=== PATIENT | male | born 1960 | race Caucasian/White ===

== ENCOUNTER 2024-04-15 09:31 | Inpatient (IN) | payer OTHER, SELFPAY ==
[2024-04-15] VITALS (18 sets, daily range): BP systolic 113–153; BP diastolic 64–90; PULSE 60–89; RESP 16–18; TEMP 36.3–37.1; O2SAT 95–99; BMI 22.6; BMI 21.0
--- NOTE | 2024-04-15 09:34 | RAD_ITS ---
STUDY: X-RAY - LEFT HAND REASON FOR EXAM: Male, 64 years old. Work injury. TECHNIQUE: 4 view(s) of the hand. COMPARISON: None. FINDINGS: There is joint space narrowing of the radiocarpal articulation consistent with degenerative arthrosis. Normal distal radioulnar joint. 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 Normal carpal articulations Normal carpometacarpal articulation of the thumb. Normal second through fifth carpometacarpal joints. Transverse fracture through the distal portion of the second metacarpal. Normal metacarpophalangeal joint of the thumb. Normal interphalangeal joint of the thumb. Comminuted displaced fracture through the midportion of the proximal phalanx of the thumb. Normal metacarpophalangeal joints of the second through fifth fingers. Normal proximal and distal interphalangeal joints of the second through fifth fingers. Comminuted displaced fracture of the distal aspect of the proximal phalanx of the index finger. Diffuse soft tissue swelling and laceration. RAD/Hand Min 3 Views IMPRESSION: Fracture through the distal portion of the second metacarpal as well as the proximal phalanx of the thumb and the distal aspect of the proximal phalanx of the index finger as described. Soft tissue swelling and laceration. Degenerative changes at the radiocarpal joint as well as deformity of the carpal navicular bone. Electronically Signed: Neto Quevedo MD at 10:22 [facility] ,
[2024-04-15] MEDS: Diphth,Pertuss(Acell),Tet Vac 0.5 ML Vial IM (09:42)
[2024-04-15] MEDS: Cefazolin 1 GM/50 ML BAG IV ×2 (09:50→19:34)
--- NOTE | 2024-04-15 09:56 | EX.ED.UPPERE ---
HPI History of Present Illness Chief Complaint: Upper Extremity Injury Detail of Chief Complaint: Question injury left hand Informant: patient Occured/Mechanism Mechanism/Context: Yes injury and Yes blunt trauma Comment: On toe motor. Hand slipped and was crushed. Onset/Context/Timing Onset: Today (Approximately 8:30 AM) Context: Sudden Onset Timing: Continuous Quality of Pain: Dull and Aching Location: Fingers and hand, left Current Severity: Mild Maximum Severity: Moderate Worsened by: Touch or movement Relieved by: Nothing Associated Symptoms Associated Symptoms: Positive for Loss of Funtion Narrative Narrative: Patient is a 64-year-old [id number] male. He has no significant past medical history. He has no allergies. He is on no antithrombotic or anticoagulant. He presents with crush injury. Patient's hand was dressed by paramedics. Pictures were taken prior to drug seeing application. These remained in place. Pictures were sent to Dr. Reno Dela Cruz. He was informed that patient was made NPO. He has not had anything to eat since last evening. He had a couple coffee at 0500 and a sip of water at 0530. Patient denies any other symptoms. Tetanus is unknown. Tetanus Immunization: Unknown Prior similar symptoms: No Recent Illness/Hospitalization: No PFSH PFSH Medical History no medical history no medical history Home Medications ?Medication ?Instructions ?Recorded ?Last Taken ?Type NK 04/15/24 Unknown History Allergy/AdvReac Type Severity Reaction Status Date / Time No Known Allergies Allergy Verified 04/15/24 09:32 Social History Smoking Status: Current every day smoker tobacco type: cigarettes ROS ROS ED Constitutional Constitutional ED: Denies chills, fever(s), subjective or sweats Cardiovascular Cardiovascular: Denies chest pain or palpitations Respiratory/Chest Respiratory/Chest: Denies cough, dyspnea or dyspnea on exertion Gastrointestinal Gastrointestinal: Denies nausea or vomiting Integumentary Reports other Details: Per HPI narrative/physical exam ; Denies rash Neurologic Neurologic: Reports paresthesias Hematologic/Lymphatic Hematologic/Lymphatic: Denies easy bleeding or easy bruising EXAM Physical Exam Const Vital Signs: 04/15/24 09:32 Temperature 98.6 F Temperature Source Oral Pulse Rate 82 Respiratory Rate 16 Blood Pressure 140/84 H Blood Pressure Mean 102 Pulse Ox 95 Oxygen Delivery Method Room Air Positive well nourished and well developed General Appearance ED: well developed and NAD HEENT normocephalic and atraumatic Eyes PERRL and EOMs intact bilaterally Eyes Narrative: Sclera is anicteric. Conjunctive is pink. Resp normal respiratory effort and clear to auscultation bilaterally Cardio regular rate, regular rhythm, S1 normal heart sound, S2 normal heart sound and no murmurs Extremity Negative for normal to inspection Extremity Narrative: Patient has significant soft tissue injury to the dorsum of the left hand, there is loss of tissue dorsal surface of left index finger. The extensor indices tendon is visible as well as muscle. There appears to be no abnormality of the thumb or long finger. Patient has a palpable radial pulse. Neuro oriented x3 and CN's II-XII intact bilaterally Sensorium / Orientation: alert Psych mental status grossly normal Skin Skin Narrative: Described under the extremity portion of the EMR Lesions: no lesions Rashes: no rashes MDM MDM MDM Narrative Medical decision making narrative: Patient was made NPO. IV was established. He received a gram of Ancef. Images were ordered. Baseline blood work since patient will need to go to the OR. Contacted hand surgeon and pictures sent. Plan is OR 11:30 AM to 12 noon. Lab Data Attestation: I reviewed the patient's lab results. (Patient has mild anemia with normal indices.) Lab results narrative: Patient's electrolyte panel is marked for calcium of 7.2. Will add an albumin, magnesium and ionized calcium. Ionized calcium was normal. Magnesium is high at 2.7. Albumin is normal. Radiography Chest X-Ray - ED: Read by ED Physician (Three-view x-ray of the hand reveals a comminuted open fracture of the proximal phalanx left index finger, open displaced fracture of the proximal phalanx left thumb and a nondisplaced fracture shaft second metacarpal. This independently reviewed interpreted by me at 1014.) Management Discussion w/another healthcare provider: Talent Acquisition Program Manager (Documented MDM/plan portion of the EMR) Treatment and Re-Evaluation Narrative: Dr. Reno Dela Cruz did see patient in the ER. Plan is OR. Discharge Plan Dx/Rx/DC Orders Clinical Impression: Open fracture of phalanx of left index finger, Open fracture of second metacarpal bone of left hand, Open fracture of proximal phalanx of left thumb, Hypocalcemia Disposition Disposition: Acute Care Hospital [facility] Discharge Date/Time: 04/15/24 11:54
[2024-04-15 09:58] LABS: Absolute Lymphocyte Count 1.45 X10^3/uL (0.83-4.51); Absolute Neutrophil Count 6.4 X10^3/uL (2.0-7.7); Basophil# 0.05 X10^3/uL; Basophil% 0.6 % (0-1); Eosinophil# 0.03 X10^3/uL; Eosinophils% 0.4 % (0-5); Hemoglobin 12.5 g/dL (13.0-16.5); Lymphocyte # 1.45 X10^3/ul (0.83-4.51); Mean Corp Hgb Conc 33.8 g/dL (32-36); Mean Corpuscular Hgb 31.1 pg (27.0-32.0); Mean Platelet Vol. 8.5 fl (6.2-12.0); Monocyte# 0.52 X10^3/uL; Monocyte% 6.1 % (0-10); NRBC Flagged by Analyzer 0 % (0-5); Neutrophil # 6.43 X10^3/uL (2.7-7.7); Neutrophil % 75.4 % (47-70); Platelet Count 262 K/mm3 (150-450); RBC Distribution Width CV 13.5 % (11.6-14.6); RBC Distribution Width SD 45.9 fl (35.1-43.9); Red Blood Count 4.02 M/mm3 (4.6-6.2); White Blood Count 8.5 K/mm3 (4.4-11.0)
[2024-04-15 10:13] LABS: Anion Gap 5 (5-15); BUN 12 mg/dL (7-18); BUN/Creat Ratio 19.5 RATIO (10-20); Calcium,Total 7.2 mg/dL (8.5-10.1); Chloride 115 mmol/L (98-107); Creatinine, Serum 0.62 mg/dL (0.70-1.30); EST Glomerular Filtration Rate 140 mL/min (>60); Est Glom Filt Rate - Afr Amer 170 mL/min (>60); Estimated Creatinine Clearance 112.98 ml/min; Glucose 106 mg/dL (74-106); Potassium 3.5 mmol/L (3.5-5.1); Sodium Level 143 mmol/L (136-145)
[2024-04-15 11:40] LABS: Albumin, Serum 4.1 g/dL (3.2-5.0); Magnesium 2.7 mg/dL (1.6-2.6)
--- NOTE | 2024-04-15 11:56 | CON.PCM.SX_ITS ---
Assessment & Plan Assessment/Plan (1) Open fracture of proximal phalanx of left thumb: (2) Open fracture of second metacarpal bone of left hand: (3) Open fracture of phalanx of left index finger: PLAN: Plan I talked the patient extensively about his condition. We talked about how the index finger is no longer perfused distal to the zone of injury and there is so severe degloving injury and crush component. Given that there are injuries to the neurovascular bundles, the bone, and most of the tendon, I am recommending revision amputation at the level of the MCP joint to the index finger. The patient understands this and is in agreement. I talked to him about options for microvascular reconstruction/salvage, and he was offered emergent transfer to a tertiary care center, which he declined. I further talked to him about bony reconstruction for the metacarpal and thumb fractures, and he understands the risk of hardware failure, nonunion, malunion, infection, failure to obtain the desired result, stiffness, pain, and poor hand function. The other risks of surgery, including bleeding, soft tissue loss and need for revision surgeries and soft tissue reconstruction, damage to surrounding structures, surgical site dehiscence and wound formation, need for wound care, need for repeat operations, failure to obtain the desired result, DVT/PE, and the risks of anesthesia including were also discussed. In general the benefits and alternatives of this surgery were discussed. All of their questions were answered, and they agreed to proceed with surgery. Emergent open fracture washout, debridement and reconstruction/exploration with index finger revision amputation. 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 He reports sharp severe pain in the right upper extremity worsened by movements and improved with rest and elevation. He has never hurt this hand before. He smokes 1 pack of cigarettes per day. Today in the emergency department his tetanus was updated and he was given a gram of Ancef. He does not have any history of problems with anesthesia or any personal or family history of bleeding or clotting problems. Patient does not take any medications on a regular basis. Patient is not complaining of any other injuries, and there is no sign of any other traumatic location. [facility] Medical History no medical history Home Medications ?Medication ?Instructions ?Recorded ?Last Taken ?Type NK 04/15/24 Unknown History Allergy/AdvReac Type Severity Reaction Status Date / Time No Known Allergies Allergy Verified 04/15/24 09:32 Social History Smoking Status: Current every day smoker tobacco type: cigarettes Physical Exam Narrative LEFT UPPER EXTREMITY Inspection: Left upper extremity with degloving injury of the volar and dorsal index finger and the dorsal left hand, as well as degloving/crush injury/laceration to left thumb dorsal surface. Small slip of extensor mechanism still intact on the index finger, but otherwise severe crush avulsion injury to the extensor mechanism and the volar flexor tendons. Motor: Unable to bend or extend his index finger. to bend and extend all other MP, PIP, and DIP joints. He is able to bend and extend the thumb MCP and IP joints. Sensory: Intact pinprick sensation on the radial and ulnar borders of the thumb distal to the zone of injury, however absent pinprick sensation on the radial and ulnar borders of the index finger distal to the zone of injury. Vascular: The index finger is just vascularized distal to the zone of injury (no Doppler signal, no capillary refill). The other finger tips are warm and well perfused with <2 second capillary refill, and the thumb is perfused with examination using the Doppler distal to the zone of injury with triphasic signal. Const alert and oriented x3 Lab / Micro Data 04/15/24 09:46 04/15/24 09:46 Labs: Laboratory Results - last 24 hr 04/15/24 09:46: WBC 8.5, RBC 4.02 L, Hgb 12.5 L, Hct 37.0 L, MCV 92.0, MCH 31.1, MCHC 33.8, RDW Std Deviation 45.9 H, RDW Coeff of Juaquin 13.5, Plt Count 262, MPV 8.5, Immature Gran % (Auto) 0.500, Neut % (Auto) 75.4 H, Lymph % (Auto) 17.0 L, Warrick % (Auto) 6.1, Eos % (Auto) 0.4, Baso % (Auto) 0.6, Absolute Neuts (auto) 6.4, Absolute Lymphs (auto) 1.45, Nucleated RBC % 0, Sodium 143, Potassium 3.5, Chloride 115 H, Carbon Dioxide 23.0, Anion Gap 5, BUN 12, Creatinine 0.62 L, Estim Creat Clear Calc 112.98, Est GFR (MDRD) Af Amer 170, Est GFR (MDRD) Non-Af 140, BUN/Creatinine Ratio 19.5, Glucose 106, Calcium 7.2 L 04/15/24 11:16: Magnesium 2.7 H, Albumin 4.1 04/15/24 11:44: Ionized Calcium 1.20 Imaging Radiology Impression Hand X-Ray 04/15/24 09:34 IMPRESSION: Fracture through the distal portion of the second metacarpal as well as the proximal phalanx of the thumb and the distal aspect of the proximal phalanx of the index finger as described. Soft tissue swelling and laceration. Degenerative changes at the radiocarpal joint as well as deformity of the carpal navicular bone. Electronically Signed: Neto Quevedo MD at 10:22 EST , Charges/Coding Multi Select Codes Visit Charges Office Visit/Consults: 63366 OV L5 New 60min (With 57 modifier (decision to take emergently to surgery) )
--- NOTE | 2024-04-15 12:36 | PRE.ANES_ITS ---
ASA Classification* ASA Classification ASA Classification: 2 and E Assessment & Plan Anesthesia* Anesthesia Assessment Anesthesia Assessment: Discussed sedation and/or anesthesia options, risks, benefits, and alternatives with patient/parents/legal guardian/POA. Questions invited. The patient/parents/legal guardian/POA seems to understand and agrees to proceed with anesthesia plan. Reviewed the physical assessment, medical history, allergy history and patient home medications list prior to surgery/procedure/anesthetic and documented any changes. Performed airway and anesthesia risk assessments. Anesthesia Type Anesthesia Type: General Anesthesia Focused Assessment* Temperature: 97.5 F Pulse Rate: 89 Blood Pressure: 153/90 Respiratory Rate: 16 Pulse Ox: 98 Airway Assessment Mouth opens: >3 cm Mallampati Score: II Focused Labs Anesthesia Preop lab: CBC WBC 8.5 K/mm3 (4.4-11.0) 04/15/24 09:46 RBC 4.02 M/mm3 (4.6-6.2) L 04/15/24 09:46 Hgb 12.5 g/dL (13.0-16.5) L 04/15/24 09:46 Hct 37.0 % (40-54) L 04/15/24 09:46 Plt Count 262 K/mm3 (150-450) 04/15/24 09:46 CHEMISTRY Potassium 3.5 mmol/L (3.5-5.1) 04/15/24 09:46 Sodium 143 mmol/L (136-145) 04/15/24 09:46 Magnesium 2.7 mg/dL (1.6-2.6) H 04/15/24 11:16 BUN 12 mg/dL (7-18) 04/15/24 09:46 Creatinine 0.62 mg/dL (0.70-1.30) L 04/15/24 09:46 Glucose 106 mg/dL (74-106) 04/15/24 09:46 COAG Pre-Assessment Diagnosis/Proposed Procedure Planned Operative Procedure(s): L hand Fracture I&D index revission amputation Anesthesia History Anesthesia History - medical records clerk: Anesthesia History - medical records clerk Hx Hospitalization Any Problems With Anesthesia Cholinesterase deficiency You/Your Family Experience fever (hyperthermia) with Relationship Recent Exposure to Contagious Disease Does patient have nerve stimulator Patient instructed to have device shut off --Does patient have Pacemaker or ICD? When Was Last Pacemaker Check QUESTION #4 FULL TEXT: You/Your Family Experience fever (hyperthermia) with Anesthesia Last Oral Intake Last Oral intake: Last Oral Intake NPO since Meds taken in AM with sips of water? Meds patient instructed to take am of surgery PONV PONV - medical records clerk: PONV - medical records clerk Female HX of Motion Sickness HX of N/V After Surgery Non-Smoker Duration of Surgery greater than 60 minutes Number of Risk Factors PONV Score Height & Weight Height & Weight: Anesthesia: Height & Weight Height 5 ft 7 in 04/15/24 09:32 Weight: 65.5 kg 04/15/24 09:32 Body Mass Index (BMI) 22.6 04/15/24 09:32 Respiratory Assessment Respiratory Assessment - medical records clerk: Respiratory Tract Infection Hx - medical records clerk Hx Respiratory Tract Infection STOP Sleep Apnea STOP Sleep Apnea - medical records clerk: STOP Sleep Apnea - medical records clerk Hx Hypertension Hx Sleep Apnea CPAP BIPAP Do you snore loudly (louder than talking or can be heard Do you often feel tired/ fatigued/ sleepy during daytime? Has anyone observed you stop breathing during sleep? STOP Results QUESTION #5 FULL TEXT : Do you snore loudly (louder than talking or can be heard through closed doors)? Tobacco Use History Tobacco Use History - medical records clerk: Tobacco Use History - medical records clerk Tobacco Use Smoking Status Current every day smoker 04/15/24 09:36 Hx Tobacco Use Years Smoking Packs Smoked per Day Smoking Cessation Date was within the last 15 years Hx Smoking Cessation Date Hx Smoking Cessation No 04/15/24 09:36 Counseling Hematologic Medial History Hematologic Hx - medical records clerk: Hematologic Medical Hx - tray filler Hx of Blood Transfusion Hx of Transfusion in last 3 Months Date of Last Transfusion (if within last 3 months) Ever experience any problems with transfusion(s)? Specify any problems Hx of Preganancy in last 3 Months Nurse Filling Out Transfusion & Questions: Date: Time: Patient unable to answer at this time (ie. confused, unrespo /Reproduction History /Reproductive History - medical records clerk: /Reproductive Hx- medical records clerk Hx Now Gestational Age (in weeks): EDC: Hx Hx Para Hx Section SAB PFSH Medical History no medical history Home Medications ?Medication ?Instructions ?Recorded ?Last Taken ?Type NK 04/15/24 Unknown History Allergy/AdvReac Type Severity Reaction Status Date / Time No Known Allergies Allergy Verified 04/15/24 09:32 Social History Smoking Status: Current every day smoker tobacco type: cigarettes Review of Systems (Anesthesia) ROS Narrative System reviewed and no additional complaints, except as documented.
--- NOTE | 2024-04-15 13:40 | AMP_PTH ---
PATIENT: CRYSTAL TUCKER LOC: MS3 U#:[id number] AGE/SX: 64/M ROOM: [facility] [place] RE04/15/[address]: Dr. Reno Dela Cruz MD : 1960 BED: 1 DIS: 04/17/2024 SPEC #: [id number] RECD: 04/15/24 18:11 STATUS: JL COBURN #: [id number] LARA: 04/15/24 13:[address]: Reno Dela Cruz DEPT: SURGICAL PATHOLOGY RECD BY: Dave Zurita ENTERED: 04/16/24 07:09 SP TYPE: Amputation OTHR DR: Dr. Brody Saleh MD Tissues: Finger, NOS Procedures: Decalcification bone/plaque Surgery Specimen Level V HEADER OPERATION: Left hand open fracture washout, repair bone, tendon, nerves PRE-OP DIAGNOSIS: Open fracture of proximal phalanx of left thumb, open fracture of second metacarpal bone of left hand, open fracture of phalanx of left index finger TISSUE SUBMITTED: Left index finger bone and tissue MICROSCOPIC DIAGNOSIS Left index finger bone and tissue: Focal acute and chronic inflammation and granulation tissue reaction. Detached pieces of bone with hemorrhage, clinically fracture of proximal phalanx. 04/21/2024 COMMENT Case has been reviewed in consultation with Dr. Atkins who concurs with the above diagnosis. IDC:AM MICROSCOPIC DESCRIPTION Slides are reviewed. GROSS DESCRIPTION Received in fixative is one container labeled with the patient's name and designated Left index finger bone and tissue. The specimen consists of a portion of a digit/finger measuring 8.0 x 2.5 x 2.0cm. The section margin is irregular. Nail is also present and appears unremarkable. Also present in the container are multiple detached pieces of soft tissue measuring in aggregate 4.0 x 3.5 x 1.0cm. Also present in the container is a piece of bone measuring 2.0 x 1.5 x 1.5cm. Two smaller fragments of bone are also noted measuring in aggregate 2.0 x 1.0 x 0.5cm. Photo Print Specialist sections are submitted in five cassettes as follows: 1- skin and underlying tissue from finger/digit, 2- detached pieces of soft tissue, 3- detached pieces of bone after decalcification, 4- a detached piece of bone after decalcification, 5- detached bone from finger after decalcification. SJ.mr 04/16/2024 TC:5 CPT:75856,75345
--- NOTE | 2024-04-15 13:50 | RAD_ITS ---
PROCEDURE: Intraoperative imaging for reduction of the thumb and index fingers. DATE OF EXAMINATION: April 15, 2024. INDICATION: Male, 64 years old. Amputation. FLUOROSCOPY TIME (if supplied): (4 minutes) minutes/seconds. 1.23 mGy RAD/Finger(s) Min 2 Views IMPRESSION: Intraoperative imaging provided for open reduction and internal fixation of the fracture of the proximal phalanx of the thumb as well as the middle phalanx of the index finger. Electronically Signed: Neto Quevedo MD at 15:55 EST ,
--- NOTE | 2024-04-15 13:54 | OP.PCM_ITS ---
Operative Report (Standard) Operative Information Date of Procedure: 04/15/24 Pre-Operative Diagnosis: Crush and degloving injury to left hand with open fractures of the left dorsal hand, thumb, and index finger Post-Operative Diagnosis: Same Surgery/Procedure Performed: 1) Revision amputation of the left index finger at the MCP joint (CPT 74220) 2) Open fracture wash out with open reduction percutaneous pinning left thumb proximal phalanx fracture (CPT 73775) 3) Simple closure of left dorsal hand wound/thumb wound 13 cm (CPT 46354) 4) Closed management of left index finger metacarpal head fracture (splinting/immobilization) (CPT 42398) puttying and calking supervisor: No Type of Anesthesia: General/Supplemental (10 cc of 0.25% Marcaine for local block ) RN Documented Start/Stop Times: Operation Date: 04/15/24 13:40 Case Time Into Pre-Op 04/15/24 12:04 Out of Pre-Op 04/15/24 14:17 Anesthesia Start 04/15/24 14:22 Into Room 04/15/24 14:22 Procedure Start 04/15/24 14:54 Procedure End 04/15/24 16:55 Anesthesia End 04/15/24 17:02 Out of Room 04/15/24 17:02 Into Recovery 04/15/24 17:05 Procedure Start Time: 14:22 Procedure Stop Time: 16:51 Select all DRAINS/GRAFTS/IMPLANTS that apply: Drains (Whitney drain dorsally beneath the avulsed skin ) Drain details: Clemencia drain dorsally beneath the avulsed skin sutured in with silk Estimated Blood Loss: 20 cc Specimen collected: Yes Description of specimen(s) removed: Amputated index finger Description of surgery: Indications: Reggie Suresh is a 64-year-old male with no significant past medical history who 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 The severe crush/avulsion injury to the left hand is an indication for emergent operative treatment of the injury. He presents today for washout of open fractures and revision amputation of the index finger as it is not perfused distally to the zone of injury. I talked the patient about revision amputation at the base of P1 or at the MCP joint and he was in agreement. Plan for operative fixation of the thumb fracture. Procedure details: Patient was taken back to the operating room emergently and administered general anesthesia and prepped and draped in sterile fashion. A timeout was performed. The wounds were irrigated with 3 L of normal saline. An Esmarch was used carefully (prevent further injury to avulsed tissues) and tourniquet insufflated to 250 mmHg on the left arm. Complete crush/transection of the index finger neurovascular bundles was confirmed. The flexor and limited extensor tendons were amputated with a 15 blade, and the digital nerves were treated with traction neurectomies. The base of the proximal phalanx was examined and had severe soft tissue damage/stripping from the sides of the bone. The muscle/tendons were torn off of the insertions. Decision was made to amputation the index at the level of the MCP joint, which also enabled rotation and advancement of the volar skin flap dorsally enough to cover the metacarpal head and close the the remaining viable soft tissue. The volar soft tissue was then advanced over the metacarpal head (metacarpal head joint cartilage was rongeured to prevent fluid accumulation) and closed with 3-0 Chromic Gut suture. Attention was then turned to the thumb. The flexor and extensor tendons were visualized and were intact. The fracture was further washed out with copious amounts normal saline and 450 cc of Irrisept. The fracture was then reduced with the mini C arm through the use of the open lacerations. Percutaneous pins were then drilled through the fracture sites (1 transverse distally to prevent comminution, and two diagonally from the condylar recess to the proximal joint). Once acceptable reduction was obtained, the pins were cut at the skin level and buried. Dermabond applied over the pin sites. The lacerations were then closed with 3-0 Chromic Gut suture interrupted sutures for a total 13 cm simple repair. A Clemencia was placed dorsally underneath the avulsed dorsal soft tissue to prevent fluid collections. 10 cc of Bupivucaine was placed for a local block. XF and a radial gutter/thumb spica plaster splint. The patient tolerated the procedure well and was awaken and taken to the PACU instable condition. Post-operative plan: Admit for pain control. Change splint tomorrow to check on viability of avulsed soft tissue that was tacked back into place. Surgical Findings: OPERATIVE FINDINGS * Damage to neurovascular bundles of the left index finger (no distal perfusion) * Severe avulsion soft tissue around P1 of the index (no apparent insertion of the dorsal/volar interossei on radial side and collateral ligament injury) and limited soft tissue for coverage of the stump 2/2 avulsion (need for volar skin advancement dorsally), both of which (especially the former) influenced decision for amputation at the level of the MCP joint of the index finger. Complications Complications: No Admit VTE Documentation VTE Mechan Device Prophylaxis: SCD's
--- NOTE | 2024-04-15 17:06 | PCM.POST.ANE ---
Anesthesia: Postop Eval I Current Vital Signs Temperature: 98.2 F Pulse Rate: 82 Blood Pressure: 120/78 Respiratory Rate: 18 Pulse Ox: 97 Assessment Airway patent: Yes Spontaneous unlabored respirations: Yes nausea: No Vomiting: No Anesthesia Complication: No Fluid Hydration Crystalloid volume administer (ml): 1,500 Total IV fluid infused: 1,500 Progress Note Anesthesia document: Postop Eval 1 completed: Yes
--- NOTE | 2024-04-15 17:23 | POSTOPAN2_ITS ---
Anesthesia Postop Eval I Sum Postop Eval Completion status Anesthesia document: Postop Eval 1 completed: Yes Anesthesia Postop Eval I Summary Anesthesia Postop Eval I Summary: Anesthesia Postop Eval I: Assessment Summary Airway patent Yes 04/15/24 17:06 SPEECH COMMUNICATION INSTRUCTOR.CSIR Spontaneous unlabored Yes 04/15/24 17:06 SPEECH COMMUNICATION INSTRUCTOR.CSIR respirations Mental status nausea No 04/15/24 17:06 SPEECH COMMUNICATION INSTRUCTOR.CSIR Vomiting No 04/15/24 17:06 SPEECH COMMUNICATION INSTRUCTOR.CSIR Anesthesia Postop Eval I: Fluid Summary Crystalloid volume administer 1,500 04/15/24 17:06 SPEECH COMMUNICATION INSTRUCTOR.CSIR (ml) Colloids volume administered ( ml) Blood Product volume administered (ml) Total IV fluid infused 1,500 04/15/24 17:06 SPEECH COMMUNICATION INSTRUCTOR.CSIR Anesthesia Postop Eval I: Summary Notes Anesthesia Complication No 04/15/24 17:06 SPEECH COMMUNICATION INSTRUCTOR.CSIR Anesthesia Complication Comment: Post-operative progress note Anesthesia: Postop Eval II Evaluation Mental status: Awake Pain Level: 3 nausea: No Vomiting: No
--- NOTE | 2024-04-15 17:23 | PCM.POSTANE2 ---
Anesthesia Postop Eval I Sum Postop Eval Completion status Anesthesia document: Postop Eval 1 completed: Yes Anesthesia Postop Eval I Summary Anesthesia Postop Eval I Summary: Anesthesia Postop Eval I: Assessment Summary Airway patent Yes 04/15/24 17:06 PARK MANAGER.[email or web address] Spontaneous unlabored Yes 04/15/24 17:06 PARK MANAGER.CSIR respirations Mental status nausea No 04/15/24 17:06 PARK MANAGER.CSIR Vomiting No 04/15/24 17:06 PARK MANAGER.CSIR Anesthesia Postop Eval I: Fluid Summary Crystalloid volume administer 1,500 04/15/24 17:06 PARK MANAGER.CSIR (ml) Colloids volume administered ( ml) Blood Product volume administered (ml) Total IV fluid infused 1,500 04/15/24 17:06 PARK MANAGER.CSIR Anesthesia Postop Eval I: Summary Notes Anesthesia Complication No 04/15/24 17:06 PARK MANAGER.CSIR Anesthesia Complication Comment: Post-operative progress note Anesthesia: Postop Eval II Evaluation Mental status: Awake Pain Level: 3 nausea: No Vomiting: No
[2024-04-15] MEDS: oxyCODONE 5 MG Tablet PO (21:25)
[2024-04-15] MEDS: Acetaminophen 325 MG Tablet 650 MG PO (21:25)
[2024-04-16] MEDS: Acetaminophen 325 MG Tablet 650 MG PO ×3 (03:44→19:28)
[2024-04-16] MEDS: oxyCODONE 5 MG Tablet PO ×3 (03:44→19:28)
[2024-04-16] MEDS: Cefazolin 1 GM/50 ML BAG IV ×3 (03:45→19:24)
[2024-04-16 03:49] VITALS: BP 108/70; PULSE 68; RESP 16; TEMP 36.6; O2SAT 98
[2024-04-16 07:44] VITALS: BP 122/70; PULSE 62; RESP 18; TEMP 36.9; O2SAT 99
[2024-04-16] MEDS: Lidocaine 1% (20 ml mdv) 20 ML Vial (08:50)
[2024-04-16] MEDS: Lidocaine 1% /Epi 1:100 (20ml) 20 ML Vial (08:51)
[2024-04-16] MEDS: Bupivacaine 0.25% 30 ML Vial (08:51)
[2024-04-16 13:56] VITALS: BP 118/101; PULSE 71; RESP 18; TEMP 37.1; O2SAT 96
[2024-04-16] MEDS: Enoxaparin 40 MG/0.4 ML Syringe SC (14:04)
--- NOTE | 2024-04-16 15:50 | CASEMGMT ---
PAYTON CONCEPCION into pt room, pt nurse in room to medicate pt as wound nurse and is coming up to change dressing. Pt states he has to use the restroom. PAYTON CONCEPCION to complete assessment at a later time.
[2024-04-16] MEDS: 0.9% Saline Lock 10 ML Syringe IV ×2 (15:55→19:24)
[2024-04-16] MEDS: HYDROmorphone 0.5 MG/0.5 ML SYRINGE IV (15:55)
--- NOTE | 2024-04-16 16:49 | PN_ITS ---
Progress Note Doing well overall post opday 1 . Pain controlled. Physical Exam Narrative LUE: Splint removed on rounds today. Soft tissue healthy and viable at sites of degloving. Splint reapplied. Const alert and oriented x3 Eyes EOMs intact bilaterally Neck full ROM Resp normal respiratory effort Cardio Rate: regular rate Extremity Extremity Narrative: SCDs on and activated, no swelling. Assessment & Plan Assessment/Plan (1) Open fracture of proximal phalanx of left thumb: (2) Open fracture of second metacarpal bone of left hand: (3) Open fracture of phalanx of left index finger: PLAN: Plan Drain removed. No signs of tissue loss or fluid collections. Splint reapplied. Continue inpatient for pain control. Likely DC tomorrow morning with f/u in 1 week at [facility]. Continue Ancef for pxx Lovenox and SCDs for DVT pxx. IS Procedures Integumentary [id number]: [id number] Global Visit
[2024-04-16 20:08] VITALS: BP 131/73; PULSE 69; RESP 18; TEMP 37.1; O2SAT 97
[2024-04-17] MEDS: Cefazolin 1 GM/50 ML BAG IV (03:41)
[2024-04-17 03:45] VITALS: BP 136/76; PULSE 63; RESP 18; TEMP 36.7; O2SAT 98
[2024-04-17] MEDS: Acetaminophen 325 MG Tablet 650 MG PO (03:46)
[2024-04-17] MEDS: oxyCODONE 5 MG Tablet PO ×2 (03:46→09:59)
[2024-04-17] MEDS: Enoxaparin 40 MG/0.4 ML Syringe SC (08:38)
[2024-04-17 09:22] VITALS: BP 120/65; PULSE 63; RESP 18; TEMP 37; O2SAT 98
--- NOTE | 2024-04-17 10:01 | DS.PCM_ITS ---
Providers Date of Admission: 04/15/24 Primary Care Physician: Dr. Brody Saleh MD Reason For Visit: FINGER AMPUTATION Diagnosis Discharge Diagnosis (1) Open fracture of proximal phalanx of left thumb: Status: Acute Code(s): S62.512B - Displaced fracture of proximal phalanx of left thumb, initial encounter for open fracture (2) Open fracture of second metacarpal bone of left hand: Status: Acute Code(s): S62.301B - Unspecified fracture of second metacarpal bone, left hand, initial encounter for open fracture (3) Open fracture of phalanx of left index finger: Status: Acute Code(s): S62.601B - Fracture of unspecified phalanx of left index finger, initial encounter for open fracture Plan Drain removed. No signs of tissue loss or fluid collections. Splint reapplied. Continue inpatient for pain control. Likely DC tomorrow morning with f/u in 1 week at [facility]. Continue Ancef for pxx Lovenox and SCDs for DVT pxx. IS Medications at Discharge Home Medications NK 04/15/24 cephalexin 500 mg capsule 500 mg PO Q8H 7 days #21 caps 04/17/24 oxycodone 5 mg tablet 5 mg PO Q8H PRN pain 5 days #14 tabs 04/17/24 Hospital Course Operations - (Amputation index finger and thumb fracture operative fixation ) Summary of Care Provided Hospital Course: Pre-Operative Diagnosis: Crush and degloving injury to left hand with open fractures of the left dorsal hand, thumb, and index finger Post-Operative Diagnosis: Same Surgery/Procedure Performed: 1) Revision amputation of the left index finger at the MCP joint (CPT 15471) 2) Open fracture wash out with open reduction percutaneous pinning left thumb proximal phalanx fracture (CPT 35052) 3) Simple closure of left dorsal hand wound/thumb wound 13 cm (CPT 44480) 4) Closed management of left index finger metacarpal head fracture (splinting/immobilization) (CPT 69644) Indications: Reggie Suresh is a 64-year-old male with no significant past medical history who 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 The severe crush/avulsion injury to the left hand is an indication for emergent operative treatment of the injury. He presents today for washout of open fractures and revision amputation of the index finger as it is not perfused distally to the zone of injury. I talked the patient about revision amputation at the base of P1 or at the MCP joint and he was in agreement. Plan for operative fixation of the thumb fracture. HOSPITAL COURSE Reggie Suresh was admitted on 15 Apr 2024 after above noted procedure. He was admitted for pain control. His dressing/splint was changed 24 hours post-op to assess the soft tissues. They were viable. The thumb spica/radial gutter splint was replaced and he was discharged home with 1 week f/u. Patient happy with the plan. Physical Exam Narrative Soft tissue warm and viable. No fluid collections. Thumb in good position/normal cascade Splint replaced Const alert and oriented x3 Weight / BMI Weight Weight: 134 lb 4.8 oz Body Mass Index (BMI) 21.0 ABG / Lab / Microbiology Data 04/15/24 09:46 04/15/24 09:46 Radiography Diagnostic Testing: Radiology Impression Finger X-Ray 04/15/24 13:50 IMPRESSION: Intraoperative imaging provided for open reduction and internal fixation of the fracture of the proximal phalanx of the thumb as well as the middle phalanx of the index finger. Electronically Signed: Neto Quevedo MD at 15:55 EST , D/C Instructions DC O2, CPAP, BIPAP Needs Additional Home O2 Discharge instructions: No DC home with Oxygen: No Meaningful Use Info Meaningful Use Meaningful Use Diagnoses (Choose all that apply): None applicable Ischemic Stroke Statin Dosing Therapy Reference: STATIN DOSE THERAPY REFERENCE: * Patients > 75 years receive moderate or high dose statin therapy. * Patients 75 years or YOUNGER should receive HIGH intensity statin dose unless contraindicated. You will be required to document reason for non-treatment if statin daily dose does not meet guidelines. HIGH DOSE STATIN THERAPY DAILY Atorvastatin > than or = to 40 mg Rosuvastatin > than or = to 20 mg Amlodipine + Atorvastatin > than or = to 2.5/40 mg Ezetimibe + Simvastatin 10/80 mg Simvastatin 80mg Discharge Plan Admission Admit Date/Time: 04/15/24 17:06 Attending Provider: Reno Dela Cruz Primary Care Provider: Brody Saleh Chi Instructions Additional Instructions / Restrictions: Operations Performed: Hnad surgery Instructions for My Care at Home or Healthcare Facility The following instructions will help you know what to expect in the days following surgery. These are general instructions. Your surgeon and therapist may give you special instructions, which vary to some degree based on your specific procedure -- follow those as directed. Do not, however, hesitate to call if you have any questions or concerns. Splint Care/Dressing Care/Wound Care * Dressings - You may have a dressing over the operative site. * If the dressing feels too tight after you get home, it is ok to gently pull on the dressing to stretch it out/loosen it. * Avoid smoking or other tobacco products. Smoking tobacco impairs wound healing and increases the risks of post-operative complications. * Keep the dressing in place and dry (the splint) until your follow up ? Activities * For the first 4 weeks after surgery, try to balance your activity, allowing time for rest. * Avoid lifting, pushing, or pulling anything over 5 pounds. * Do not drive or operate heavy machinery within 24 hrs of surgery or while taking narcotic pain medication.? Pain Control/Medications * If you received an anesthetic block, your hand or arm may be numb for several hours. You will be discharged to home with medications, including an oral pain medication (analgesic). Rest and elevation are still one of the most important factors for pain control. Take your pain medication as needed, but do not wait for the pain to become out of control. * For severe pain, you may take prescription pain medication as directed, but please note that this may also contain Tylenol (e.g. Percocet). Do not take more than 4000mg of Tylenol (acetaminophen) from all sources daily.? * Pain medication may cause some lethargy, nausea, and or constipation. You should not drive/operate dangerous machinery while taking these medications. If these or other symptoms become significantly problematic, please your surgeon's office. * If prescribed oral antibiotics (Keflex, Clindamycin, or others), please take prescription for full duration as instructed. You should not have any pills remaining once completed (refills are written for your convenience should the course need to be extended, but generally they are not required). Diet (what I can eat): Resume normal diet Follow up * You will be seen (most likely) 1 to 2 weeks after surgery depending on the procedure. Follow-up appointment reminders:? (A list of any scheduled appointments is at the end of this document)? At your earliest convenience, please call [phone] to confirm/schedule a follow-up appointment with Dr Dela Cruz in clinic on 22 Apr 2024 at [facility] When to call your surgeon: * If any signs of surgical site infection develop: redness, pus, pain, increased swelling or foul odor at the incision site, fever, cold and clammy skin, or confusion. * Consistent temperature above 101?F (38.3?C). * The affected area gets swollen or much more painful. * You have excessive bleeding from surgical site (soaking through). If you experience difficulty breathing and/or shortness of breath, seek immediate medical attention. If experiencing any of the above complications or if you have any questions, call [phone] Discharge Orders/Prescriptions Prescriptions: New oxycodone 5 mg tablet 5 mg PO Q8H PRN (Reason: pain) 5 Days Qty: 14 0RF cephalexin 500 mg capsule 500 mg PO Q8H 7 Days Qty: 21 0RF No Action NK Referrals / Follow Up: Brody Saleh Chi, MD [Primary Care Provider] - Disposition Disposition (needs filled in before D/C Order can be placed): Home, Self Care
--- NOTE | 2024-04-17 11:10 | CASEMGMT ---
PAYTON CONCEPCION Assessment: Face to Face with pt for initial transition planning/care coordination assessment. PAYTON CONCEPCION introduced self and role at [facility], pt voices understanding and consents to assessment. Pt is A&O x4 and answers all questions appropriately at this time. Pt angry and ready to dc. Pt mother present in room. Pt agreeable to assessment with mother present. Care providers, pharmacy, and demographics verified/updated. Admitting Dx: finger amputation Strata Score: 1 PCP:Delfino Specialists:Denies Preferred Pharmacy:[facility] Insurance: Workers Comp Prescription Benefit: yes LNOK: Eileen Suresh, mother Living Arrangements: Pt lives alone in a single story apt with steps to enter. Pt is I in ADL/IADLs and denies concerns at home. Transportation: Pt drives self and denies concerns with transportation. DME:Denies HHC/SNF: Denies Pt states no concerns with going home at time of dc. Pt will be staying with his mother for a couple of days. Pt denies any homegoing needs. He states he completed the FROI in the ER. Pt is aware the dressing to his finger is to stay intact until follow up with . Pt states no further concerns/needs. CM to follow. Advised pt to ask CM if any further question/concerns/needs arise, voices understanding. Pt Goal: Home Plan: Home Toni CAIN CM
--- NOTE | 2024-04-21 08:30 | HP.PCM.SX_ITS ---
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 He reports sharp severe pain in the right upper extremity worsened by movements and improved with rest and elevation. He has never hurt this hand before. He smokes 1 pack of cigarettes per day. Today in the emergency department his tetanus was updated and he was given a gram of Ancef. He does not have any history of problems with anesthesia or any personal or family history of bleeding or clotting problems. Patient does not take any medications on a regular basis. Patient is not complaining of any other injuries, and there is no sign of any other traumatic location. [facility] Medical History no medical history Home Medications ?Medication ?Instructions ?Recorded ?Last Taken ?Type NK 04/15/24 Unknown History cephalexin 500 mg capsule 500 mg PO Q8H 7 days #21 caps 04/17/24 Unknown Rx oxycodone 5 mg tablet 5 mg PO Q8H PRN pain 5 days #14 04/17/24 Unknown Rx tabs Allergy/AdvReac Type Severity Reaction Status Date / Time No Known Allergies Allergy Verified 04/15/24 09:32 Social History Smoking Status: Current every day smoker tobacco type: cigarettes Vital Signs Vital Signs Vital Signs: Weight Weight: 134 lb 4.8 oz Body Mass Index (BMI) 21.0 Physical Exam Narrative LEFT UPPER EXTREMITY Inspection: Left upper extremity with degloving injury of the volar and dorsal index finger and the dorsal left hand, as well as degloving/crush injury/laceration to left thumb dorsal surface. Small slip of extensor mechanism still intact on the index finger, but otherwise severe crush avulsion injury to the extensor mechanism and the volar flexor tendons. Motor: Unable to bend or extend his index finger. to bend and extend all other MP, PIP, and DIP joints. He is able to bend and extend the thumb MCP and IP joints. Sensory: Intact pinprick sensation on the radial and ulnar borders of the thumb distal to the zone of injury, however absent pinprick sensation on the radial and ulnar borders of the index finger distal to the zone of injury. Vascular: The index finger is just vascularized distal to the zone of injury (no Doppler signal, no capillary refill). The other finger tips are warm and well perfused with <2 second capillary refill, and the thumb is perfused with examination using the Doppler distal to the zone of injury with triphasic signal. Results Lab / Micro Data 04/15/24 09:46 04/15/24 09:46 Assessment & Plan Assessment/Plan (1) Open fracture of proximal phalanx of left thumb: (2) Open fracture of second metacarpal bone of left hand: (3) Open fracture of phalanx of left index finger: PLAN: Plan I talked the patient extensively about his condition. We talked about how the index finger is no longer perfused distal to the zone of injury and there is so severe degloving injury and crush component. Given that there are injuries to the neurovascular bundles, the bone, and most of the tendon, I am recommending revision amputation at the level of the MCP joint to the index finger. The patient understands this and is in agreement. I talked to him about options for microvascular reconstruction/salvage, and he was offered emergent transfer to a tertiary care center, which he declined. I further talked to him about bony reconstruction for the metacarpal and thumb fractures, and he understands the risk of hardware failure, nonunion, malunion, infection, failure to obtain the desired result, stiffness, pain, and poor hand function. The other risks of surgery, including bleeding, soft tissue loss and need for revision surgeries and soft tissue reconstruction, damage to surrounding structures, surgical site dehiscence and wound formation, need for wound care, need for repeat operations, failure to obtain the desired result, DVT/PE, and the risks of anesthesia including were also discussed. In general the benefits and alternatives of this surgery were discussed. All of their questions were answered, and they agreed to proceed with surgery. Emergent open fracture washout, debridement and reconstruction/exploration with index finger revision amputation.
== END 2024-04-17 11:30 | disposition home or self-care (01) | DRG 513 ==
LOC: ED 11:40 → SDC 12:00 → ACINP 12:01 → SDC 04-16 08:34 → MS3 04-16 08:34
PROVIDERS: Admitting Provider Surgery Plastic and Reconstructive Surgery; Emergency Provider Emergency Medicine; PCP Family Medicine Geriatric Medicine; Visit Provider Surgery Plastic and Reconstructive Surgery
PROC: 0X6P0Z0 Detachment at Left Index Finger, Complete, Open Approach (ICD-10-PCS; principal; 2024-04-15 13:25)
DX: S62.611B Displaced fracture of proximal phalanx of left index finger, initial encounter for open fracture (principal); S62.321B Displaced fracture of shaft of second metacarpal bone, left hand, initial encounter for open fracture; E83.51 Hypocalcemia; F17.210 Nicotine dependence, cigarettes, uncomplicated; S67.22XA Crushing injury of left hand, initial encounter; S62.512B Displaced fracture of proximal phalanx of left thumb, initial encounter for open fracture; W23.2XXA Caught, crushed, jammed or pinched between a moving and stationary object, initial encounter; Y99.0 Civilian activity done for income or pay; Z23 Encounter for immunization
CPT/HCPCS: 73130; 73140; 76000; 80048; 82040; 82330; 83735; 85025; 88307; 88311; 90471; 90715; 99285; J7030; J7040; A4216; J2405

== ENCOUNTER 2024-05-28 08:23 | Day surgery (SDC) | payer OTHER, SELFPAY ==
[2024-05-28] VITALS (7 sets, daily range): BP systolic 105–126; BP diastolic 62–75; PULSE 60–71; RESP 16–20; TEMP 36.1–36.9; O2SAT 97–100; BMI 20.7
--- NOTE | 2024-05-28 08:59 | RAD_ITS ---
STUDY: X-RAY - LEFT HAND, ATTENTION THUMB REASON FOR EXAM: Male, 64 years old. HARDWARE REMOVAL AND DEBRIDEMENT, 0.4903MGY, 14 seconds, 8 spot images. TECHNIQUE: 8 intraoperative fluoroscopic spot films of the left thumb. COMPARISON: Left thumb radiographs dated 05/27/2024. FINDINGS: Sequential intraoperative spot films of the left thumb demonstrate removal of 3 wires/pins from the proximal phalanx of the thumb. Normal first metacarpal and distal phalanx of the thumb. RAD/Hand 2 Views IMPRESSION: Successful removal of 3 wires/pins from the proximal phalanx of the thumb. Electronically Signed: Veto Cunningham MD at 8:26 EST ,
--- NOTE | 2024-05-28 08:59 | PCM.HP.STD ---
HPI - General HPI Narrative CRYSTAL TUCKER, is a 64 M who presents for debridement and hardware removal (pins from thumb). Current Encounter (DATE OF SURGERY H&P UPDATE): I saw and examined the patient this morning in pre-operative holding. We discussed risks and benefits of today's surgery and they would like to proceed. NO CHANGE in health history since last seen and evaluated. Ready to proceed with surgery. PFSH Medical History Wears glasses Alcohol use Hx of testicular cancer Smoker Home Medications ?Medication ?Instructions ?Recorded ?Last Taken ?Type NK 05/20/24 Unknown History Allergy/AdvReac Type Severity Reaction Status Date / Time No Known Allergies Allergy Verified 05/28/24 08:45 Surgical History (Updated 05/27/24 @ 08:31 by Taniya Roth) Hx of eye surgery History of dental surgery Hx of tonsillectomy History of hand surgery Social History Smoking Status: Current every day smoker tobacco type: cigarettes Vital Signs Vital Signs Vital Signs: 05/28/24 08:45 05/28/24 08:45 Temperature 97 F L Temperature Source Temporal Pulse Rate 71 Respiratory Rate 16 Respiratory Pattern Normal Blood Pressure 126/75 H Blood Pressure Mean 92 Blood Pressure Source Monitor Blood Pressure Position Sitting Blood Pressure Location Right Arm Pulse Ox 98 Oxygen Delivery Method Room Air Weight Weight: 134 lb 7.712 oz Body Mass Index (BMI) 20.7 Physical Exam Narrative LEFT UPPER EXTREMITY Splint removed Soft tissue warm and viable, minimal flap necrosis over index finger metacarpal. Less dorsal hand reactive erythema in the area of the degloving injury, and there are NO fluid collections. Thumb in good position/normal cascade. There is no tenderness over the thumb or index metacarpal fractures on my exam today. Less scab/nonviable tissue today. No infection. Xeroform applied. Sensation: Intact to light touch on the radial and ulnar borders of the thumb. Vascular: Thumb warm and well perfused. Assessment & Plan Assessment/Plan (1) Open fracture of proximal phalanx of left thumb: (2) Open fracture of phalanx of left index finger: PLAN: Plan Doing well with dressing changes and splinting (24 hours but removable only for wound care). Continue XF twice daily Plan for pin removal in the OR tomorrow (>6 weeks s/p placement) with debridement/cleaning of hand/eschar for better wound care/dressing changes. Then OT for ROM and evaluation and treat. I talked him about the risks of removal of the pins and how he may collapse out of reduction. The x-rays are encouraging as the thumb fractures have not moved, and his physical exam is even more encouraging as he is nontender over the fracture site, however he understands the risks and possibility of need for repeat procedures including open reduction internal fixation. INTERVAL H&P PLAN, DATE OF SURGERY: We will proceed with surgery today.
--- NOTE | 2024-05-28 09:02 | PRE.ANES_ITS ---
ASA Classification* ASA Classification ASA Classification: 2 Assessment & Plan Anesthesia* Anesthesia Assessment Anesthesia Assessment: Discussed sedation and/or anesthesia options, risks, benefits, and alternatives with patient/parents/legal guardian/POA. Questions invited. The patient/parents/legal guardian/POA seems to understand and agrees to proceed with anesthesia plan. Reviewed the physical assessment, medical history, allergy history and patient home medications list prior to surgery/procedure/anesthetic and documented any changes. Performed airway and anesthesia risk assessments. Anesthesia Type Anesthesia Type: General History Source History Obtained from:: Patient and Chart Anesthesia Focused Assessment* Temperature: 97 F Pulse Rate: 71 Blood Pressure: 126/75 Respiratory Rate: 16 Pulse Ox: 98 Oxygen Delivery Method: Room Air Airway Assessment Mouth opens: >3 cm Mallampati Score: II Teeth Condition: Chipped/Broken Neck Range of motion (ROM): Full ROM Focused Labs Anesthesia Preop lab: CBC WBC 8.5 K/mm3 (4.4-11.0) 04/15/24 09:46 RBC 4.02 M/mm3 (4.6-6.2) L 04/15/24 09:46 Hgb 12.5 g/dL (13.0-16.5) L 04/15/24 09:46 Hct 37.0 % (40-54) L 04/15/24 09:46 Plt Count 262 K/mm3 (150-450) 04/15/24 09:46 CHEMISTRY Potassium 3.5 mmol/L (3.5-5.1) 04/15/24 09:46 Sodium 143 mmol/L (136-145) 04/15/24 09:46 Magnesium 2.7 mg/dL (1.6-2.6) H 04/15/24 11:16 BUN 12 mg/dL (7-18) 04/15/24 09:46 Creatinine 0.62 mg/dL (0.70-1.30) L 04/15/24 09:46 Glucose 106 mg/dL (74-106) 04/15/24 09:46 COAG Pre-Assessment Diagnosis/Proposed Procedure Planned Operative Procedure(s): HARDWARE REMOVAL AND DEBRIDEMENT LEFT HAND Anesthesia History Anesthesia History - staff climate scientist: Anesthesia History - staff climate scientist Hx Hospitalization No 05/27/24 08:25 Any Problems With Anesthesia No 05/27/24 08:25 Cholinesterase deficiency No 05/27/24 08:25 You/Your Family Experience No 05/27/24 08:25 fever (hyperthermia) with Relationship Recent Exposure to Contagious No 05/28/24 08:45 Disease Does patient have nerve No 05/27/24 08:25 stimulator Patient instructed to have device shut off --Does patient have Pacemaker No 05/28/24 08:45 or ICD? When Was Last Pacemaker Check QUESTION #4 FULL TEXT: You/Your Family Experience fever (hyperthermia) with Anesthesia Last Oral Intake Last Oral intake: Last Oral Intake NPO since 21:00 05/28/24 08:45 Meds taken in AM with sips of No 05/28/24 08:45 water? Meds patient instructed to take am of surgery PONV PONV - staff climate scientist: PONV - staff climate scientist Female No 05/27/24 08:25 HX of Motion Sickness No 05/27/24 08:25 HX of N/V After Surgery No 05/27/24 08:25 Non-Smoker No 05/27/24 08:25 Duration of Surgery greater Yes 05/27/24 08:25 than 60 minutes Number of Risk Factors 1 05/27/24 08:25 PONV Score Low Risk 05/27/24 08:25 Height & Weight Height & Weight: Anesthesia: Height & Weight Height 5 ft 7.5 in 05/28/24 08:45 Weight: 61 kg 05/28/24 08:45 Body Mass Index (BMI) 20.7 05/28/24 08:45 Respiratory Assessment Respiratory Assessment - staff climate scientist: Respiratory Tract Infection Hx - staff climate scientist Hx Respiratory Tract Infection No 05/27/24 08:25 STOP Sleep Apnea STOP Sleep Apnea - staff climate scientist: STOP Sleep Apnea - staff climate scientist Hx Hypertension No 05/27/24 08:25 Hx Sleep Apnea No 05/27/24 08:25 CPAP BIPAP Do you snore loudly (louder No 05/27/24 08:25 than talking or can be heard Do you often feel tired/ No 05/27/24 08:25 fatigued/ sleepy during daytime? Has anyone observed you stop No 05/27/24 08:25 breathing during sleep? STOP Results Negative 05/27/24 08:25 QUESTION #5 FULL TEXT : Do you snore loudly (louder than talking or can be heard through closed doors)? 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 Specify any problems Hx of Preganancy in last 3 N/A 05/27/24 08:25 Months Nurse Filling Out Transfusion DSCHRIBER 05/27/24 08:25 & Questions: Date: 05/27/24 05/27/24 08:25 Time: 08:26 05/27/24 08:25 Patient unable to answer at this time (ie. confused, unrespo /Reproduction History /Reproductive History - staff climate scientist: /Reproductive Hx- staff climate scientist Hx Now No 05/27/24 08:25 Gestational Age (in weeks): EDC: Hx Hx Para Hx Section SAB No 05/27/24 08:25 Active Medications Active Medications: Current Medications Generic Name Dose Route Start Last Admin Trade Name Freq PRN Reason Stop Dose Admin Cefazolin Sodium 2 gm/ N/A 20 mls @ 400 mls/hr 05/28/24 10:00 IV 05/28/24 10:02 PREOP ONE PFSH Medical History Wears glasses Alcohol use Hx of testicular cancer Smoker Home Medications ?Medication ?Instructions ?Recorded ?Last Taken ?Type NK 05/20/24 Unknown History Allergy/AdvReac Type Severity Reaction Status Date / Time No Known Allergies Allergy Verified 05/28/24 08:45 Surgical History Hx of eye surgery History of dental surgery Hx of tonsillectomy History of hand surgery Social History Smoking Status: Current every day smoker tobacco type: cigarettes Review of Systems (Anesthesia) ROS Narrative System reviewed and no additional complaints, except as documented.
[2024-05-28] MEDS: Cefazolin 2 GM in Syringe IV (09:34)
[2024-05-28] MEDS: Lidocaine 1% (20 ml mdv) 20 ML Vial ×2 (09:50→10:10)
[2024-05-28] MEDS: Bupivacaine 0.25% 30 ML Vial (09:50)
--- NOTE | 2024-05-28 10:10 | PCM.POST.ANE ---
Anesthesia: Postop Eval I Current Vital Signs Temperature: 97.4 F Pulse Rate: 67 Blood Pressure: 111/68 Respiratory Rate: 20 Pulse Ox: 97 Assessment Airway patent: Yes Spontaneous unlabored respirations: Yes nausea: No Vomiting: No Anesthesia Complication: No Fluid Hydration Crystalloid volume administer (ml): 300 Total IV fluid infused: 300 Progress Note Anesthesia document: Postop Eval 1 completed: Yes
--- NOTE | 2024-05-28 10:32 | PCM.OPRPT ---
Operative Report (Standard) Operative Information Date of Procedure: 05/28/24 Pre-Operative Diagnosis: 1) Left thumb K wires s/p CRPP 2) Persistent dorsal hand and thumb wounds Post-Operative Diagnosis: Same Surgery/Procedure Performed: 1) Removal of buried K wires from left thumb (CPT: 49537) 2) Excision of left hand wounds, 2 x 0.5 cm and 1 x 1 cm, (CPT 92862) heating and blending supervisor: No Type of Anesthesia: MAC/Supplemental (5 cc of a 50/50 mixture of 0.25% Marcaine and 1% lidocaine ) RN Documented Start/Stop Times: Operation Date: 05/28/24 10:00 Case Time Into Pre-Op 05/28/24 08:34 Out of Pre-Op 05/28/24 09:28 Anesthesia Start 05/28/24 09:34 Into Room 05/28/24 09:34 Procedure Start 05/28/24 09:46 Procedure End 05/28/24 10:00 Anesthesia End 05/28/24 10:06 Out of Room 05/28/24 10:06 Into Recovery 05/28/24 10:07 Into Phase II Recovery 05/28/24 10:21 Out of Recovery 05/28/24 10:21 Procedure Start Time: 09:46 Procedure Stop Time: 10:00 Select all DRAINS/GRAFTS/IMPLANTS that apply: None Estimated Blood Loss: minimal Specimen collected: No Description of surgery: Patient was correctly identified in preoperative holding and taken back to the operating room where he was administered some sedation and a local block as noted above. The mini C arm was brought into the room and the patient was prepped and draped in sterile fashion. A timeout was performed. Using the C arm I was able to examine the fracture under fluoroscopy and it appeared stable. I therefore remove the buried wires with small stab incisions and a needle shuttle bus driver. The fracture was stable after removal of the wires as evidenced by C arm imaging. I then turned my attention to debridement of a left thumb radial sided wound and a dorsal left hand wound, which measures one by one and 2 x 0.5 cm respectively. This was done with a 15 blade scalpel down to subcutaneous tissue. The wounds were irrigated with copious amounts normal saline and Irrisept. Hemostasis was obtained with Bovie electrocautery and Xeroform, Bharath, and loose Coban were applied, followed by the patient's custom splint. Postoperative plan: Continue splinting at all times and no use of the thumb. Will reassess x-ray on Sunday, 03 June 2024, and see if appropriate for hand therapy. Follow-up on Sunday, 30 May 2024, in my office for wound check. Surgical Findings: Stable fracture after the thumb pins were removed. Complications Complications: No Admit VTE Documentation VTE Mechan Device Prophylaxis: SCD's
--- NOTE | 2024-05-28 11:58 | POSTOPAN2_ITS ---
Anesthesia Postop Eval I Sum Postop Eval Completion status Anesthesia document: Postop Eval 1 completed: Yes Anesthesia Postop Eval I Summary Anesthesia Postop Eval I Summary: Anesthesia Postop Eval I: Assessment Summary Airway patent Yes 05/28/24 10:10 [email or web address] [email or web address] Spontaneous unlabored Yes 05/28/24 10:10 STONE [email or web address] respirations Mental status nausea No 05/28/24 10:10 [email or web address] [email or web address] Vomiting No 05/28/24 10:10 [email or web address] [email or web address] Anesthesia Postop Eval I: Fluid Summary Crystalloid volume administer 300 05/28/24 10:10 [email or web address] [email or web address] (ml) Colloids volume administered ( ml) Blood Product volume administered (ml) Total IV fluid infused 300 05/28/24 10:10 [email or web address] [email or web address] Anesthesia Postop Eval I: Summary Notes Anesthesia Complication No 05/28/24 10:10 [email or web address] Anesthesia Complication Comment: Post-operative progress note Anesthesia: Postop Eval II Evaluation Mental status: Awake Pain Level: 0 nausea: No Vomiting: No Complications Anesthesia Complication: No
--- NOTE | 2024-05-28 11:58 | PCM.POSTANE2 ---
Anesthesia Postop Eval I Sum Postop Eval Completion status Anesthesia document: Postop Eval 1 completed: Yes Anesthesia Postop Eval I Summary Anesthesia Postop Eval I Summary: Anesthesia Postop Eval I: Assessment Summary Airway patent Yes 05/28/24 10:10 [email or web address] Spontaneous unlabored Yes 05/28/24 10:10 [email or web address] respirations Mental status nausea No 05/28/24 10:10 [email or web address] Vomiting No 05/28/24 10:10 [email or web address] Anesthesia Postop Eval I: Fluid Summary Crystalloid volume administer 300 05/28/24 10:10 [email or web address] (ml) Colloids volume administered ( ml) Blood Product volume administered (ml) Total IV fluid infused 300 05/28/24 10:10 [email or web address] Anesthesia Postop Eval I: Summary Notes Anesthesia Complication No 05/28/24 10:10 [email or web address] Anesthesia Complication Comment: Post-operative progress note Anesthesia: Postop Eval II Evaluation Mental status: Awake Pain Level: 0 nausea: No Vomiting: No Complications Anesthesia Complication: No
== END 2024-05-28 11:07 | disposition home or self-care (01) ==
LOC: SDC 08:32 → AC 08:33
PROVIDERS: PCP Family Medicine Geriatric Medicine; Referring Provider Surgery Plastic and Reconstructive Surgery; Visit Provider Surgery Plastic and Reconstructive Surgery
PROC: (CPT 20670; principal; 2024-05-28 09:45)
DX: S62.512B Displaced fracture of proximal phalanx of left thumb, initial encounter for open fracture (principal); I96 Gangrene, not elsewhere classified; S62.601B Fracture of unspecified phalanx of left index finger, initial encounter for open fracture; X58.XXXA Exposure to other specified factors, initial encounter; Y99.0 Civilian activity done for income or pay; F17.210 Nicotine dependence, cigarettes, uncomplicated
CPT/HCPCS: 20670; 11042; 00400; 73120; 76000; A4216

== ENCOUNTER 2024-06-05 09:28 | Day surgery (SDC) | payer OTHER, SELFPAY ==
[2024-06-05] VITALS (7 sets, daily range): BP systolic 100–122; BP diastolic 60–70; PULSE 54–78; RESP 16; TEMP 2.2–36.8; O2SAT 98–100; BMI 20.7
--- NOTE | 2024-06-05 11:19 | PRE.ANES_ITS ---
ASA Classification* ASA Classification ASA Classification: 2 Assessment & Plan Anesthesia* Anesthesia Assessment Anesthesia Assessment: Discussed sedation and/or anesthesia options, risks, benefits, and alternatives with patient/parents/legal guardian/POA. Questions invited. The patient/parents/legal guardian/POA seems to understand and agrees to proceed with anesthesia plan. Reviewed the physical assessment, medical history, allergy history and patient home medications list prior to surgery/procedure/anesthetic and documented any changes. Performed airway and anesthesia risk assessments. Anesthesia Type Anesthesia Type: MAC History Source History Obtained from:: Patient and Chart Anesthesia Focused Assessment* Temperature: 98.1 F Pulse Rate: 65 Blood Pressure: 122/65 Respiratory Rate: 16 Pulse Ox: 98 Oxygen Delivery Method: Room Air Airway Assessment Mouth opens: >3 cm Mallampati Score: IV Teeth Condition: Intact Neck Range of motion (ROM): Full ROM Focused Labs Anesthesia Preop lab: CBC WBC 8.5 K/mm3 (4.4-11.0) 04/15/24 09:46 04/15/24 RBC 4.02 M/mm3 (4.6-6.2) L 04/15/24 09:46 04/15/24 Hgb 12.5 g/dL (13.0-16.5) L 04/15/24 09:46 4 Hct 37.0 % (40-54) L 04/15/24 09:46 04/15/24 Plt Count 262 K/mm3 (150-450) 04/15/24 09:46 04/15/24 CHEMISTRY Potassium 3.5 mmol/L (3.5-5.1) 04/15/24 09:46 04/15/24 Sodium 143 mmol/L (136-145) 04/15/24 09:46 04/15/24 Magnesium 2.7 mg/dL (1.6-2.6) H 04/15/24 11:16 04/15/24 BUN 12 mg/dL (7-18) 04/15/24 09:46 04/15/24 Creatinine 0.62 mg/dL (0.70-1.30) L 04/15/24 09:46 Glucose 106 mg/dL (74-106) 04/15/24 09:46 04/15/24 COAG Pre-Assessment Diagnosis/Proposed Procedure Planned Operative Procedure(s): DEBRIDEMENT LEFT THUMB WITH INTEGRA PLACEMENT Anesthesia History Anesthesia History - tool maker apprentice: Anesthesia History - tool maker apprentice Hx Hospitalization No 06/04/24 13:44 Any Problems With Anesthesia No 06/04/24 13:44 Cholinesterase deficiency No 06/04/24 13:44 You/Your Family Experience No 06/04/24 13:44 fever (hyperthermia) with Relationship Recent Exposure to Contagious No 06/05/24 10:01 Disease Does patient have nerve No 06/04/24 13:44 stimulator Patient instructed to have device shut off --Does patient have Pacemaker No 06/05/24 10:01 or ICD? When Was Last Pacemaker Check QUESTION #4 FULL TEXT: You/Your Family Experience fever (hyperthermia) with Anesthesia Last Oral Intake Last Oral intake: Last Oral Intake NPO since 21:00 06/05/24 10:01 Meds taken in AM with sips of No 06/05/24 10:01 water? Meds patient instructed to take am of surgery PONV PONV - tool maker apprentice: PONV - tool maker apprentice Female No 06/04/24 13:44 HX of Motion Sickness No 06/04/24 13:44 HX of N/V After Surgery No 06/04/24 13:44 Non-Smoker No 06/04/24 13:44 Duration of Surgery greater Yes 06/04/24 13:44 than 60 minutes Number of Risk Factors 1 06/04/24 13:44 PONV Score Low Risk 06/04/24 13:44 Height & Weight Height & Weight: Anesthesia: Height & Weight Height 5 ft 8 in 06/05/24 10:01 Weight: 61.9 kg 06/05/24 10:01 Body Mass Index (BMI) 20.7 06/05/24 10:01 Respiratory Assessment Respiratory Assessment - tool maker apprentice: Respiratory Tract Infection Hx - tool maker apprentice Hx Respiratory Tract Infection No 06/04/24 13:44 STOP Sleep Apnea STOP Sleep Apnea - tool maker apprentice: STOP Sleep Apnea - tool maker apprentice Hx Hypertension No 06/04/24 13:44 Hx Sleep Apnea No 06/04/24 13:44 CPAP BIPAP Do you snore loudly (louder No 06/04/24 13:44 than talking or can be heard Do you often feel tired/ No 06/04/24 13:44 fatigued/ sleepy during daytime? Has anyone observed you stop No 06/04/24 13:44 breathing during sleep? STOP Results Negative 06/04/24 13:44 QUESTION #5 FULL TEXT : Do you snore loudly (louder than talking or can be heard through closed doors)? Tobacco Use History Tobacco Use History - tool maker apprentice: Tobacco Use History - tool maker apprentice Tobacco Use Smoking Status Current every day smoker 06/04/24 13:44 Hx Tobacco Use Yes 06/04/24 13:44 Years Smoking Packs Smoked per Day Smoking Cessation Date was within the last 15 years Hx Smoking Cessation Date Hx Smoking Cessation No 06/04/24 13:44 Counseling Any additional information?: Yes Smoking Status: Current every day smoker (Patient smoked today.) Hematologic Medial History Hematologic Hx - tool maker apprentice: Hematologic Medical Hx - outreach counselor Hx of Blood Transfusion No 06/04/24 13:44 Hx of Transfusion in last 3 No 06/04/24 13:44 Months Date of Last Transfusion (if within last 3 months) Ever experience any problems No 06/04/24 13:44 with transfusion(s)? Specify any problems Hx of Preganancy in last 3 N/A 06/04/24 13:44 Months Nurse Filling Out Transfusion DSCHRIBER 06/04/24 13:44 & Questions: Date: 06/04/24 06/04/24 13:44 Time: 13:46 06/04/24 13:44 Patient unable to answer at this time (ie. confused, unrespo /Reproduction History /Reproductive History - tool maker apprentice: /Reproductive Hx- tool maker apprentice Hx Now Gestational Age (in weeks): EDC: Hx Hx Para Hx Section SAB No 06/04/24 13:44 PFSH Medical History Wears glasses Alcohol use Hx of testicular cancer Smoker Home Medications ?Medication ?Instructions ?Recorded ?Last Taken ?Type NK 05/20/24 Unknown History Allergy/AdvReac Type Severity Reaction Status Date / Time No Known Allergies Allergy Verified 06/05/24 10:00 Surgical History Hx of hand surgery Hx of eye surgery History of dental surgery Hx of tonsillectomy History of hand surgery Social History Smoking Status: Current every day smoker tobacco type: cigarettes Review of Systems (Anesthesia) ROS Narrative System reviewed and no additional complaints, except as documented.
--- NOTE | 2024-06-05 12:52 | PCM.HP.STD ---
HPI - General HPI Narrative CRYSTAL TUCKER, is a 64 M who presents with a left thumb wound. Presents today for excision and Integra placement. Current Encounter (DATE OF SURGERY H&P UPDATE): I saw and examined the patient this morning in pre-operative holding. We discussed risks and benefits of today's surgery and they would like to proceed. NO CHANGE in health history since last seen and evaluated. Ready to proceed with surgery. PFSH Medical History Wears glasses Alcohol use Hx of testicular cancer Smoker Home Medications ?Medication ?Instructions ?Recorded ?Last Taken ?Type NK 05/20/24 Unknown History Allergy/AdvReac Type Severity Reaction Status Date / Time No Known Allergies Allergy Verified 06/05/24 10:00 Surgical History Hx of hand surgery Hx of eye surgery History of dental surgery Hx of tonsillectomy History of hand surgery Social History Smoking Status: Current every day smoker (Patient smoked today.) tobacco type: cigarettes Vital Signs Vital Signs Vital Signs: 06/05/24 10:01 06/05/24 10:01 06/05/24 11:25 Temperature 98.1 F 98.1 F Temperature Source Temporal Pulse Rate 65 65 Respiratory Rate 16 16 Respiratory Pattern Normal Blood Pressure 122/65 H 122/65 H Blood Pressure Mean 84 Blood Pressure Source Monitor Blood Pressure Position Sitting Blood Pressure Location Right Arm Pulse Ox 98 98 Oxygen Delivery Method Room Air Room Air Weight Weight: 136 lb 7.458 oz Body Mass Index (BMI) 20.7 Physical Exam Narrative Left upper extremity: Thumb examined and there is a persistent radial-sided wound, no exposed bone, but the wound is deep. Granulation tissue and fibrinous exudate at the base, but no purulence. No pain with palpation of the thumb proximal phalanx Dorsum of the hand with a small wound well at the incision line of the volar flap after the index finger amputation. Healing well no signs of infection. Assessment & Plan Assessment/Plan (1) Open fracture of proximal phalanx of left thumb: PLAN: Plan I talked the patient extensively about the risks of surgery, including bleeding, infection, damage to surrounding structures, surgical site dehiscence and wound formation, need for wound care, need for repeat operations, failure to obtain the desired result, DVT/PE (albeit under MAC and local), and the risks of anesthesia including . The benefits and alternatives of this surgery were also discussed. All of their questions were answered, and they agreed to proceed with surgery. INTERVAL H&P PLAN, DATE OF SURGERY: We will proceed with surgery today.
[2024-06-05] MEDS: Cefazolin 2 GM in Syringe IV (13:12)
[2024-06-05] MEDS: Lidocaine 1%/Epi 1:100 (30ml) 30 ML VIAL INFILT (13:24)
--- NOTE | 2024-06-05 13:56 | PCM.POST.ANE ---
Anesthesia: Postop Eval I Current Vital Signs Temperature: 36 F Pulse Rate: 78 Blood Pressure: 108/70 Respiratory Rate: 16 Pulse Ox: 98 Oxygen Delivery Method: Room Air Assessment Airway patent: Yes Spontaneous unlabored respirations: Yes Mental status: Awake and Calm nausea: No Vomiting: No Anesthesia Complication: No Fluid Hydration Crystalloid volume administer (ml): 50 Total IV fluid infused: 50 Progress Note Anesthesia document: Postop Eval 1 completed: Yes
--- NOTE | 2024-06-05 14:15 | PCM.OPRPT ---
Operative Report (Standard) Operative Information Date of Procedure: 06/05/24 Pre-Operative Diagnosis: Left thumb wound Post-Operative Diagnosis: Same Surgery/Procedure Performed: 1) Surgical preparation of left thumb wound, 1 x 2 cm, with sharp excision of necrotic tissue (CPT 93210) 2) Integra placement (dermal substitute), 1 x 2 cm, left thumb (CPT 55945) launch check out: Yes News Gathering Technician: Jayde Diaz Tasks completed by mate first: Retracting Type of Anesthesia: MAC/Supplemental (5 cc of 1% lidocaine with 1:200,000 epinephrine ) RN Documented Start/Stop Times: Operation Date: 06/05/24 11:00 Case Time Into Pre-Op 06/05/24 09:40 Out of Pre-Op 06/05/24 13:04 Anesthesia Start 06/05/24 13:07 Into Room 06/05/24 13:07 Procedure Start 06/05/24 13:25 Procedure End 06/05/24 13:46 Anesthesia End 06/05/24 13:53 Out of Room 06/05/24 13:53 Into Recovery 06/05/24 13:55 Into Phase II Recovery 06/05/24 14:08 Out of Recovery 06/05/24 14:08 Out of Phase II 06/05/24 14:56 Procedure Start Time: 13:25 Procedure Stop Time: 13:46 Select all DRAINS/GRAFTS/IMPLANTS that apply: Tissue (Integra) Tissue details: Integra [employer] neodermis Estimated Blood Loss: Minimal Specimen collected: Yes Description of specimen(s) removed: Deep soft tissue culture from the base of the wound following excision washout and irrigation Description of surgery: Indications: Patient is a 64-year-old male who sustained a crush injury to his left hand requiring amputation of the index finger and closed reduction percutaneous pinning of the left thumb. He has since had the wires removed and has had a persistent wound on the radial side of his thumb. Presents today for wound excision with placement of Integra as the wound is quite deep and not healing despite wound care regimen (albeit patient still smoking). I discussed with him risks, benefits, and alternatives, and he agrees to proceed. Procedure details: Patient was critically identified in preoperative holding and taken back to the operating room where he was administered sedation and infiltrated with local as noted above. A timeout was performed and he was prepped and draped in sterile fashion. The radial sided thumb wound was excised with a 15 blade scalpel and a curette down to healthy bleeding tissue and washed out with copious amounts of normal saline and Irrisept. The total excision was 1 x 2 cm (surgical preparation via excising necrotic subcutaneous tissue). A deep soft tissue culture was then taken. Attention was then turned to placing a dermal substitute (Integra) for a total dermal substitute placement of 1 x 2 cm to the wound. It was trimmed to fit and sutured into place with a 3-0 Vicryl for a bolster dressing using Xeroform on top (tying it on with the Vicryl's). Patient tolerated the procedure well. A Band-Aid was applied over the Xeroform bolster and the removable splint was reapplied. Postoperative plan: Discontinue the soaks. Keep a Band-Aid over this bolster and keep the bolster dry. Follow-up on Sunday, 10 June 2024, at [facility] for wound check. Surgical Findings: Healthy wound bed after excision, no exposed bone at the base of the wound. Complications Complications: No Admit VTE Documentation VTE Mechan Device Prophylaxis: SCD's
--- NOTE | 2024-06-05 23:31 | PCM.POSTANE2 ---
Anesthesia Postop Eval I Sum Postop Eval Completion status Anesthesia document: Postop Eval 1 completed: Yes Anesthesia Postop Eval I Summary Anesthesia Postop Eval I Summary: Anesthesia Postop Eval I: Assessment Summary Airway patent Yes 06/05/24 13:56 [email or web address] Spontaneous unlabored Yes 06/05/24 13:56 [email or web address] respirations Mental status Awake,Calm 06/05/24 13:56 [email or web address] nausea No 06/05/24 13:56 [email or web address] Vomiting No 06/05/24 13:56 [email or web address] Anesthesia Postop Eval I: Fluid Summary Crystalloid volume administer 50 06/05/24 13:56 [email or web address] (ml) Colloids volume administered ( ml) Blood Product volume administered (ml) Total IV fluid infused 50 06/05/24 13:56 [email or web address] Anesthesia Postop Eval I: Summary Notes Anesthesia Complication No 06/05/24 13:56 [email or web address] Anesthesia Complication Comment: Post-operative progress note Anesthesia: Postop Eval II Evaluation Mental status: Awake and Calm Pain Level: 1 nausea: No Vomiting: No Complications Anesthesia Complication: No
== END 2024-06-05 14:56 | disposition home or self-care (01) ==
LOC: SDC 09:33 → AC 09:34
PROVIDERS: PCP Family Medicine Geriatric Medicine; Referring Provider Surgery Plastic and Reconstructive Surgery; Visit Provider Surgery Plastic and Reconstructive Surgery
PROC: (CPT 15004; principal; 2024-06-05 10:45)
DX: S62.512B Displaced fracture of proximal phalanx of left thumb, initial encounter for open fracture (principal); X58.XXXA Exposure to other specified factors, initial encounter; Y99.0 Civilian activity done for income or pay; F17.210 Nicotine dependence, cigarettes, uncomplicated
CPT/HCPCS: 15004; 15275; 00400; 87015; 87070; 87075; 87102; 87116; 87205; 87206; A4216

== ENCOUNTER 2024-06-30 15:45 | Outpatient (RCR) | payer OTHER, SELFPAY ==
[2024-06-23 15:37] VITALS: BP 126/72; PULSE 73; RESP 18; TEMP 36; BMI 20.8
--- NOTE | 2024-06-23 16:16 | NURSING ---
PHOTO 06/23/24 right Index Post-Op
--- NOTE | 2024-06-23 16:17 | NURSING ---
PHOTO 06/23/24 Right Thumb
--- NOTE | 2024-06-24 07:46 | PCM.PN.SRG ---
Subjective Subjective Patient doing well overall. No fevers or chills. Working with hand therapy. Feels like thumb is stable and has no pain. No fevers/chills or drainage. Endorses good wound care. Objective Data Objective Data Vital Signs: Vital Signs Temp Pulse Resp BP O2 Del Method 96.8 F L 73 18 126/72 H Room Air 06/23/24 15:37 06/23/24 15:37 06/23/24 15:37 06/23/24 15:37 06/23/24 15:37 Oxygen Delivery Method Room Air Weight: 137 lb Body Mass Index (BMI) 20.8 Physical Exam Narrative Left upper extremity: Thumb examined and there is a persistent radial-sided wound, granulation tissue at the base. No pain with palpation of the thumb proximal phalanx. Thumb feels stable. Assessment & Plan Assessment/Plan (1) Open wound of thumb: PLAN: I reiterated the dangers of smoking with a wound over the thumb where there was a previous open fracture, including osteomyelitis and thumb destruction. He is continuing to try to quit. Offered modalities for cessation. Plan for hydrogel twice daily to the wound bed. Continue ROM with hand therapist. F/u in 1 week with me in clinic. Charges/Coding Procedures Integumentary 111xxx-113xx: [id number] Global Visit
[2024-06-30 15:41] VITALS: BP 116/72; PULSE 76; RESP 16; TEMP 36.6; BMI 20.8
--- NOTE | 2024-07-01 05:46 | PCM.PN.SRG ---
Subjective Subjective Doing well overall with wound care (Hydrogel). No fevers or chills. No pain in the thumb. Has been going to therapy and making progress. Objective Data Objective Data Vital Signs: Vital Signs Temp Pulse Resp BP O2 Del Method 97.8 F 76 16 116/72 Room Air 06/30/24 15:41 06/30/24 15:41 06/30/24 15:41 06/30/24 15:41 06/30/24 15:41 Oxygen Delivery Method Room Air Weight: 137 lb Body Mass Index (BMI) 20.8 Physical Exam Narrative Left upper extremity: Thumb examined and there is a persistent radial-sided wound, granulation tissue at the base. No pain with palpation of the thumb proximal phalanx. Thumb feels stable. No TTP over the index metacarpal. Skin has healed in this location as well. Motor: Able to oppose thumb to long, ring, and small fingers. Good thumb ROM except for IP joint (no flexion at this time). Sensation: Intact to light touch on radial and ulnar borders of all fingers. Assessment & Plan Assessment/Plan (1) Open wound of thumb: PLAN: Again today we reiterated the dangers of smoking with a wound over the thumb where there was a previous open fracture, including osteomyelitis and thumb destruction. He is continues to cut down on the cigarette intake. Plan for continued hydrogel twice daily to the wound bed. Continue ROM with hand therapist. F/u in 1 week with me in clinic with an xray (ordered). Charges/Coding Procedures Integumentary 111xxx-113xx: [id number] Global Visit
--- NOTE | 2024-07-01 10:37 | WC ---
PHOTO 06/30/24 LEFT THUMB
== END 2024-07-04 23:59 | disposition home or self-care (01) ==
LOC: WC 15:45
PROVIDERS: PCP Family Medicine Geriatric Medicine; Referring Provider Surgery Plastic and Reconstructive Surgery; Visit Provider Surgery Plastic and Reconstructive Surgery
DX: S61.009A Unspecified open wound of unspecified thumb without damage to nail, initial encounter (principal); X58.XXXA Exposure to other specified factors, initial encounter; F17.200 Nicotine dependence, unspecified, uncomplicated
CPT/HCPCS: 11042; 99214; G0463

== ENCOUNTER → 2024-07-07 | Outpatient (CLI) | payer OTHER, SELFPAY ==
--- NOTE | 2024-07-07 13:03 | RAD_ITS ---
PROCEDURE: HAND MIN 3 VIEWS REASON FOR EXAM: Follow-up trauma TECHNIQUE: 3 views of the left hand COMPARISON: Radiograph of the left hand dated 06/10/2024 FINDINGS: Redemonstration of a comminuted fracture involving the 1st proximal phalanx, no significant callus formation is demonstrated. 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 Normal alignment. Soft tissues are unremarkable. RAD/Hand Min 3 Views IMPRESSION: Stable appearing comminuted fracture of the 1st proximal phalanx. Reading Location: [facility]
== END | disposition home or self-care (01) ==
PROVIDERS: PCP Family Medicine Geriatric Medicine; Referring Provider Nurse Practitioner Family; Visit Provider Nurse Practitioner Family
DX: S68.111A Complete traumatic metacarpophalangeal amputation of left index finger, initial encounter (principal); X58.XXXA Exposure to other specified factors, initial encounter
CPT/HCPCS: 73130

== ENCOUNTER 2024-08-04 13:00 | Outpatient (RCR) | payer OTHER, SELFPAY ==
[2024-07-05 01:33] VITALS: BP 116/72; PULSE 76; RESP 16; TEMP 36.6; BMI 20.8
[2024-07-07 14:14] VITALS: BP 123/71; PULSE 72; RESP 18; TEMP 36; BMI 20.8
--- NOTE | 2024-07-07 18:11 | PCM.WC.PN ---
History of Present Illness Date of Service: 07/07/24 Subjective Subjective Doing well overall with wound care (Hydrogel). No fevers or chills. No pain in the thumb. Has been going to therapy. Feels like wound is smaller. No pain in the thumb. He is still smoking ~5 cigarettes per day. Discussed cessation (discussed Chantyx, declined at this time). Objective Data Objective Data Vital Signs: Vital Signs Temp Pulse Resp BP 96.8 F L 72 18 123/71 H 07/07/24 14:14 07/07/24 14:14 07/07/24 14:14 07/07/24 14:14 Weight: 137 lb Body Mass Index (BMI) 20.8 Charges/Coding Procedures Integumentary 111xxx-113xx: [id number] Global Visit Physical Exam Narrative Left upper extremity: Thumb examined and there is a persistent radial-sided wound, granulation tissue at the base. No pain with palpation of the thumb proximal phalanx. Thumb feels stable. No TTP over the index metacarpal. Skin has healed in this location as well. Motor: Able to oppose thumb to long, ring, and small fingers. Good thumb ROM except for IP joint (no flexion at this time). Sensation: Intact to light touch on radial and ulnar borders of all fingers. Debridement Note Debridement Note Wound debrided: Left thumb wound Laterality: Left Wound Grade/Stage: 3 Type of Debridement: Excisional debridement Anesthesia Used: 4% Lidocaine Solution Depth: in the subcutaneous layer Percentage of wound debrided: 100 Instrument Used: 3mm curette Severity: Fat Layer Exposed Amount of bleeding with debridement: Moderate Bleeding Controlled with: Compression and gauze Patient tolerated procedure: Patient tolerated procedure well Post-Debridement Measurements and Additional Note: Post-Debridement Measurements/Treatment - Nurse 1 - General Ulcer Assessment Start: 07/07/24 14:11 Freq: Status: Active Protocol: [email or web address] Activity Type Activity Date Activity User E-sign Co-sign Detail Recorded Client Recorded Date Recorded By Document 07/07/24 14:14 GREGG [id number] 07/07/24 14:20 DL 07/07/24 14:14 - Today's Visit Information Type of service Follow-up Visit (Physician/AIR CONDITIONING MECHANIC ) Arrival Mode Ambulatory Transfer Assistance None Patient Identification Verified (Name & Yes ) Patient Requires Transmission-Based No Precautions Height and Weight Body Mass Index (BMI) 20.8 BMI Classification Normal Vital Signs Temperature (97.8 F-99.1 F) 96.8 F L Temperature Source Temporal Pulse Rate (60-100) 72 Pulse Location Monitor Respiratory Rate (12-18) 18 Respiratory rate source Observation Blood Pressure (90/60-120/80) 123/71 H Blood Pressure Mean (mm Hg) 88 Source Monitor History Since Last Visit- (Skip if this is Patient's initial visit) Have you changed medications since your No last visit? Any new allergies or adverse reactions No Had a fall/change in ADL's that may No increase risk of falls Signs or symptoms of abuse and/or No neglect since last visit Have you been in the hospital since your No last visit? Has dressing in place as prescribed Yes Has compression in place as prescribed N/A Has offloadiing in place as prescribed Yes Experienced any changes in pain level or No management Pain Scale: 0-10 Numeric Is Patient Pain Free? Yes ORLIN - Nurse 1 - General Ulcer Measurement Start: 07/07/24 14:11 Freq: Status: Active Protocol: Activity Type Activity Date Activity User E-sign Co-sign Detail Recorded Client Recorded Date Recorded By Document 07/07/24 14:14 DL [id number] 07/07/24 14:20 DL 07/07/24 14:14 Wound Center Nurse 1 #1 left thumb -Current Size (cm) - Length 0.3 -Current Size (cm) - Width 0.2 -Current Size (cm) - Depth 0.2 -Total Square Cm 0.06 -Photo Taken Yes -Exudate Amt None Present -Wound Margin Distinct, Outline Attached -Granulation Amt Small (1-33%) -Granulation Quality Pale -Necrosis Amt None Present (0 %) -Structure Exposed N/A -Texture (Leatha-wound Skin Appearance) Scarring -Moisture (Leatha-wound Skin Appearance) No Abnormality -Color (Leatha-wound Skin Appearance) No Abnormality -Temperature (Leatha-wound Skin No Abnormality Appearance) (Pt Warm) -Tenderness on Palpation (Leatha-wound No Skin Appearance) -Ulcer Cleansing Rinsed/ Irrigated with Saline -Foul Odor after Cleansing No -Anesthetic Used 5% Lidocaine Gel ORLIN - Nurse 2 - General Ulcer CM Notes Start: 07/07/24 14:11 Freq: Status: Active Protocol: Activity Type Activity Date Activity User E-sign Co-sign Detail Recorded Client Recorded Date Recorded By Document 07/07/24 15:04 WEI [id number] 07/07/24 15:04 JF Edit Result 07/07/24 15:04 JF (1) [id number] 07/07/24 15:13 WEI (1) #1 left thumb - Post Debridement (cm) - Length => 0.4 - Post Debridement (cm) - Width => 0.4 - Post Debridement (cm) - Depth => 0.1 - Total Square (Post) (cm) => 0.16 - Area of Debridement (cm) - Length => 0.4 - Area of Debridement (cm) - Width => 0.4 - Total Square (Area) (cm) => 0.16 07/07/24 15:04 Wound Center Nurse 2 -Time 15:04 -Correct Patient Yes -Correct Side, Site, Position Yes -Correct Procedure Yes -Procedure Performed Yes -Type of Procedure Debridement -Clinical Debridement Subcutaneous -Tissue Removed Subcutaneous -Post Debridement (cm) - Length 0.4 -Post Debridement (cm) - Width 0.4 -Post Debridement (cm) - Depth 0.1 -Total Square (Post) (cm) 0.16 -Area of Debridement (cm) - Length 0.4 -Area of Debridement (cm) - Width 0.4 -Total Square (Area) (cm) 0.16 -Tunneling No -Undermining/Tunneling No -Circular Undermining No -Wound/Ulcer Outcome Not Healed -Ulcer Cleansing Rinsed/ Irrigated with Saline -Foul Odor after Cleansing No -Bioengineered Tissue No -Bleeding Controlled with Pressure -Treatment Response Procedure Tolerated Well -Offloading No -Debridement - Subq, 1st 20sq cm Yes Pain Scale: 0-10 Numeric Is Patient Pain Free? Yes WC - Nurse 3 - General Ulcer D/C NN Start: 07/07/24 14:11 Freq: Status: Active Protocol: Activity Type Activity Date Activity User E-sign Co-sign Detail Recorded Client Recorded Date Recorded By Document 07/07/24 15:22 DL [id number] 07/07/24 15:22 DL 07/07/24 15:22 Wound Care Center Nurse 3 #1 left thumb -Ulcer Cleansing Rinsed/ Irrigated with Saline -Foul Odor after Cleansing No -Other Dressing hydrogel/ bandaid Treatment Response Procedure Tolerated Well Pain Scale: 0-10 Numeric Is Patient Pain Free? Yes WC - Visit Discharge Discharge Condition Stable Ambulatory Status Ambulatory Transportation Private Auto Facility Type Home Health Orders Sent Yes Assessment/Plan Assessment/Plan (1) Open wound of thumb: CODE(S): S61.009A - Unspecified open wound of unspecified thumb without damage to nail, initial encounter PLAN: Continue Hydrogel twice daily F/u in 2 weeks for wound check (2) Open fracture of proximal phalanx of left thumb: CODE(S): S62.512B - Displaced fracture of proximal phalanx of left thumb, initial encounter for open fracture PLAN: Reviewed Xray Acceptable alignment on xray. He is not tender to palpation and thumb feels stable. I believe some callus is forming, but radiographic evidence lagging. We will repeat Xray of the left thumb in 2 weeks. Continue ROM therapy with hand therapist, but still no lifting (discussed). (3) Open fracture of second metacarpal bone of left hand: CODE(S): S62.301B - Unspecified fracture of second metacarpal bone, left hand, initial encounter for open fracture PLAN: Healed metacarpal fracture. Wound/degloving injury over the metacarpal has healed.
[2024-07-21 13:22] VITALS: BP 140/75; PULSE 72; RESP 16; TEMP 36.8; BMI 20.8
--- NOTE | 2024-07-21 13:24 | PCM.WC.PN ---
History of Present Illness Date of Service: 07/21/24 Subjective Subjective Doing well overall with wound care (Hydrogel). No fevers or chills. No pain in the thumb. Has been going to therapy. Feels like wound is smaller. No pain in the thumb. He is still smoking ~5 cigarettes per day. Discussed cessation (discussed Chantyx, declined at this time). Objective Data Objective Data Vital Signs: Vital Signs Temp Pulse Resp BP 96.8 F L 72 18 123/71 H 07/07/24 14:14 07/07/24 14:14 07/07/24 14:14 07/07/24 14:14 Weight: 137 lb Body Mass Index (BMI) 20.8 Charges/Coding Procedures Integumentary [id number]: [id number] Global Visit Physical Exam Narrative Left upper extremity: Thumb examined and there is a persistent radial-sided wound that is nearly healed (mostly just a callus at this time, with small area of central granulation tissue). No pain with palpation of the thumb proximal phalanx. Thumb feels stable. No TTP over the index metacarpal. Skin has healed in this location as well. Motor: Able to oppose thumb to long, ring, and small fingers. Good thumb ROM except for IP joint (~15 degrees IP flexion at this time). Sensation: Intact to light touch on radial and ulnar borders of all fingers. Debridement Note Debridement Note No debridement was completed: No debridement was completed today Post-Debridement Measurements and Additional Note: Post-Debridement Measurements/Treatment - Nurse 1 - General Ulcer Assessment Start: 07/07/24 14:11 Freq: Status: Active Protocol: BHARAT Activity Type Activity Date Activity User E-sign Co-sign Detail Recorded Client Recorded Date Recorded By Document 07/07/24 14:14 DL [id number] 07/07/24 14:20 DL 07/07/24 14:14 - Today's Visit Information Type of service Follow-up Visit (Physician/HIDES AND SKINS COLORER ) Arrival Mode Ambulatory Transfer Assistance None Patient Identification Verified (Name & Yes ) Patient Requires Transmission-Based No Precautions Height and Weight Body Mass Index (BMI) 20.8 BMI Classification Normal Vital Signs Temperature (97.8 F-99.1 F) 96.8 F L Temperature Source Temporal Pulse Rate (60-100) 72 Pulse Location Monitor Respiratory Rate (12-18) 18 Respiratory rate source Observation Blood Pressure (90/60-120/80) 123/71 H Blood Pressure Mean (mm Hg) 88 Source Monitor History Since Last Visit- (Skip if this is Patient's initial visit) Have you changed medications since your No last visit? Any new allergies or adverse reactions No Had a fall/change in ADL's that may No increase risk of falls Signs or symptoms of abuse and/or No neglect since last visit Have you been in the hospital since your No last visit? Has dressing in place as prescribed Yes Has compression in place as prescribed N/A Has offloadiing in place as prescribed Yes Experienced any changes in pain level or No management Pain Scale: 0-10 Numeric Is Patient Pain Free? Yes WC - Nurse 1 - General Ulcer Measurement Start: 07/07/24 14:11 Freq: Status: Active Protocol: Activity Type Activity Date Activity User E-sign Co-sign Detail Recorded Client Recorded Date Recorded By Document 07/07/24 14:14 DL [id number] 07/07/24 14:20 DL 07/07/24 14:14 Wound Center Nurse 1 #1 left thumb -Current Size (cm) - Length 0.3 -Current Size (cm) - Width 0.2 -Current Size (cm) - Depth 0.2 -Total Square Cm 0.06 -Photo Taken Yes -Exudate Amt None Present -Wound Margin Distinct, Outline Attached -Granulation Amt Small (1-33%) -Granulation Quality Pale -Necrosis Amt None Present (0 %) -Structure Exposed N/A -Texture (Leatha-wound Skin Appearance) Scarring -Moisture (Leatha-wound Skin Appearance) No Abnormality -Color (Leatha-wound Skin Appearance) No Abnormality -Temperature (Leatha-wound Skin No Abnormality Appearance) (Pt Warm) -Tenderness on Palpation (Leatha-wound No Skin Appearance) -Ulcer Cleansing Rinsed/ Irrigated with Saline -Foul Odor after Cleansing No -Anesthetic Used 5% Lidocaine Gel WC - Nurse 2 - General Ulcer CM Notes Start: 07/07/24 14:11 Freq: Status: Active Protocol: Activity Type Activity Date Activity User E-sign Co-sign Detail Recorded Client Recorded Date Recorded By Document 07/07/24 15:04 WEI [id number] 07/07/24 15:04 JF Edit Result 07/07/24 15:04 JF (1) [id number] 07/07/24 15:13 JF (1) #1 left thumb - Post Debridement (cm) - Length => 0.4 - Post Debridement (cm) - Width => 0.4 - Post Debridement (cm) - Depth => 0.1 - Total Square (Post) (cm) => 0.16 - Area of Debridement (cm) - Length => 0.4 - Area of Debridement (cm) - Width => 0.4 - Total Square (Area) (cm) => 0.16 07/07/24 15:04 Wound Center Nurse 2 -Time 15:04 -Correct Patient Yes -Correct Side, Site, Position Yes -Correct Procedure Yes -Procedure Performed Yes -Type of Procedure Debridement -Clinical Debridement Subcutaneous -Tissue Removed Subcutaneous -Post Debridement (cm) - Length 0.4 -Post Debridement (cm) - Width 0.4 -Post Debridement (cm) - Depth 0.1 -Total Square (Post) (cm) 0.16 -Area of Debridement (cm) - Length 0.4 -Area of Debridement (cm) - Width 0.4 -Total Square (Area) (cm) 0.16 -Tunneling No -Undermining/Tunneling No -Circular Undermining No -Wound/Ulcer Outcome Not Healed -Ulcer Cleansing Rinsed/ Irrigated with Saline -Foul Odor after Cleansing No -Bioengineered Tissue No -Bleeding Controlled with Pressure -Treatment Response Procedure Tolerated Well -Offloading No -Debridement - Subq, 1st 20sq cm Yes Pain Scale: 0-10 Numeric Is Patient Pain Free? Yes - Nurse 3 - General Ulcer D/C NN Start: 07/07/24 14:11 Freq: Status: Active Protocol: Activity Type Activity Date Activity User E-sign Co-sign Detail Recorded Client Recorded Date Recorded By Document 07/07/24 15:22 DL [id number] 07/07/24 15:22 DL 07/07/24 15:22 Wound Care Center Nurse 3 #1 left thumb -Ulcer Cleansing Rinsed/ Irrigated with Saline -Foul Odor after Cleansing No -Other Dressing hydrogel/ bandaid Treatment Response Procedure Tolerated Well Pain Scale: 0-10 Numeric Is Patient Pain Free? Yes WC - Visit Discharge Discharge Condition Stable Ambulatory Status Ambulatory Transportation Private Auto Facility Type Home Health Orders Sent Yes Assessment/Plan Assessment/Plan (1) Open wound of thumb: CODE(S): S61.009A - Unspecified open wound of unspecified thumb without damage to nail, initial encounter PLAN: Continue Hydrogel twice daily F/u in 2 weeks for progress check (2) Open fracture of proximal phalanx of left thumb: CODE(S): S62.512B - Displaced fracture of proximal phalanx of left thumb, initial encounter for open fracture PLAN: Reviewed Xray Same alignment on xray again today. He is not tender to palpation and thumb feels stable. I believe some callus is forming, but radiographic evidence lagging. We will repeat Xray of the left thumb in 4 weeks. Continue ROM therapy with hand therapist, but still no heavy lifting (discussed). (3) Open fracture of second metacarpal bone of left hand: CODE(S): S62.301B - Unspecified fracture of second metacarpal bone, left hand, initial encounter for open fracture PLAN: Healed metacarpal fracture. Wound/degloving injury over the metacarpal has healed.
--- NOTE | 2024-07-21 14:20 | RAD_ITS ---
PROCEDURE: Left thumb radiographs, three views 07/21/2024 REASON FOR EXAM: THUMB ULCER TECHNIQUE: Three views of the left thumb were obtained. COMPARISON: None FINDINGS: Three views of the left thumb were obtained. Bones are osteopenic. Moderate degenerative change of the radiocarpal and 1st carpal/metacarpal joints. 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 There is relatively unchanged comminuted mildly displaced fracture deformity involving the mid to distal aspect of the proximal phalanx left thumb. Moderate degenerative changes of the interphalangeal joint. RAD/Finger(s) Min 2 Views IMPRESSION: Osteopenia. Similar mildly displaced comminuted fracture deformity of the prox imal phalanx of the left thumb. Reading Location: [facility]
[2024-08-04 13:05] VITALS: BP 127/72; PULSE 72; RESP 16; TEMP 36.3; BMI 20.8
--- NOTE | 2024-08-04 15:19 | PCM.WC.PN ---
History of Present Illness Date of Service: 08/04/24 Subjective Subjective Doing well overall with wound care (Hydrogel). No fevers or chills. No pain in the thumb except that he has some pain over the index finger metacarpal scar as well as pain at the thumb base and the MCP joint following hand therapy. He has been going to hand therapy twice per week. He is still smoking ~5 cigarettes per day. Discussed cessation, and patient said while it is better than 20, to which we agreed. Still would like him to quit. Objective Data Objective Data Vital Signs: Vital Signs Temp Pulse Resp BP O2 Del Method 97.4 F L 72 16 127/72 H Room Air 08/04/24 13:05 08/04/24 13:05 08/04/24 13:05 08/04/24 13:05 07/21/24 13:22 Oxygen Delivery Method Room Air Weight: 137 lb Body Mass Index (BMI) 20.8 Charges/Coding Visit Charges Office Visits / Consults: 83101 OV L3 Est 20min Physical Exam Narrative Left upper extremity: Thumb examined and the radial-sided wound has healed (reepithelialized). No pain with palpation of the thumb proximal phalanx. Thumb feels stable with palpation of the thumb with radial and ulnar stresses. No TTP over the index metacarpal. Skin has healed in this location as well. Motor: Able to oppose thumb to long, ring, and small fingers. Good thumb ROM except for IP joint (~15 degrees IP flexion at this time). Sensation: Intact to light touch on radial and ulnar borders of all fingers. Debridement Note Debridement Note No debridement was completed: No debridement was completed today Post-Debridement Measurements and Additional Note: Post-Debridement Measurements/Treatment - Nurse 1 - General Ulcer Assessment Start: 07/07/24 14:11 Freq: Status: Active Protocol: [email or web address] Activity Type Activity Date Activity User E-sign Co-sign Detail Recorded Client Recorded Date Recorded By Document 07/07/24 14:14 DL [id number] 07/07/24 14:20 DL Document 07/21/24 13:22 BMF [id number] 07/21/24 13:26 BMF Document 08/04/24 13:05 DL [id number] 08/04/24 13:09 DL 07/07/24 07/21/24 08/04/24 14:14 13:22 13:05 - Today's Visit Information Type of service Follow-up Visit Follow-up Visit Follow-up Visit (Physician/FRONT OFFICE SPECIALIST (Physician/FRONT OFFICE SPECIALIST (Physician/FRONT OFFICE SPECIALIST ) ) ) Arrival Mode Ambulatory Ambulatory Ambulatory Transfer Assistance None None None Accompanied by mom Patient Identification Verified (Name & Yes Yes Yes ) Patient Requires Transmission-Based No No No Precautions Height and Weight Body Mass Index (BMI) 20.8 20.8 20.8 BMI Classification Normal Normal Normal Vital Signs Temperature (97.8 F-99.1 F) 96.8 F L 98.2 F 97.4 F L Temperature Source Temporal Temporal Temporal Pulse Rate (60-100) 72 72 72 Pulse Location Monitor Monitor Monitor Respiratory Rate (12-18) 18 16 16 Respiratory rate source Observation Observation Observation Oxygen Delivery Method Room Air Blood Pressure (90/60-120/80) 123/71 H 140/75 H 127/72 H Blood Pressure Mean (mm Hg) 88 96 90 Source Monitor Monitor Monitor Position Sitting Blood Pressure Location Right Arm History Since Last Visit- (Skip if this is Patient's initial visit) Have you changed medications since your No No No last visit? Any new allergies or adverse reactions No No No Had a fall/change in ADL's that may No No No increase risk of falls Signs or symptoms of abuse and/or No No No neglect since last visit Have you been in the hospital since your No No No last visit? Has dressing in place as prescribed Yes Yes Yes Has compression in place as prescribed N/A N/A N/A Has offloadiing in place as prescribed Yes N/A N/A Experienced any changes in pain level or No No No management Left Footwear Regular Shoe Right Footwear Regular Shoe Pain Scale: 0-10 Numeric Is Patient Pain Free? Yes Yes Yes - Nurse 1 - General Ulcer Measurement Start: 07/07/24 14:11 Freq: Status: Active Protocol: Activity Type Activity Date Activity User E-sign Co-sign Detail Recorded Client Recorded Date Recorded By Document 07/07/24 14:14 DL [id number] 07/07/24 14:20 DL Document 07/21/24 13:22 BMF [id number] 07/21/24 13:26 BMF Document 08/04/24 13:05 DL [id number] 08/04/24 13:09 DL 07/07/24 07/21/2425 14:14 13:22 13:05 Wound Center Nurse 1 #1 left thumb -Combined with other wound No -Current Size (cm) - Length 0.3 0.2 0.2 -Current Size (cm) - Width 0.2 0.2 0.1 -Current Size (cm) - Depth 0.2 0.1 0.1 -Total Square Cm 0.06 0.04 0.02 -Date of Last Picture (Recall this 07/21/24 field) -Photo Taken Yes Yes Yes -Tunneling No -Undermining/Tunneling No -Circular Undermining No -Exudate Amt None Present Small None Present -Exudate Type Serous -Wound Margin Distinct, Flat & Intact Flat & Intact Outline Attached -Granulation Amt Small (1-33%) None Present (0 Small (1-33%) %) -Granulation Quality Pale Pale -Slough/Fibrin Yes -Necrosis Amt None Present (0 Large (67-100%) None Present (0 %) %) -Necrotic Tissue Type Adherent Slough -Structure Exposed N/A N/A -Texture (Leatha-wound Skin Appearance) Scarring Assessed Scarring -Moisture (Leatha-wound Skin Appearance) No Abnormality Assessed, No Abnormality Maceration -Color (Leatha-wound Skin Appearance) No Abnormality Assessed No Abnormality -Temperature (Leatha-wound Skin No Abnormality No Abnormality No Abnormality Appearance) (Pt Warm) (Pt Warm) (Pt Warm) -Tenderness on Palpation (Leatha-wound No No No Skin Appearance) -Ulcer Cleansing Rinsed/ Rinsed/ Soap and Water Irrigated with Irrigated with Saline Saline -Foul Odor after Cleansing No No No -Anesthetic Used 5% Lidocaine 5% Lidocaine 5% Lidocaine Gel Gel Gel WC - Nurse 2 - General Ulcer CM Notes Start: 07/07/24 14:11 Freq: Status: Active Protocol: Activity Type Activity Date Activity User E-sign Co-sign Detail Recorded Client Recorded Date Recorded By Document 07/07/24 15:04 WEI [id number] 07/07/24 15:04 JF Edit Result 07/07/24 15:04 JF (1) [id number] 07/07/24 15:13 JF Document 07/21/24 13:38 JF [id number] 07/21/24 13:45 JF Document 08/04/24 13:27 JF [id number] 08/04/24 13:28 JF (1) #1 left thumb - Post Debridement (cm) - Length => 0.4 - Post Debridement (cm) - Width => 0.4 - Post Debridement (cm) - Depth => 0.1 - Total Square (Post) (cm) => 0.16 - Area of Debridement (cm) - Length => 0.4 - Area of Debridement (cm) - Width => 0.4 - Total Square (Area) (cm) => 0.16 07/07/24 07/21/24 08/04/24 15:04 13:38 13:27 Wound Center Nurse 2 #1 left thumb -Time 15:04 -Correct Patient Yes No No -Correct Side, Site, Position Yes No No -Correct Procedure Yes No No -Procedure Performed Yes No No -Type of Procedure Debridement -Clinical Debridement Subcutaneous -Tissue Removed Subcutaneous -Post Debridement (cm) - Length 0.4 0.1 0 -Post Debridement (cm) - Width 0.4 0.1 0 -Post Debridement (cm) - Depth 0.1 0.1 0 -Total Square (Post) (cm) 0.16 0.01 0 -Area of Debridement (cm) - Length 0.4 0.1 0 -Area of Debridement (cm) - Width 0.4 0.1 0 -Total Square (Area) (cm) 0.16 0.01 0 -Tunneling No -Undermining/Tunneling No -Circular Undermining No -Wound/Ulcer Outcome Not Healed Not Healed Healed- Epithelialized -Ulcer Cleansing Rinsed/ Irrigated with Saline -Foul Odor after Cleansing No -Bioengineered Tissue No -Bleeding Controlled with Pressure -Treatment Response Procedure Tolerated Well -Offloading No -Debridement - Subq, 1st 20sq cm Yes Pain Scale: 0-10 Numeric Is Patient Pain Free? Yes Yes Yes WC - Nurse 3 - General Ulcer D/C NN Start: 07/07/24 14:11 Freq: Status: Active Protocol: Activity Type Activity Date Activity User E-sign Co-sign Detail Recorded Client Recorded Date Recorded By Document 07/07/24 15:22 DL [id number] 07/07/24 15:22 DL Document 07/21/24 13:58 BM [id number] 07/21/24 14:00 BM Document 08/04/24 13:28 [id number] 08/04/24 13:30 JF 07/07/24 07/21/24 08/04/24 15:22 13:58 13:28 Wound Care Center Nurse 3 #1 left thumb -Ulcer Cleansing Rinsed/ Rinsed/ Irrigated with Irrigated with Saline Saline -Foul Odor after Cleansing No No -Other Dressing hydrogel/ hydrogel, bandaid bandaid Treatment Response Procedure Tolerated Well Pain Scale: 0-10 Numeric Is Patient Pain Free? Yes Yes Yes WC - Visit Discharge Discharge Condition Stable Stable Stable Ambulatory Status Ambulatory Ambulatory Ambulatory Transportation Private Auto Private Auto Private Auto Accompanied by mom Medication Reconcilliation completed & Yes provided to patient/care provider Clinical Summary of Care Provided Yes Notes: Patient's ulcer is healed. Patient is to continue with OT and [facility]. Facility Type Home Health Orders Sent Yes Assessment/Plan Assessment/Plan (1) Open wound of thumb: CODE(S): S61.009A - Unspecified open wound of unspecified thumb without damage to nail, initial encounter PLAN: Healed Aquaphor for dry skin Now that the wound has healed, we discussed concerning signs and symptoms of osteomyelitis such as increased pain/fevers or any development of any draining sinuses or pinholes. (2) Open fracture of proximal phalanx of left thumb: CODE(S): S62.512B - Displaced fracture of proximal phalanx of left thumb, initial encounter for open fracture PLAN: Continue occupational therapy. Now that the wound is gone he should be able to advance with occupational therapy and work harder to improve MCP joint and IP joint range of motion. I discussed with him placing hold exercises today using the contralateral hand. Patient in agreement and will continue to work on this. (3) Open fracture of second metacarpal bone of left hand: CODE(S): S62.301B - Unspecified fracture of second metacarpal bone, left hand, initial encounter for open fracture PLAN: Healed metacarpal fracture. There is some heavy hypertrophic scar forming over this area causing him tenderness to palpation with range of motion. I will consider a steroid injection at the next appointment in 2-1/2-week.
== END 2024-08-04 16:17 | disposition home or self-care (01) ==
LOC: WC 13:00
PROVIDERS: PCP Family Medicine Geriatric Medicine; Referring Provider Surgery Plastic and Reconstructive Surgery; Visit Provider Surgery Plastic and Reconstructive Surgery
DX: S62.512B Displaced fracture of proximal phalanx of left thumb, initial encounter for open fracture (principal); F17.210 Nicotine dependence, cigarettes, uncomplicated; X58.XXXA Exposure to other specified factors, initial encounter; S62.301B Unspecified fracture of second metacarpal bone, left hand, initial encounter for open fracture
CPT/HCPCS: 11042; 73140; 97802; 99213; G0463

== ENCOUNTER → 2024-08-11 | Outpatient (CLI) | payer BC, SELFPAY ==
[2024-08-11 16:27] LABS: Absolute Lymphocyte Count 1.88 X10^3/uL (0.83-4.51); Absolute Neutrophil Count 6.5 X10^3/uL (2.0-7.7); Basophil# 0.07 X10^3/uL; Basophil% 0.7 % (0-1); Eosinophils% 1.1 % (0-5); Hematocrit 38.5 % (40-54); Hemoglobin 13.2 g/dL (13.0-16.5); Lymphocyte # 1.88 X10^3/ul (0.83-4.51); Mean Corp Hgb Conc 34.3 g/dL (32-36); Mean Corpuscular Hgb 30.7 pg (27.0-32.0); Mean Corpuscular Volume 89.5 fL (80-94); Mean Platelet Vol. 8.9 fl (6.2-12.0); Monocyte# 0.81 X10^3/uL; Monocyte% 8.6 % (0-10); NRBC Flagged by Analyzer 0 % (0-5); Neutrophil # 6.49 X10^3/uL (2.7-7.7); Neutrophil % 69.2 % (47-70); Platelet Count 253 K/mm3 (150-450); RBC Distribution Width SD 42.9 fl (35.1-43.9); White Blood Count 9.4 K/mm3 (4.4-11.0)
[2024-08-11 18:56] LABS: AST(SGOT) 19 U/L (<=37); Alanine Aminotransfer ALT/SGPT 22 U/L (<=46); Albumin, Serum 4.5 g/dL (3.4-4.8); Alkaline Phosphatase 106 U/L (40-129); Anion Gap 13 (5-15); BUN 28 mg/dL (4-19); BUN/Creat Ratio 33.4 RATIO (10-20); Calcium,Total 9.3 mg/dL (7.6-11.0); Carbon Dioxide 21.7 mmol/L (21.0-32.0); Chloride 105 mmol/L (98-108); Creatinine, Serum 0.82 mg/dL (0.70-1.20); EST Glomerular Filtration Rate 99 (>60); Globulin 2.2 g/dL (2.2-4.2); Glucose 98 mg/dL (70-99); PSA,Total - Annual Screen 0.82 ng/mL (0.02-4.00); Potassium 4.1 mmol/L (3.3-5.1); Protein, Total 6.8 g/dL (5.9-8.4); Sodium Level 139 mmol/L (133-145); Total Bilirubin 0.22 mg/dL (0.00-1.30)
== END | disposition home or self-care (01) ==
LOC: LAB 15:22
PROVIDERS: PCP Family Medicine Geriatric Medicine; Referring Provider Family Medicine Geriatric Medicine; Visit Provider Family Medicine Geriatric Medicine
DX: R53.83 Other fatigue (principal); Z12.5 Encounter for screening for malignant neoplasm of prostate
CPT/HCPCS: 36415; 80053; 84153; 84443; 85025; G0103

== ENCOUNTER → 2024-08-21 | Outpatient (CLI) | payer OTHER, SELFPAY ==
--- NOTE | 2024-08-21 14:19 | RAD_ITS ---
PROCEDURE: Left hand radiographs, three views 08/21/2024 REASON FOR EXAM: Thumb fracture TECHNIQUE: Three views of the left hand were obtained. COMPARISON: 07/21/2024 FINDINGS: Three views of the left hand were obtained. The bones are osteopenic. There is severe radiocarpal joint narrowing. 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 [id number] degenerative changes of the interphalangeal and MCP joints. Relatively unchanged minimally nondisplaced serpiginous fracture involving the midportion proximal phalanx of the left thumb. RAD/Hand Min 3 Views IMPRESSION: Osteopenia. Relatively unchanged nondisplaced serpiginous fracture involving t he mid portion proximal phalanx of the left thumb. Reading Location: [facility]
--- NOTE | 2024-08-21 14:19 | RAD_ITS ---
PROCEDURE: FINGER(S) MIN 2 VIEWS 08/21/2024 REASON FOR EXAM: THUMB FX TECHNIQUE: 3 view(s) of the left thumb COMPARISON: Radiographs on 07/21/2024. FINDINGS: Unchanged alignment at the level of the mildly displaced fracture at the junction of the proximal and mid thirds of the thumb. Unchanged osteopenia. Unchanged degenerative joint disease. RAD/Finger(s) Min 2 Views IMPRESSION: 1. Unchanged alignment at the level of the mildly displaced fracture at the anton ction of the proximal and mid thirds of the thumb. 2. No significant healing is identified in the interim. Reading Location: [facility]
== END | disposition home or self-care (01) ==
PROVIDERS: PCP Family Medicine Geriatric Medicine; Referring Provider Surgery Plastic and Reconstructive Surgery; Visit Provider Surgery Plastic and Reconstructive Surgery
DX: S62.502A Fracture of unspecified phalanx of left thumb, initial encounter for closed fracture (principal)
CPT/HCPCS: 73130; 73140

== ENCOUNTER 2024-09-15 12:00 | Outpatient (RCR) | payer OTHER, SELFPAY ==
--- NOTE | 2024-06-04 09:48 | HP.OTEVAL_ITS ---
Patient's Visit Information Visit Information Visit Information: CRYSTAL TUCKER is a 64 year old M, referred to Occupational Therapy by Dr. Reno Dela Cruz MD, with a diagnosis of left IF crush injury. Date of Evaluation: 06/03/24 Occupational Therapist: Monalisa Shukla, ADELINE/Lyla, CHT Subjective Subjective: This 64 year old male was seen for OT eval with dx of crush and degloving injury to left hand with open fx of left dorsal hand/thumb, and IF. 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 pt underwent sx same day for revision amputation of left IF at the MCP joint level, open fx with percutaneous pinning left thumb at proximal phalanx fx. On 05/28/24 pt had pins removed out of left thumb proximal phalanx - this fx was identified as stable following removal of pins. pt arrives with orthosis on- to protect thumb- Therapist ed. pt to decrease orthosis and allow for wrist motion- Therapist did rec. just thumb splint but pt did not want this- allowed therapist to allow wrist to be free- pt states he has concerns with the wound and how it is healing- pt states he is boiling water at home and then soaking hand in dial soap 2x a day- changing dressing- pt arrives today from office with new dressing change. pt states he is right handed pt state he is currently living with his mom as she is unable to use, he left hand for any daily tasks. ADLs Comments: pt currently having assistance for daily tasks- meals- driving due to inability to use his left hand at this time. Pain left hand: Current Pain Intensity: 3 Pain Intensity Range: 3 ROM Wrist: right /left WFL CMC: right 15* left 5* MP: right 50* left 20* IP: right 35* left 5* Palmar Abduction: right 45 left 45 ROM Comments: pt demo the ability to form light fist with MF-RF-LF Strength Strength Comments: will test later date Sensation Sensation Comments: denes Quick DASH-Disab of Arm,Shoulder& Hand Quick DASH Score: 70.0000 Goals Goal:Daily scar massage when approriate: Yes Goal:ROM equal to unaffected hand: Yes Comment: left thumb IP /MP Goal:Upper Doubler/Pinch strength at least 75% of unaffected hand: Yes Comment: 50% of unaffected hand Goal:Full use of affected hand in daily activities including work: Yes Goal:Decrease scar hypersensitivity: Yes Other Goal: orthosis use- pt will demo understanding of orthosis use by end of 2nd session. Rehabilitation General Assessment: pt arrives 7 weeks s/p from left IF amputation and pinning of left thumb proximal phalanx. pt arrives 6 days from pin removal from left thumb. pt demo limited ROM of digits and thumb- newly healing wound sites limiting pts functional use of left hand with daily or work tasks. pt demo need for skilled OT services 2-3x weeks for 8 weeks to improve pts ROM, wound care and functional use of left digits. Today therapist cut down orthosis to allow for wrist motion- (will terry. smaller thumb splint next visit) - therapist ed. pt on ROM for thumb and digits- pt verbalized his routine with his warm water soaks and antibacterial soap. pt verbalizes reluctance to use hand due to wounds- therapist advised ROM every 1-2 waking yours to increase circulation, improve soft tissue structres and gain ROM. pt demo understanding and agree to POC. Rehabilitation Potential: Good Anticipated Interventions Anticipated Interventions: A/AAROM/PROM, Strengthening, Scar Care, Triggerpoint Release, Desensitization, Sensory Retraining, Modalities, Orthoses, Joint Protection/Energy Conservation, Ergonomic Education, Fine Motor Coord/Dre, Sensory Stimulation, Education re assistive Equipment, Education re Diagnosis and Home Program Visit Plan Frequency: 1-2x /Week Duration: 2 Months General Plan: cut orthosis down to allow for wrist motion- provide new smaller orthosis next visit- improve pts thumb and digit ROM light customer solutions teammate activity with digits. TEXT: Thank you for the opportunity to evaluate your patient. For Medicare and Medicare HMO plans, please review the plan of care and approve it. It will need to be FAXED BACK to us at [phone] for Medicare purposes. Please let me know if there are questions or concerns regarding this plan of care. Physician Signature: Date:
[2024-06-26 17:56] LABS: Hematocrit 39.3 % (40-54); Mean Corp Hgb Conc 33.1 g/dL (32-36); Mean Corpuscular Hgb 30.2 pg (27.0-32.0); Mean Corpuscular Volume 91.2 fL (80-94); Mean Platelet Vol. 8.9 fl (6.2-12.0); Platelet Count 272 K/mm3 (150-450); RBC Distribution Width CV 13.1 % (11.6-14.6); RBC Distribution Width SD 44.4 fl (35.1-43.9); Red Blood Count 4.31 M/mm3 (4.6-6.2); White Blood Count 9.1 K/mm3 (4.4-11.0)
[2024-06-26 18:09] LABS: Hemoglobin A1c 5.8 % (3.8-5.6)
[2024-06-26 18:21] LABS: ALB/GLOB Ratio 1.5 RATIO (0.9-2.4); AST(SGOT) 19 U/L (15-37); Alanine Aminotransfer ALT/SGPT 31 U/L (16-61); Albumin, Serum 4.2 g/dL (3.2-5.0); Alkaline Phosphatase 109 U/L (45-117); Anion Gap 7 (5-15); BUN 23 mg/dL (7-18); BUN/Creat Ratio 28.9 RATIO (10-20); Calcium,Total 9.1 mg/dL (8.5-10.1); Chloride 105 mmol/L (98-107); EST Glomerular Filtration Rate 104 mL/min (>60); Est Glom Filt Rate - Afr Amer 126 mL/min (>60); Globulin 2.8 g/dL (2.2-4.2); Glucose 94 mg/dL (74-106); Potassium 4.2 mmol/L (3.5-5.1); Sodium Level 138 mmol/L (136-145)
[2024-06-28 09:08] LABS: Prealbumin 29 mg/dL (10-36)
--- NOTE | 2025-01-08 09:46 | HP.OT.NRP ---
Patient Information Patient Information: CRYSTAL TUCKER was seen in my office for initial evaluation on 06/03/24. The following Plan of Care was established for this patient: POC Established Initial Frequency: 1-2x /Week Initial Duration: 2 Months Plan: cont to improve pts strength ROM- still not strengthening aggressively with thumb Anticipated Interventions Anticipated Interventions: A/AAROM/PROM, Strengthening, Scar Care, Triggerpoint Release, Desensitization, Sensory Retraining, Modalities, Orthoses, Joint Protection/Energy Conservation, Ergonomic Education, Fine Motor Coord/Dre, Sensory Stimulation, Education re assistive Equipment, Education re Diagnosis and Home Program Last Seen Last Seen: This patient was last seen in our office 09/15/24. 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 At this point I will be discontinuing this patient from occupational therapy. I would be happy to see this patient again in the future if found appropriate by the physician. Thank you! Monalisa Shukla, OTR/L, CHT
== END 2024-09-15 19:00 | disposition home or self-care (01) ==
LOC: OT 12:00
PROVIDERS: PCP Family Medicine Geriatric Medicine; Referring Provider Surgery Plastic and Reconstructive Surgery; Visit Provider Surgery Plastic and Reconstructive Surgery
DX: S68.111D Complete traumatic metacarpophalangeal amputation of left index finger, subsequent encounter (principal); S62.512D Displaced fracture of proximal phalanx of left thumb, subsequent encounter for fracture with routine healing; S62.301D Unspecified fracture of second metacarpal bone, left hand, subsequent encounter for fracture with routine healing; S62.601D Fracture of unspecified phalanx of left index finger, subsequent encounter for fracture with routine healing
CPT/HCPCS: 36415; 80053; 83036; 84134; 85027; 97110; 97140; 97166; 97530

== ENCOUNTER 2024-10-17 14:08 | Emergency (ER) | payer SELFPAY | END 2024-10-17 14:35 | disposition left against medical advice (07) | LOC: ED 14:47 | PROVIDERS: PCP Family Medicine Geriatric Medicine | DX: Z53.21 Procedure and treatment not carried out due to patient leaving prior to being seen by health care provider (principal) ==

== ENCOUNTER → 2024-10-17 | Outpatient (CLI) | payer OTHER, SELFPAY ==
--- NOTE | 2024-10-17 16:27 | MRI_ITS ---
PROCEDURE: UPPER EXT NO JOINT W/WO CONT 10/17/2024 REASON FOR EXAM: RULE OUT INFECTION IN BONE TECHNIQUE: MRI of the left thumb with and without intravenous gadolinium-based contrast. Multiplanar and multisequence images were obtained. CONTRAST: Clariscan VOLUME: 13mL COMPARISON: Left thumb radiographs same day. Left thumb radiographs July 2024. FINDINGS: Subacute/chronic slightly displaced fracture through the midportion of the thumb proximal phalanx, correlating with plain radiograph. Marrow T1 hypointensity and edema involves the distal aspect of the 1st proximal phalanx (the bone distal to the fracture line) suspicious for osteomyelitis. Additionally, there is T1 marrow hypointensity with corresponding edema involving the base of the distal phalanx. Soft tissue swelling noted surrounding the proximal and distal phalanges, could be postoperative, cellulitic, or combination. Focal skin defect at the ventral aspect of the thumb interphalangeal joint. No soft tissue abscess is seen. 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 Focal edema and T1 hypointensity of the 2nd metacarpal head with no adjacent soft tissue changes. Favor this is degenerative. There has been prior resection of the 2nd digit phalanges. No tendon rupture or tenosynovitis is seen. Exam not tailored to evaluate the UCL. MRI/Upper Ext No Joint W/WO Cont IMPRESSION: Findings suspicious for osteomyelitis involving the thumb proximal and distal p halanges, as detailed. Surrounding soft tissue swelling, presumably cellulitis. No abscess. Reading Location: [facility]
== END | disposition home or self-care (01) ==
PROVIDERS: PCP Family Medicine Geriatric Medicine; Referring Provider Surgery Plastic and Reconstructive Surgery; Visit Provider Surgery Plastic and Reconstructive Surgery
DX: S62.512B Displaced fracture of proximal phalanx of left thumb, initial encounter for open fracture (principal)
CPT/HCPCS: 36415; 73140; 73220; 80053; 85025; 85652; 86140; 87070; 87075; 87077; 87186; 87205; A9575; A4216

== ENCOUNTER → 2024-10-17 | Outpatient (CLI) | payer OTHER, SELFPAY ==
--- NOTE | 2024-10-17 15:10 | RAD_ITS ---
PROCEDURE: FINGER(S) MIN 2 VIEWS 10/17/2024 REASON FOR EXAM: OPEN WOUND OF THUMB TECHNIQUE: FINGER(S) MIN 2 VIEWS COMPARISON: Prior study dated September 16, 2024. FINDINGS: Bones: Partial healing of the transverse fracture of the proximal phalanx of the thumb. There is good alignment. Soft tissue swelling. RAD/Finger(s) Min 2 Views IMPRESSION: Partial healing of the transverse fracture through the midportion of the proxim al phalanx of the thumb. Reading Location: [id number]
[2024-10-17 16:06] LABS: Absolute Lymphocyte Count 1.87 X10^3/uL (0.83-4.51); Absolute Neutrophil Count 7.1 X10^3/uL (2.0-7.7); Basophil# 0.07 X10^3/uL; Basophil% 0.7 % (0-1); Eosinophil# 0.07 X10^3/uL; Eosinophils% 0.7 % (0-5); Hematocrit 39.1 % (40-54); Hemoglobin 13.4 g/dL (13.0-16.5); Lymphocyte # 1.87 X10^3/ul (0.83-4.51); Lymphocyte % 18.8 % (19-41); Mean Corp Hgb Conc 34.3 g/dL (32-36); Mean Corpuscular Hgb 30.9 pg (27.0-32.0); Mean Corpuscular Volume 90.1 fL (80-94); Mean Platelet Vol. 9.1 fl (6.2-12.0); Monocyte# 0.78 X10^3/uL; Monocyte% 7.9 % (0-10); NRBC Flagged by Analyzer 0 % (0-5); Neutrophil % 71.5 % (47-70); Platelet Count 305 K/mm3 (150-450); RBC Distribution Width CV 13.4 % (11.6-14.6); RBC Distribution Width SD 44.1 fl (35.1-43.9); Red Blood Count 4.34 M/mm3 (4.6-6.2); White Blood Count 9.9 K/mm3 (4.4-11.0)
[2024-10-17 17:10] LABS: ALB/GLOB Ratio 2.1 RATIO (0.9-2.4); AST(SGOT) 26 U/L (<=37); Alanine Aminotransfer ALT/SGPT 32 U/L (<=46); Albumin, Serum 4.6 g/dL (3.4-4.8); Alkaline Phosphatase 131 U/L (40-129); Anion Gap 14 (5-15); BUN 12 mg/dL (4-19); Calcium,Total 9.3 mg/dL (7.6-11.0); Carbon Dioxide 21.8 mmol/L (21.0-32.0); Chloride 106 mmol/L (98-108); Creatinine, Serum 0.83 mg/dL (0.70-1.20); EST Glomerular Filtration Rate 98 (>60); Globulin 2.2 g/dL (2.2-4.2); Glucose 89 mg/dL (70-99); Potassium 4.1 mmol/L (3.3-5.1); Protein, Total 6.8 g/dL (5.9-8.4); Sodium Level 141 mmol/L (133-145); Total Bilirubin 0.32 mg/dL (0.00-1.30)
[2024-10-17 17:11] LABS: CRP < 3.00 mg/L (0.0-3.0)
[2024-10-17 17:26] LABS: Erythrocyte Sedimentation Rate 3 mm/hr (0-20)
--- OUTSIDE RECORDS SUMMARY | 2024-10-17 19:45 | XMS RPT_ITS | CCD ---
Author Organization [facility] CliniSyin Care Team Providers Care Logistics Service Representative Name Role Phone Brody Saleh Chi Primary Care Provider BRODY SALEH CHI Primary Care Unavailable JACQUES BUTLER Attending Unavailable Delfino GONZALEZ, Dr. Brody Liz Primary Care Provider [phone] Dr. Francisco Espinal MD Emergency Provider Dr. Reno Dela Cruz MD Attending Provider Dr. Reno Dela Cruz MD Other Provider Jose De Jesus GONZALEZ, Dr. Bojorquez Admit Provider Dr. Reno Dela Cruz MD Referring Provider Dr. Brody Saleh MD, Chi Referring Provider Dr. Francisco Collins MD Attending Provider Tashia FLOOR SPACE ALLOCATOR-C Renata E Attending Provider Tashia FLOOR SPACE ALLOCATOR-C, Renata E Referring Provider Dr. Brody Saleh MD, Chi Primary Care Provider Dr. Francisco Espinal MD Emergency Provider Dr. Reno Dela Cruz MD Attending Provider Dr. Reno Dela Cruz MD Other Provider Delfino GONZALEZ, Dr. Brody Liz Attending Provider Delfino GONZALEZ, Dr. Brody Liz Primary Care Provider Dr. Brody Saleh MD, Chi Referring Provider Dr. Reno Dela Cruz MD Attending Provider Dr. Francisco Collins MD Attending Provider Dr. Reno Dela Cruz MD Referring Provider Dr. Reno Dela Cruz MD Other Provider Tashia FLOOR SPACE ALLOCATOR, Renata E Attending Unavailabl e Delfino, Brody Chi Primary Care Unavailable Delfino, Brody Chi Referring Unavailable Siska, Reno Attending Unavailable Siska, Reno Referring Unavailable Delfino, Brody Chi Primary Care Unavailable Delfino, Brody Chi Primary Care Unavailable Delfino, Brody Chi Referring Unavailable Delfino, Brody Chi Attending Unavailable Siska, Reno Attending Unavailable Delfino, Brody Chi Primary Care Unavailable Delfino, Brody Chi Referring Unavailable Karina, [place] Attending Unavailable Delfino, Brody Chi Primary Care Unavailable Siska, Reno Attending Unavailable Delfino, Brody Chi Primary Care Unavailable Delfino, Brody Chi Referring Unavailable Karina, [place] Attending Unavailable Delfino, Brody Chi Primary Care Unavailable Siska, Reno Attending Unavailable Espinal, Francisco Referring Unavailable Delfino, Brody Chi Primary Care Unavailable Tashia FLOOR SPACE ALLOCATOR, Renata E Referring Unavailabl e Delfino, Brody Chi Primary Care Unavailable Tashia FLOOR SPACE ALLOCATOR, Renata E Attending Unavailabl e Siska, Reno Referring Unavailable Delfino, Brody Chi Primary Care Unavailable Siska, Reno Attending Unavailable Siska, Reno Referring Unavailable Siska, Reno Attending Unavailable Delfino, Brody Chi Primary Care Unavailable Delfino, Brody Chi Primary Care Unavailable Siska, Reno Attending Unavailable Delfino, Brody Chi Referring Unavailable Delfino, Brody Chi Primary Care Unavailable Siska, Reno Attending Unavailable Delfino, Brody Chi Referring Unavailable Siska, Reno Referring Unavailable Siska, Reno Attending Unavailable Delfino, Brody Chi Primary Care Unavailable Siska, Reno Consulting Unavailable Siska, Reno Admitting Unavailable Siska, Reno Attending Unavailable Delfino, Brody Chi Referring Unavailable Delfino, Brody Chi Primary Care Unavailable Siska, Reno Attending Unavailable Delfino, Brody Chi Primary Care Unavailable Delfino, Brody Chi Referring Unavailable Karina, [place] Attending Unavailable Delfino, Brody Chi Primary Care Unavailable Taya, Robby Attending Unavailable Delfino, Brody Chi Primary Care Unavailable Delfino, Brody Chi Referring Unavailable Siska, Reno Admitting Unavailable Taya, Robby Attending Unavailable Delfino, Brody Chi Referring Unavailable Delfino, Brody Chi Primary Care Unavailable Karian, [place] Attending Unavailable Delfino, Brody Chi Primary Care Unavailable Siska, Reno Attending Unavailable Delfino, Brody Chi Primary Care Unavailable Delfino, Brody Chi Referring Unavailable Siska, Reno Attending Unavailable Siska, Reno Referring Unavailable Delfino, Brody Chi Primary Care Unavailable Siska, Reno Consulting Unavailable Siska, Reno Referring Unavailable Siska, Reno Attending Unavailable Delfino, Brody Chi Primary Care Unavailable Siska, Reno Referring Unavailable Siska, Reno Attending Unavailable Delfino, Brody Chi Primary Care Unavailable Siska, Reno Referring Unavailable Siska, Reno Attending Unavailable Delfino, Brody Chi Primary Care Unavailable Siska, Reno Consulting Unavailable Siska, Reno Referring Unavailable Delfino, Brody Chi Primary Care Unavailable Siska, Reno Attending Unavailable Siska, Reno Referring Unavailable Delfino, Brody Chi Primary Care Unavailable Siska, Reno Attending Unavailable Siska, Reno Consulting Unavailable Siska, Reno Referring Unavailable Delfino, Brody Chi Primary Care Unavailable Siska, Reno Attending Unavailable Siska, Reno Consulting Unavailable Siska, Reno Referring Unavailable Delfino, Brody Chi Primary Care Unavailable Siska, Reno Attending Unavailable Siska, Reno Consulting Unavailable Siska, Reno Referring Unavailable Delfino, Brody Chi Primary Care Unavailable Siska, Reno Attending Unavailable Siska, Reno Consulting Unavailable Siska, Reno Referring Unavailable Delfino, Brody Chi Primary Care Unavailable Siska, Reno Attending Unavailable Siska, Reno Consulting Unavailable Siska, Reno Attending Unavailable Siska, Reno Consulting Unavailable Delfino, Brody Chi Primary Care Unavailable Karina, [place] Attending Unavailable Delfino, Brody Chi Primary Care Unavailable Siska, Reno Attending Unavailable Delfino, Brody Chi Primary Care Unavailable Delfino, Brody Chi Referring Unavailable Siska, Reno Attending Unavailable Delfino, Brody Chi Primary Care Unavailable Delfino, Brody Chi Referring Unavailable Siska, Reno Attending Unavailable Delfino, Brody Chi Primary Care Unavailable Delfino, Brody Chi Referring Unavailable Siska, Reno Attending Unavailable Delfino, Brody Chi Referring Unavailable Delfino, Brody Chi Primary Care Unavailable Karina, [place] Attending Unavailable Delfino, Brody Chi Primary Care Unavailable Siska, Reno Attending Unavailable Delfino, Brody Chi Primary Care Unavailable Delfino, Brody Chi Referring Unavailable Karina, [place] Attending Unavailable Delfino, Brody Chi Primary Care Unavailable Siska, Reno Attending Unavailable Delfino, Brody Chi Referring Unavailable Delfino, Brody Chi Primary Care Unavailable Karina, [place] Attending Unavailable Delfino, Brody Chi Primary Care Unavailable Delfino Dr. Brody GONZALEZ Chi Primary Care Provider Dr. Reno Dela Cruz MD Attending Provider [phone] Dr. Reno Dela Cruz MD Referring Provider [phone] Jose De Jesus GONZALEZ, Dr. Bojorquez Other Provider Tashia FLOOR SPACE ALLOCATOR-C, Renata Bhatia Attending Provider [phone] Delfino GONZALEZ, Dr. Brody Liz Referring Provider Karina GONZALEZ, Dr. Singh Attending Provider Provider, Ed Physician Emergency Provider Sade bautista Medications Current Medications Medication Drug Class(es) Dates Sig (Normalized) Sig (Original) calcium carbonate 1250 mg / cholecalciferol 600 unt oral tablet (6 sources) Vitamin D Start: 07-24-2024 Calcium Carbonate-Vitamin D3 500 mg-15 mcg (600 unit) tablet Active 1 {tbl} PO DAILY July 24, 2024 12:00am [place] (Nk) (1 source) Start: 05-20-2024 [place] (Nk) Active May 20, 2024 1:00am Completed/Discontinued Medications Medication Drug Class(es) Dates Sig (Normalized) Sig (Original) cephalexin 500 mg oral capsule (7 sources) Cephalosporin Antibacterial Start: 04-17-2024 End: 05-09-2024 take 1 capsule by mouth every eight hours Cephalexin 500 mg capsule Discontinued 500 mg PO Q8H 24 11April 17, 2024 11:00am May 09, 2024 10:41am clindamycin 150 mg oral capsule (7 sources) Lincosamide Antibacterial Start: 04-22-2024 End: 04-27-2024 take 1 capsule by mouth three times daily Clindamycin Hcl 150 mg capsule Discontinued 150 mg PO THREE TIMES A DAY 15 April 22, 2024 1:00am April 26, 2024 1:00am April 27, 2024 1:11am oxyCODONE hydrochloride 5 mg oral tablet (14 sources) Opioid Agonist Start: 04-22-2024 End: 04-27-2024 take 1 tablet by mouth every twelve hours as needed for pain Oxycodone 5 mg tablet Discontinued 5 mg PO Q12H as needed for pain 10 April 22, 2024 April 26, 2024 1:00am April 27, 2024 1:11am Start: 04-17-2024 End: 04-29-2024 take 1 tablet by mouth every eight hours as needed for pain Oxycodone 5 mg tablet Discontinued 5 mg PO Q8H as needed for pain 14 5 April 17, 2024 April 29, 2024 11:45am Problems Problem Classification Problem Date Documented Date Episodic/Chronic Diabetes mellitus without complication (1 source) Hyperglycemia, unspecified; Translations: [Blood glucose elevated] Onset: 4 Episodic Fracture of upper limb (20 sources) Open fracture of second metacarpal bone of left hand; Translations: [Unspecified fracture of second metacarpal bone, left hand, initial encounter for open fracture] Onset: 5 04-15-2024 Episodic Infective arthritis and osteomyelitis (except that caused by tuberculosis or sexually transmitted disease) (2 sources) Osteomyelitis of left hand; Translations: [Osteomyelitis, unspecified] 10-17-2024 Chronic Comment on above: Left thumb Malaise and fatigue (1 source) Other fatigue; Translations: [Other fatigue] Onset: 5 Episodic Open wounds of extremities (20 sources) Amputated finger; Translations: [Complete traumatic metacarpophalangeal amputation of left index finger, initial encounter] Onset: 5 04-22-2024 Chronic Open wounds of extremities (20 sources) Open wound of thumb; Translations: [Unspecified open wound of unspecified thumb without damage to nail, initial encounter] Onset: 5 06-10-2024 Episodic Comment on above: Resolved Other connective tissue disease (10 sources) Triggering of digit; Translations: [Trigger finger, unspecified finger] 08-21-2024 Episodic Comment on above: Left long finger Other nutritional; endocrine; and metabolic disorders (7 sources) Hypocalcemia; Translations: [Hypocalcemia] 04-15-2024 Chronic Other screening for suspected conditions (not mental disorders or infectious disease) (8 sources) Patient encounter status; Translations: [Encounter for screening for malignant neoplasm of respiratory organs] 08-06-2023 Episodic Residual codes; unclassified (1 source) Tobacco user; Translations: [Tobacco use] 08-06-2023 Episodic Skin and subcutaneous tissue infections (3 sources) Abscess of thumb of left hand; Translations: [Cutaneous abscess of left hand] 10-17-2024 Episodic Thyroid disorders (1 source) Hypothyroidism, unspecified; Translations: [Unspecified hypothyroidism] Onset: 4 Chronic Unclassified (10 sources) Amputation of left index finger; Translations: [Range of motion] Unclassified (5 sources) Open fracture of proximal phalanx of left thumb Unclassified (5 sources) Open fracture of second metacarpal bone of left hand Unclassified (5 sources) Open fracture of phalanx of left index finger Unclassified (3 sources) S62.512B - Displaced fracture of proximal phalanx of left thumb, initial encounter for open fracture,S62.301B - Unspecified fracture of second metacarpal bone, left hand, initial encounter for open fracture,S62.601B - Fracture of unspecified phalanx of left index finger, initial encounter for open fracture Results Test Name Value Interpretation Reference Range Facility Hand Min 3 Viewson Hand Min 3 Views [facility] [address] [place] [address] Hand Min 3 Views MR#: [id number] Acct: [id number] Name: REGGIE SURESH Rep #: [id number] : 1960 M 64 From: Reno Mendieta MD PCP: Dr. Brody Saleh MD Status: DEP AMB Study: Hand Min 3 Views Date of Exam: 09/16/24 Exam# [id number] Ordering Dr: Reno Dela Cruz MD PROCEDURE: HAND MIN 3 VIEWS 09/16/2024 REASON FOR EXAM: AMPUTATION OF LEFT INDEX, FOLLOW UP TECHNIQUE: 3 view(s) of the left hand COMPARISON: 08/21/2024 FINDINGS: Some interval partial healing suggested of the 1st proximal phalanx shaft fracture with some sclerotic change. Healed appearing previous fracture of the 2nd metacarpal distal metadiaphysis. Amputation at the 2nd MCP joint again noted. 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 RAD/Hand Min 3 Views IMPRESSION: Some interval partial healing suggested of the 1st proximal phalanx shaft fracture with some sclerotic change. Healed appearing previous fracture of the 2nd metacarpal distal metadiaphysis. Amputation at the 2nd MCP joint again noted. Reading Location: [id number] CC: Dr. Reno Dela Cruz MD; Dr. Brody Saleh MD Processing Technologist: Signed Normal [facility] Plastic Surgery Visit Report on 09-16-2024 Plastic Surgery Visit Report [facility] Plastic Reconstructive Surgery [address], [address] [place] [address] OFFICE VISIT Date of Service: 09/16/24 MR#: [id number] Acct: [id number] Name: REGGIE SURESH Rep #: [id number] : 1960 Provider: Dr. Reno Dela Cruz MD Age/Sex: 64/M Location: [place] [address] Status: Signed with Addenda ADDENDUM by Valerie Zapata on 09/17/24 at 0848 Assessment and Plan (No Qualifiers) Assessment and Plan (1) Amputation of left index finger: Status: Acute (2) Open fracture of phalanx of left index finger: Status: Acute (3) Open wound of thumb: Status: Acute Comment: Resolved (4) Trigger finger of left hand: Status: Acute Comment: Left long finger Plan [employer] [address], [facility] [place] [id number], [id number], EXP 09/202609/17/24 0906 Date Reno Dela Cruz MD cc: * Signed Intake Vital Signs 07/08/24 11:03 Height 5 ft 8 in Intake Visit Reasons: 6 wk FU f [facility] Chief Complaint: Amptation FU Allergies No Known Allergies Allergy (Verified 09/16/24 14:08) Medications ???Medication ???Instructions ???Recorded ???Confirmed ???Type calcium 500 mg (as 1 tab PO DAILY 30 days #30 tabs 09/16/24 Rx carbonate)-vitamin D3 15 mcg (600 unit) tablet PFSH Medical History Wears glasses Alcohol use Hx of testicular cancer Smoker Surgical History Hx of hand surgery Hx of eye surgery History of dental surgery Hx of tonsillectomy History of hand surgery Social History Smoking Status: Light Smoker (<10/day) HPI 6 wk FU f [facility] Details: Patient doing well overall. No fevers chills or drainage. No pain with use of his left upper extremity. No pain in the thumb. Scar site tenderness has improved significantly since injection. The A1 ousmane triggering of the long finger is also significantly improved from injection. Doing well overall. His work anticipates him going back to work tomorrow. He has progressed well with hand therapy and is getting more range of motion of the thumb. Exam Details Left upper Extremity Inspection: Left thumb wound healed. No drainage or induration. Scar is less thick/hypertrophic. Palpation: No tenderness to palpation over the left thumb proximal phalanx. Thumb feels stable. Motor: Able to bend and extend all MP, PIP, and DIP joints. Ulnar three digits have regained normal ROM. He has some limited IP flexion of the thumb (30 degrees), which has improved since last visit. Sensory: Intact to light touch on the radial and ulnar borders. Vascular: Finger tips are warm and well perfused with <2 second capillary refill. Supplemental Info X-ray reviewed Similar alignment of the thumb proximal phalanx Coding Level of Care Code Off vis,est,level 3 Diagnoses Amputation of left index finger S68.111A Open fracture of phalanx of left index finger S62.601B Open wound of thumb S61.009A Trigger finger of left hand M65.30 Assessment and Plan (No Qualifiers) Assessment and Plan (1) Amputation of left index finger: Status: Acute Plan: Amputation healed with adequate tissue covering the index finger metacarpal (2) Open fracture of phalanx of left index finger: Status: Acute Plan: Acceptable/stable alignment on x-rays today. Nontender on exam Continue range of motion hand therapy Patient to continue vitamin D and calcium supplementation. Discussed smoking cessation (3) Open wound of thumb: Status: Acute Comment: Resolved Plan: Resolved (4) Trigger finger of left hand: Status: Acute Comment: Left long finger Plan: Improved with injection Consider injection every 3 months Plan Follow-up in 2 months to check range of motion and check progress. Should continue occupational therapy Okay to return to work 09/16/24 1550 Date [facility] Date (if applicable) CC: Normal [facility] Finger(s) Min 2 Viewson 08-05 Finger(s) Min 2 Views [facility] Imaging Services [address] [place] [address] Finger(s) Min 2 Views MR#: [id number] Acct: [id number] Name: REGGIE SURESH Rep #: [id number] : 1960 M 64 From: Varghese granado MD PCP: Dr. Brody Saleh MD Status: REG CLI Study: Finger(s) Min 2 Views Date of Exam: 08/21/24 Exam# [id number] Ordering Dr: Reno Dela Cruz MD PROCEDURE: FINGER(S) MIN 2 VIEWS 08/21/2024 REASON FOR EXAM: THUMB FX TECHNIQUE: 3 view(s) of the left thumb COMPARISON: Radiographs on 07/21/2024. FINDINGS: Unchanged alignment at the level of the mildly displaced fracture at the junction of the proximal and mid thirds of the thumb. Unchanged osteopenia. Unchanged degenerative joint disease. RAD/Finger(s) Min 2 Views IMPRESSION: 1. Unchanged alignment at the level of the mildly displaced fracture at the junction of the proximal and mid thirds of the thumb. 2. No significant healing is identified in the interim. Reading Location[facility] CC: Dr. Reno Dela Cruz MD; Dr. Brody Saleh MD Processing Technologist: Signed Normal [facility] Hand Min 3 Viewson Hand Min 3 Views [facility] [address] [place] [address] Hand Min 3 Views MR#: [id number] Acct: [id number] Name: REGGIE SURESH Rep #: [id number] : 1960 M 64 From: Ernst Boland i DO PCP: Dr. Brody Saleh MD Status: REG CLI Study: Hand Min 3 Views Date of Exam: 08/21/24 Exam# [id number] Ordering Dr: Reno Dela Cruz MD PROCEDURE: Left hand radiographs, three views 08/21/2024 REASON FOR EXAM: Thumb fracture TECHNIQUE: Three views of the left hand were obtained. COMPARISON: 07/21/2024 FINDINGS: Three views of the left hand were obtained. The bones are osteopenic. There is severe radiocarpal joint narrowing. 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 Kete-mo-jnkjammb degenerative changes of the interphalangeal and MCP joints. Relatively unchanged minimally nondisplaced serpiginous fracture involving the midportion proximal phalanx of the left thumb. RAD/Hand Min 3 Views IMPRESSION: Osteopenia. Relatively unchanged nondisplaced serpiginous fracture involving the mid portion proximal phalanx of the left thumb. Reading Location: [facility] CC: Dr. Reno Dela Cruz MD; Dr. Brody Saleh MD Processing Technologist: Signed Normal [facility] Plastic Surgery Visit Report on 08-21-2024 Plastic Surgery Visit Report [facility] Plastic Reconstructive Surgery [address] [place] [address], [address] [place] [address] OFFICE VISIT Date of Service: 08/21/24 MR#: [id number] Acct: [id number] Name: REGGIE SURESH Rep #: [id number] : 1960 Provider: Dr. Reno Dela Cruz MD Age/Sex: 64/M Location[place] [facility] Status: Signed Intake Vital Signs 07/08/24 11:03 08/21/24 14:46 Height 5 ft 8 in BP 103/68 Blood Pressure Location Rt brachial Position Sitting Respiration 18 Pulse 74 Pulse Source Monitor Pulse Oximetry (%) 94 Oxygen Delivery Method room air Intake Visit Reasons: f/u Chief Complaint: Amptation FU Is patient in pain?: Yes Pain scale (1-10): 5 Allergies No Known Allergies Allergy (Verified 08/21/24 14:45) Medications ???Medication ???Instructions ???Recorded ???Confirmed ???Type calcium 500 mg (as 1 tab PO DAILY 30 days #30 tabs 08/21/24 Rx carbonate)-vitamin D3 15 mcg (600 unit) tablet Nurse's Note: 0.25% Bupivacaine [facility] [place] [id number] LOT [id number] EXP 07/04/2025 Subjective Details: Doing well, no fevers or chills or drainage. Some increased range of motion with hand therapy. He has been compliant with no heavy lifting. He unfortunately has been having some long finger triggering from time to time where he has to, especially in the morning, pull his long finger out of flexion. Still smoking cigarettes about 10/day (discussed cessation). Objective Details: Left upper Extremity Inspection: Left thumb wound healed. No drainage or induration . some thick hypertrophic dorsal and scar from laceration repairs but all viable soft tissue. Palpation: No tenderness to palpation over the left thumb proximal phalanx. Positive pain over the A1 ousmane of the long finger and palpable triggering. Motor: Able to bend and extend all MP, PIP, and DIP joints. Limited MP joint flexion (60 degrees in long ring and small fingers). He has some limited IP flexion of the thumb (20 degrees), which has improved since last visit. Sensory: Intact to light touch on the radial and ulnar borders. Vascular: Finger tips are warm and well perfused with <2 second capillary refill. Coding Level of Care Code Off vis,est,level 3 Diagnoses Amputation of left index finger S68.111A Open fracture of phalanx of left index finger S62.601B Open wound of thumb S61.009A Trigger finger of left hand M65.30 PFSH Medical History Wears glasses Alcohol use Hx of testicular cancer Smoker Surgical History Hx of hand surgery Hx of eye surgery History of dental surgery Hx of tonsillectomy History of hand surgery Social History Smoking Status: Light Smoker (<10/day) Assessment and Plan (No Qualifiers) Assessment and Plan (1) Amputation of left index finger: Status: Acute Plan: Amputation healed with some hypertrophic scar on the dorsum that is tender. (2) Open fracture of phalanx of left index finger: Status: Acute Plan: Acceptable/stable alignment on x-rays today. Nontender on exam Continue range of motion hand therapy Patient will start vitamin D and calcium supplementation. Discussed smoking cessation (3) Open wound of thumb: Status: Acute Comment: Resolved Plan: Resolved (4) Trigger finger of left hand: Status: Acute Comment: Left long finger Plan: Procedure Risk benefits and alternatives discussed for trigger finger injection He signed her consent A 50-50 mixture of 1/2 cc of Kenalog 10-1/2 cc of quarter percent Marcaine was used. The area immediately over the A1 ousmane of the long finger was prepped and draped and the mixture was injected. A Band-Aid was applied. Patient tolerated well. Plan Follow-up in 6 weeks to check range of motion and check progress. Patient needs to continue to work with hand therapy on thumb IP joint flexion. I talked to him about placing hold (10 times per day with 8 out of 10 pain at the IP joint in order to get flexion improved while at home outside of therapy). 08/21/24 1700 Date Reno Dela Cruz [facility] Signature: Date (if applicable) CC: Normal [facility] Absolute lymphocyte countOrd ered By: Brody Saleh on 08-11-2024 Lymphocytes Auto (Unsp spec) [#/Vol] 1.88 10*3/uL 0.83-4.51 [facility] Absolute neutrophil countOrd ered By: Brody Saleh on 08-11-2024 Neutrophils (Bld) [#/Vol] 6.5 10*3/uL 2.0-7.7 [facility] Anion gap in Serum or Plasma Ordered By: Brody Saleh on 08-11-2024 Anion gap [Moles/Vol] 13 mmol/L 5-15 [facility] Automated lymphocyte count a s percentage of total leukocytesOrdered By: Brody Saleh on 08-11-2024 Lymphocytes/100 WBC Auto (Unsp spec) 20.0 % 19-41 [facility] BUN/creatinine ratioOrdered By: Brody Saleh on 08-11-2024 Urea nitrogen/Creatinine [Mass ratio] 33.4 mg/mg High 10-20 [facility] Basophil percentageOrdered B y: Brody Saleh on 08-11-2024 Basophils/100 WBC (Bld) 0.7 % 0-1 [facility] Bilirubin, totalOrdered By: Brody Saleh on 08-11-2024 Bilirubin [Mass/Vol] 0.22 mg/dL 0.00-1.30 [facility] CBC W/Diff, Automatedon Absolute Lymph 1.88 X10 3/uL Normal 0.83-4.51 [facility] Comment on above: Performed By: #### L 501.9910, L501.9520, L500.4050, L100.0100 ####[facility] [address] [place], [address] Absolute Neut 6.5 X10 3/uL Normal 2.0-7.7 [facility] System Comment on above: Performed By: #### L 501.9910, L501.9520, L500.4050, L100.0100 ####[facility] [address] [place], [address] Basophils/100 WBC (Bld) 0.7 % Normal 0-1 [facility] Comment on above: Performed By: #### L 501.9910, L501.9520, L500.4050, L100.0100 ####[facility] [address] [place], [address] Eosinophils/100 WBC (Bld) 1.1 % Normal 0-5 [facility] Comment on above: Performed By: #### L 501.9910, L501.9520, L500.4050, L100.0100 ####[facility] [address] [place], [address] Erythrocyte distribution width (RBC) [Ratio] 13.0 % Normal 11.6-14.6 [facility] Comment on above: Performed By: #### L 501.9910, L501.9520, L500.4050, L100.0100 ####[facility] [address] [place], [address] Hematocrit (Bld) [Volume fraction] 38.5 % Low 40-54 [facility] Comment on above: Performed By: #### L 501.9910, L501.9520, L500.4050, L100.0100 ####[facility] [address] [place], [address] Hemoglobin (Bld) [Mass/Vol] 13.2 g/dL Normal 13.0-16.5 [facility] Comment on above: Performed By: #### L 501.9910, L501.9520, L500.4050, L100.0100 ####[facility] [address] [place], [address] IG% 0.400 Normal 0.0-0.9 [facility] Comment on above: Result Comment: IG% - Immature Granulocytes (promyelocytes, myelocytes and metamyelocytes) > 1% indicates that a LEFT SHIFT is Present. Performed By: #### L 501.9910, L501.9520, L500.4050, L100.0100 ####[facility] [address] [place], [address] Lymphocytes/100 WBC (Bld) 20.0 % Normal 19-41 [facility] Comment on above: Performed By: #### L 501.9910, L501.9520, L500.4050, L100.0100 ####[facility] [address] [place], [address] MCH (RBC) [Entitic mass] 30.7 pg Normal 27.0-32.0 [facility] Comment on above: Performed By: #### L 501.9910, L501.9520, L500.4050, L100.0100 ####[facility] [address] [place], [address] MCHC (RBC) [Mass/Vol] 34.3 g/dL Normal 32-36 [facility] Comment on above: Performed By: #### L 501.9910, L501.9520, L500.4050, L100.0100 ####[facility] [address] [place], [address] MCV (RBC) [Entitic vol] 89.5 fL Normal 80-94 [facility] Comment on above: Performed By: #### L 501.9910, L501.9520, L500.4050, L100.0100 ####[facility] [address] [place], [address] Monocytes/100 WBC (Bld) 8.6 % Normal 0-10 [facility] Comment on above: Performed By: #### L 501.9910, L501.9520, L500.4050, L100.0100 ####[facility] [address] [place], [address] Neutrophils/100 WBC (Bld) 69.2 % Normal 47-70 [facility] Comment on above: Performed By: #### L 501.9910, L501.9520, L500.4050, L100.0100 ####[facility] [address] [place], [address] Nucleated RBC (Bld) [#/Vol] 0 10*3/uL Normal 0-5 [facility] Comment on above: Performed By: #### L 501.9910, L501.9520, L500.4050, L100.0100 ####[facility] [address] [place], [address] Platelet mean volume (Bld) [Entitic vol] 8.9 fL Normal 6.2-12.0 [facility] Comment on above: Performed By: #### L 501.9910, L501.9520, L500.4050, L100.0100 ####[facility] [address] [place], [address] Platelets (Bld) [#/Vol] 253 10*3/uL Normal 150-450 [facility] Comment on above: Performed By: #### L 501.9910, L501.9520, L500.4050, L100.0100 ####[facility] [address] [place], [address] RBC (Bld) [#/Vol] 4.30 10*6/uL Low 4.6-6.2 [facility] Comment on above: Performed By: #### L 501.9910, L501.9520, L500.4050, L100.0100 ####[facility] [address] [place], [address] RDW SD 42.9 fl Normal 35.1-43.9 [facility] Comment on above: Performed By: #### L 501.9910, L501.9520, L500.4050, L100.0100 ####[facility] [address] [place], [address] WBC (Bld) [#/Vol] 9.4 10*3/uL Normal 4.4-11.0 [facility] Comment on above: Performed By: #### L 501.9910, L501.9520, L500.4050, L100.0100 ####[facility] [address] [place], [address] Carbon dioxide, total [Moles /volume] in Central venous bloodOrdered By: Brody Saleh on 08-11-2024 CO2 [Moles/Vol] 21.7 mmol/L 21.0-32.0 [facility] Chloride assayOrdered By: Brannon Saleh on 08-11-2024 Chloride [Moles/Vol] 105 mmol/L 98-108 [facility] Comprehensive Metabolic Prof ilon 08-11-2024 Albumin [Mass/Vol] 4.5 g/dL Normal 3.4-4.8 [facility] Comment on above: Performed By: #### L 501.9910, L501.9520, L500.4050, L100.0100 ####[facility] [address] [place], [address] Albumin/Globulin [Mass ratio] 2.0 {ratio} Normal 0.9-2.4 [facility] Comment on above: Performed By: #### L 501.9910, L501.9520, L500.4050, L100.0100 ####[facility] [address] [place], [address] ALK PHOS 106 U/L Normal 40-129 [facility] Comment on above: Performed By: #### L 501.9910, L501.9520, L500.4050, L100.0100 ####[facility] [address] [place], [address] ALT [Catalytic activity/Vol] 22 U/L Normal <=46 [facility] Comment on above: Performed By: #### L 501.9910, L501.9520, L500.4050, L100.0100 ####[facility] [address] [place], [address] AST [Catalytic activity/Vol] 19 U/L Normal <=37 [facility] Comment on above: Performed By: #### L 501.9910, L501.9520, L500.4050, L100.0100 ####[facility] [address] [place], [address] Bilirubin [Mass/Vol] 0.22 mg/dL Normal 0.00-1.30 [facility] Comment on above: Performed By: #### L 501.9910, L501.9520, L500.4050, L100.0100 ####[facility] [address] [place], [address] BUN/CRE 33.4 RATIO High 10-20 [facility] Comment on above: Performed By: #### L 501.9910, L501.9520, L500.4050, L100.0100 ####[facility] [address] [place], [address] Calcium [Mass/Vol] 9.3 mg/dL Normal 7.6-11.0 [facility] Comment on above: Performed By: #### L 501.9910, L501.9520, L500.4050, L100.0100 ####[facility] [address] [place], [address] Chloride [Moles/Vol] 105 mmol/L Normal 98-108 [facility] Comment on above: Performed By: #### L 501.9910, L501.9520, L500.4050, L100.0100 ####[facility] [address] [place], [address] CO2 [Moles/Vol] 21.7 mmol/L Normal 21.0-32.0 [facility] Comment on above: Performed By: #### L 501.9910, L501.9520, L500.4050, L100.0100 ####[facility] [address] [place], [address] Creatinine [Mass/Vol] 0.82 mg/dL Normal 0.70-1.20 [facility] Comment on above: Performed By: #### L 501.9910, L501.9520, L500.4050, L100.0100 ####[facility] [address] [place], [address] GAP 13 Normal 5-15 [facility] Comment on above: Performed By: #### L 501.9910, L501.9520, L500.4050, L100.0100 ####[facility] [address] [place], [address] GFR/1.73 sq M.predicted among non-blacks MDRD (S/P/Bld) [Vol rate/Area] 99 mL/min/{1.73_m2} Normal >60 [facility] Comment on above: Result Comment: mL/m in/1.73m2 CKD-EPI Creatinine Equation (2020) Performed By: #### L 501.9910, L501.9520, L500.4050, L100.0100 ####[facility] [address] [place], [address] Globulin (S) [Mass/Vol] 2.2 g/dL Normal 2.2-4.2 [facility] Comment on above: Performed By: #### L 501.9910, L501.9520, L500.4050, L100.0100 ####[facility] [address] [place], [address] Glucose [Mass/Vol] 98 mg/dL Normal 70-99 [facility] Comment on above: Performed By: #### L 501.9910, L501.9520, L500.4050, L100.0100 ####[facility] [address] [place], [address] Potassium [Moles/Vol] 4.1 mmol/L Normal 3.3-5.1 [facility] Comment on above: Performed By: #### L 501.9910, L501.9520, L500.4050, L100.0100 ####[facility] [address] [place], [address] Sodium [Moles/Vol] 139 mmol/L Normal 133-145 [facility] Comment on above: Performed By: #### L 501.9910, L501.9520, L500.4050, L100.0100 ####[facility] [address] [place], [address] T PROT 6.8 g/dL Normal 5.9-8.4 [facility] Comment on above: Performed By: #### L 501.9910, L501.9520, L500.4050, L100.0100 ####[facility] [address] [place], [address] Urea nitrogen [Mass/Vol] 28 mg/dL High 4-19 [facility] Comment on above: Performed By: #### L 501.9910, L501.9520, L500.4050, L100.0100 ####[facility] [address] [place], [address] Eosinophil percentageOrdered By: Brody Saleh on 08-11-2024 Eosinophils/100 WBC (Bld) 1.1 % 0-5 [facility] Erythrocyte distribution wid th (RBC) [Ratio]Ordered By: Brody Saleh on 08-11-2024 Erythrocyte distribution width (RBC) [Entitic vol] 42.9 fL 35.1-43.9 [facility] Erythrocyte distribution wid th ratioOrdered By: Brody Saleh on 08-11-2024 Erythrocyte distribution width (RBC) [Ratio] 13.0 % 11.6-14.6 [facility] Erythrocyte distribution wid th standard deviationOrdered By: [facility] on 08-11-2024 Erythrocyte distribution width (RBC) [Ratio] 42.9 fl 35.1-43.9 [facility] GFR/1.73 sq M.predicted macy g non-blacks MDRD (S/P/Bld) [Vol rate/Area]Ordered By: Brody Saleh on 08-11-2024 Estimated GFR (MDRD) Non-Af Amer 99 >60 [facility] Comment on above: mL/min/1.73m2 CKD-EP I Creatinine Equation (2020) Glomerular filtration rate ( GFR) estimation/1.73 sq m using serum, plasma, or whole bOrdered By: Brody Saleh on 08-11-2024 GFR/1.73 sq M.predicted among non-blacks MDRD (S/P/Bld) [Vol rate/Area] 99 mL/min/{1.73_m2} >60 [facility] Comment on above: mL/min/1.73m2 CKD-EP I Creatinine Equation (2020) Hematocrit Auto (Bld) [Volum e fraction]Ordered By: Brody Saleh on 08-11-2024 Hematocrit (Bld) [Volume fraction] 38.5 % Low 40-54 [facility] Hemoglobin measurementOrdere d By: Brody Saleh on 08-11-2024 Hemoglobin (Bld) [Mass/Vol] 13.2 g/dL 13.0-16.5 [facility] Immature granulocytes/100 WB C Auto (Bld)Ordered By: Brody Saleh 08-11-2024 Immature granulocytes/100 WBC (Bld) 0.400 % 0.0-0.9 [facility] Comment on above: IG% - Immature Granu locytes (promyelocytes, myelocytes and metamyelocytes) > 1% indicates that a LEFT SHIFT is Present. Laboratory - Chemistry and C hemistry - challengeOrdered By: Brody Saleh 08-11-2024 AST [Catalytic activity/Vol] 19 U/L <38 [facility] Lymphocytes Auto (Unsp spec) [#/Vol]Ordered By: Brody Saleh 08-11-2024 Lymphocytes (Bld) [#/Vol] 1.88 10*3/uL 0.83-4.51 [facility] Lymphocytes/100 WBC Auto (Un sp spec)Ordered By: Brody Saleh 08-11-2024 Lymphocytes/100 WBC (Bld) 20.0 % 19-41 [facility] MCV (mean corpuscular volume ) determinationOrdered By: Brody Saleh 08-11-2024 MCV (RBC) [Entitic vol] 89.5 fL 80-94 [facility] Mean corpuscular hemoglobin (MCH) determinationOrdered By: Brody Saleh 08-11-2024 MCH (RBC) [Entitic mass] 30.7 pg 27.0-32.0 [facility] Mean corpuscular hemoglobin concentration (MCHC) determinationOrdered By: Brody Saleh on 08-11-2024 MCHC (RBC) [Mass/Vol] 34.3 g/dL 32-36 [facility] Mean platelet volume determi nationOrdered By: [facility] on 08-11-2024 Platelet mean volume (Bld) [Entitic vol] 8.9 fL 6.2-12.0 [facility] Monocyte percentageOrdered B y: [facility] on 08-11-2024 Monocytes/100 WBC (Bld) 8.6 % 0-10 [facility] Neutrophil percentageOrdered By: [facility] on 08-11-2024 Neutrophils/100 WBC (Bld) 69.2 % 47-70 [facility] Nucleated red blood cell per centageOrdered By: [facility] on 08-11-2024 Nucleated RBC/100 WBC (Bld) [Ratio] 0 % 0-5 [facility] PSA, total screeningOrdered By: Brody Delfino on 08-11-2024 Prostate Specific Antigen Screen 0.82 ng/mL 0.02-4.00 [facility] Comment on above: This test was perfor med using the [employer] tPSA method. Measured values of a patient sample can vary depending on the testing procedure used. PSA values determined on patient samples by different testing procedures cannot be used interchangeably. If there is a change in PSA assays while monitoring therapy, sequential testing should be performed to confirm baseline values. PSA,Total - Annual Screenon 08-11-2024 PSA,TOT SCREEN 0.82 ng/mL Normal 0.02-4.00 [facility] Comment on above: Result Comment: This test was performed using the [employer] tPSA method. Measured values of a patient??sample can vary depending on the testing procedure used. PSA values determined on patient samples by different testing procedures cannot be used interchangeably. If there is a change in PSA assays while monitoring therapy, sequential testing should be performed to confirm baseline values. Performed By: #### L 501.9910, L501.9520, L500.4050, L100.0100 ####[facility] [address] [place], [address] Platelet countOrdered By: Brannon Saleh on 08-11-2024 Platelets (Bld) [#/Vol] 253 10*3/uL 150-450 [facility] Potassium (Unsp spec) [Mass/ Vol]Ordered By: Brody Saleh on 08-11-2024 Potassium [Moles/Vol] 4.1 mmol/L 3.3-5.1 [facility] Potassium measurement (mass/ volume)Ordered By: Brody Saelh on 08-11-2024 Potassium (Unsp spec) [Mass/Vol] 4.1 mmol/L 3.3-5.1 [facility] RBC Auto (Bld) [#/Vol]Ordere d By: Brody Saleh on 08-11-2024 RBC (Bld) [#/Vol] 4.30 10*6/uL Low 4.6-6.2 [facility] Serum creatinine measurement (mass/volume)Ordered By: Brody Saleh on 08-11-2024 Creatinine [Mass/Vol] 0.82 mg/dL 0.70-1.20 [facility] Serum globulin measurementOr dered By: Brody Saleh 08-11-2024 Globulin (S) [Mass/Vol] 2.2 g/dL 2.2-4.2 [facility] Serum glucose measurement (m ass/volume)Ordered By: Brody Saleh 08-11-2024 Glucose [Mass/Vol] 98 mg/dL 70-99 [facility] Serum or plasma alanine whittaker otransferase (ALT) measurementOrdered By: Brody Saleh 08-11-2024 ALT [Catalytic activity/Vol] 22 U/L <47 [facility] Serum or plasma albumin tyler urement (mass/volume)Ordered By: Brody Saleh 08-11-2024 Albumin [Mass/Vol] 4.5 g/dL 3.4-4.8 [facility] Serum or plasma albumin/glob ulin mass ratioOrdered By: Brody Saleh 08-11-2024 Albumin/Globulin [Mass ratio] 2.0 {ratio} 0.9-2.4 [facility] Serum or plasma alkaline antonio sphatase measurementOrdered By: Brody Saleh 08-11-2024 ALP [Catalytic activity/Vol] 106 U/L 40-129 [facility] Serum or plasma calcium tyler urement (mass/volume)Ordered By: Brody Saleh on 08-11-2024 Calcium [Mass/Vol] 9.3 mg/dL 7.6-11.0 [facility] Serum or plasma urea nitroge n measurement (mass/volume)Ordered By: Brody Saleh on 08-11-2024 Urea nitrogen [Mass/Vol] 28 mg/dL High 4-19 [facility] Sodium levelOrdered By: Brody Saleh on 08-11-2024 Sodium [Moles/Vol] 139 mmol/L 133-145 [facility] TSH DL <= 0.005 mIU/L QnOrde red By: Brody Saleh on 08-11-2024 Thyroid Stimulating Hormone (TSH) 1.380 uIU/mL 0.300-4.200 [facility] TSH Qn 1.380 uIU/mL 0.300-4.200 [facility] Thyroid Stim Hormone (TSH)on 08-11-2024 TSH 1.380 uIU/mL Normal 0.300-4.200 [facility] Comment on above: Performed By: #### L 501.9910, L501.9520, L500.4050, L100.0100 ####[facility] [address] [place], [address] Total proteinOrdered By: Brody Saleh on 08-11-2024 Protein [Mass/Vol] 6.8 g/dL 5.9-8.4 [facility] White blood cell (WBC) count Ordered By: Brody Saleh on 08-11-2024 WBC (Bld) [#/Vol] 9.4 10*3/uL 4.4-11.0 [facility] Acid Fast Bacillus Cultureon 07-23-2024 tAFBC Comments: DEEP SOFT TISSUE LEFT THUMB Is this test to exclude patient from TB Isolation? N DEEP WOUND BEING SENT OUT TESTING PERFORMED AT [facility]. ORIGINAL REPORT ON FILE IN LAB CONTAINS ADDITIONAL TEST SITE INFORMATION. Culture, Acid Fast NO ACID-FAST BACILLI ISOLATED AFTER [address] [facility] Comment on above: Performed By: #### M 100.2000, M300.2000, M600.2000, M100.4001, M100.3000, M600.2200, M300.3000 ####[facility] [address] [place], [address] Acid Fast Bacillus Smear/Flu oron 07-23-2024 tafb Comments: DEEP SOFT TISSUE LEFT THUMB Is this test to exclude patient from TB Isolation? N DEEP WOUND BEING SENT OUT TESTING PERFORMED AT [facility]. ORIGINAL REPORT ON FILE IN LAB CONTAINS ADDITIONAL TEST SITE INFORMATION. Smear, Acid Fast Tissue Grinding Smear: Negative Normal [facility] Comment on above: Performed By: #### M 100.2000, M300.2000, M600.2000, M100.4001, M100.3000, M600.2200, M300.3000 ####[facility] [address] [place], [address] Culture, Fungus 8482on 07-23 [facility] Comments: DEEP SOFT TISSUE LEFT THUMB Is this test to exclude patient from TB Isolation? N DEEP WOUND BEING SENT OUT TESTING PERFORMED AT [facility]. ORIGINAL REPORT ON FILE IN LAB CONTAINS ADDITIONAL TEST SITE INFORMATION. CUF No yeast or mold isolated after [address] [facility] Comment on above: Performed By: #### M 100.2000, M300.2000, M600.2000, M100.4001, M100.3000, M600.2200, M300.3000 ####[facility] [address] [place], [place], [id number] Fungus Stain 8136on 07-24-19 [facility]ST Comments: DEEP SOFT TISSUE LEFT THUMB Is this test to exclude patient from TB Isolation? N DEEP WOUND BEING SENT OUT TESTING PERFORMED AT [facility]. ORIGINAL REPORT ON FILE IN LAB CONTAINS ADDITIONAL TEST SITE INFORMATION. Fungus Stain No fungus observed. [facility] Comment on above: Performed By: #### M 100.2000, M300.2000, M600.2000, M100.4001, M100.3000, M600.2200, M300.3000 ####[facility] [address] [place], [id number] Finger(s) Min 2 Viewson 03-1 7-2025 Finger(s) Min 2 Views [facility] Imaging Services [address] [place] [address] (219) Finger(s) Min 2 Views MR#: [id number] Acct: [id number] Name: REGGIE SURESH Rep #: [id number] : 1960 M 64 From: Ernst Boland i DO PCP: Dr. Brody Saleh MD Status: REG RCR Study: Finger(s) Min 2 Views Date of Exam: 07/21/24 Exam# [id number] Ordering Dr: Reno Dela Cruz MD PROCEDURE: Left thumb radiographs, three views 07/21/2024 REASON FOR EXAM: THUMB ULCER TECHNIQUE: Three views of the left thumb were obtained. COMPARISON: None FINDINGS: Three views of the left thumb were obtained. Bones are osteopenic. Moderate degenerative change of the radiocarpal and 1st carpal/metacarpal joints. 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 There is relatively unchanged comminuted mildly displaced fracture deformity involving the mid to distal aspect of the proximal phalanx left thumb. Moderate degenerative changes of the interphalangeal joint. RAD/Finger(s) Min 2 Views IMPRESSION: Osteopenia. Similar mildly displaced comminuted fracture deformity of the proximal phalanx of the left thumb. Reading [facility] CC: Dr. Reno Dela Cruz MD; Dr. Brody Saleh MD Processing Technologist: Signed Normal [facility] Hand Min 3 Viewson Hand Min 3 Views [facility] Imaging Services [address] [place], [place] [id number] Hand Min 3 Views MR#: [id number] Acct: [id number] Name: REGGIE SURESH Rep #: [id number] : 1960 M 64 From: Alena Oglesby DO PCP: Dr. Brody Saleh MD Status: REG CLI Study: Hand Min 3 Views Date of Exam: 07/07/24 Exam# [id number] Ordering Dr: Renata Lao NP [employer]OR [employer]ACE [employer]OCATOR-C PROCEDURE: HAND MIN 3 VIEWS REASON FOR EXAM: Follow-up trauma TECHNIQUE: 3 views of the left hand COMPARISON: Radiograph of the left hand dated 06/10/2024 FINDINGS: Redemonstration of a comminuted fracture involving the 1st proximal phalanx, no significant callus formation is demonstrated. 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 Normal alignment. Soft tissues are unremarkable. RAD/Hand Min 3 Views IMPRESSION: Stable appearing comminuted fracture of the 1st proximal phalanx. Reading Location: [facility] CC: KESHA Lao; Dr. Brody Saleh MD Processing Technologist: Signed Normal [facility] Prealbumin [id number] Prealbumin [Mass/Vol] 29 mg/dL Normal [facility] Comment on above: Result Comment: Perf ormed at: - [facility] [address] [id number] [employer] Member: Dani Dunlap PhD, Phone: [phone] Performed By: #### L 3300.6400, L500.4050, L501.1085, L100.0500 ####[facility] [address] [place], [address] Albumin to globulin ratioOrd ered By: Reno Dela Cruz on 06-26-2024 Albumin/Globulin [Mass ratio] 1.5 {ratio} 0.9-2.4 [facility] Bilirubin, totalOrdered By: Reno Dela Cruz on 06-26-2024 Bilirubin [Mass/Vol] 0.30 mg/dL 0.20-1.00 [facility] Comment on above: For patients on eltr ombopag therapy, use of Dimension [place] TBIL is not recommended. Blood urea nitrogen (BUN)/cr eatinine ratioOrdered By: Reno Dela Cruz on 06-26-2024 Urea nitrogen/Creatinine [Mass ratio] 28.9 mg/mg High 02-23 [facility] CBC-Complete Blood Cnt No Di ffon 06-26-2024 Erythrocyte distribution width (RBC) [Ratio] 13.1 % Normal 11.6-14.6 [facility] Comment on above: Performed By: #### L 3300.6400, L500.4050, L501.9985, L100.0500 #### [facility] [address] [place], [address] Hematocrit (Bld) [Volume fraction] 39.3 % Low 40-54 [facility] Comment on above: Performed By: #### L 3300.6400, L500.4050, L501.9985, L100.0500 #### [facility] [address] [place], [address] Hemoglobin (Bld) [Mass/Vol] 13.0 g/dL Normal 13.0-16.5 [facility] Comment on above: Performed By: #### L 3300.6400, L500.4050, L501.9985, L100.0500 #### [facility] [address] [place], [address] MCH (RBC) [Entitic mass] 30.2 pg Normal 27.0-32.0 [facility] Comment on above: Performed By: #### L 3300.6400, L500.4050, L501.9985, L100.0500 #### [facility] [address] [place], [address] MCHC (RBC) [Mass/Vol] 33.1 g/dL Normal 32-36 [facility] Comment on above: Performed By: #### L 3300.6400, L500.4050, L501.9985, L100.0500 #### [facility] [address] [place], [address] MCV (RBC) [Entitic vol] 91.2 fL Normal 80-94 [facility] Comment on above: Performed By: #### L 3300.6400, L500.4050, L501.9985, L100.0500 #### [facility] [address] [place], [address] Platelet mean volume (Bld) [Entitic vol] 8.9 fL Normal 6.2-12.0 [facility] Comment on above: Performed By: #### L 3300.6400, L500.4050, L501.9985, L100.0500 #### [facility] [address] [place], [address] Platelets (Bld) [#/Vol] 272 10*3/uL Normal 150-450 [facility] Comment on above: Performed By: #### L 3300.6400, L500.4050, L501.9985, L100.0500 #### [facility] [address] [place], [address] RBC (Bld) [#/Vol] 4.31 10*6/uL Low 4.6-6.2 [facility] Comment on above: Performed By: #### L 3300.6400, L500.4050, L501.9985, L100.0500 #### [facility] [address] [place], [address] RDW SD 44.4 fl High 35.1-43.9 [facility] Comment on above: Performed By: #### L 3300.6400, L500.4050, L501.9985, L100.0500 #### [facility] [address] [place], [address] WBC (Bld) [#/Vol] 9.1 10*3/uL Normal 4.4-11.0 [facility] Comment on above: Performed By: #### L 3300.6400, L500.4050, L501.9985, L100.0500 #### [facility] [address] [place], [address] Carbon dioxide measurementOr dered By: Reno Dela Cruz on 06-26-2024 CO2 [Moles/Vol] 26.0 mmol/L 21.0-32.0 [facility] Chloride measurementOrdered By: Reno Dela Cruz on 06-26-2024 Chloride [Moles/Vol] 105 mmol/L 98-107 [facility] Comprehensive Metabolic Prof ilon 06-26-2024 Albumin [Mass/Vol] 4.2 g/dL Normal 3.2-5.0 [facility] Comment on above: Performed By: #### L 3300.6400, L500.4050, L501.9985, L100.0500 #### [facility] [address] [place], [address] Albumin/Globulin [Mass ratio] 1.5 {ratio} Normal 0.9-2.4 [facility] Comment on above: Performed By: #### L 3300.6400, L500.4050, L501.9985, L100.0500 #### [facility] [address] [place], [address] ALK P 109 U/L Normal 45-117 [facility] Comment on above: Performed By: #### L 3300.6400, L500.4050, L501.9985, L100.0500 #### [facility] [address] [place], [address] ALT [Catalytic activity/Vol] 31 U/L Normal 16-61 [facility] Comment on above: Performed By: #### L 3300.6400, L500.4050, L501.9985, L100.0500 #### [facility] [address] [place], [address] AST [Catalytic activity/Vol] 19 U/L Normal 15-37 [facility] Comment on above: Performed By: #### L 3300.6400, L500.4050, L501.9985, L100.0500 #### [facility] [address] [place], [address] Bilirubin [Mass/Vol] 0.30 mg/dL Normal 0.20-1.00 [facility] Comment on above: Result Comment: For patients on eltrombopag therapy, use of Dimension [place] TBIL is not recommended. Performed By: #### L 3300.6400, L500.4050, L501.9985, L100.0500 #### [facility] [address] [place], [address] BUN/CRE 28.9 RATIO High 10-20 [facility] Comment on above: Performed By: #### L 3300.6400, L500.4050, L501.9985, L100.0500 #### [facility] [address] [place], [address] CA,Total 9.1 mg/dL Normal 8.5-10.1 [facility] Comment on above: Performed By: #### L 3300.6400, L500.4050, L501.9985, L100.0500 #### [facility] [address] [place], [address] Chloride [Moles/Vol] 105 mmol/L Normal 98-107 [facility] Comment on above: Performed By: #### L 3300.6400, L500.4050, L501.9985, L100.0500 #### [facility] [address] [place], [address] CO2 [Moles/Vol] 26.0 mmol/L Normal 21.0-32.0 [facility] Comment on above: Performed By: #### L 3300.6400, L500.4050, L501.9985, L100.0500 #### [facility] [address] [place], [address] Creatinine [Mass/Vol] 0.80 mg/dL Normal 0.70-1.30 [facility] Comment on above: Result Comment: The validity of the calculated GFR GFRAA in patients over 70 years has not been determined. Clinical correlation is essential. Performed By: #### L 3300.6400, L500.4050, L501.9985, L100.0500 #### [facility] [address] [place], [address] EST GFR - AA 126 mL/min Normal >60 [facility] Comment on above: Result Comment: Afri can Bahamian GFR Calc Performed By: #### L 3300.6400, L500.4050, L501.9985, L100.0500 #### [facility] [address] [place], [address] GAP 7 Normal 5-15 [facility] Comment on above: Performed By: #### L 3300.6400, L500.4050, L501.9985, L100.0500 #### [facility] [address] [place], [address] GFR/1.73 sq M.predicted among non-blacks MDRD (S/P/Bld) [Vol rate/Area] 104 mL/min/{1.73_m2} Normal >60 [facility] Comment on above: Result Comment: Non- GFR Calc Performed By: #### L 3300.6400, L500.4050, L501.9985, L100.0500 #### [facility] [address] [place], [address] Globulin (S) [Mass/Vol] 2.8 g/dL Normal 2.2-4.2 [facility] Comment on above: Performed By: #### L 3300.6400, L500.4050, L501.9985, L100.0500 #### [facility] [address] [place], [address] Glucose [Mass/Vol] 94 mg/dL Normal 74-106 [facility] Comment on above: Performed By: #### L 3300.6400, L500.4050, L501.9985, L100.0500 #### [facility] [address] [place], [address] Potassium [Moles/Vol] 4.2 mmol/L Normal 3.5-5.1 [facility] Comment on above: Performed By: #### L 3300.6400, L500.4050, L501.9985, L100.0500 #### [facility] [address] [place], [address] Sodium [Moles/Vol] 138 mmol/L Normal 136-145 [facility] Comment on above: Performed By: #### L 3300.6400, L500.4050, L501.9985, L100.0500 #### [facility] [address] [place], [address] T PROT 7.0 g/dL Normal 6.4-8.2 [facility] Comment on above: Performed By: #### L 3300.6400, L500.4050, L501.9985, L100.0500 #### [facility] [address] [place], [address] Urea nitrogen [Mass/Vol] 23 mg/dL High 7-18 [facility] Comment on above: Performed By: #### L 3300.6400, L500.4050, L501.9985, L100.0500 #### [facility] [address] [place], [address] Erythrocyte distribution wid th ratioOrdered By: Reno Dela Cruz on 06-26-2024 Erythrocyte distribution width (RBC) [Ratio] 13.1 % 11.6-14.6 [facility] Erythrocyte distribution wid th standard deviationOrdered By: Reno Dela Cruz on 06-26-2024 Erythrocyte distribution width (RBC) [Entitic vol] 44.4 fL High 35.1-43.9 [facility] Erythrocyte distribution width (RBC) [Ratio] 44.4 fl High 35.1-43.9 [facility] Estimated glomerular filtrat ion rate (GFR) AmericanOrdered By: Reno Dela Cruz on 06-26-2024 Estimated GFR (MDRD) Amer 126 mL/min >60 [facility] Comment on above: GFR Calc Glomerular filtration rate ( GFR) estimationOrdered By: Reno Dela Cruz on 06-26-2024 Estimated GFR (MDRD) Non-Af Amer 104 mL/min >60 [facility] Comment on above: Non- GFR Calc GFR/1.73 sq M.predicted among non-blacks MDRD (S/P/Bld) [Vol rate/Area] 104 mL/min/{1.73_m2} >60 [facility] Comment on above: Non- GFR Calc Glucose measurementOrdered B y: Reno Dela Cruz on 06-26-2024 Glucose [Mass/Vol] 94 mg/dL 74-106 [facility] Hematocrit Auto (Bld) [Volum e fraction]Ordered By: Reno Dela Cruz on 06-26-2024 Hematocrit (Bld) [Volume fraction] 39.3 % Low 40-54 [facility] Hemoglobin A1con 06-26-2024 HbA1c (Bld) [Mass fraction] 5.8 % High 3.8-5.6 [facility] Comment on above: Result Comment: Norm al < 5.7 % Prediabetic 5.7 - 6.4 % Diabetic >or= 6.5 % Please note range changes. Performed By: #### L 3300.6400, L500.4050, L501.9985, L100.0500 #### [facility] [address] [place] [address]. [place], [place], [id number] Hemoglobin A1c percentageOrd ered By: Reno Dela Cruz on 06-26-2024 HbA1c (Bld) [Mass fraction] 5.8 % High 3.8-5.6 [facility] Comment on above: Normal < 5.7 % Predi abetic 5.7 - 6.4 % Diabetic >or= 6.5 % Please note range changes. Hemoglobin measurementOrdere d By: Reno Dela Cruz on 06-26-2024 Hemoglobin (Bld) [Mass/Vol] 13.0 g/dL 13.0-16.5 [facility] - Chemistry and C hemistry - challengeOrdered By: Reno Dela Cruz on 06-26-2024 AST [Catalytic activity/Vol] 19 U/L 15-37 [facility] MCV (mean corpuscular volume ) determinationOrdered By: Reno Dela Cruz on 06-26-2024 MCV (RBC) [Entitic vol] 91.2 fL 80-94 [facility] Mean corpuscular hemoglobin (MCH) determinationOrdered By: Reno Dela Cruz on 06-26-2024 MCH (RBC) [Entitic mass] 30.2 pg 27.0-32.0 [facility] Mean corpuscular hemoglobin concentration (MCHC) determinationOrdered By: Reno Dela Cruz on 06-26-2024 MCHC (RBC) [Mass/Vol] 33.1 g/dL 32-36 [facility] Mean platelet volume determi nationOrdered By: Reno Dela Cruz on 06-26-2024 Platelet mean volume (Bld) [Entitic vol] 8.9 fL 6.2-12.0 [facility] Platelet countOrdered By: Emerald Dela Cruz on 06-26-2024 Platelets (Bld) [#/Vol] 272 10*3/uL 150-450 [facility] Potassium measurementOrdered By: Reno Dela Cruz on 06-26-2024 Potassium [Moles/Vol] 4.2 mmol/L 3.5-5.1 [facility] RBC Auto (Bld) [#/Vol]Ordere d By: Reno Dela Cruz on 06-26-2024 RBC (Bld) [#/Vol] 4.31 10*6/uL Low 4.6-6.2 [facility] Serum anion gap measurementO rdered By: Reno Dela Cruz on 06-26-2024 Anion gap [Moles/Vol] 7 mmol/L 5-15 [facility] Serum globulin measurementOr dered By: Reno Dela Cruz on 06-26-2024 Globulin (S) [Mass/Vol] 2.8 g/dL 2.2-4.2 [facility] Serum or plasma alanine wihttaker otransferase (ALT) measurementOrdered By: Reno Dela Cruz on 06-26-2024 ALT [Catalytic activity/Vol] 31 U/L 16-61 [facility] Serum or plasma albumin tyler urement (mass/volume)Ordered By: Reno Dela Cruz on 06-26-2024 Albumin [Mass/Vol] 4.2 g/dL 3.2-5.0 [facility] Serum or plasma alkaline antonio sphatase measurementOrdered By: Reno Dela Cruz on 06-26-2024 ALP [Catalytic activity/Vol] 109 U/L 45-117 [facility] Serum or plasma calcium tyler urement (mass/volume)Ordered By: Reno Dela Cruz on 06-26-2024 Calcium [Mass/Vol] 9.1 mg/dL 8.5-10.1 [facility] Serum or plasma creatinine m easurement (mass/volume)Ordered By: Reno Dela Cruz on 06-26-2024 Creatinine [Mass/Vol] 0.80 mg/dL 0.70-1.30 [facility] Comment on above: The validity of the calculated GFR & GFRAA in patients over 70 years has not been determined. Clinical correlation is essential. Serum or plasma urea nitroge n measurement (mass/volume)Ordered By: Reno Dela Cruz on 06-26-2024 Urea nitrogen [Mass/Vol] 23 mg/dL High 7-18 [facility] Serum prealbumin measurement by immunoassayOrdered By: Reno Dela Cruz on 06-26-2024 Prealbumin [Mass/Vol] 29 mg/dL 10-36 [facility] Comment on above: Performed at: [place] [id number] Director: Dani Dunlap PhD, Phone: [phone] Sodium levelOrdered By: Chirag Dela Cruz on 06-26-2024 Sodium [Moles/Vol] 138 mmol/L 136-145 [facility] Total proteinOrdered By: Jairo Dela Cruz on 06-26-2024 Protein [Mass/Vol] 7.0 g/dL 6.4-8.2 [facility] White blood cell (WBC) count Ordered By: Reno Dela Cruz on 06-26-2024 WBC (Bld) [#/Vol] 9.1 10*3/uL 4.4-11.0 [facility] Plastic Surgery Visit Report on 06-16-2024 Plastic Surgery Visit Report [facility]astic Reconstructive Surgery [address], [address] [place] [address] OFFICE VISIT Date of Service: 06/16/24 MR#: [id number] Acct: [id number] Name: REGGIE SURESH Rep #: [id number] : 1960 Provider: KESHA dias Age/Sex: 64/M Location: [facility] Status: Signed Pt seen evaluated w/THIEN. I personally interviewed exam the pt. I was involved in all aspects of pt's orders, interpretation of results treatment No TTP over the fracture, feels stable on exam. Stiff IP joint (making progress with hand therapist, however) Good take overall of Integra (see photos below). No exposed critical structures/bone. Cultures negative from OR. The silicone lifted off with the xeroform (other bilayer stayed and we were quite careful to keep over wound). Discussed careful xeroform dressing changes twice daily (no shear forces) with the patient. He was in agreement. Continue ROM only with hand therapy, no lifting. F/u in 1 week for wound check and to check progress. Also, I discussed smoking cessation again today (discussed risks of breakdown of the wound over the bone and osteomyelitis/eventual loss of thumb as a risk). He is working on smoking cessation (discussing PCP/possible Chantyx or other options) Intake Vital Signs 3 06/05/24 10:01 06/16/24 16:24 Height 5 ft 8 in BP 132/75 H Blood Pressure Location Rt brachial Position Sitting Respiration 18 Pulse 75 Pulse Source Monitor Temp 98.6 F Temp Source Oral Pulse Oximetry (%) 96 Oxygen Delivery Method room air Intake Visit Reasons: 1 WK FU Chief Complaint: Amptation FU Is patient in pain?: No Allergies No Known Allergies Allergy (Verified 06/16/24 16:23) Medications 3 ???Medication ???Instructions ???Recorded ???Confirmed ???Type NK 05/20/24 06/16/24 History Subjective Details: Patient states that he has had some left thumb swelling over the week end after doing therapy. He was having discomfort from the swelling, but that has now resolved. He states that he is down to smoking 4-5 cigarettes a day. Objective Details: Radial thumb Xeroform bolster removed with some mild discomfort. The silicone peeled off and was stuck to the Xeroform bolster. There is granulation tissue present under the bolster. In the center there is a little depth with some fibrous tissue in the base. Healing skin is nice beefy pink color. No drainage or induration. No clinical signs of infection. No pain with palpation of the thumb. Proximal phalanx feels stable. The left index finger amputation flap is healed today. No open wounds. No clinical signs of infection. Coding Level of Care Code Global Post Op Diagnoses Amputation of left index finger S68.111A Open fracture of phalanx of left index finger S62.601B Open wound of thumb S61.009A [facility] Medical History Wears glasses Alcohol use Hx of testicular cancer Smoker Surgical History Hx of hand surgery Hx of eye surgery History of dental surgery Hx of tonsillectomy History of hand surgery Social History Smoking Status: Current every day smoker (Patient smoked today.) tobacco type: cigarettes Assessment and Plan (No Qualifiers) Assessment and Plan (1) Amputation of left index finger: Status: Acute Plan: Amputation site healing well and metacarpal healing well. No tenderness to palpation on exam (2) Open fracture of phalanx of left index finger: Status: Acute Plan: He is nontender on his left thumb. No lifting Continue range of motion hand therapy only Continue splinting at all other times when not doing occupational therapy Patient will start vitamin D and calcium supplementation. Discussed high-protein intake for healing (3) Open wound of thumb: Status: Acute Plan: No growth to date on OR cultures immediately proceeding Integra placement. Integra stuck to Xeroform bolster when it was removed. The thumb wound is healing with granulation tissue present. Will have him place Xeroform gauze twice daily and cover with band aid. Plan Discussed with patient extensively about smoking cessation. He is down to 4-5 cigarettes/day. Discussed with him about the risks of nonhealing wound to the thumb, osteomyelitis, and nonunion of the fracture site. He understands the risks of smoking and is going to try to quit. Discussed options for quitting/referrals. Dr. Dela Cruz came it to evaluate patient and discuss plan of care. Patient will follow up next Sunday at the wound healing center with Dr. Dela Cruz. 06/16/24 1750 > Date Renata Lao FLOOR SPACE ALLOCATOR FLOOR SPACE ALLOCATOR-C 06/17/24 (more content not included)... Normal [facility] Finger(s) Min 2 Viewson Finger(s) Min 2 Views [facility] Imaging Services [address] [place], [place] [id number] [phone] Finger(s) Min 2 Views MR#: [id number] Acct: [id number] Name: REGGIE SURESH Rep #: [id number] : 1960 M 64 From: Jb Parra MD PCP: Dr. Brody Saleh MD Status: DEP AMB Study: Finger(s) Min 2 Views Date of Exam: 06/10/24 Exam# [id number] Ordering Dr: Reno Dela Cruz MD EXAM: XR Left thumb, 2 or More Views CLINICAL INDICATION: TECHNIQUE: Frontal, lateral and oblique views of the fingers of the left thumb. COMPARISON: No relevant prior studies available. FINDINGS: BONES/JOINTS: Comminuted mildly displaced fracture of the proximal phalanx. Soft tissue swelling. No dislocation. SOFT TISSUES: See above. RAD/Finger(s) Min 2 Views IMPRESSION: Comminuted mildly displaced fracture of the proximal phalanx. Soft tissue swelling. Reading [facility] CC: Dr. Reno Dela Cruz MD; Dr. Brody Saleh MD Processing Technologist: Signed Normal [facility] Hand Min 3 Viewson Hand Min 3 Views [facility] [address] [place], [place] [address] [phone] Min 3 Views MR#: [id number] Acct: [id number] Name: REGGIE SURESH Rep #: [id number] : 1960 M 64 From: Rex Fox MD PCP: Dr. Brody Saleh MD Status: DEP AMB Study: Hand Min 3 Views Date of Exam: 06/10/24 Exam# [id number] Ordering Dr: Reno Dela Cruz MD PROCEDURE: LEFT HAND, THREE VIEWS REASON FOR EXAM: COMMINUTED FRACTURE OF LEFT THUMB. TECHNIQUE: THREE VIEWS OF THE LEFT HAND COMPARISON: 06/10/2024 FINDINGS: Comminuted mildly displaced fracture of the proximal phalanx of the thumb. Status post amputation of the left index finger at the metacarpophalangeal joint. Posttraumatic deformity of the distal 2nd metacarpal. No dislocations or subluxations. Soft tissue swelling is present. RAD/Hand Min 3 Views IMPRESSION: 1. Acute comminuted fracture, proximal phalanx of the thumb with soft tissue swelling. 2. Status post amputation of the left index finger. Reading Location: [facility] CC: Dr. Reno Dela Cruz MD; Dr. Brody Saleh MD Processing Technologist: Signed Normal [facility] Plastic Surgery Visit Report on 06-10-2024 Plastic Surgery Visit Report [facility] Plastic Reconstructive Surgery [address], [address] [place] [address] OFFICE VISIT Date of Service: 06/10/24 MR#: [id number] Acct: [id number] Name: REGGIE SURESH Rep #: [id number] : 1960 Provider: Dr. Reno Dela Cruz MD Age/Sex: 64/M Location: [place] [address] Status: Signed Intake Vital Signs 05/28/24 08:45 06/05/24 10:01 Height 5 ft 7.5 in 5 ft 8 in Intake Visit Reasons: 1 WK F/U Chief Complaint: Amptation FU Is patient in pain?: No Allergies No Known Allergies Allergy (Verified 06/10/24 09:10) Medications ???Medication ???Instructions ???Recorded ???Confirmed ???Type NK 05/20/24 06/10/24 History Nurse's Note: pt reports no problems Subjective Details: Doing well, no fevers or chills or drainage. Increasing range of motion with hand therapy. He has been compliant with no heavy lifting. Still smoking cigarettes about 10/day (discussed cessation). Objective Details: Left upper extremity: Xeroform bolster over radial thumb wound. No induration and no purulence. No pain with palpation of the thumb proximal phalanx, feels stable. Dorsum of the hand with a small wound well at the incision line of the volar flap after the index finger amputation. Healing well no signs of infection. Coding Level of Care Code Global Post Op Diagnoses Amputation of left index finger S68.111A Open fracture of phalanx of left index finger S62.601B Open wound of thumb S61.009A [facility] Medical History Wears glasses Alcohol use Hx of testicular cancer Smoker Surgical History Hx of hand surgery Hx of eye surgery History of dental surgery Hx of tonsillectomy History of hand surgery Social History Smoking Status: Current every day smoker (Patient smoked today.) tobacco type: cigarettes Assessment and Plan (No Qualifiers) Assessment and Plan (1) Amputation of left index finger: Status: Acute Plan: Amputation site healing well and metacarpal healing well. No tenderness to palpation on exam (2) Open fracture of phalanx of left index finger: Status: Acute Plan: Acceptable/stable alignment on x-rays today. I believe that the radiographic evidence of healing is lagging behind clinical exam as he is nontender. No lifting Continue range of motion hand therapy only Continue splinting at all other times when not doing occupational therapy Patient will start vitamin D and calcium supplementation. Discussed high-protein intake for healing (3) Open wound of thumb: Status: Acute Plan: No growth to date on OR cultures immediately proceeding Integra placement. Integra stable with bolster in place Continue bolster for 1 week with plan for bolster removal in clinic on 17 June 2024. Likely skin grafting the following week Plan I talked to the patient extensively today about smoking cessation. I talked to him about the risks of nonhealing wound to the thumb, osteomyelitis, and nonunion of the fracture site. I talked to him about the risks of losing his thumb. He understands the risks of smoking and is going to try to quit. Discussed options for quitting/referrals. 06/10/24 0951 Date Reno Roseignlauren Signature: Date (if applicable) CC: Normal [facility] Culture, Anaerobic Any Sourc randy 06-07-2024 CUAN DEEP WOUND TISSUE LE FT THUMB . . DEEP SOFT TISSUE LEFT THUMB No anaerobic bacteria isolated. Normal [facility] Comment on above: Performed By: #### M 100.2000, M300.2000, M600.2000, M100.4001, M100.3000, M600.2200, M300.3000 ####[facility] [address] [place], [place], [id number] Wound Cultureon 06-07-2024 WC DEEP WOUND TISSUE LE FT THUMB . . DEEP SOFT TISSUE LEFT THUMB No growth aerobically. Normal [facility] Comment on above: Performed By: #### M 100.2000, M300.2000, M600.2000, M100.4001, M100.3000, M600.2200, M300.3000 ####[facility] [address] [place], [place], [address] Gram Stainon 06-06-2024 GS DEEP WOUND TISSUE LE FT THUMB . . DEEP SOFT TISSUE LEFT THUMB Gram Stain Rare Red Blood Cells No organisms seen Normal [facility] Comment on above: Performed By: #### M 100.2000, M300.2000, M600.2000, M100.4001, M100.3000, M600.2200, M300.3000 ####[facility] [address] [place], [place], [id number] Acid fast bacillus (AFB) cul tureOrdered By: Reno Dela Cruz on 06-05-2024 Mycobacterium sp identified Org specific cx Nom (Unsp spec) [facility] Acid fast bacillus (AFB) cul ture and smearOrdered By: Reno Dela Cruz on 06-05-2024 Acid Fast Bacilli Smear [facility] Anaerobic cultureOrdered By: Reno Dela Cruz on 06-05-2024 Bacteria identified Anaer cx Nom (Unsp spec) No anaerobic bacteria isolated. [facility] Bacteria identified Anaer cx Nom (Unsp spec)Ordered By: Reno Dela Cruz on 06-05-2024 Anaerobic Culture No anaerobic bacteri a isolated. [facility] Fungus cultureOrdered By: Emerald Dela Cruz on 06-05-2024 Fungus identified Cx Nom (Unsp spec) [facility] Fungus identified Cx Nom (Un sp spec)Ordered By: Reno Dela Cruz on 06-05-2024 Fungal Culture [facility] Fungus identified Fungus sta in Nom (Unsp spec)Ordered By: Reno Dela Cruz on 06-05-2024 Fungal Smear [facility] Fungus stainOrdered By: Chirag Dela Cruz on 06-05-2024 Fungus identified Fungus stain Nom (Unsp spec) [facility] Gram stainOrdered By: Reno Dela Cruz on 06-05-2024 Microscopic observation Gram stain Nom (Unsp spec) [facility] H AND P Exam - Surgicalon H&P Exam - Surgical [facility] Medical Records Department [address] [place] [address] H P Exam - Surgical 06/05/24 1252 MR#: [id number] Acct: [id number] Name: REGGIE SURESH Rep #: [id number] : 1960 64 From: Reno Dela Cruz MD PCP: Dr. Brody Saleh MD Status:[facility] Location: [place] [address] HPI - General HPI Narrative REGGIE SURESH, is a 64 M who presents with a left thumb wound. Presents today for excision and Integra placement. Current Encounter (DATE OF SURGERY H P UPDATE): I saw and examined the patient this morning in pre- operative holding. We discussed risks and benefits of today's surgery and they would like to proceed. NO CHANGE in health history since last seen and evaluated. Ready to proceed with surgery. [facility] Medical History Wears glasses Alcohol use Hx of testicular cancer Smoker Home Medications ???Medication ???Instructions ???Recorded ???Last Taken ???Type NK 05/20/24 Unknown History Allergy/AdvReac Type Severity Reaction Status Date / Time No Known Allergies Allergy Verified 06/05/24 10:00 Surgical History Hx of hand surgery Hx of eye surgery History of dental surgery Hx of tonsillectomy History of hand surgery Social History Smoking Status: Current every day smoker (Patient smoked today.) tobacco type: cigarettes Vital Signs Vital Signs Vital Signs: 06/05/24 10:01 06/05/24 10:01 06/05/24 11:25 Temperature 98.1 F 98.1 F Temperature Source Temporal Pulse Rate 65 65 Respiratory Rate 16 16 Respiratory Pattern Normal Blood Pressure 122/65 H 122/65 H Blood Pressure Mean 84 Blood Pressure Source Monitor Blood Pressure Position Sitting Blood Pressure Location Right Arm Pulse Ox 98 98 Oxygen Delivery Method Room Air Room Air Weight Weight: 136 lb 7.458 oz Body Mass Index (BMI) 20.7 Physical Exam Narrative Left upper extremity: Thumb examined and there is a persistent radial-sided wound, no exposed bone, but the wound is deep. Granulation tissue and fibrinous exudate at the base, but no purulence. No pain with palpation of the thumb proximal phalanx Dorsum of the hand with a small wound well at the incision line of the volar flap after the index finger amputation. Healing well no signs of infection. Assessment Plan Assessment/Plan (1) Open fracture of proximal phalanx of left thumb: PLAN: Plan I talked the patient extensively about the risks of surgery, including bleeding, infection, damage to surrounding structures, surgical site dehiscence and wound formation, need for wound care, need for repeat operations, failure to obtain the desired result, DVT/PE (albeit under MAC and local), and the risks of anesthesia including . The benefits and alternatives of this surgery were also discussed. All of their questions were answered, and they agreed to proceed with surgery. INTERVAL H P PLAN, DATE OF SURGERY: We will proceed with surgery today. 06/05/24 1254 Cosigner Signature (if applicable): CC: Dr. Reno Dela Cruz MD; Dr. Brody Saleh MD Signed [facility] MR/POSTOP.ANEon 06-05-2024 MR/POSTOP.ANE [facility] Medical Records Department [address] [place] [address] Anesthesia Postop Eval I 06/05/24 1356 MR#: [id number] Acct: [id number] Name: REGGIE SURESH Rep #: [id number] : 1960 64 From: Adonis Badillo PCP: Dr. Brody Saleh MD Status:[facility] Y Race: C Location: [place] [address] Anesthesia: Postop Eval I Current Vital Signs Temperature: 36 F Pulse Rate: 78 Blood Pressure: 108/70 Respiratory Rate: 16 Pulse Ox: 98 Oxygen Delivery Method: Room Air Assessment Airway patent: Yes Spontaneous unlabored respirations: Yes Mental status: Awake and Calm nausea: No Vomiting: No Anesthesia Complication: No Fluid Hydration Crystalloid volume administer (ml): 50 Total IV fluid infused: 50 Progress Note Anesthesia document: Postop Eval 1 completed: Yes 06/05/24 1356 Date Adonis oJy Signature: Date CC: Signed [facility] MR/[id number] 06-05-2024 MR/POSTOPAN2 [facility] Medical Records Department [address] [place] [address] Anesthesia Postop Eval II 06/05/24 2331 MR#: [id number] Acct: [id number] Name: REGGIE SURESH Rep #: [id number] : 1960 64 From: Mukesh Lee MD PCP: Dr. Brody Saleh MD Status:[facility] Y Race: C [facility] [facility] Anesthesia Postop Eval I Sum Postop Eval Completion status Anesthesia document: Postop Eval 1 completed: Yes Anesthesia Postop Eval I Summary Anesthesia Postop Eval I Summary: Anesthesia Postop Eval I: Assessment Summary Airway patent Yes 06/05/24 13:56 [email or web address] Spontaneous unlabored Yes 06/05/24 13:56 [email or web address] respirations Mental status Awake,Calm 06/05/24 13:56 [email or web address] nausea No 06/05/24 13:56 [email or web address] Vomiting No 06/05/24 13:56 [email or web address] Anesthesia Postop Eval I: Fluid Summary Crystalloid volume administer 50 06/05/24 13:56 [email or web address] (ml) Colloids volume administered ( ml) Blood Product volume administered (ml) Total IV fluid infused 50 06/05/24 13:56 [email or web address] Anesthesia Postop Eval I: Summary Notes Anesthesia Complication No 06/05/24 13:56 [email or web address] Anesthesia Complication Comment: Post-operative progress note Anesthesia: Postop Eval II Evaluation Mental status: Awake and Calm Pain Level: 1 nausea: No Vomiting: No Complications Anesthesia Complication: No 06/05/24 2331 Date Mukesh Lee MD Cosigner Signature: Date CC: Signed Normal [facility] Mycobacterium sp identified Org specific cx Nom (Unsp spec)Ordered By: Reno Dela Cruz on 06-05-2024 Acid Fast Bacilli Culture [facility] Operative Reporton Operative Report [facility] Medical Records Department [address] [place] [address] Operative Report 06/05/24 1415 MR#: [id number] Acct: [id number] Name: REGGIE SURESH Rep #: [id number] : 1960 64 From: Reno Dela Cruz MD PCP: Dr. Brody Saleh MD Status:DEP [facility] Location: [facility] Operative Report (Standard) Operative Information Date of Procedure: 06/05/24 Pre-Operative Diagnosis: Left thumb wound Post-Operative Diagnosis: Same Surgery/Procedure Performed: 1) Surgical preparation of left thumb wound, 1 x 2 cm, with sharp excision of necrotic tissue (CPT 19898) 2) Integra placement (dermal substitute), 1 x 2 cm, left thumb (CPT 21215) clothes ironer: Yes Senior Accounting Associate: Jayde Diaz Tasks completed by learning and development assistant: Retracting Type of Anesthesia: MAC/Supplemental (5 cc of 1% lidocaine with 1:200,000 epinephrine ) RN Documented Start/Stop Times: Operation Date: 06/05/24 11:00 Case Time Into Pre-Op 06/05/24 09:40 Out of Pre-Op 06/05/24 13:04 Anesthesia Start 06/05/24 13:07 Into Room 06/05/24 13:07 Procedure Start 06/05/24 13:25 Procedure End 06/05/24 13:46 Anesthesia End 06/05/24 13:53 Out of Room 06/05/24 13:53 Into Recovery 06/05/24 13:55 Into Phase II Recovery 06/05/24 14:08 Out of Recovery 06/05/24 14:08 Out of Phase II 06/05/24 14:56 Procedure Start Time: 13:25 Procedure Stop Time: 13:46 Select all DRAINS/GRAFTS/IMPLANTS that apply: Tissue (Integra) Tissue details: Integra [employer] neodermis Estimated Blood Loss: Minimal Specimen collected: Yes Description of specimen(s) removed: Deep soft tissue culture from the base of the wound following excision washout and irrigation Description of surgery: Indications: Patient is a 64-year-old male who sustained a crush injury to his left hand requiring amputation of the index finger and closed reduction percutaneous pinning of the left thumb. He has since had the wires removed and has had a persistent wound on the radial side of his thumb. Presents today for wound excision with placement of Integra as the wound is quite deep and not healing despite wound care regimen (albeit patient still smoking). I discussed with him risks, benefits, and alternatives, and he agrees to proceed. Procedure details: Patient was critically identified in preoperative holding and taken back to the operating room where he was administered sedation and infiltrated with local as noted above. A timeout was performed and he was prepped and draped in sterile fashion. The radial sided thumb wound was excised with a 15 blade scalpel and a curette down to healthy bleeding tissue and washed out with copious amounts of normal saline and Irrisept. The total excision was 1 x 2 cm (surgical preparation via excising necrotic subcutaneous tissue). A deep soft tissue culture was then taken. Attention was then turned to placing a dermal substitute (Integra) for a total dermal substitute placement of 1 x 2 cm to the wound. It was trimmed to fit and sutured into place with a 3-0 Vicryl for a bolster dressing using Xeroform on top (tying it on with the Vicryl's). Patient tolerated the procedure well. A Band-Aid was applied over the Xeroform bolster and the removable splint was reapplied. Postoperative plan: Discontinue the soaks. Keep a Band-Aid over this bolster and keep the bolster dry. Follow-up on Sunday, 10 June 2024, at [facility] for wound check. Surgical Findings: Healthy wound bed after excision, no exposed bone at the base of the wound. Complications Complications: No Admit VTE Documentation VTE Mechan Device Prophylaxis: SCD's 06/05/241731 Cosigner Signature (if applicable): CC: Dr. Reon Dela Cruz MD; Dr. Brody Saleh MD Signed ADDENDUM by Dr. Reno Dela Cruz MD on 06/05/24 at 1733 Addendum . 06/05/241732 Cosigner Signature (if applicable): cc: Dr. Reno Dela Cruz MD; Dr. Brody Saleh MD * Signed [facility] Routine wound cultureOrdered By: Reno Dela Cruz on 06-05-2024 Wound Culture No growth aerobically. [facility] OT General Evaluationon 05-08 OT General Evaluation [facility] Occupational Therapy [address] [place] [address] / REHABILITATION SERVICES INITIAL EVALUATION MR#: [id number] Acct: [id number] Name: REGGIE SURESH Rep #: [id number] : 1960 64 From: Monalisa LR/Lyla, CHT Referring Dr.: Dr. Reno Dela Cruz MD Status: REG RCR Insurance: SELF INS [facility] Eval Date: SELF PAY INSURANCE Patient's Visit Information Visit Information Visit Information: REGGIE SURESH is a 64 year old M, referred to Occupational Therapy by Dr. Reno Dela Cruz MD, with a diagnosis of left IF crush injury. Date of Evaluation: 06/03/24 Occupational Therapist: Monalisa Shukla, OTR/Lyla, CHT Subjective Subjective: This 64 year old male was seen for OT eval with dx of crush and degloving injury to left hand with open fx of left dorsal hand/thumb, and IF. 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 pt underwent sx same day for revision amputation of left IF at the MCP joint level, open fx with percutaneous pinning left thumb at proximal phalanx fx. On 05/28/24 pt had pins removed out of left thumb proximal phalanx - this fx was identified as stable following removal of pins. pt arrives with orthosis on- to protect thumb- Therapist ed. pt to decrease orthosis and allow for wrist motion- Therapist did rec. just thumb splint but pt did not want this- allowed therapist to allow wrist to be free- pt states he has concerns with the wound and how it is healing- pt states he is boiling water at home and then soaking hand in dial soap 2x a day- changing dressing- pt arrives today from office with new dressing change. pt states he is right handed pt state he is currently living with his mom as she is unable to use, he left hand for any daily tasks. ADLs Comments: pt currently having assistance for daily tasks- meals- driving due to inability to use his left hand at this time. Pain left hand: Current Pain Intensity: 3 Pain Intensity Range: 3 ROM Wrist: right /left WFL CMC: right 15* left 5* MP: right 50* left 20* IP: right 35* left 5* Palmar Abduction: right 45 left 45 ROM Comments: pt demo the ability to form light fist with MF-RF-LF Strength Strength Comments: will test later date Sensation Sensation Comments: denes Quick DASH-Disab of Arm,Shoulder Hand Quick DASH Score: 70.0000 Goals Goal:Daily scar massage when approriate: Yes Goal:ROM equal to unaffected hand: Yes Comment: left thumb IP /MP Goal:Senior Energy Consultant/Pinch strength at least 75% of unaffected hand: Yes Comment: 50% of unaffected hand Goal:Full use of affected hand in daily activities including work: Yes Goal:Decrease scar hypersensitivity: Yes Other Goal: orthosis use- pt will demo understanding of orthosis use by end of 2nd session. Rehabilitation General Assessment: pt arrives 7 weeks s/p from left IF amputation and pinning of left thumb proximal phalanx. pt arrives 6 days from pin removal from left thumb. pt demo limited ROM of digits and thumb- newly healing wound sites limiting pts functional use of left hand with daily or work tasks. pt demo need for skilled OT services 2-3x weeks for 8 weeks to improve pts ROM, wound care and functional use of left digits. Today therapist cut down orthosis to allow for wrist motion- (will terry. smaller thumb splint next visit) - therapist ed. pt on ROM for thumb and digits- pt verbalized his routine with his warm water soaks and antibacterial soap. pt verbalizes reluctance to use hand due to wounds- therapist advised ROM every 1-2 waking yours to increase circulation, improve soft tissue structres and gain ROM. pt demo understanding and agree to POC. 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 TEXT: Thank you for the opportunity to evaluate your patient. For Medicare and Medicare HMO plans, please review the plan of care and approve it. It will need to be FAXED BACK to us at [phone] for Medicare purposes. Please let me know if there are questions or concerns regarding this plan of care. Physician Signature: Date: 06/04/24 0948 CC: Dr. Reno Dela Cruz, (more content not included)... Normal [facility] Hand Min 3 Viewson 5 Hand Min 3 Views [facility] Imaging Services [address] [place] [address] Hand Min 3 Views MR#: [id number] Acct: [id number] Name: REGGIE SURESH Rep #: [id number] : 1960 M 64 From: Juan Carvalho DO PCP: Dr. Brody Saleh MD Status: DEP AMB Study: Hand Min 3 Views Date of Exam: 06/03/24 Exam# [id number] Ordering Dr: Reno Dela Cruz MD PROCEDURE: HAND MIN 3 VIEWS REASON FOR EXAM: Prior fracture TECHNIQUE: 3 view(s) of the left hand COMPARISON: 04/29/2024 FINDINGS: There is prior amputation involving the 2nd ray. Interval removal of the previous metallic pins traversing the proximal 1st phalanx. Subacute comminuted fracture involving the proximal 1st phalanx. Subacute to chronic appearing fracture involving the distal 3rd of the 2nd metacarpal. Osteoarthritic changes are noted, most conspicuous of the radiocarpal joint, STT and 1st CMC joints. There is mild degenerative change involving the remaining IP joints. No new fractures or dislocations are identified. Soft tissues appear stable. RAD/Hand Min 3 Views IMPRESSION: Interval removal of the metallic pins traversing the 1st proximal phalanx, with underlying subacute comminuted fracture. Subacute to chronic fracture deformity involving the distal 3rd of the 2nd metacarpal Otherwise stable exam Reading Location: [facility] CC: Dr. Reno Dela Cruz MD; Dr. Brody Saleh MD Processing Technologist: Signed Normal [facility] Plastic Surgery Visit Report on 06-03-2024 Plastic Surgery Visit Report [facility] Plastic Reconstructive Surgery [address], [address] [place] [address] OFFICE VISIT Date of Service: 06/03/24 MR#: [id number] Acct: [id number] Name: REGGIE SURESH Rep #: [id number] : 1960 Provider: Dr. Reno Dela Cruz MD Age/Sex: 64/M Location: [place] [address] Status: Signed Intake Vital Signs 3 05/28/24 08:45 Height 5 ft 7.5 in Intake Visit Reasons: FOLLOW UP Chief Complaint: Amptation FU Is patient in pain?: Yes Pain scale (1-10): 3 Allergies No Known Allergies Allergy (Verified 06/03/24 10:23) Medications 3 ???Medication ???Instructions ???Recorded ???Confirmed ???Type NK 05/20/24 06/03/24 History Nurse's Note: pt here for f/u. No redness or signs of infection noted. Subjective Details: Doing well overall 1 week s/p pin removal and debridement of hand wounds. Has jose luis dong TID DIal soap soaks and XF. No pain or buckling sensation of the thumb. Objective Details: Left upper extremity: Thumb examined and there is a persistent radial-sided wound, no exposed bone. Granulation tissue and fibrinous exudate at the base, but no purulence. No pain with palpation of the thumb proximal phalanx Dorsum of the hand with a small wound well at the incision line of the volar flap after the index finger amputation. Healing well no signs of infection. Coding Level of Care Code Global Post Op Diagnoses Open fracture of proximal phalanx of left thumb S62.512B Open fracture of second metacarpal bone of left hand S62.301B [facility] Medical History Wears glasses Alcohol use Hx of testicular cancer Smoker Surgical History Hx of eye surgery History of dental surgery Hx of tonsillectomy History of hand surgery Social History Smoking Status: Current every day smoker tobacco type: cigarettes Assessment and Plan (No Qualifiers) Assessment and Plan (1) Open fracture of proximal phalanx of left thumb: Status: Acute Plan: Pins removed last week and xray is stable. Healing. Non-tender to palpation. (2) Open fracture of second metacarpal bone of left hand: Status: Acute Plan Doing well with dressing changes and splinting (24 hours but removable only for wound care), but he can now remove splint for occupational therapy (will start ROM therapy now). No lifting/using hand other than for therapy. Continue Dial soap soaks followed by Xeroform 3 times per day I'm concerned about the radial-sided thumb wound. Discussed smoking cessation. Will need another debridement and likely placement of Integra in the OR (this week). Continue moist wound care. 06/03/24 1105 Date Reno Dela Cruz MD Cosign Signature: Date (if applicable) CC: Normal [facility] Plastic Surgery Visit Report on 05-31-2024 Plastic Surgery Visit Report [facility] Plastic Reconstructive Surgery [address], [address] [place] [address] OFFICE VISIT Date of Service: 05/30/24 MR#: [id number] Acct: [id number] Name: REGGIE SURESH Rep #: [id number] : 1960 Provider: Dr. Reno Dela Cruz MD Age/Sex: 64/M [place] [facility] [place] Status: Signed Intake Vital Signs 05/28/24 08:45 Height 5 ft 7.5 in Intake Visit Reasons: POST OP Chief Complaint: Amptation FU Allergies No Known Allergies Allergy (Verified 05/28/24 08:45) Subjective Details: Doing well with wound care. No new problems. No pain in the thumb. Objective Details: Left upper extremity: Thumb examined and there is a radial sided persistent wound, no exposed bone. Granulation tissue at the base. No pain with palpation of the thumb proximal phalanx Dorsum of the hand with a small wound well at the incision line of the volar flap after the index finger amputation. Healing well no signs of infection. Coding Level of Care Code Global Post Op Diagnoses Open fracture of proximal phalanx of left thumb S62.512B Open fracture of second metacarpal bone of left hand S62.301B [facility] Medical History Wears glasses Alcohol use Hx of testicular cancer Smoker Surgical History Hx of eye surgery History of dental surgery Hx of tonsillectomy History of hand surgery Social History Smoking Status: Current every day smoker tobacco type: cigarettes Assessment and Plan (No Qualifiers) Assessment and Plan (1) Open fracture of proximal phalanx of left thumb: Status: Acute Plan: Pins removed earlier this week Healing. Non-tender to palpation. (2) Open fracture of second metacarpal bone of left hand: Status: Acute Plan: Plan for x-ray next week Plan Doing well with dressing changes and splinting (24 hours but removable only for wound care). Continue Dial soap soaks followed by Xeroform 3 times per day Continue splinting and no thumb movement until follow-up x-ray on Sunday (continue removable splint, with plan to only remove for wound care) 05/31/24 1446 Date Reno Dela Cruz MD Cosigner Signature: Date (if applicable) CC: Normal [facility] H AND P Exam - Surgicalon H&P Exam - Surgical [facility] Medical Records Department [address] [place] [address] H P Exam - Surgical 05/28/24 0859 MR#: [id number] Acct: [id number] Name: REGGIE SURESH Rep #: [id number] : 1960 64 From: Reno Dela Cruz MD PCP: Dr. Brody Saleh MD Status:REG [facility] HPI - General HPI Narrative REGGIE SURESH, is a 64 M who presents for debridement and hardware removal (pins from thumb). Current Encounter (DATE OF SURGERY H P UPDATE): I saw and examined the patient this morning in pre- operative holding. We discussed risks and benefits of today's surgery and they would like to proceed. NO CHANGE in health history since last seen and evaluated. Ready to proceed with surgery. PFSH Medical History Wears glasses Alcohol use Hx of testicular cancer Smoker Home Medications ???Medication ???Instructions ???Recorded ???Last Taken ???Type NK 05/20/24 Unknown History Allergy/AdvReac Type Severity Reaction Status Date / Time No Known Allergies Allergy Verified 05/28/24 08:45 Surgical History (Updated 05/27/24 @ 08:31 by Taniya Roth) Hx of eye surgery History of dental surgery Hx of tonsillectomy History of hand surgery Social History Smoking Status: Current every day smoker tobacco type: cigarettes Vital Signs Vital Signs Vital Signs: 05/28/24 08:45 05/28/24 08:45 Temperature 97 F L Temperature Source Temporal Pulse Rate 71 Respiratory Rate 16 Respiratory Pattern Normal Blood Pressure 126/75 H Blood Pressure Mean 92 Blood Pressure Source Monitor Blood Pressure Position Sitting Blood Pressure Location Right Arm Pulse Ox 98 Oxygen Delivery Method Room Air Weight Weight: 134 lb 7.712 oz Body Mass Index (BMI) 20.7 Physical Exam Narrative LEFT UPPER EXTREMITY Splint removed Soft tissue warm and viable, minimal flap necrosis over index finger metacarpal. Less dorsal hand reactive erythema in the area of the degloving injury, and there are NO fluid collections. Thumb in good position/normal cascade. There is no tenderness over the thumb or index metacarpal fractures on my exam today. Less scab/nonviable tissue today. No infection. Xeroform applied. Sensation: Intact to light touch on the radial and ulnar borders of the thumb. Vascular: Thumb warm and well perfused. Assessment Plan Assessment/Plan (1) Open fracture of proximal phalanx of left thumb: (2) Open fracture of phalanx of left index finger: PLAN: Plan Doing well with dressing changes and splinting (24 hours but removable only for wound care). Continue XF twice daily Plan for pin removal in the OR tomorrow (>6 weeks s/p placement) with debridement/cleaning of hand/eschar for better wound care/dressing changes. Then OT for ROM and evaluation and treat. I talked him about the risks of removal of the pins and how he may collapse out of reduction. The x-rays are encouraging as the thumb fractures have not moved, and his physical exam is even more encouraging as he is nontender over the fracture site, however he understands the risks and possibility of need for repeat procedures including open reduction internal fixation. INTERVAL H P PLAN, DATE OF SURGERY: We will proceed with surgery today. 05/28/24 0901 Cosigner Signature (if applicable): CC: Dr. Reno Dela Cruz MD; Dr. Brody Saleh MD Signed Normal [facility] Hand 2 Viewson 05-28-2024 Hand 2 Views [facility] Imaging Services [address] [place] [id number] Hand 2 Views MR#: [id number] Acct: [id number] Name: REGGIE SURESH Rep #: [id number] : 1960 M 64 From: Veto Cunningham MD PCP: Dr. Brody Saleh MD Status: [facility] Study: Hand 2 Views Date of Exam: 05/28/24 Exam# [id number] Ordering Dr: Reno Dela Cruz MD [id number] STUDY: X-RAY - LEFT HAND, ATTENTION THUMB REASON FOR EXAM: Male, 64 years old. HARDWARE REMOVAL AND DEBRIDEMENT, 0.4903MGY, 14 seconds, 8 spot images. TECHNIQUE: 8 intraoperative fluoroscopic spot films of the left thumb. COMPARISON: Left thumb radiographs dated 05/27/2024. FINDINGS: Sequential intraoperative spot films of the left thumb demonstrate removal of 3 wires/pins from the proximal phalanx of the thumb. Normal first metacarpal and distal phalanx of the thumb. RAD/Hand 2 Views IMPRESSION: Successful removal of 3 wires/pins from the proximal phalanx of the thumb. Electronically Signed: Veto Cunningham MD at 8:26 EST Reading Location ID and State: [facility] / [place] , Service support , CC: Dr. Reno Dela Cruz MD; Dr. Brody Saleh MD Processing Technologist: Signed [facility] MR/POSTOP.ANEon 05-28-2024 MR/POSTOP.[facility] Medical Records Department [address] [place] [address] Anesthesia Postop Eval I 05/28/24 1010 MR#: [id number] Acct: [id number] Name: REGGIE SURESH Rep #: [id number] : 1960 64 From: Erik Yepez CRNA PCP: Dr. Brody Saleh MD Status:REG SD Y Race: C Location: [place] [address] Anesthesia: Postop Eval I Current Vital Signs Temperature: 97.4 F Pulse Rate: 67 Blood Pressure: 111/68 Respiratory Rate: 20 Pulse Ox: 97 Assessment Airway patent: Yes Spontaneous unlabored respirations: Yes nausea: No Vomiting: No Anesthesia Complication: No Fluid Hydration Crystalloid volume administer (ml): 300 Total IV fluid infused: 300 Progress Note Anesthesia document: Postop Eval 1 completed: Yes 05/28/24 1011 Date Erik Yepez CRNA Cosigner Signature: Date CC: Signed [facility] MR/[id number] 05-28-2024 MR/POSTOPAN2 [facility] Medical Records Department [address] [place] [address] Anesthesia Postop Eval II 05/28/24 1158 MR#: [id number] Acct: [id number] Name: REGGIE SURESH Rep #: [id number] : 1960 64 From: Sagar Tatum MD PCP: Dr. Brody Saleh MD Status:DEP [facility] [place] Race: C [place] [facility] Anesthesia Postop Eval I Sum Postop Eval Completion status Anesthesia document: Postop Eval 1 completed: Yes Anesthesia Postop Eval I Summary Anesthesia Postop Eval I Summary: Anesthesia Postop Eval I: Assessment Summary Airway patent Yes 05/28/24 10:10 [email or web address] Spontaneous unlabored Yes 05/28/24 10:10 BEARING [email or web address] respirations Mental status nausea No 05/28/24 10:10 [email or web address] Vomiting No 05/28/24 10:10 [email or web address] Anesthesia Postop Eval I: Fluid Summary Crystalloid volume administer 300 05/28/24 10:10 [email or web address] (ml) Colloids volume administered ( ml) Blood Product volume administered (ml) Total IV fluid infused 300 05/28/24 10:10 [email or web address] Anesthesia Postop Eval I: Summary Notes Anesthesia Complication No 05/28/24 10:10 [email or web address] Anesthesia Complication Comment: Post-operative progress note Anesthesia: Postop Eval II Evaluation Mental status: Awake Pain Level: 0 nausea: No Vomiting: No Complications Anesthesia Complication: No 05/28/24 1159 Date Sagar Tatum MD Cosign Signature: Date CC: Signed [facility] Operative Reporton 5 Operative Report [facility] Medical Records Department [address] [place] [address] Operative Report 05/28/24 1032 MR#: [id number] Acct: [id number] Name: REGGIE SURESH Rep #: [id number] : 1960 64 From: Reno Dela Cruz MD PCP: Dr. Brody Saleh MD Status:REG [facility] Location: [address] Operative Report (Standard) Operative Information Date of Procedure: 05/28/24 Pre-Operative Diagnosis: 1) Left thumb K wires s/p CRPP 2) Persistent dorsal hand and thumb wounds Post-Operative Diagnosis: Same Surgery/Procedure Performed: 1) Removal of buried K wires from left thumb (CPT: 06667) 2) Excision of left hand wounds, 2 x 0.5 cm and 1 x 1 cm, (CPT 33232) clothes ironer: No Type of Anesthesia: MAC/Supplemental (5 cc of a 50/50 mixture of 0.25% Marcaine and 1% lidocaine ) RN Documented Start/Stop Times: Operation Date: 05/28/24 10:00 Case Time Into Pre-Op 05/28/24 08:34 Out of Pre-Op 05/28/24 09:28 Anesthesia Start 05/28/24 09:34 Into Room 05/28/24 09:34 Procedure Start 05/28/24 09:46 Procedure End 05/28/24 10:00 Anesthesia End 05/28/24 10:06 Out of Room 05/28/24 10:06 Into Recovery 05/28/24 10:07 Into Phase II Recovery 05/28/24 10:21 Out of Recovery 05/28/24 10:21 Procedure Start Time: 09:46 Procedure Stop Time: 10:00 Select all DRAINS/GRAFTS/IMPLANTS that apply: None Estimated Blood Loss: minimal Specimen collected: No Description of surgery: Patient was correctly identified in preoperative holding and taken back to the operating room where he was administered some sedation and a local block as noted above. The mini C arm was brought into the room and the patient was prepped and draped in sterile fashion. A timeout was performed. Using the C arm I was able to examine the fracture under fluoroscopy and it appeared stable. I therefore remove the buried wires with small stab incisions and a needle lifter/driver. The fracture was stable after removal of the wires as evidenced by C arm imaging. I then turned my attention to debridement of a left thumb radial sided wound and a dorsal left hand wound, which measures one by one and 2 x 0.5 cm respectively. This was done with a 15 blade scalpel down to subcutaneous tissue. The wounds were irrigated with copious amounts normal saline and Irrisept. Hemostasis was obtained with Bovie electrocautery and Xeroform, Bharath, and loose Coban were applied, followed by the patient's custom splint. Postoperative plan: Continue splinting at all times and no use of the thumb. Will reassess x-ray on Sunday, 03 June 2024, and see if appropriate for hand therapy. Follow-up on Sunday, 30 May 2024, in my office for wound check. Surgical Findings: Stable fracture after the thumb pins were removed. Complications Complications: No Admit VTE Documentation VTE Mechan Device Prophylaxis: SCD's 05/28/24 1043 Cosigner Signature (if applicable): CC: Dr. Reno Dela Cruz MD; Dr. Brody Saleh MD Signed ADDENDUM by Dr. Reno Dela Cruz MD on 05/28/24 at 1046 Addendum . 05/28/24 1046 Cosigner Signature (if applicable): cc: Dr. Reno Dela Cruz MD; Dr. Brody Saleh MD * Signed [facility] Finger(s) Min 2 Viewson 05-08 Finger(s) Min 2 Views [facility] [address] [place] [address] Finger(s) Min 2 Views MR#: [id number] Acct: [id number] Name: REGGIE SURESH Rep #: [id number] : 1960 M 64 From: Laz Munoz MD PCP: Dr. Brody Saleh MD Status: DEP AMB Study: Finger(s) Min 2 Views Date of Exam: 05/27/24 Exam# [id number] Ordering Dr: Reno Dela Cruz MD [id number] STUDY: X-RAY - LEFT HAND, ATTENTION THUMB FINGER REASON FOR EXAM: Male, 64 years old. trauma to the left thumb -- Left thumb TECHNIQUE: 3 view(s) of the finger were obtained. COMPARISON: 05/20/2024 FINDINGS: Patient has undergone previous percutaneous pinning to reduce fractures in the proximal phalanx of the thumb. Alignment at the fracture site remains anatomic. Little if any healing has occurred since the previous study. There is still significant fracture lucency and cortical irregularity. RAD/Finger(s) Min 2 Views IMPRESSION: No significant healing has occurred since the previous study. No significant interval change in appearance of the fracture in the proximal phalanx of the thumb since the previous study. Continued follow-up recommended to assure healing. Electronically Signed: Sonido Munoz MD at 11:41 EST , CC: Dr. Reno Dela Cruz MD; Dr. Brody Saleh MD Processing Technologist: Signed [facility] Hand Min 3 Viewson Hand Min 3 Views [facility] [address] [place] [address] Hand Min 3 Views MR#: [id number] Acct: [id number] Name: REGGIE SURESH Rep #: [id number] : 1960 M 64 From: Laz Munoz MD PCP: Dr. Brody Saleh MD Status: DEP AMB Study: Hand Min 3 Views Date of Exam: 05/27/24 Exam# [id number] Ordering Dr: Reno Dela Cruz MD [id number] STUDY: X-RAY - LEFT HAND REASON FOR EXAM: Male, 64 years old. Trauma TECHNIQUE: 3 view(s) of the hand. COMPARISON: 05/20/2024 FINDINGS: Since a stable appearance of the left hand since the previous study. There is been previous percutaneous pinning of the fracture in the proximal phalanx of the thumb. Little significant healing has occurred since the previous study alignment is anatomic and unchanged. There is been previous amputation of the phalanges of the index finger, there is an old healed fracture in the distal second metacarpal. No new suspicious soft tissue swelling or subcutaneous emphysema. 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 RAD/Hand Min 3 Views IMPRESSION: No interval change, specifically, no healing has occurred within the previously pinned fracture in the proximal first phalanx Electronically Signed: Sonido Munoz MD at 11:43 EST , CC: Dr. Reno Dela Cruz MD; Dr. Brody Saleh MD Processing Technologist: Signed [facility] Plastic Surgery Visit Report on 05-27-2024 Plastic Surgery Visit Report [facility] Plastic Reconstructive Surgery [address], [address] [place] [address] OFFICE VISIT Date of Service: 05/27/24 MR#: [id number] Acct: [id number] Name: REGGIE SURESH Rep #: [id number] : 1960 Provider: Dr. Reno Dela Cruz MD Age/Sex: 64/M Location: [place] [address] Status: Signed Intake Vital Signs 05/09/24 09:42 Height 5 ft 7 in Intake Visit Reasons: 1 WK F/U Chief Complaint: Amptation FU Is patient in pain?: Yes Pain scale (1-10): 2 Allergies No Known Allergies Allergy (Verified 05/27/24 10:51) Medications ???Medication ???Instructions ???Recorded ???Confirmed ???Type NK 05/20/24 05/27/24 History Subjective Details: Doing well. Has been compliant with strict immobilization in a splint followed by twice daily Xeroform for wound care. No fevers chills or drainage. He is not having any pain on his thumb. He is still smoking a half a pack of cigarettes per day and we discussed smoking cessation today Objective Details: LEFT UPPER EXTREMITY Splint removed Soft tissue warm and viable, minimal flap necrosis over index finger metacarpal. Less dorsal hand reactive erythema in the area of the degloving injury, and there are NO fluid collections. Thumb in good position/normal cascade. There is no tenderness over the thumb or index metacarpal fractures on my exam today. Less scab/nonviable tissue today. No infection. Xeroform applied. Sensation: Intact to light touch on the radial and ulnar borders of the thumb. Vascular: Thumb warm and well perfused. Coding Level of Care Code Global Post Op Diagnoses Open fracture of proximal phalanx of left thumb S62.512B Open fracture of second metacarpal bone of left hand S62.301B [facility] Medical History Wears glasses Alcohol use Hx of testicular cancer Smoker Surgical History (Updated 05/27/24 @ 08:31 by Taniya Roth) Hx of eye surgery History of dental surgery Hx of tonsillectomy History of hand surgery Social History Smoking Status: Current every day smoker tobacco type: cigarettes Assessment and Plan (No Qualifiers) Assessment and Plan (1) Open fracture of proximal phalanx of left thumb: Status: Acute Plan: Stable position of wires/bones on xray. Healing. Non-tender to palpation. (2) Open fracture of second metacarpal bone of left hand: Status: Acute Plan: Callus formation on x-ray today, healng. Plan Doing well with dressing changes and splinting (24 hours but removable only for wound care). Continue XF twice daily Plan for pin removal in the OR tomorrow (>6 weeks s/p placement) with debridement/cleaning of hand/eschar for better wound care/dressing changes. Then OT for ROM and evaluation and treat. I talked him about the risks of removal of the pins and how he may collapse out of reduction. The x-rays are encouraging as the thumb fractures have not moved, and his physical exam is even more encouraging as he is nontender over the fracture site, however he understands the risks and possibility of need for repeat procedures including open reduction internal fixation. 05/27/24 1637 Date Reno Green Signature: Date (if applicable) CC: [facility] Hand Min 3 Viewson 5 Hand Min 3 Views [facility] [address] [place] [address] Hand Min 3 Views MR#: [id number] Acct: [id number] Name: REGGIE SURESH Rep #: [id number] : 1960 M 64 From: Ethan Perales DO PCP: Dr. Brody Saleh MD Status: DEP AMB Study: Hand Min 3 Views Date of Exam: 05/20/24 Exam# [id number] Ordering Dr: Reno Dela Cruz MD [id number] INDICATION: open fracture EXAMINATION/TECHNIQUE: X-RAY - LEFT XR Hand Min 3 Views 3 VIEWS COMPARISON: May 13, 2024 FINDINGS: SOFT TISSUES: No soft tissue swelling or gas. No radiopaque foreign body. BONES/JOINTS: Status post amputation of the second finger.. A fracture is noted of the second metacarpus. Degenerative changes at the radiocarpal articulation with joint space narrowing. Status post pinning of the thumb involving the proximal phalanx. RAD/Hand Min 3 Views IMPRESSION: ORIF of the proximal phalanx of the thumb with stable alignment of the bony fragments. Electronically Signed: Ethan Perales DO at 18:21 EST Reading Location ID and State: [facility] / [place] Tel [phone], Service support , CC: Dr. Reno Dela Cruz MD; Dr. Brody Saleh MD Processing Technologist: Signed [facility] Plastic Surgery Visit Report on 05-20-2024 Plastic Surgery Visit Report [facility] Plastic Reconstructive Surgery [address], [address] [place] [address] OFFICE VISIT Date of Service: 05/20/24 MR#: [id number] Acct: [id number] Name: REGGIE SURESH Rep #: [id number] : 1960 Provider: Dr. Rneo Dela Cruz MD Age/Sex: 64/M [place] [facility] Status: Signed Intake Vital Signs 3 05/09/24 09:42 Height 5 ft 7 in BP 126/77 H Blood Pressure Location Rt brachial Position Sitting Respiration 8 L Pulse 63 Pulse Oximetry (%) 94 Oxygen Delivery Method room air Intake Visit Reasons: 1 WK F/U - [facility] Chief Complaint: Amptation FU Allergies No Known Allergies Allergy (Verified 05/20/24 10:26) Medications 3 ???Medication ???Instructions ???Recorded ???Confirmed ???Type NK 05/20/24 05/20/24 History Subjective Details: Doing well with XF dressing changes. Discussed plans for hardware removal/debridement. Objective Details: LEFT UPPER EXTREMITY Splint removed Soft tissue warm and viable, minimal flap necrosis over index finger metacarpal. Less dorsal hand reactive erythema in the area of the degloving injury, and there are NO fluid collections. Thumb in good position/normal cascade. There is no tenderness over the thumb or index metacarpal fractures on my exam today. Less scab/nonviable tissue today. No infection. Xeroform applied. Sensation: Intact to light touch on the radial and ulnar borders of the thumb. Vascular: Thumb warm and well perfused. Coding Level of Care Code Global Post Op Diagnoses Open fracture of proximal phalanx of left thumb S62.512B Open fracture of second metacarpal bone of left hand S62.301B [facility] Medical History Smoker Social History Smoking Status: Current every day smoker tobacco type: cigarettes Assessment and Plan (No Qualifiers) Assessment and Plan (1) Open fracture of proximal phalanx of left thumb: Status: Acute Plan: Stable position of wires/bones on xray. Healing. Non-tender to palpation. (2) Open fracture of second metacarpal bone of left hand: Status: Acute Plan: Callus formation on x-ray today, healng. Plan Doing well with dressing changes and splinting (24 hours but removable only for wound care). Continue XF twice daily Plan for pin removal in the OR next week (6 weeks s/p placement) with debridement/cleaning of hand/eschar for better wound care/dressing changes. Then OT for ROM and evaluation and treat. F/u in 1 week to check pre-operative xray day before case. 05/20/24 1124 Date Reno Dela Cruz MD Cosigner Signature: Date (if applicable) CC: [facility] Hand Min 3 Viewson 5 Hand Min 3 Views [facility] [address] [place] [address] Hand Min 3 Views MR#: [id number] Acct: [id number] Name: REGGIE SURESH Rep #: [id number] : 1960 M 64 From: Veto Cunningham MD PCP: Dr. Brody Saleh MD Status: DEP AMB Study: Hand Min 3 Views Date of Exam: 05/13/24 Exam# [id number] Ordering Dr: Reno Dela Cruz MD [id number] STUDY: X-RAY - LEFT HAND REASON FOR EXAM: Male, 64 years old. Hand trauma. TECHNIQUE: 3 views of the left hand. COMPARISON: Left hand radiographs dated 04/29/2024. FINDINGS: There is persistent joint space narrowing of the radiocarpal articulation consistent with degenerative arthrosis. Normal distal radioulnar joint. Normal visualized carpal bones. Normal carpal articulations Normal carpometacarpal articulation of the thumb. Normal second through fifth carpometacarpal joints. Unchanged healed fracture of the distal shaft of the second metacarpal bone. Normal metacarpophalangeal joint of the thumb. Normal interphalangeal joint of the thumb. Unchanged healing comminuted fracture of the first proximal phalanx with multiple wires. Normal metacarpophalangeal joints of the third through fifth fingers. Normal proximal and distal interphalangeal joints of the third through fifth fingers. Normal phalanges of the third through fifth fingers. Status post amputation of the second digit through the second MCP joint. RAD/Hand Min 3 Views IMPRESSION: Unchanged healing fracture of the first proximal phalanx with multiple wires. Electronically Signed: Veto Cunningham MD at 12:38 EST Reading Location ID and State: [facility] / [place] , Service support , CC: Dr. Reno Dela Cruz MD; Dr. Brody Saleh MD Processing Technologist: Signed [facility] Plastic Surgery Visit Report on 05-13-2024 Plastic Surgery Visit Report [facility] Plastic Reconstructive Surgery [address], [address] [place], [place] [address] OFFICE VISIT Date of Service: 05/13/24 MR#: [id number] Acct: [id number] Name: REGGIE SURESH Rep #: [id number] : 1960 Provider: Dr. Reno Dela Cruz MD Age/Sex: 64/M Location[place] [facility] [place] Status: Signed Intake Vital Signs 04/29/24 11:45 Height 5 ft 7 in Intake Visit Reasons: FOLLOW UP [facility] Chief Complaint: Amptation FU Is patient in pain?: No Allergies No Known Allergies Allergy (Verified 05/13/24 10:16) Subjective Details: Doing well with XF dressing changes. Discussed plans for hardware removal. Objective Details: LEFT UPPER EXTREMITY Splint removed Soft tissue warm and viable, minimal flap necrosis over index finger metacarpal. Some dorsal hand reactive erythema in the area of the degloving injury, but NO fluid collections. Thumb in good position/normal cascade. Less scab/nonviable tissue today. No infection. Xeroform applied. Sensation: Intact to light touch on the radial and ulnar borders of the thumb. Vascular: Thumb warm and well perfused. Coding Level of Care Code Global Post Op Diagnoses Open fracture of second metacarpal bone of left hand S62.301B Open fracture of proximal phalanx of left thumb S62.512B Amputation of left index finger S68.111A [facility] Medical History Smoker Social History Smoking Status: Current every day smoker tobacco type: cigarettes Assessment and Plan (No Qualifiers) Assessment and Plan (1) Open fracture of second metacarpal bone of left hand: Status: Acute Plan: Xrays reviewed today Acceptable healing/alignment Continue immobilization and local wound care with XF gauze F/u next week in clinic Plan for pin removal in 2 weeks (2) Open fracture of proximal phalanx of left thumb: Status: Acute (3) Amputation of left index finger: Status: Acute 05/13/24 1134 Date Reno Green Signature: Date (if applicable) CC: [facility] Plastic Surgery Visit Report on 05-09-2024 Plastic Surgery Visit Report [facility] Plastic Reconstructive Surgery [address], [address] [place] [address] OFFICE VISIT Date of Service: 05/09/24 MR#: [id number] Acct: [id number] Name: REGGIE SURESH Rep #: [id number] : 1960 Provider: Dr. Reno Dela Cruz MD Age/Sex: 64/M [place] [facility] [place] Status: Signed Intake Vital Signs 3 04/29/24 11:45 Height 5 ft 7 in Intake Visit Reasons: FU hand [facility] Chief Complaint: Amptation FU Allergies No Known Allergies Allergy (Verified 05/06/24 10:57) Subjective Details: Here for wound check. Doing well overall. No fevers, chills, or drainage. He has been compliant with splint (removes custom splint from OT only for twice daily Xeroform changes, otherwise on at all times). Objective Details: LEFT UPPER EXTREMITY Cast removed Soft tissue mostly warm and viable, minimal flap necrosis over index finger metacarpal. Some dorsal hand reactive erythema in the area of the degloving injury, but NO fluid collections. Thumb in good position/normal cascade. Less scab/nonviable tissue today. No infection. Xeroform applied. Sensation: Intact to light touch on the radial and ulnar borders of the thumb. Vascular: Thumb warm and well perfused. Coding Level of Care Code Global Post Op Diagnoses Open fracture of proximal phalanx of left thumb S62.512B Open fracture of second metacarpal bone of left hand S62.301B Open fracture of phalanx of left index finger S62.601B [facility] Medical History Smoker Social History Smoking Status: Current every day smoker tobacco type: cigarettes Assessment and Plan (No Qualifiers) Assessment and Plan (1) Open fracture of proximal phalanx of left thumb: Status: Acute (2) Open fracture of second metacarpal bone of left hand: Status: Acute (3) Open fracture of phalanx of left index finger: Status: Acute Plan Doing better today. Compliant with dressing changes. Xeroform twice daily, splint at all times otherwise. Peroxide to the one pin site exposed in the radial-sided thumb wound (discussed). Pins for another 2.5 weeks then removal (6 weeks total). f/U on Sunday, 13 May 2023, at [facility]. 05/09/24 0934 Date Reno Joy Signature: Date (if applicable) CC: [facility] Plastic Surgery Visit Report on 05-06-2024 Plastic Surgery Visit Report [facility] Plastic Reconstructive Surgery [address], [address] [place] [address] OFFICE VISIT Date of Service: 05/06/24 MR#: [id number] Acct: [id number] Name: REGGIE SURESH Rep #: [id number] : 1960 Provider: Dr. Reno Dela Cruz MD Age/Sex: 64/M [place] [facility] [place] Status: Signed Intake Vital Signs 3 04/29/24 10:46 04/29/24 11:45 Height 5 ft 7 in 5 ft 7 in Intake Visit Reasons: 1 wk f/u - [facility] Chief Complaint: Amptation FU Is patient in pain?: No (no pain ) Allergies No Known Allergies Allergy (Verified 05/06/24 10:57) Medications 3 ???Medication ???Instructions ???Recorded ???Confirmed ???Type cephalexin 500 mg capsule 500 mg PO Q8H 7 days #21 caps 04/17/24 05/06/24 Rx Nurse's Note: pt reports no pain, no changes. Subjective Details: Doing well overall 3 weeks post op. Pain controlled (1-2 out of 10). Compliant with splinting. Has cut back on cigarettes since the injury. Objective Details: LEFT UPPER EXTREMITY Cast removed Soft tissue mostly warm and viable, minimal flap necrosis over index finger metacarpal. Some dorsal hand reactive erythema in the area of the degloving injury, but NO fluid collections. Thumb in good position/normal cascade. There is some necrosis on the radial side of the thumb requiring debridement of nonviable tissue today. No infection. Xeroform applied. Sensation: Intact to light touch on the radial and ulnar borders of the thumb. Vascular: Thumb warm and well perfused. Coding Level of Care Code Global Post Op Diagnoses Open fracture of proximal phalanx of left thumb S62.512B Open fracture of second metacarpal bone of left hand S62.301B Open fracture of phalanx of left index finger S62.601B [facility] Medical History Smoker Social History Smoking Status: Current every day smoker tobacco type: cigarettes Assessment and Plan (No Qualifiers) Assessment and Plan (1) Open fracture of proximal phalanx of left thumb: Status: Acute (2) Open fracture of second metacarpal bone of left hand: Status: Acute (3) Open fracture of phalanx of left index finger: Status: Acute Plan Removable splint with occupational therapy today (will keep thumb and index metacarpal completely immobilized, but enable wound care with Xeroform twice daily to the wounds on the hand/thumb). Continue full 6 weeks of immobilization for the thumb. F/u to check progress of wound care this Sunday, 08 May 2024. 05/06/24 1259 Date Reno Dela Cruz MD [facility] Signature: Date (if applicable) CC: Normal [facility] Finger(s) Min 2 Viewson 04-07 Finger(s) Min 2 Views [facility] [address] [place] [address] Finger(s) Min 2 Views MR#: [id number] Acct: [id number] Name: REGGIE SURESH Rep #: [id number] : 1960 64 From: Manuel Teixeira MD PCP: Dr. Brody Saleh MD Status: DEP AMB Study: Finger(s) Min 2 Views Date of Exam: 04/29/24 Exam# [id number] Ordering Dr: Reno Dela Cruz MD [id number] STUDY: X-RAY - LEFT HAND, ATTENTION FIRST FINGER REASON FOR EXAM: Male, 64 years old. Left thumb trauma TECHNIQUE: 3 view(s) of the finger were obtained. COMPARISON: 04/22/2024 FINDINGS: Normal metacarpal head. Normal metacarpophalangeal joint. Healing comminuted fracture of the proximal phalanx with multiple wires. Normal distal phalanx. Normal interphalangeal joint. RAD/Finger(s) Min 2 Views IMPRESSION: Healing comminuted fracture of the proximal phalanx with multiple wires. Electronically Signed: Manuel Teixeira MD at 15:24 EST , CC: Dr. Reno Dela Cruz MD; Dr. Brody Saleh MD Processing Technologist: Signed Normal [facility] Hand Min 3 Viewson Hand Min 3 Views [facility] [address] [place] [address] Hand Min 3 Views MR#: [id number] Acct: [id number] Name: REGGIE SURESH Rep #: [id number] : 1960 M 64 From: Manuel Teixeira MD PCP: Dr. Brody Saleh MD Status: DEP AMB Study: Hand Min 3 Views Date of Exam: 04/29/24 Exam# [id number] Ordering Dr: Reno Dela Cruz MD [id number] STUDY: X-RAY - LEFT HAND REASON FOR EXAM: Male, 64 years old. Trauma TECHNIQUE: 3 view(s) of the hand. COMPARISON: 04/22/2024 FINDINGS: There is joint space narrowing of the radiocarpal articulation consistent with degenerative arthrosis. Normal distal radioulnar joint. Normal visualized carpal bones. Normal carpal articulations Normal carpometacarpal articulation of the thumb. Normal second through fifth carpometacarpal joints. Healed fracture of the distal shaft of the second metacarpal bone. Normal metacarpophalangeal joint of the thumb. Normal interphalangeal joint of the thumb. Healing comminuted fracture of the first proximal phalanx with multiple wires. Normal metacarpophalangeal joints of the third through fifth fingers. Normal proximal and distal interphalangeal joints of the third through fifth fingers. Normal phalanges of the third through fifth fingers. Status post amputation of the second digit. The soft tissue structures are unremarkable. RAD/Hand Min 3 Views IMPRESSION: Healing fracture of the first proximal phalanx with multiple wires. Electronically Signed: Manuel Teixeira MD at 15:20 EST , CC: Dr. Reno Dela Cruz MD; Dr. Brody Saleh MD Processing Technologist: Signed Normal [facility] Plastic Surgery Visit Report on 04-29-2024 Plastic Surgery Visit Report [facility] Plastic Reconstructive Surgery [address], [address] [place] [address] OFFICE VISIT Date of Service: 04/29/24 MR#: [id number] Acct: [id number] Name: REGGIE SURESH Rep #: [id number] : 1960 Provider: Dr. Reno Dela Cruz MD Age/Sex: 64/M Location: [place] [address] Status: Signed Intake Vital Signs 3 04/22/24 09:51 04/29/24 10:46 Height 5 ft 7 in 5 ft 7 in Intake Visit Reasons: 1 WEEK F/U Chief Complaint: Amptation FU Is patient in pain?: Yes (left index finger) Pain scale (1-10): 1 Allergies No Known Allergies Allergy (Verified 04/29/24 10:45) Medications 3 ???Medication ???Instructions ???Recorded ???Confirmed ???Type cephalexin 500 mg capsule 500 mg PO Q8H 7 days #21 caps 04/17/24 04/29/24 Rx PFSH Medical History Smoker Social History Smoking Status: Current every day smoker tobacco type: cigarettes HPI 1 WEEK F/U Details: Post op week 2 from open reduction percutaneous pinning of the left thumb and revision amputation of the left index. No fevers or chills. No drainage. Pain controlled. No wrist pain.Finishing antibiotics today. He is still smoking (discussed cessation) Exam Details LEFT UPPER EXTREMITY Soft tissue warm and viable, overall no flap necrosis (some scabs removed from thumb and from volar rotation flap over metacarpal).. Some dorsal hand reactive erythema in the area of the degloving injury, but NO fluid collections. Thumb in good position/normal cascade Sensation: Intact to light touch on the radial and ulnar borders of the thumb. Vascular: Thumb warm and well perfused. Coding Level of Care Code Global Post Op Diagnoses Open fracture of proximal phalanx of left thumb S62.512B Amputation of left index finger S68.111A Assessment and Plan (No Qualifiers) Assessment and Plan (1) Open fracture of proximal phalanx of left thumb: Status: Acute Plan: Reviewed xrays. Acceptable alignment. Continue casting (thumb spica) and weekly wound checks. Hand cleaned with peroxide today. F/u next week or sooner as needed. Continue rest and elevation, no using left hand (but encouraged to move other three fingers). (2) Amputation of left index finger: Status: Acute 04/29/24 1121 Date Reno Dela Cruz MD [facility]ign Signature: Date (if applicable) CC: Normal [facility] Finger(s) Min 2 Views 04-06 Finger(s) Min 2 Views [facility] [address] [place] [address] Finger(s) Min 2 Views MR#: [id number] Acct: [id number] Name: REGGIE SURESH Rep #: [id number] : 1960 M 64 From: Manuel Teixeira MD PCP: Dr. Brody Saleh MD Status: DEP AMB Study: Finger(s) Min 2 Views Date of Exam: 04/22/24 Exam# [id number] Ordering Dr: Reno Dela Cruz MD [id number] STUDY: X-RAY - LEFT HAND, ATTENTION FIRST FINGER REASON FOR EXAM: Male, 64 years old. Left thumb truama -- left thumb TECHNIQUE: 3 view(s) of the finger were obtained. COMPARISON: 04/15/2024 FINDINGS: Normal metacarpal head. Normal metacarpophalangeal joint. Healing comminuted fracture of the first digit with multiple wires. Normal distal phalanx. Normal interphalangeal joint. RAD/Finger(s) Min 2 Views IMPRESSION: Healing comminuted fracture the first proximal phalanx with multiple wires. Electronically Signed: Manuel Teixeira MD at 11:31 EST , CC: Dr. Reno Dela Cruz MD; Dr. Brody Saleh MD Processing Technologist: Signed Normal [facility] Hand Min 3 Viewson 4 Hand Min 3 Views [facility] [address] [place] [address] Hand Min 3 Views MR#: [id number] Acct: [id number] Name: REGGIE SURESH Rep #: [id number] : 1960 64 From: Manuel Teixeira MD PCP: Dr. Brody Saleh MD Status: DEP AMB Study: Hand Min 3 Views Date of Exam: 04/22/24 Exam# [id number] Ordering Dr: Reno Dela Cruz MD [id number] STUDY: X-RAY - LEFT HAND REASON FOR EXAM: Male, 64 years old. left hand trauma TECHNIQUE: 3 view(s) of the hand. COMPARISON: 04/15/2024 FINDINGS: Normal radiocarpal articulation. Normal distal radioulnar joint. Normal visualized carpal bones. Normal carpal articulations Normal carpometacarpal articulation of the thumb. Normal second through fifth carpometacarpal joints. Normal metacarpi. Normal metacarpophalangeal joint of the thumb. Normal interphalangeal joint of the thumb. Healing comminuted fracture of the first proximal phalanx with multiple wires. Normal metacarpophalangeal joints of the second through fifth fingers. Normal proximal and distal interphalangeal joints of the second through fifth fingers. Interval amputation of the second digit. The soft tissue structures are unremarkable. RAD/Hand Min 3 Views IMPRESSION: Healing fracture of the first proximal phalanx with multiple wires. Interval amputation of the second digit. Electronically Signed: Manuel Teixeira MD at 11:28 EST , CC: Dr. Reno Dela Cruz MD; Dr. Brody Saleh MD Processing Technologist: Signed Normal [facility] Plastic Surgery Visit Report on 04-22-2024 Plastic Surgery Visit Report [facility] Plastic Reconstructive Surgery [address], [address] [place] [address] OFFICE VISIT Date of Service: 04/22/24 MR#: [id number] Acct: [id number] Name: REGGIE SURESH Rep #: [id number] : 1960 Provider: Dr. Reno Dela Cruz MD Age/Sex: 64/M Location: [place] [address] Status: Signed with Addenda ADDENDUM by Dr. Reno Dela Cruz MD on 04/22/24 at 1553 Assessment and Plan (No Qualifiers) Assessment and Plan (1) Open fracture of proximal phalanx of left thumb: Status: Acute (2) Open fracture of second metacarpal bone of left hand: Status: Acute (3) Amputation of left index finger: Status: Acute 04/22/24 1553 Date Reno Dela Cruz MD cc: * Signed Intake Vital Signs 3 04/15/24 19:21 04/22/24 09:51 Height 5 ft 7 in 5 ft 7 in Intake Visit Reasons: POST OP- [facility] Chief Complaint: Post op open fracture Accompanied by: Significant Other Is patient in pain?: Yes (left hand) Pain scale (1-10): 2 Allergies No Known Allergies Allergy (Verified 04/22/24 09:50) Medications 3 ???Medication ???Instructions ???Recorded ???Confirmed ???Type NK 04/15/24 04/15/24 History cephalexin 500 mg capsule 500 mg PO Q8H 7 days #21 caps 04/17/24 04/22/24 Rx oxycodone 5 mg tablet 5 mg PO Q8H PRN pain 5 days #14 04/17/24 04/22/24 Rx tabs clindamycin HCl 150 mg capsule 150 mg PO TID 5 days #15 caps 04/22/24 04/22/24 Rx Nurse's Note: Post op open fracture left hand Subjective Details: Doing well overall 1 week post op. Pain controlled. Compliant with splinting. Has cut back to 4-5 cigarettes per day since the injury. Objective Details: LEFT UPPER EXTREMITY Soft tissue warm and viable, no flap necrosis. Some dorsal hand reactive erythema in the area of the degloving injury, but NO fluid collections. Thumb in good position/normal cascade Sensation: Intact to light touch on the radial and ulnar borders of the thumb. Vascular: Thumb warm and well perfused. Coding Level of Care Code Global Post Op Diagnoses Open fracture of proximal phalanx of left thumb S62.512B Open fracture of second metacarpal bone of left hand S62.301B [facility] Medical History Smoker Social History Smoking Status: Current every day smoker tobacco type: cigarettes Assessment and Plan (No Qualifiers) Assessment and Plan (1) Open fracture of proximal phalanx of left thumb: Status: Acute Plan: Xrays reviewed from today. K wires acceptable. (2) Open fracture of second metacarpal bone of left hand: Status: Acute Plan: Xray reviewed. Reduction maintained in acceptable alignment for healing. Plan Cast for 1 week and then wound check/cast change in clinic next week. Placed in thumb spica cast today. 04/22/24 1030 Date [facility] Date (if applicable) CC: Normal [facility] H AND P Exam - Surgical H&P Exam - Surgical [facility] Medical Records Department [address] [place] [address] H P Exam - Surgical 04/21/24 0830 MR#: [id number] Acct: [id number] Name: REGGIE SURESH Rep #: [id number] : 1960 64 From: Reno Dela Cruz MD PCP: Dr. 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 He reports sharp severe pain in the right upper extremity worsened by movements and improved with rest and elevation. He has never hurt this hand before. He smokes 1 pack of cigarettes per day. Today in the emergency department his tetanus was updated and he was given a gram of Ancef. He does not have any history of problems with anesthesia or any personal or family history of bleeding or clotting problems. Patient does not take any medications on a regular basis. Patient is not complaining of any other injuries, and there is no sign of any other traumatic location. [facility] Medical History no medical history Home Medications ???Medication ???Instructions ???Recorded ???Last Taken ???Type NK 04/15/24 Unknown History cephalexin 500 mg capsule 500 mg PO Q8H 7 days #21 caps 04/17/24 Unknown Rx oxycodone 5 mg tablet 5 mg PO Q8H PRN pain 5 days #14 04/17/24 Unknown Rx tabs Allergy/AdvReac Type Severity Reaction Status Date / Time No Known Allergies Allergy Verified 04/15/24 09:32 Social History Smoking Status: Current every day smoker tobacco type: cigarettes Vital Signs Vital Signs Vital Signs: Weight Weight: 134 lb 4.8 oz Body Mass Index (BMI) 21.0 Physical Exam Narrative LEFT UPPER EXTREMITY Inspection: Left upper extremity with degloving injury of the volar and dorsal index finger and the dorsal left hand, as well as degloving/crush injury/laceration to left thumb dorsal surface. Small slip of extensor mechanism still intact on the index finger, but otherwise severe crush avulsion injury to the extensor mechanism and the volar flexor tendons. Motor: Unable to bend or extend his index finger. to bend and extend all other MP, PIP, and DIP joints. He is able to bend and extend the thumb MCP and IP joints. Sensory: Intact pinprick sensation on the radial and ulnar borders of the thumb distal to the zone of injury, however absent pinprick sensation on the radial and ulnar borders of the index finger distal to the zone of injury. Vascular: The index finger is just vascularized distal to the zone of injury (no Doppler signal, no capillary refill). The other finger tips are warm and well perfused with <2 second capillary refill, and the thumb is perfused with examination using the Doppler distal to the zone of injury with triphasic signal. Results Lab / Micro Data 04/15/24 09:46 04/15/24 09:46 Assessment Plan Assessment/Plan (1) Open fracture of proximal phalanx of left thumb: (2) Open fracture of second metacarpal bone of left hand: (3) Open fracture of phalanx of left index finger: PLAN: Plan I talked the patient extensively about his condition. We talked about how the index finger is no longer perfused distal to the zone of injury and there is so severe degloving injury and crush component. Given that there are injuries to the neurovascular bundles, the bone, and most of the tendon, I am recommending revision amputation at the level of the MCP joint to the index finger. The patient understands this and is in agreement. I talked to him about options for microvascular reconstruction/salvage, and he was offered emergent transfer to a tertiary care center, which he declined. I further talked to him about bony reconstruction for the metacarpal and thumb fractures, and he understands the risk of hardware failure, nonunion, malunion, infection, failure to obtain the desired result, stiffness, pain, and poor hand function. The other risks of surgery, including bleeding, soft tissue loss and need for revision surgeries and soft tissue reconstruction, damage to surrounding structures, surgical site dehiscence and wound formation, need for wound care, need for repeat operations, failure to obtain the desired result, DVT/PE, and the risks of anesthesia including were also discussed. In general the benefits and alternatives of this surgery were discussed. All of their questions were answered, and they agreed to proceed with surgery. Emergent open fracture washout, debridement and reconstruction/exploration with index finger revision amputation. 04/21/24 0831 Cosign (more content not included)... Normal [facility] Absolute neutrophil countOrd ered By: Francisco Espinal on 04-15-2024 Neutrophils (Bld) [#/Vol] 6.4 10*3/uL 2.0-7.7 [facility] Albumin, Serumon 04-15-2024 Albumin [Mass/Vol] 4.1 g/dL Normal 3.2-5.0 [facility] Comment on above: Performed By: #### L 501.1800, L501.5200 ####[facility] [address] [place], [address] Basic Metabolic Profile (BMP )on 04-15-2024 BUN/CRE 19.5 RATIO Normal 02-23 [facility] Comment on above: Performed By: #### L 100.0100, L500.2500 #### [facility] [address] [place], [address] CA,Total 7.2 mg/dL Low 8.5-10.1 [facility] Comment on above: Performed By: #### L 100.0100, L500.2500 #### [facility] [address] [place], [address] Chloride [Moles/Vol] 115 mmol/L High 98-107 [facility] Comment on above: Performed By: #### L 100.0100, L500.2500 #### [facility] [address] [place], [address] CO2 [Moles/Vol] 23.0 mmol/L Normal 21.0-32.0 [facility] Comment on above: Performed By: #### L 100.0100, L500.2500 #### [facility] [address] [place], [address] Creatinine [Mass/Vol] 0.62 mg/dL Low 0.70-1.30 [facility] Comment on above: Result Comment: The validity of the calculated GFR GFRAA in patients over 70 years has not been determined. Clinical correlation is essential. Performed By: #### L 100.0100, L500.2500 #### [facility] [address] [place], [address] ECRCL 112.98 ml/min Normal [facility] Comment on above: Performed By: #### L 100.0100, L500.2500 #### [facility] [address] [place], [address] EST GFR - AA 170 mL/min Normal >60 [facility] Comment on above: Result Comment: Afri can Bahamian GFR Calc Performed By: #### L 100.0100, L500.2500 #### [facility] [address] [place], [address] GAP 5 Normal 5-15 [facility] Comment on above: Performed By: #### L 100.0100, L500.2500 #### [facility] [address] [place], [address] GFR/1.73 sq M.predicted among non-blacks MDRD (S/P/Bld) [Vol rate/Area] 140 mL/min/{1.73_m2} Normal >60 [facility] Comment on above: Result Comment: Non- GFR Calc Performed By: #### L 100.0100, L500.2500 #### [facility] [address] [place], [address] Glucose [Mass/Vol] 106 mg/dL Normal 74-106 [facility] Comment on above: Result Comment: Fast ing Glucose result from 100 to 125 mg/dL suggests IMPAIRED HOMEOSTASIS per A.D.A. criteria. Performed By: #### L 100.0100, L500.2500 #### [facility] [address] [place], [address] Potassium [Moles/Vol] 3.5 mmol/L Normal 3.5-5.1 [facility] Comment on above: Performed By: #### L 100.0100, L500.2500 #### [facility] [address] [place], [address] Sodium [Moles/Vol] 143 mmol/L Normal 136-145 [facility] Comment on above: Performed By: #### L 100.0100, L500.2500 #### [facility] [address] [place], [address] Urea nitrogen [Mass/Vol] 12 mg/dL Normal 7-18 [facility] Comment on above: Performed By: #### L 100.0100, L500.2500 #### [facility] [address] [place], [address] Basophil percentageOrdered B y: Francisco Espinal on 04-15-2024 Basophils/100 WBC (Bld) 0.6 % 0-1 [facility] Blood urea nitrogen (BUN)/cr eatinine ratioOrdered By: Francisco Espinal on 04-15-2024 Urea nitrogen/Creatinine [Mass ratio] 19.5 mg/mg 10-20 [facility] CBC W/Diff, Automatedon 12-1 0-2023 Absolute Lymph 1.45 X10 3/uL Normal 0.83-4.51 [facility] Comment on above: Performed By: #### L 100.0100, L500.2500 #### [facility] [address] [place], [address] Absolute Neut 6.4 X10 3/uL Normal 2.0-7.7 [facility] Comment on above: Performed By: #### L 100.0100, L500.2500 #### [facility] [address] [place], [address] Basophils/100 WBC (Bld) 0.6 % Normal 0-1 [facility] Comment on above: Performed By: #### L 100.0100, L500.2500 #### [facility] [address] [place], [address] Eosinophils/100 WBC (Bld) 0.4 % Normal 0-5 [facility] Comment on above: Performed By: #### L 100.0100, L500.2500 #### [facility] [address] [place], [address] Erythrocyte distribution width (RBC) [Ratio] 13.5 % Normal 11.6-14.6 [facility] Comment on above: Performed By: #### L 100.0100, L500.2500 #### [facility] [address] [place], [address] Hematocrit (Bld) [Volume fraction] 37.0 % Low 40-54 [facility] Comment on above: Performed By: #### L 100.0100, L500.2500 #### [facility] [address] [place], [address] Hemoglobin (Bld) [Mass/Vol] 12.5 g/dL Low 13.0-16.5 [facility] Comment on above: Performed By: #### L 100.0100, L500.2500 #### [facility] [address] [place], [address] IG% 0.500 Normal 0.0-0.9 [facility] Comment on above: Result Comment: IG% - Immature Granulocytes (promyelocytes, myelocytes and metamyelocytes) > 1% indicates that a LEFT SHIFT is Present. Performed By: #### L 100.0100, L500.2500 #### [facility] [address] [place], [address] Lymphocytes/100 WBC (Bld) 17.0 % Low 19-41 [facility] Comment on above: Performed By: #### L 100.0100, L500.2500 #### [facility] [address] [place], [address] MCH (RBC) [Entitic mass] 31.1 pg Normal 27.0-32.0 [facility] Comment on above: Performed By: #### L 100.0100, L500.2500 #### [facility] [address] [place], [address] MCHC (RBC) [Mass/Vol] 33.8 g/dL Normal 32-36 [facility] Comment on above: Performed By: #### L 100.0100, L500.2500 #### [facility] [address] [place], [address] MCV (RBC) [Entitic vol] 92.0 fL Normal 80-94 [facility] Comment on above: Performed By: #### L 100.0100, L500.2500 #### [facility] [address] [place], [address] Monocytes/100 WBC (Bld) 6.1 % Normal 0-10 [facility] Comment on above: Performed By: #### L 100.0100, L500.2500 #### [facility] [address] [place], [address] Neutrophils/100 WBC (Bld) 75.4 % High 47-70 [facility] Comment on above: Performed By: #### L 100.0100, L500.2500 #### [facility] [address] [place], [address] Nucleated RBC (Bld) [#/Vol] 0 10*3/uL Normal 0-5 [facility] Comment on above: Performed By: #### L 100.0100, L500.2500 #### [facility] [address] [place], [address] Platelet mean volume (Bld) [Entitic vol] 8.5 fL Normal 6.2-12.0 [facility] Comment on above: Performed By: #### L 100.0100, L500.2500 #### [facility] [address] [place], [address] Platelets (Bld) [#/Vol] 262 10*3/uL Normal 150-450 [facility] Comment on above: Performed By: #### L 100.0100, L500.2500 #### [facility] [address] [place], [address] RBC (Bld) [#/Vol] 4.02 10*6/uL Low 4.6-6.2 [facility] Comment on above: Performed By: #### L 100.0100, L500.2500 #### [facility] [address] [place], [address] RDW SD 45.9 fl High 35.1-43.9 [facility] Comment on above: Performed By: #### L 100.0100, L500.2500 #### [facility] [address] [place], [address] WBC (Bld) [#/Vol] 8.5 10*3/uL Normal 4.4-11.0 [facility] Comment on above: Performed By: #### L 100.0100, L500.2500 #### [facility] [address] [place], [address] Calcium ionizedOrdered By: U micki Kuoo on 04-15-2024 Ionized Calcium 1.20 mmol/L 1.09-1.30 [facility] Carbon dioxide measurementOr dered By: Francisco Espinal on 04-15-2024 CO2 [Moles/Vol] 23.0 mmol/L 21.0-32.0 [facility] Chloride measurementOrdered By: Franciscoguicho Espinal on 04-15-2024 Chloride [Moles/Vol] 115 mmol/L High 98-107 [facility] Consultation - Surgicalon Consultation - Surgical [facility] Medical Records Department [address] [place] [address] Consultation - Surgical 04/15/24 1156 MR#: [id number] Acct: [id number] Name: REGGIE SURESH Rep #: [id number] : 1960 64 From: Reno Dela Cruz MD PCP: Dr. Brody Saleh MD Status:[facility] Location: [place] [address] Assessment Plan Assessment/Plan (1) Open fracture of proximal phalanx of left thumb: (2) Open fracture of second metacarpal bone of left hand: (3) Open fracture of phalanx of left index finger: PLAN: Plan I talked the patient extensively about his condition. We talked about how the index finger is no longer perfused distal to the zone of injury and there is so severe degloving injury and crush component. Given that there are injuries to the neurovascular bundles, the bone, and most of the tendon, I am recommending revision amputation at the level of the MCP joint to the index finger. The patient understands this and is in agreement. I talked to him about options for microvascular reconstruction/salvage, and he was offered emergent transfer to a tertiary care center, which he declined. I further talked to him about bony reconstruction for the metacarpal and thumb fractures, and he understands the risk of hardware failure, nonunion, malunion, infection, failure to obtain the desired result, stiffness, pain, and poor hand function. The other risks of surgery, including bleeding, soft tissue loss and need for revision surgeries and soft tissue reconstruction, damage to surrounding structures, surgical site dehiscence and wound formation, need for wound care, need for repeat operations, failure to obtain the desired result, DVT/PE, and the risks of anesthesia including were also discussed. In general the benefits and alternatives of this surgery were discussed. All of their questions were answered, and they agreed to proceed with surgery. Emergent open fracture washout, debridement and reconstruction/exploration with index finger revision amputation. 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 He reports sharp severe pain in the right upper extremity worsened by movements and improved with rest and elevation. He has never hurt this hand before. He smokes 1 pack of cigarettes per day. Today in the emergency department his tetanus was updated and he was given a gram of Ancef. He does not have any history of problems with anesthesia or any personal or family history of bleeding or clotting problems. Patient does not take any medications on a regular basis. Patient is not complaining of any other injuries, and there is no sign of any other traumatic location. [facility] Medical History no medical history Home Medications ???Medication ???Instructions ???Recorded ???Last Taken ???Type NK 04/15/24 Unknown History Allergy/AdvReac Type Severity Reaction Status Date / Time No Known Allergies Allergy Verified 04/15/24 09:32 Social History Smoking Status: Current every day smoker tobacco type: cigarettes Physical Exam Narrative LEFT UPPER EXTREMITY Inspection: Left upper extremity with degloving injury of the volar and dorsal index finger and the dorsal left hand, as well as degloving/crush injury/laceration to left thumb dorsal surface. Small slip of extensor mechanism still intact on the index finger, but otherwise severe crush avulsion injury to the extensor mechanism and the volar flexor tendons. Motor: Unable to bend or extend his index finger. to bend and extend all other MP, PIP, and DIP joints. He is able to bend and extend the thumb MCP and IP joints. Sensory: Intact pinprick sensation on the radial and ulnar borders of the thumb distal to the zone of injury, however absent pinprick sensation on the radial and ulnar borders of the index finger distal to the zone of injury. Vascular: The index finger is just vascularized distal to the zone of injury (no Doppler signal, no capillary refill). The other finger tips are warm and well perfused with <2 second capillary refill, and the thumb is perfused with examination using the Doppler distal to the zone of injury with triphasic signal. Const alert and oriented x3 Lab / Micro Data 04/15/24 09:46 04/15/24 09:46 Labs: Laboratory Results - last 24 hr 04/15/24 09:46: WBC 8.5, RBC 4.02 L, Hgb 12.5 L, Hct 37.0 L, MCV 92.0, MCH 31.1, MCHC 33.8, RDW Std Deviation 45.9 H, RDW Coeff of Juaquin 13.5, Plt Count 262, MPV 8.5, Immature Gran % (Auto) 0.500, Neut % (Auto) 75.4 H, Lymph % (Auto) 17.0 L, Jackson % (Auto) 6.1, Eos % (Auto) 0.4, (more content not included)... Normal [facility] Decalcification bone/plaqueo n 04-15-2024 Decalcification bone/plaque Patient Age/Sex Location Account Attending Physician GARRETTREGGIE Lyla 64/M MS3 [id number] Dr. Reno Dela Cruz MD Specimen: [id number] Received: 04/15/24 Status: JL Liang Num: [id number] Spec Type: Amputation Subm Dr: Dr. Reno Dela Cruz MD HEADER OPERATION: Left hand open fracture washout, repair bone, tendon, nerves PRE-OP DIAGNOSIS: Open fracture of proximal phalanx of left thumb, open fracture of second metacarpal bone of left hand, open fracture of phalanx of left index finger TISSUE SUBMITTED: Left index finger bone and tissue MICROSCOPIC DIAGNOSIS Left index finger bone and tissue: Focal acute and chronic inflammation and granulation tissue reaction. Detached pieces of bone with hemorrhage, clinically fracture of proximal phalanx. SJ.mr 04/21/2024 COMMENT Case has been reviewed in consultation with Dr. Atkins who concurs with the above diagnosis. IDC:AM MICROSCOPIC DESCRIPTION Slides are reviewed. GROSS DESCRIPTION Received in fixative is one container labeled with the patient's name and designated Left index finger bone and tissue. The specimen consists of a portion of a digit/finger measuring 8.0 x 2.5 x 2.0cm. The section margin is irregular. Nail is also present and appears unremarkable. Also present in the container are multiple detached pieces of soft tissue measuring in aggregate 4.0 x 3.5 x 1.0cm. Also present in the container is a piece of bone measuring 2.0 x 1.5 x 1.5cm. Two smaller fragments of bone are also noted measuring in aggregate 2.0 x 1.0 x 0.5cm. Fabric Worker Leader sections are submitted in five cassettes as follows: 1- skin and underlying tissue from finger/digit, 2- detached pieces of soft tissue, 3- detached pieces of bone after decalcification, 4- a detached piece of bone after decalcification, 5- detached bone from finger after decalcification. SJ.mr 04/16/2024 TC:5 CPT:77231,26596 Patient Age/Sex Location Account Attending Physician REGGIE SURESH 64/M MS3 [id number] Dr. Reno Dela Cruz MD Signed (signature on file) Dr. Rosalino Neff MD 04/22/24 1302 Normal [facility] Comment on above: Performed By: #### P DEC ####[facility] [id number] [place], [address] Emergency Department Summary on 04-15-2024 Emergency Department Summary [facility] Medical Records Department [address] [place] [address] Emergency Department Summary 04/15/24 MR#: [id number] Acct: [id number] Name: REGGIE SURESH Rep #: [id number] : 1960 64 From: Francisco Espinal MD PCP: Dr. Brody Saleh MD Status:[facility] Location: [address] History of Present Illness Chief Complaint: Upper Extremity Injury Detail of Chief Complaint: Question injury left hand Informant: patient Occured/Mechanism Mechanism/Context: Yes injury and Yes blunt trauma Comment: On toe motor. Hand slipped and was crushed. Onset/Context/Timing Onset: Today (Approximately 8:30 AM) Context: Sudden Onset Timing: Continuous Quality of Pain: Dull and Aching Location: Fingers and hand, left Current Severity: Mild Maximum Severity: Moderate Worsened by: Touch or movement Relieved by: Nothing Associated Symptoms Associated Symptoms: Positive for Loss of Funtion Narrative Narrative: Patient is a 64-year-old keyzv-qtgj-pmyoyrhr male. He has no significant past medical history. He has no allergies. He is on no antithrombotic or anticoagulant. He presents with crush injury. Patient's hand was dressed by paramedics. Pictures were taken prior to drug seeing application. These remained in place. Pictures were sent to Dr. Reno Dela Cruz. He was informed that patient was made NPO. He has not had anything to eat since last evening. He had a couple coffee at 0500 and a sip of water at 0530. Patient denies any other symptoms. Tetanus is unknown. Tetanus Immunization: Unknown Prior similar symptoms: No Recent Illness/Hospitalization: No PFSH PFSH Medical History no medical history no medical history Home Medications ???Medication ???Instructions ???Recorded ???Last Taken ???Type NK 04/15/24 Unknown History Allergy/AdvReac Type Severity Reaction Status Date / Time No Known Allergies Allergy Verified 04/15/24 09:32 Social History Smoking Status: Current every day smoker tobacco type: cigarettes ROS ROS ED Constitutional Constitutional ED: Denies chills, fever(s), subjective or sweats Cardiovascular Cardiovascular: Denies chest pain or palpitations Respiratory/Chest Respiratory/Chest: Denies cough, dyspnea or dyspnea on exertion Gastrointestinal Gastrointestinal: Denies nausea or vomiting Integumentary Reports other Details: Per HPI narrative/physical exam ; Denies rash Neurologic Neurologic: Reports paresthesias Hematologic/Lymphatic Hematologic/Lymphatic: Denies easy bleeding or easy bruising EXAM Physical Exam Const Vital Signs: 04/15/24 09:32 Temperature 98.6 F Temperature Source Oral Pulse Rate 82 Respiratory Rate 16 Blood Pressure 140/84 H Blood Pressure Mean 102 Pulse Ox 95 Oxygen Delivery Method Room Air Positive well nourished and well developed General Appearance ED: well developed and NAD HEENT normocephalic and atraumatic Eyes PERRL and EOMs intact bilaterally Eyes Narrative: Sclera is anicteric. Conjunctive is pink. Resp normal respiratory effort and clear to auscultation bilaterally Cardio regular rate, regular rhythm, S1 normal heart sound, S2 normal heart sound and no murmurs Extremity Negative for normal to inspection Extremity Narrative: Patient has significant soft tissue injury to the dorsum of the left hand, there is loss of tissue dorsal surface of left index finger. The extensor indices tendon is visible as well as muscle. There appears to be no abnormality of the thumb or long finger. Patient has a palpable radial pulse. Neuro oriented x3 and CN's II-XII intact bilaterally Sensorium / Orientation: alert Psych mental status grossly normal Skin Skin Narrative: Described under the extremity portion of the EMR Lesions: no lesions Rashes: no rashes MDM MDM MDM Narrative Medical decision making narrative: Patient was made NPO. IV was established. He received a gram of Ancef. Images were ordered. Baseline blood work since patient will need to go to the OR. Contacted hand surgeon and pictures sent. Plan is OR 11:30 AM to 12 noon. Lab Data Attestation: I reviewed the patient's lab results. (Patient has mild anemia with normal indices.) Lab results narrative: Patient's electrolyte panel is marked for calcium of 7.2. Will add an albumin, magnesium and ionized calcium. Ionized calcium was normal. Magnesium is high at 2.7. Albumin is normal. Radiography Chest X-Ray - ED: Read by ED Physician (Three-view x-ray of the hand reveals a comminuted open fracture of the proximal phalanx left index finger, open displaced fracture of the proximal phalanx left thumb and a nondisplaced fracture shaft second metacarpal. This independently reviewed interpreted by me at 1014.) Manageme (more content not included)... Normal [facility] Eosinophil percentageOrdered By: Franciscoguicho Espinal on 04-15-2024 Eosinophils/100 WBC (Bld) 0.4 % 0-5 [facility] Erythrocyte distribution wid th ratioOrdered By: Franciscoguicho Espinal on 04-15-2024 Erythrocyte distribution width (RBC) [Ratio] 13.5 % 11.6-14.6 [facility] Erythrocyte distribution wid th standard deviationOrdered By: [facility] on 04-15-2024 Erythrocyte distribution width (RBC) [Entitic vol] 45.9 fL High 35.1-43.9 [facility] Estimated glomerular filtrat ion rate (GFR) AmericanOrdered By: Francisco Espinal on 04-15-2024 Estimated GFR (MDRD) Amer 170 mL/min >60 [facility] Comment on above: GFR Calc Estimation of creatinine katy aranceOrdered By: Franciscoguicho Espinal on 04-15-2024 Estimated Creatinine Clearance Calc 112.98 ml/min [facility] Finger(s) Min 2 Viewson 04-06 Finger(s) Min 2 Views [facility] Imaging Services [address] [place], [place] [id number] (328) Finger(s) Min 2 Views MR#: [id number] Acct: [id number] Name: REGGIE SURESH Rep #: [id number] : 1960 M 64 From: Neto hobson MD PCP: Dr. Brody Saleh MD Status: ADM IN Study: Finger(s) Min 2 Views Date of Exam: 04/15/24 Exam# [id number] Ordering Dr: Reno Dela Cruz MD [id number] PROCEDURE: Intraoperative imaging for reduction of the thumb and index fingers. DATE OF EXAMINATION: April 15, 2024. INDICATION: Male, 64 years old. Amputation. FLUOROSCOPY TIME (if supplied): (4 minutes) minutes/seconds. 1.23 mGy RAD/Finger(s) Min 2 Views IMPRESSION: Intraoperative imaging provided for open reduction and internal fixation of the fracture of the proximal phalanx of the thumb as well as the middle phalanx of the index finger. Electronically Signed: Neto Quevedo MD at 15:55 EST , CC: Dr. Reno Dela Cruz MD; Dr. Brody Saleh MD Processing Technologist: Signed Normal [facility] Glomerular filtration rate ( GFR) estimationOrdered By: Francisco Espinal on 04-15-2024 Estimated GFR (MDRD) Non-Af Amer 140 mL/min >60 [facility] Comment on above: Non- GFR Calc Glucose measurementOrdered B y: Francisco Espinal on 04-15-2024 Glucose [Mass/Vol] 106 mg/dL 74-106 [facility] Comment on above: Fasting Glucose resu lt from 100 to 125 mg/dL suggests IMPAIRED HOMEOSTASIS per A.D.A. criteria. Hand Min 3 Viewson 4 Hand Min 3 Views [facility] Imaging Services [address] [place], [place] [id number] Hand Min 3 Views MR#: [id number] Acct: [id number] Name: REGGIE SURESH #: [id number] : 1960 M 64 From: Neto hobson MD PCP: Dr. Brody Saleh MD Status: PRE ER Study: Hand Min 3 Views Date of Exam: 04/15/24 Exam# [id number] Ordering Dr: Francisco Espinal MD [id number] STUDY: X-RAY - LEFT HAND REASON FOR EXAM: Male, 64 years old. Work injury. TECHNIQUE: 4 view(s) of the hand. COMPARISON: None. FINDINGS: There is joint space narrowing of the radiocarpal articulation consistent with degenerative arthrosis. Normal distal radioulnar joint. 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 Normal carpal articulations Normal carpometacarpal articulation of the thumb. Normal second through fifth carpometacarpal joints. Transverse fracture through the distal portion of the second metacarpal. Normal metacarpophalangeal joint of the thumb. Normal interphalangeal joint of the thumb. Comminuted displaced fracture through the midportion of the proximal phalanx of the thumb. Normal metacarpophalangeal joints of the second through fifth fingers. Normal proximal and distal interphalangeal joints of the second through fifth fingers. Comminuted displaced fracture of the distal aspect of the proximal phalanx of the index finger. Diffuse soft tissue swelling and laceration. RAD/Hand Min 3 Views IMPRESSION: Fracture through the distal portion of the second metacarpal as well as the proximal phalanx of the thumb and the distal aspect of the proximal phalanx of the index finger as described. Soft tissue swelling and laceration. Degenerative changes at the radiocarpal joint as well as deformity of the carpal navicular bone. Electronically Signed: Neto Quevedo MD at 10:22 EST , CC: Dr. Brody Saleh MD; Dr. Francisco Espinal MD Processing Technologist: Signed Normal [facility] Hematocrit Auto (Bld) [Volum e fraction]Ordered By: Francisco Espinal on 04-15-2024 Hematocrit (Bld) [Volume fraction] 37.0 % Low 40-54 [facility] Hemoglobin measurementOrdere d By: Francisco Espinal on 04-15-2024 Hemoglobin (Bld) [Mass/Vol] 12.5 g/dL Low 13.0-16.5 [facility] Immature granulocytes/100 WB C Auto (Bld)Ordered By: Franciscoguicho Espinal on 04-15-2024 Immature granulocytes/100 WBC (Bld) 0.500 % 0.0-0.9 [facility] Comment on above: IG% - Immature Granu locytes (promyelocytes, myelocytes and metamyelocytes) > 1% indicates that a LEFT SHIFT is Present. L501.2276on 04-15-2024 Ionized Calcium 1.20 mmol/L Normal 1.09-1.30 [facility] Comment on above: Performed By: #### L 501.2276 ####[facility] [id number] [facility]. [place], [place], [address] Lymphocytes Auto (Unsp spec) [#/Vol]Ordered By: Franciscoguicho Espinal on 04-15-2024 Lymphocytes (Bld) [#/Vol] 1.45 10*3/uL 0.83-4.51 [facility] Lymphocytes/100 WBC Auto (Un sp spec)Ordered By: Farncisco Espinal on 04-15-2024 Lymphocytes/100 WBC (Bld) 17.0 % Low 19-41 [facility] MCV (mean corpuscular volume ) determinationOrdered By: Franciscoguicho Espinal on 04-15-2024 MCV (RBC) [Entitic vol] 92.0 fL 80-94 [facility] MR/POSTOP.ANEon 04-15-2024 [facility] [address] [place] [address] Anesthesia Postop Eval I 04/15/24 1706 MR#: [id number] Acct: [id number] Name: REGGIE SURESH Rep #: [id number] : 1960 64 From: Samia Garzon PCP: Dr. Brody Saleh MD Status:REG [facility] Y Race: C Location: [place] [address] Anesthesia: Postop Eval I Current Vital Signs Temperature: 98.2 F Pulse Rate: 82 Blood Pressure: 120/78 Respiratory Rate: 18 Pulse Ox: 97 Assessment Airway patent: Yes Spontaneous unlabored respirations: Yes nausea: No Vomiting: No Anesthesia Complication: No Fluid Hydration Crystalloid volume administer (ml): 1,500 Total IV fluid infused: 1,500 Progress Note Anesthesia document: Postop Eval 1 completed: Yes 04/15/24 170 Date Samia Joy Signature: Date CC: Signed Normal [facility] MR/[id number] 04-15-2024 [facility] Medical Records Department [address] [place] [address] Anesthesia Postop Eval II 04/15/24 1723 MR#: [id number] Acct: [id number] Name: REGGIE SURESH Rep #: [id number] : 1960 64 From: Jose Luis Ramirez MD PCP: Dr. Brody Saleh MD Status:REG [facility] Y Race: C Location: [place] [address] Anesthesia Postop Eval I Sum Postop Eval Completion status Anesthesia document: Postop Eval 1 completed: Yes Anesthesia Postop Eval I Summary Anesthesia Postop Eval I Summary: Anesthesia Postop Eval I: Assessment Summary Airway patent Yes 04/15/24 17:06 [employer]ARING [email or web address].CSIR Spontaneous unlabored Yes 04/15/24 17:06 BEARING [employer]KER.CSIR respirations Mental status nausea No 04/15/24 17:06 BEARING MAKER.CSIR Vomiting No 04/15/24 17:06 BEARING [employer].CSIR Anesthesia Postop Eval I: Fluid Summary Crystalloid volume administer 1,500 04/15/24 17:06 BEARING MAKER.CSIR (ml) Colloids volume administered ( ml) Blood Product volume administered (ml) Total IV fluid infused 1,500 04/15/24 17:06 BEARING MAKER.CSIR Anesthesia Postop Eval I: Summary Notes Anesthesia Complication No 04/15/24 17:06 BEARING MAKER.CSIR Anesthesia Complication Comment: Post-operative progress note Anesthesia: Postop Eval II Evaluation Mental status: Awake Pain Level: 3 nausea: No Vomiting: No 04/15/24 1723 Date Jose Luis Joy Signature: Date CC: Signed Normal [facility] Magnesiumon 04-15-2024 Magnesium [Mass/Vol] 2.7 mg/dL High 1.6-2.6 [facility] Comment on above: Performed By: #### L 501.1800, L501.5200 ####[facility] [id number] [place], [address] Magnesium measurementOrdered By: Francisco Espinal on 04-15-2024 Magnesium [Mass/Vol] 2.7 mg/dL High 1.6-2.6 [facility] Mean corpuscular hemoglobin (MCH) determinationOrdered By: [facility] on 04-15-2024 MCH (RBC) [Entitic mass] 31.1 pg 27.0-32.0 [facility] Mean corpuscular hemoglobin concentration (MCHC) determinationOrdered By: Francisco Espinal on 04-15-2024 MCHC (RBC) [Mass/Vol] 33.8 g/dL 32-36 [facility] Mean platelet volume determi nationOrdered By: Francisco Espinal on 04-15-2024 Platelet mean volume (Bld) [Entitic vol] 8.5 fL 6.2-12.0 [facility] Monocyte percentageOrdered B y: Franciscoguicho Espinal on 04-15-2024 Monocytes/100 WBC (Bld) 6.1 % 0-10 [facility] Neutrophil percentageOrdered By: [facility] on 04-15-2024 Neutrophils/100 WBC (Bld) 75.4 % High 47-70 [facility] Nucleated red blood cell per centageOrdered By: [facility] on 04-15-2024 Nucleated RBC/100 WBC (Bld) [Ratio] 0 % 0-5 [facility] Operative Reporton 4 Operative Report [facility] Medical Records Department [address] [place] [address] Operative Report 04/15/24 1354 MR#: [id number] Acct: [id number] Name: REGGIE SURESH Rep #: [id number] : 1960 64 From: Reno Dela Cruz MD PCP: Dr. Brody Saleh MD Status:REG [facility] Location: [facility] AC-TBA-2 Operative Report (Standard) Operative Information Date of Procedure: 04/15/24 Pre-Operative Diagnosis: Crush and degloving injury to left hand with open fractures of the left dorsal hand, thumb, and index finger Post-Operative Diagnosis: Same Surgery/Procedure Performed: 1) Revision amputation of the left index finger at the MCP joint (CPT 01745) 2) Open fracture wash out with open reduction percutaneous pinning left thumb proximal phalanx fracture (CPT 70983) 3) Simple closure of left dorsal hand wound/thumb wound 13 cm (CPT 86171) 4) Closed management of left index finger metacarpal head fracture (splinting/immobilization) (CPT 40210) clothes ironer: No Type of Anesthesia: General/Supplemental (10 cc of 0.25% Marcaine for local block ) RN Documented Start/Stop Times: Operation Date: 04/15/24 13:40 Case Time Into Pre-Op 04/15/24 12:04 Out of Pre-Op 04/15/24 14:17 Anesthesia Start 04/15/24 14:22 Into Room 04/15/24 14:22 Procedure Start 04/15/24 14:54 Procedure End 04/15/24 16:55 Anesthesia End 04/15/24 17:02 Out of Room 04/15/24 17:02 Into Recovery 04/15/24 17:05 Procedure Start Time: 14:22 Procedure Stop Time: 16:51 Select all DRAINS/GRAFTS/IMPLANTS that apply: Drains (Clemencia drain dorsally beneath the avulsed skin ) Drain details: Clemencia drain dorsally beneath the avulsed skin sutured in with silk Estimated Blood Loss: 20 cc Specimen collected: Yes Description of specimen(s) removed: Amputated index finger Description of surgery: Indications: Reggie Suresh is a 64-year-old male with no significant past medical history who 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 The severe crush/avulsion injury to the left hand is an indication for emergent operative treatment of the injury. He presents today for washout of open fractures and revision amputation of the index finger as it is not perfused distally to the zone of injury. I talked the patient about revision amputation at the base of P1 or at the MCP joint and he was in agreement. Plan for operative fixation of the thumb fracture. Procedure details: Patient was taken back to the operating room emergently and administered general anesthesia and prepped and draped in sterile fashion. A timeout was performed. The wounds were irrigated with 3 L of normal saline. An Esmarch was used carefully (prevent further injury to avulsed tissues) and tourniquet insufflated to 250 mmHg on the left arm. Complete crush/transection of the index finger neurovascular bundles was confirmed. The flexor and limited extensor tendons were amputated with a 15 blade, and the digital nerves were treated with traction neurectomies. The base of the proximal phalanx was examined and had severe soft tissue damage/stripping from the sides of the bone. The muscle/tendons were torn off of the insertions. Decision was made to amputation the index at the level of the MCP joint, which also enabled rotation and advancement of the volar skin flap dorsally enough to cover the metacarpal head and close the the remaining viable soft tissue. The volar soft tissue was then advanced over the metacarpal head (metacarpal head joint cartilage was rongeured to prevent fluid accumulation) and closed with 3-0 Chromic Gut suture. Attention was then turned to the thumb. The flexor and extensor tendons were visualized and were intact. The fracture was further washed out with copious amounts normal saline and 450 cc of Irrisept. The fracture was then reduced with the mini C arm through the use of the open lacerations. Percutaneous pins were then drilled through the fracture sites (1 transverse distally to prevent comminution, and two diagonally from the condylar recess to the proximal joint). Once acceptable reduction was obtained, the pins were cut at the skin level and buried. Dermabond applied over the pin sites. The lacerations were then closed with 3-0 Chromic Gut suture interrupted sutures for a total 13 cm simple repair. A Clemencia was placed dorsally underneath the avulsed dorsal soft tissue to prevent fluid collections. 10 cc of Bupivucaine was placed for a local block. XF and a radial gutter/thumb spica plaster splint. The patient tolerated the procedure well and was awaken and taken to the PACU instable condition. Post-operative plan: Admit for pain control. Change splint tomorrow to check on viability of avulsed soft tissue that was tacked back into place. Surgical Fin (more content not included)... Normal [facility] Platelet countOrdered By: Jagdish Espinal on 04-15-2024 Platelets (Bld) [#/Vol] 262 10*3/uL 150-450 [facility] Potassium measurementOrdered By: Francisco Espinal on 04-15-2024 Potassium [Moles/Vol] 3.5 mmol/L 3.5-5.1 [facility] RBC Auto (Bld) [#/Vol]Ordere d By: Francisco Espinal on 04-15-2024 RBC (Bld) [#/Vol] 4.02 10*6/uL Low 4.6-6.2 [facility] Serum anion gap measurementO rdered By: Francisco Espinal on 04-15-2024 Anion gap [Moles/Vol] 5 mmol/L 5-15 [facility] Serum or plasma albumin tyler urement (mass/volume)Ordered By: Francisco Espinal on 04-15-2024 Albumin [Mass/Vol] 4.1 g/dL 3.2-5.0 [facility] Serum or plasma calcium tyler urement (mass/volume)Ordered By: [facility] on 04-15-2024 Calcium [Mass/Vol] 7.2 mg/dL Low 8.5-10.1 [facility] Serum or plasma creatinine m easurement (mass/volume)Ordered By: [facility] on 04-15-2024 Creatinine [Mass/Vol] 0.62 mg/dL Low 0.70-1.30 [facility] Comment on above: The validity of the calculated GFR & GFRAA in patients over 70 years has not been determined. Clinical correlation is essential. Serum or plasma urea nitroge n measurement (mass/volume)Ordered By: [facility] on 04-15-2024 Urea nitrogen [Mass/Vol] 12 mg/dL 7-18 [facility] Sodium levelOrdered By: [facility] on 04-15-2024 Sodium [Moles/Vol] 143 mmol/L 136-145 [facility] White blood cell (WBC) count Ordered By: [facility] on 04-15-2024 WBC (Bld) [#/Vol] 8.5 10*3/uL 4.4-11.0 [facility] Office Visit Reporton 2023 Office Visit Report [facility] [address] [place] [address] OFFICE VISIT Date of Service: 10/26/23 MR#: [id number] Acct: [id number] Patient: REGGIE SURESH Rep #: [id number] : 1960 Provider: LEONA Tan Age/Sex: 63/M Location: [facility] Status: Signed Intake 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 Visit 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 Chief Complaint: physical Office Procedures [facility] Billing Sheet Testing Breath Alcohol in [facility]: Yes Pre-Employment Drug Screen: Yes 10/26/23 1731 Date Robby DELGADILLO Cosigner Signature: Date (if applicable) CC: Normal [facility] Office Visit Report [facility] [place] [address] OFFICE VISIT Date of Service: 10/26/23 MR#: [id number] Acct: [id number] Patient: REGGIE SURESH Rep #: [id number] : 1960 Provider: LEONA Tan Age/Sex: 63/M Location: [facility] Status: Signed Intake Intake Visit Reasons: 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 cleared for duty. 10/26/23 1054 Date Robby Joy Signature: Date (if applicable) CC: Normal [facility] HbA1c (Bld)on 08-15-2023 Average glucose Estimated from glycated hemoglobin (Bld) [Mass/Vol] 126 mg/dL Normal [facility] Comment on above: Order Comment: Speci men Type: BLOOD SPECIMEN Ordering Facility: External Submitter Address: , , Result Comment: eAG: (Estimated average glucose) is a calculated value from HgbA1c and is medical claims representative of the average blood glucose level in the last 2-3 month period. Performed By: #### 5 5454-3 #### [facility] CLIA [id number] [address] [place] [address] [place] HbA1c (Bld) [Mass fraction] 6.0 % High 4.3-5.6 [facility] Comment on above: Order Comment: Speci men Type: BLOOD SPECIMEN Ordering Facility: External Submitter Address: , , Result Comment: Kathrin [place] Diabetes Association guidelines indicate that patients with HgbA1c in the range 5.7-6.4% are at increased risk for development of diabetes, and intervention by lifestyle modification may be beneficial. HgbA1c greater or equal to 6.5% is considered diagnostic of diabetes. Performed By: #### 5 5454-3 #### [facility] CLIA [id number] [address] [place] [address] OF [facility] CNOVon 08-06-2023 CNOV Office Visit (PULMWS ) -- GARRETTREGGIE ([id number]) 1960 M Date Time Provider Department 08/06/23 8:00 AM JACQUES BUTLER During your visit today, we recorded the following information about you: Pulse Respiration Blood pressure Weight 72/minute 12/minute 130/78 66.5 kg Height 1.676 m Jacques Butler APRN.CNP 08/06/2023 10:08 AM Signed LUNG SCREENING VISIT PRIMARY CARE PHYSICIAN: No primary care provider on file. PULMONARY PROVIDER: none Results will be communicated via letter or electronic record if applicable. Visit Delivery: In Person Patient Visit Type: New to Screening Current or Ex-smoker? [Current Exam Type: baseline LDCT Number of Pack Years: 33 Current smoker (=0) REQUESTER: The referring provider advised the patient to have screening. HISTORY OF PRESENT ILLNESS: Reggie Suresh is a 63 year old Active smoker who presents for lung screening. The patient reports he was expecting to get an x ray. He does not want a CT scan, he states he has had enough of them. He has history of testicular cancer twice and had multiple CT scans done. We discussed the nature of lung nodules and rationale for screening high risk patients. He viewed a video [email or web address]. He does not want to participate in CT Lung screening. We reviewed records from [place] and the CT Reports he had from 2015 state no lung nodules were seen. Respiratory symptoms include: SOB: No Chest tightness: No Coughing: No Hemoptysis: No Wheezing: No Fever/Chills: No Recent Respiratory Infection: No Unintentional weight loss: No Last 6 Encounter Wt Readings: Date: Wt: 08/06/2023 66.5 kg (146 lb 9.6 oz) Patient exercises regularly 1 hour total gym work out once a week. Bicycle riding and walking, etc. Tolerates activity well. He has some back pain issue since moving, but is doing exercises per chiropractor. Feeling back to his normal. ECOG PERFORMANCE STATUS: 0- Fully active, able to carry on all pre-disease performance w/o restriction. Modified Medical Research [place] Dyspnea Scale (MMRC) I only get breathless with strenous exercise 0 PAST MEDICAL HISTORY Diagnosis Date H/O testicular cancer Tobacco abuse PAST SURGICAL HISTORY Procedure Laterality Date PAST SURGICAL HISTORY OF Bilateral testicular surgery PAST SURGICAL HISTORY OF Tonsillectomy PAST SURGICAL HISTORY OF Bilateral Laser eye surgery for glaucoma PAST SURGICAL HISTORY OF Stach infection in teeth post wisdom teeth removed FAMILY HISTORY Problem Relation Age of Onset Lung Cancer No Family History No prescriptions on file. ALLERGIES No Known Allergies The medications and allergies were reviewed and reconciled for this patient and deemed current. Lung Cancer Risk Factors: 1.Tobacco Use: Start Age 19, Quit Age: N/A, Average packs per day 0.75, Pack Years 33 2. Passive Smoke Exposure: Yes, as a Child 3. Personal hx of malignancy: Yes, Type of Cancer: Other smoking-related cancers 4. 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 Race: White 6. Education: Some College 7. BMI:Body mass index is 23.66 kg/m?. Patient-entered Height: 5'6 Patient-entered Weight: 146 pounds 8. COPD: No 9. Pneumonia in the past 5 years: No 10. Is there a history of lung cancer in a first degree relative? No 11. Is there a history of lung cancer in a non-first degree relative? No 12. Is there a history of any other cancer in a first degree relative? No Health Maintenance Immunization History Administered Date(s) Administered COVID-19 original vaccine, age 12+ yr, monovalent ([employer] - PURPLE TOP) 05/13/2020 06/01/2020 03/16/2021 COVID-19 vaccine, age 12+ yr, 2022- season ([employer]) 05/09/2023 Colonoscopy: Mammogram: DATA REVIEW I have directly visualized the testing documented: None Prior Imaging: IMPRESSION: 1. No CT evidence of metastatic disease in the chest, abdomen or pelvis. 2. Several low-attenuation lesions in the liver measuring up to 16 mm, most likely representing hepatic cysts. 3. Low attenuation 2 cm cystic lesion in the retroperitoneum in the region of the pancreatic head in close proximity to the pancreatic duct and common bile duct, considered most likely benign. However a cystic neoplasm of the pancreas cannot be entirely excluded, and follow-up is suggested. Consider follow-up CT using pancreas protocol in 6 months ensure stability. 4. A large amount stool is seen throughout colon suggesting constipation. 5. No lymphadenopathy. INDICATION: staging, new dx testicular cancer / LT orchiectomy - 75ml Isovue 370 - no priors TECHNIQUE: A digital cafeteria server radiograph was obtained. Multiple high resolution transverse CT images were obtained through the thorax, abdomen, and pelvis following the administration of oral an (more content not included)... Normal [facility] CBC W Auto Differential pane l (Bld)on 07-17-2023 Basophils (Bld) [#/Vol] 0.06 10*3/uL Normal <0.11 [facility] Comment on above: Order Comment: Speci men Type: BLOOD SPECIMEN Ordering Facility: External Submitter Address: , , Performed By: #### 5 7021-8 #### [facility] CLIA [id number] [address] [place] [address] [place] Basophils/100 WBC (Bld) 0.7 % Normal [facility] Comment on above: Order Comment: Speci men Type: BLOOD SPECIMEN Ordering Facility: External Submitter Address: , , Performed By: #### 5 7021-8 #### [facility] CLIA [id number] [address] [place] [address] [place] Differential cell count method Nom (Bld) Auto Normal [facility] Comment on above: Order Comment: Speci men Type: BLOOD SPECIMEN Ordering Facility: External Submitter Address: , , Performed By: #### 5 7021-8 #### [facility] CLIA [id number] [address] [place] [address] [place] Eosinophils (Bld) [#/Vol] 0.09 10*3/uL Normal <0.46 [facility] Comment on above: Order Comment: Speci men Type: BLOOD SPECIMEN Ordering Facility: External Submitter Address: , , Performed By: #### 5 7021-8 #### [facility] CLIA [id number] [address] [place] [address] [place] Eosinophils/100 WBC (Bld) 1.1 % Normal [facility] Comment on above: Order Comment: Speci men Type: BLOOD SPECIMEN Ordering Facility: External Submitter Address: , , Performed By: #### 5 7021-8 #### [facility] CLIA [id number] [address] [place] [address] [place] Erythrocyte distribution width (RBC) [Ratio] 12.9 % Normal 11.5-15.0 [facility] Comment on above: Order Comment: Speci men Type: BLOOD SPECIMEN Ordering Facility: External Submitter Address: , , Performed By: #### 5 7021-8 #### [facility] CLIA [id number] [address] [place] [address] [place] Hematocrit (Bld) [Volume fraction] 42.2 % Normal 39.0-51.0 [facility] Comment on above: Order Comment: Speci men Type: BLOOD SPECIMEN Ordering Facility: External Submitter Address: , , Performed By: #### 5 7021-8 #### [facility] CLIA [id number] [address] [place] [address] [place] Hemoglobin (Bld) [Mass/Vol] 14.0 g/dL Normal 13.0-17.0 [facility] Comment on above: Order Comment: Speci men Type: BLOOD SPECIMEN Ordering Facility: External Submitter Address: , , Performed By: #### 5 7021-8 #### [facility] CLIA [id number] [address] [place] [address] [place] Immature granulocytes (Bld) [#/Vol] 0.03 10*3/uL Normal <0.10 [facility] Comment on above: Order Comment: Speci men Type: BLOOD SPECIMEN Ordering Facility: External Submitter Address: , , Performed By: #### 5 7021-8 #### [facility] CLIA [id number] [address] [place] [address] [place] Immature granulocytes/100 WBC (Bld) 0.4 % Normal [facility] Comment on above: Order Comment: Speci men Type: BLOOD SPECIMEN Ordering Facility: External Submitter Address: , , Performed By: #### 5 7021-8 #### [facility] CLIA [id number] [address] [place] [address] [place] Lymphocytes (Bld) [#/Vol] 1.71 10*3/uL Normal 1.00-4.00 [facility] Comment on above: Order Comment: Speci men Type: BLOOD SPECIMEN Ordering Facility: External Submitter Address: , , Performed By: #### 5 7021-8 #### [facility] CLIA [id number] [address] [place] [address] [place] Lymphocytes/100 WBC (Bld) 20.8 % Normal [facility] Comment on above: Order Comment: Speci men Type: BLOOD SPECIMEN Ordering Facility: External Submitter Address: , , Performed By: #### 5 7021-8 #### [facility] CLIA [id number] [address] [place] [address] [place] MCH (RBC) [Entitic mass] 30.4 pg Normal 26.0-34.0 [facility] Comment on above: Order Comment: Speci men Type: BLOOD SPECIMEN Ordering Facility: External Submitter Address: , , Performed By: #### 5 7021-8 #### [facility] CLIA [id number] [address] [place] [address] [place] MCHC (RBC) [Mass/Vol] 33.2 g/dL Normal 30.5-36.0 [facility] Comment on above: Order Comment: Speci men Type: BLOOD SPECIMEN Ordering Facility: External Submitter Address: , , Performed By: #### 5 7021-8 #### [facility] CLIA [id number] [address] [place] [address] [place] MCV (RBC) [Entitic vol] 91.7 fL Normal 80.0-100.0 [facility] Comment on above: Order Comment: Speci men Type: BLOOD SPECIMEN Ordering Facility: External Submitter Address: , , Performed By: #### 5 7021-8 #### [facility] CLIA [id number] [address] [place] [address] [place] Monocytes (Bld) [#/Vol] 0.83 10*3/uL Normal <0.87 [facility] Comment on above: Order Comment: Speci men Type: BLOOD SPECIMEN Ordering Facility: External Submitter Address: , , Performed By: #### 5 7021-8 #### [facility] CLIA [id number] [address] [place] [address] [place] Monocytes/100 WBC (Bld) 10.1 % Normal [facility] Comment on above: Order Comment: Speci men Type: BLOOD SPECIMEN Ordering Facility: External Submitter Address: , , Performed By: #### 5 7021-8 #### [facility] CLIA [id number] [address] [address] [place] Neutrophils (Bld) [#/Vol] 5.50 10*3/uL Normal 1.45-7.50 [facility] Comment on above: Order Comment: Speci men Type: BLOOD SPECIMEN Ordering Facility: External Submitter Address: , , Performed By: #### 5 7021-8 #### [facility] CLIA [id number] [address] [place] [address] [place] Neutrophils/100 WBC (Bld) 66.9 % Normal [facility] Comment on above: Order Comment: Speci men Type: BLOOD SPECIMEN Ordering Facility: External Submitter Address: , , Performed By: #### 5 7021-8 #### [facility] CLIA [id number] [address] [place] [address] [place] Nucleated RBC (Bld) [#/Vol] 10*3/uL Normal <0.01 [facility] Comment on above: Order Comment: Speci men Type: BLOOD SPECIMEN Ordering Facility: External Submitter Address: , , Performed By: #### 5 7021-8 #### [facility] CLIA [id number] [address] [place] [address] [place] Nucleated RBC/100 WBC (Bld) [Ratio] 0.0 /100 WBC Normal [facility] Comment on above: Order Comment: Speci men Type: BLOOD SPECIMEN Ordering Facility: External Submitter Address: , , Performed By: #### 5 7021-8 #### [facility] CLIA [id number] [address] [place] [address] [place] Platelet mean volume (Bld) [Entitic vol] 8.9 fL Low 9.0-12.7 [facility] Comment on above: Order Comment: Speci men Type: BLOOD SPECIMEN Ordering Facility: External Submitter Address: , , Performed By: #### 5 7021-8 #### [facility] CLIA [id number] [address] [place] [address] [place] Platelets (Bld) [#/Vol] 293 10*3/uL Normal 150-400 [facility] Comment on above: Order Comment: Speci men Type: BLOOD SPECIMEN Ordering Facility: External Submitter Address: , , Performed By: #### 5 7021-8 #### [facility] CLIA [id number] [address] [place] [address] [place] RBC (Bld) [#/Vol] 4.60 10*6/uL Normal 4.20-6.00 [facility] Comment on above: Order Comment: Speci men Type: BLOOD SPECIMEN Ordering Facility: External Submitter Address: , , Performed By: #### 5 7021-8 #### [facility] CLIA [id number] [address] [place] [address] [place] WBC (Bld) [#/Vol] 8.22 10*3/uL Normal 3.70-11.00 [facility] Comment on above: Order Comment: Speci men Type: BLOOD SPECIMEN Ordering Facility: External Submitter Address: , , Performed By: #### 5 7021-8 #### [facility] CLIA [id number] [address] [place] [address] [place] Comprehensive metabolic 2000 panelon 07-17-2023 Albumin [Mass/Vol] 4.5 g/dL Normal 3.9-4.9 [facility] Comment on above: Order Comment: Speci men Type: BLOOD SPECIMEN Ordering Facility: External Submitter Address: , , Performed By: #### 2 4323-8, 34202-3, 82148-8 #### [facility] CLIA [id number] [address] [place] [address] [place] ALP [Catalytic activity/Vol] 105 U/L Normal 38-113 [facility] Comment on above: Order Comment: Speci men Type: BLOOD SPECIMEN Ordering Facility: External Submitter Address: , , Performed By: #### 2 4323-8, 50685-5, 69805-8 #### [facility] CLIA [id number] [address] [place] [id number] [place] ALT [Catalytic activity/Vol] 23 U/L Normal 10-54 [facility] Comment on above: Order Comment: Speci men Type: BLOOD SPECIMEN Ordering Facility: External Submitter Address: , , Performed By: #### 2 4323-8, 29114-3, 63594-8 #### [facility] CLIA [id number] [address] [place] [address] [place] Anion gap [Moles/Vol] 12 mmol/L Normal 9-18 [facility] Comment on above: Order Comment: Speci men Type: BLOOD SPECIMEN Ordering Facility: External Submitter Address: , , Performed By: #### 2 4323-8, 75090-0, 72951-7 #### [facility] CLIA [id number] [address] [place] [address] [place] AST [Catalytic activity/Vol] 20 U/L Normal 14-40 [facility] Comment on above: Order Comment: Speci men Type: BLOOD SPECIMEN Ordering Facility: External Submitter Address: , , Performed By: #### 2 4323-8, 04694-6, 94282-3 #### [facility] CLIA [id number] [address] [address] [place] Bilirubin [Mass/Vol] 0.3 mg/dL Normal 0.2-1.3 [facility] Comment on above: Order Comment: Speci men Type: BLOOD SPECIMEN Ordering Facility: External Submitter Address: , , Performed By: #### 2 4323-8, 69043-1, 12099-5 #### [facility] CLIA [id number] [address] [place] [address] [place] Calcium [Mass/Vol] 9.3 mg/dL Normal 8.5-10.2 [facility] Comment on above: Order Comment: Speci men Type: BLOOD SPECIMEN Ordering Facility: External Submitter Address: , , Performed By: #### 2 4323-8, 96976-3, 58973-8 #### [facility] CLIA [id number] [address] [address] [place] Chloride [Moles/Vol] 102 mmol/L Normal 97-105 [facility] Comment on above: Order Comment: Speci men Type: BLOOD SPECIMEN Ordering Facility: External Submitter Address: , , Performed By: #### 2 4323-8, 06894-1, 60408-7 #### [facility] CLIA [id number] [address] [place], [place] [address] [place] CO2 [Moles/Vol] 24 mmol/L Normal 22-30 [facility] Comment on above: Order Comment: Speci men Type: BLOOD SPECIMEN Ordering Facility: External Submitter Address: , , Performed By: #### 2 4323-8, 67481-6, 79453-8 #### [facility] CLIA [id number] [address] [place] [address] [place] Creatinine [Mass/Vol] 0.80 mg/dL Normal 0.73-1.22 [facility] Comment on above: Order Comment: Speci men Type: BLOOD SPECIMEN Ordering Facility: External Submitter Address: , , Performed By: #### 2 4323-8, 86630-7, 33176-3 #### [facility] CLIA [id number] [address] [place], [place] [address] [place] Creatinine and Glomerular filtration rate.predicted panel (S/P/Bld) 100 mL/min/1.73m??? Normal >=60 [facility] Comment on above: Order Comment: Speci men Type: BLOOD SPECIMEN Ordering Facility: External Submitter Address: , , Result Comment: Tg mated Glomerular Filtration Rate (eGFR) is calculated using the 2020 CKD-EPI creatinine equation. This equation utilizes serum creatinine, sex, and age as parameters. The creatinine assay has traceable calibration to isotope dilution-mass spectrometry. Refer to KDIGO guidelines for clinical interpretation. In patients with unstable renal function, e.g. those with acute kidney injury, the eGFR may not accurately reflect actual GFR. Performed By: #### 2 4323-8, 56811-9, 97893-4 #### [facility] CLIA [id number] [address] [address] [place] Glucose [Mass/Vol] 120 mg/dL High 74-99 [facility] Comment on above: Order Comment: Helen nowak Type: BLOOD SPECIMEN Ordering Facility: External Submitter Address: , , Result Comment: The [place] Diabetes [employer] (ADA) provides guidance for cutoff values for fasting glucose and random glucose. The ADA defines fasting as no caloric intake for at least 8 hours. Fasting plasma glucose results between 100 to 125 mg/dL indicate increased risk for diabetes (prediabetes). Fasting plasma glucose results greater than or equal to 126 mg/dL meet the criteria for diagnosis of diabetes. In the absence of unequivocal hyperglycemia, results should be confirmed by repeat testing. In a patient with classic symptoms of hyperglycemia or hyperglycemic crisis, random plasma glucose results greater than or equal to 200 mg/dL meet the criteria for diagnosis of diabetes. Reference: Standards of Medical Care in Diabetes 2016, [place] [employer]. Diabetes Care. 2016.39(Suppl 1). Performed By: #### 2 4323-8, 23469-1, 01564-7 #### [facility] CLIA [id number] [address] [address] [place] Potassium [Moles/Vol] 4.0 mmol/L Normal 3.7-5.1 [facility] Comment on above: Order Comment: Helen nowak Type: BLOOD SPECIMEN Ordering Facility: External Submitter Address: , , Performed By: #### 2 4323-8, 75801-1, 48579-1 #### [facility] CLIA [id number] [address] [address] [place] Protein [Mass/Vol] 6.7 g/dL Normal 6.3-8.0 [facility] Comment on above: Order Comment: Speci men Type: BLOOD SPECIMEN Ordering Facility: External Submitter Address: , , Performed By: #### 2 4323-8, 55441-7, 72276-5 #### [facility] CLIA [id number] [address] [place] [address] [place] Sodium [Moles/Vol] 138 mmol/L Normal 136-144 [facility] Comment on above: Order Comment: Speci men Type: BLOOD SPECIMEN Ordering Facility: External Submitter Address: , , Performed By: #### 2 4323-8, 29028-1, 00622-8 #### [facility] CLIA [id number] [address] [place] [address] [place] Urea nitrogen [Mass/Vol] 14 mg/dL Normal 9-24 [facility] Comment on above: Order Comment: Speci men Type: BLOOD SPECIMEN Ordering Facility: External Submitter Address: , , Performed By: #### 2 4323-8, 01808-2, 91834-2 #### [facility] CLIA [id number] [address] [place] [address] [place] Free PSA [Mass/Vol]on 2023 Free PSA/Total PSA [Mass fraction] 10 % Normal [facility] Comment on above: Order Comment: Speci men Type: BLOOD SPECIMEN Ordering Facility: External Submitter Address: , , Result Comment: Tota l and free PSA test methodology used is the Electrochemiluminescence Immunoassay by [employer]. Total or free PSA values by differing methodologies cannot be interchanged. The below table lists the probability of finding prostate cancer upon needle biopsy, for men 50 years or older and total PSA concentrations from 4.0-10.0 ng/mL. Results should be interpreted within the broader clinical context. Free PSA(%) 50-59 years 60-69 years >69 years <11 49.2% 57.5% 64.5% 11-18 26.9% 33.9% 40.8% 19-25 18.3% 23.9% 29.7% >25 9.1% 12.2% 15.8% Performed By: #### 2 4323-8, 22907-1, 61502-5 #### [facility] CLIA [id number] [address] [address] [place] Prostate specific Ag [Mass/Vol] 0.71 ng/mL Normal <2.60 [facility] Comment on above: Order Comment: Speci men Type: BLOOD SPECIMEN Ordering Facility: External Submitter Address: , , Result Comment: Tota l PSA test methodology used is the Electrochemiluminescence Immunoassay by [employer]. Total PSA values by differing methodologies cannot be interchanged. Performed By: #### 2 4323-8, 93195-0, 85678-0 #### [facility] CLIA [id number] [address] [place] [address] [place] HCV Ab Ser Qlon 07-17-2023 HCV Ab Ql (S) Negative Normal Negative [facility] Comment on above: Order Comment: Speci men Type: BLOOD SPECIMEN Ordering Facility: External Submitter Address: , , Result Comment: The result suggests no evidence of active infection with Hepatitis C virus. Should recent infection be suspected, repeat testing may be considered 4-6 weeks after this draw. Performed By: #### 1 6128-1 #### [facility] CLIA [id number] [address] [place], [place] [address] [place] Lipid 1996 panelon 4 Cholesterol [Mass/Vol] 182 mg/dL Normal <200 [facility] Comment on above: Order Comment: Speci men Type: BLOOD SPECIMEN Ordering Facility: External Submitter Address: , , Result Comment: <200 mg/dL, Desirable 200-239 mg/dL, Borderline high >239 mg/dL, High Performed By: #### 2 4323-8, 25382-9, 10329-7 #### [facility] CLIA [id number] [address] [place] [id number] [place] Cholesterol in HDL [Mass/Vol] 63 mg/dL Normal >39 [facility] Comment on above: Order Comment: Helen nowak Type: BLOOD SPECIMEN Ordering Facility: External Submitter Address: , , Result Comment: 40-5 9 mg/dL, Acceptable >59 mg/dL, High: Negative risk factor for coronary heart disease <40 mg/dL, Low: Positive risk factor for coronary heart disease Performed By: #### 2 4323-8, 83632-6, 47721-1 #### [facility] CLIA [id number] [address] [place] [address] [place] Cholesterol in LDL [Mass/Vol] 102 mg/dL High <100 [facility] Comment on above: Order Comment: Helen nowak Type: BLOOD SPECIMEN Ordering Facility: External Submitter Address: , , Result Comment: <100 mg/dL, Optimal 100-129 mg/dL, Near optimal/above optimal 130-159 mg/dL, Borderline high 160-189 mg/dL, High >189 mg/dL, Very high Secondary prevention optimal LDL Cholesterol levels are recommended to be < 70 mg/dL Performed By: #### 2 4323-8, 60286-3, 29781-6 #### [facility] CLIA [id number] [address] [place] [address] [place] Cholesterol in LDL/Cholesterol in HDL [Mass ratio] 1.62 {ratio} Normal <2.54 [facility] Comment on above: Order Comment: Helen she Type: BLOOD SPECIMEN Ordering Facility: External Submitter Address: , , Result Comment: Refsriram moss: 1. National Cholesterol Education Program ATP III Guideline At-A-Glance Quick Desk Reference: National Heart, Lung, and Blood [place]. National Institutes of Health. 2001: NIH Publication No. 01-3305. 2. An International Atherosclerosis Society position paper: global recommendations for the management of dyslipidemia: executive summary, Atherosclerosis. 2014: 232(2):410-413. Performed By: #### 2 4323-8, 45830-4, 14341-2 #### [facility] CLIA [id number] [address] [place] [address] [place] Cholesterol in VLDL [Mass/Vol] 17 mg/dL Normal <30 [facility] Comment on above: Order Comment: Speci men Type: BLOOD SPECIMEN Ordering Facility: External Submitter Address: , , Performed By: #### 2 4323-8, 18991-6, 81877-3 #### [facility] CLIA [id number] [address] [place] [address] [place] Cholesterol non HDL [Mass/Vol] 119 mg/dL Normal <130 [facility] Comment on above: Order Comment: Keishai men Type: BLOOD SPECIMEN Ordering Facility: External Submitter Address: , , Result Comment: <130 mg/dL, Optimal 130-159 mg/dL, Near optimal/above optimal 160-189 mg/dL, Borderline high 190-219 mg/dL, High >219 mg/dL, Very high Secondary prevention optimal non HDL Cholesterol levels are recommended to be <100 mg/dL Performed By: #### 2 4323-8, 42588-2, 01338-6 #### [facility] CLIA [id number] [address] [place] [address] [place] Cholesterol.total/Chol esterol in HDL [Mass ratio] 2.89 {ratio} Normal <5.10 [facility] Comment on above: Order Comment: Helen nowak Type: BLOOD SPECIMEN Ordering Facility: External Submitter Address: , , Performed By: #### 2 4323-8, 68167-3, 98761-0 #### [facility] CLIA [id number] [address] [place] [id number] [place] FASTING TIME 12 hrs Normal [facility] Comment on above: Order Comment: Keishai men Type: BLOOD SPECIMEN Ordering Facility: External Submitter Address: , , Performed By: #### 2 4323-8, 10263-8, 58122-1 #### [facility] CLIA [id number] [address] [address] [place] Triglyceride [Mass/Vol] 87 mg/dL Normal <150 [facility] Comment on above: Order Comment: Speci men Type: BLOOD SPECIMEN Ordering Facility: External Submitter Address: , , Result Comment: <150 mg/dL, Normal 150-199 mg/dL, Borderline high 200-499 mg/dL, High >499 mg/dL, Very high Performed By: #### 2 4323-8, 84846-3, 21954-2 #### [facility] CLIA [id number] [address] [place] [address] [place] TSH SerPl-aCncon 07-17-2023 TSH Qn 1.320 m[IU]/L Normal 0.270-4.200 [facility] Comment on above: Order Comment: Speci men Type: BLOOD SPECIMEN Ordering Facility: External Submitter Address: , , Performed By: #### 3 016-3 #### [facility] CLIA [id number] [address] [place] [address] OF [facility] Vital Signs Date Time Vital Sign Value Performing Clinician Kimberly dolan 08-21-2024 14:46-0400 Diastolic blood pressure 68 mm[Hg] Dr. Brody Saleh MD Work Phone: [facility] 08-21-2024 14:46-0400 Heart rate 74 /min Dr. Brody Saleh MD Work Phone: [facility] 08-21-2024 14:46-0400 Respiratory rate 18 /min Dr. Brody Saleh MD Work Phone: [facility] 08-21-2024 14:46-0400 SaO2% (BldA) [Mass fraction] 94 % Dr. Brody Saleh MD Work Phone: [facility] 08-21-2024 14:46-0400 Systolic blood pressure 103 mm[Hg] Dr. Brody Saleh MD Work Phone: [facility] 08-04-2024 13:05-0400 Body mass index (BMI) [Ratio] 20.8 kg/m2 Dr. Brody Saleh MD Work Phone: [facility] 08-04-2024 13:05-0400 Body temperature 97.4 [degF] Dr. Brody Saleh MD Work Phone: [facility] 08-04-2024 13:05-0400 Diastolic blood pressure 72 mm[Hg] Dr. Brody Saleh MD Work Phone: [facility] 08-04-2024 13:05-0400 Heart rate 72 /min Dr. Brody Saleh MD Work Phone: 9(565)322-397125 [place] [address] 08-04-2024 13:05-0400 Respiratory rate 16 /min Dr. Brody Saleh MD Work Phone: 9(265)231-582225 [place] [address] 08-04-2024 13:05-0400 Systolic blood pressure 127 mm[Hg] Dr. Brody Saleh MD Work Phone: 3(946)325-865925 [place] [address] 07-08-2024 11:03-0500 Body height 172.[address] Brody Saleh MD Work Phone: 5(845)939-207325 [place] [address] 07-08-2024 11:03-0500 Body weight 62.[address] Brody Saleh MD Work Phone: 1(044)119-117166 [address] 07-07-2024 14:14-0500 Body mass index (BMI) [Ratio] 20.8 kg/m2 Dr. Brody Saleh MD Work Phone: 5(194)359-575225 [place] [address] 07-07-2024 14:14-0500 Body temperature 96.8 [degF] Dr. Brody Saleh MD Work Phone: [facility] 07-07-2024 14:14-0500 Diastolic blood pressure 71 mm[Hg] Dr. Brody Saleh MD Work Phone: [facility] 07-07-2024 14:14-0500 Heart rate 72 /min Dr. Brody Saleh MD Work Phone: [facility] 07-07-2024 14:14-0500 Respiratory rate 18 /min Dr. Brody Saleh MD Work Phone: [facility] 07-07-2024 14:14-0500 Systolic blood pressure 123 mm[Hg] Dr. Brody Saleh MD Work Phone: 1(314)063-310625 [place] [address] 06-30-2024 15:41-0500 Body mass index (BMI) [Ratio] 20.8 kg/m2 Dr. Brody Saleh MD Work Phone: 1(803)822-365109 [place] [address] 06-30-2024 15:41-0500 Body temperature 97.8 [degF] Dr. Brody Saleh MD Work Phone: 8(994)108-751409 [place] [address] 06-30-2024 15:41-0500 Diastolic blood pressure 72 mm[Hg] Dr. Brody Saleh MD Work Phone: 4(660)988-125709 [place] [address] 06-30-2024 15:41-0500 Heart rate 76 /min Dr. Brody Saleh MD Work Phone: 8(773)690-783409 [place] [address] 06-30-2024 15:41-0500 Respiratory rate 16 /min Dr. Brody Saleh MD Work Phone: 4(387)849-823109 [place] [address] 06-30-2024 15:41-0500 Systolic blood pressure 116 mm[Hg] Dr. Brody Saleh MD Work Phone: 0(768)038-240809 [place] [address] 06-23-2024 15:37-0500 Body weight 62.[address] Brody Saleh MD Work Phone: 6(621)806-310609 [place] [address] 06-16-2024 16:24-0500 Body temperature 98.6 [degF] Dr. Brody Saleh MD Work Phone: 8(908)584-502309 [place] [address] 06-16-2024 16:24-0500 Diastolic blood pressure 75 mm[Hg] Dr. Brody Saleh MD Work Phone: 2(135)249-318109 [place] [address] 06-16-2024 16:24-0500 Heart rate 75 /min Dr. Brody Saleh MD Work Phone: 1(187)683-028209 [place] [address] 06-16-2024 16:24-0500 Respiratory rate 18 /min Dr. Brody Saleh MD Work Phone: 3(086)962-064109 [place] [address] 06-16-2024 16:24-0500 SaO2% (BldA) [Mass fraction] 96 % Dr. Brody Saleh MD Work Phone: [facility] 06-16-2024 16:24-0500 Systolic blood pressure 132 mm[Hg] Dr. Brody Saleh MD Work Phone: [facility] 06-05-2024 14:06-0500 Body temperature 98.2 [degF] Dr. Brody Saleh MD Work Phone: 7(614)456-292425 [place] [address] 06-05-2024 14:06-0500 Diastolic blood pressure 65 mm[Hg] Dr. Brody Saleh MD Work Phone: 1(116)214-575925 [place] [address] 06-05-2024 14:06-0500 Heart rate 54 /min Dr. Brody Saleh MD Work Phone: 7(321)814-679309 [place] [address] 06-05-2024 14:06-0500 Respiratory rate 16 /min Dr. Brody Saleh MD Work Phone: 0(426)301-947509 [place] [address] 06-05-2024 14:06-0500 SaO2% (BldA) [Mass fraction] 98 % Dr. Brody Saleh MD Work Phone: 5(453)918-971225 [place] [address] 06-05-2024 14:06-0500 Systolic blood pressure 110 mm[Hg] Dr. Brody Saleh MD Work Phone: 1(878)780-767809 [place] [address] 06-05-2024 10:01-0500 Body mass index (BMI) [Ratio] 20.7 kg/m2 Dr. Brody Saleh MD Work Phone: 3(875)451-710725 [place] [address] 06-05-2024 10:01-0500 Body weight 61.[address] Brody Saleh MD Work Phone: [facility] 05-28-2024 10:20-0500 Body temperature 98.5 [degF] Dr. Brody Saleh MD Work Phone: 1(523)790-660325 [place] [address] 05-28-2024 10:20-0500 Diastolic blood pressure 62 mm[Hg] Dr. Brody Saleh MD Work Phone: [facility] 05-28-2024 10:20-0500 Heart rate 60 /min Dr. Brody Saleh MD Work Phone: 8(849)422-073125 [place] [address] 05-28-2024 10:20-0500 Respiratory rate 16 /min Dr. Brody Saleh MD Work Phone: 8(794)897-794109 [place] [address] 05-28-2024 10:20-0500 SaO2% (BldA) [Mass fraction] 99 % Dr. Brody Saleh MD Work Phone: 5(066)216-177109 [place] [address] 05-28-2024 10:20-0500 Systolic blood pressure 105 mm[Hg] Dr. Brody Saleh MD Work Phone: 5(228)319-758809 [place] [address] 05-28-2024 08:45-0500 Body mass index (BMI) [Ratio] 20.7 kg/m2 Dr. Brody Saleh MD Work Phone: 8(486)399-148809 [place] [address] 05-28-2024 08:45-0500 Body weight [address] Brody Saleh MD Work Phone: 7(582)028-612009 [place] [address] 05-09-2024 09:42-0500 Diastolic blood pressure 77 mm[Hg] Dr. Brody Saleh MD Work Phone: 2(407)847-304509 [place] [address] 05-09-2024 09:42-0500 Heart rate 63 /min Dr. Brody Saleh MD Work Phone: 8(968)256-614609 [place] [address] 05-09-2024 09:42-0500 Respiratory rate 8 /min Dr. Brody Saleh MD Work Phone: 3(451)398-862209 [place] [address] 05-09-2024 09:42-0500 SaO2% (BldA) [Mass fraction] 94 % Dr. Brody Saleh MD Work Phone: 1(400)438-162109 [place] [address] 05-09-2024 09:42-0500 Systolic blood pressure 126 mm[Hg] Dr. Brody Saleh MD Work Phone: 7(143)398-471009 [place] [address] 04-17-2024 09:22-0500 Body temperature 98.6 [degF] Dr. Brody Saleh MD Work Phone: 3(070)980-532109 [place] [address] 04-17-2024 09:22-0500 Diastolic blood pressure 65 mm[Hg] Dr. Brody Saleh MD Work Phone: 0(003)520-996709 [place] [address] 04-17-2024 09:22-0500 Heart rate 63 /min Dr. Brody Saleh MD Work Phone: [facility] 04-17-2024 09:22-0500 Respiratory rate 18 /min Dr. Brody Saleh MD Work Phone: [facility] 04-17-2024 09:22-0500 SaO2% (BldA) [Mass fraction] 98 % Dr. Brody Saleh MD Work Phone: [facility] 04-17-2024 09:22-0500 Systolic blood pressure 120 mm[Hg] Dr. Brody Saleh MD Work Phone: [facility] 04-15-2024 19:21-0500 Body mass index (BMI) [Ratio] 21 kg/m2 Dr. Brody Saleh MD Work Phone: [facility] 04-15-2024 19:21-0500 Body weight 60.[address] Brody Saleh MD Work Phone: [facility] 08-06-2023 08:13-0400 Body height 167.6 cm Jacques Villater DESIGN SALES CONSULTANT.WEED C[employer]TER Work Phone: [facility] 08-06-2023 08:13-0400 Body weight 66.5 kg Jacques Butler DESIGN SALES CONSULTANT.WEED CUTTER Work Phone: [facility] 08-06-2023 08:13-0400 Diastolic blood pressure 78 mm[Hg] Jacques Villater DESIGN SALES CONSULTANT.WEED C[employer]TER Work Phone: [facility] 08-06-2023 08:13-0400 Heart rate 72 /min Jacques Villater DESIGN SALES CONSULTANT.WEED C[employer]TER Work Phone: [facility] 08-06-2023 08:13-0400 Respiratory rate 12 /min Jacques Villater DESIGN SALES CONSULTANT.WEED CUTTER Work Phone: [facility] 08-06-2023 08:13-0400 SaO2% (BldA) [Mass fraction] 94 % Jacques Butler DESIGN SALES CONSULTANT.WEED CUTTER Work Phone: [facility] 08-06-2023 08:13-0400 Systolic blood pressure 130 mm[Hg] Jacques Villater DESIGN SALES CONSULTANT.WEED CUTTER Work Phone: [facility] Encounters Encounter Date Encounter Type Care Provider Facility Start: 10-17-2024 End: 10-17-[address] Brody Saleh MD Work Phone: [facility] Work Phone: Start: 10-17-2024 End: 10-17-[address] Reno Dela Cruz MD -[facility] Work Phone: Start: 10-17-2024 End: 10-17-2024 Emergency department patient visit Dr. Brody Saleh MD Work Phone: -Emergency Department Work Phone: Start: 09-16-2024 End: 09-16-[address] Francisco Collins MD -[facility] Start: 09-16-2024 End: 09-16-[address] Brody Saleh MD Work Phone: [facility] Work Phone: Start: 09-15-2024 ambulatory Reno Dela Cruz Facility:[facility] Start: 09-15-[address] Reno garza MD -Occupational Therapy Work Phone: Start: 08-21-2024 End: 08-21-2024 ambulatory Brody Liz Delfino Facility[place] Start: 08-21-2024 End: 08-21-[address] Reno Dela Cruz MD -[facility] Work Phone: Start: 08-21-2024 End: 08-21-2024 ambulatory [facility] Facility:[facility] Start: 08-13-[address] Reno garza MD -Occupational Therapy Work Phone: Start: 08-11-2024 End: 08-11-[address] Brody Saleh MD Work Phone: [facility] Work Phone: Start: 08-11-2024 End: 08-11-[address] Brody Saleh MD -Laboratory Work Phone: Start: 08-11-2024 End: 08-11-2024 ambulatory Brody Saleh Facility:[facility] Start: 08-04-2024 Non-patient / Non-visit Dr. Reno ejsus MD -[facility] Start: 08-04-2024 End: 08-04-[address] Brody Saleh MD Work Phone: [facility] Work Phone: Start: 08-04-2024 End: 08-04-[address] Reno Dela Cruz MD -Wound Healing [facility] Work Phone: Start: 07-31-[address] Reno garza MD -Occupational Therapy Work Phone: Start: 07-21-2024 ambulatory [facility] Facility:[facility] Start: 07-21-2024 Non-patient / Non-visit Dr. Reno jesus MD -[facility] Start: 07-15-[address] Reno garza MD -Occupational Therapy Work Phone: Start: 07-07-2024 ambulatory [facility] Start: 07-07-2024 Non-patient / Non-visit Dr. Reno jesus MD -[facility] Start: 07-07-[address] Reno garza MD -Wound He[facility] Work Phone: Start: 07-07-2024 End: 07-07-[address] Brody Saleh MD Work Phone: [facility] Work Phone: Start: 07-07-2024 End: 07-07-2024 Patient encounter procedure Renata Lao NP-C -Radiology, [facility] Work Phone: Start: 07-07-2024 End: 07-07-2024 ambulatory Renata Lao NP Facility:[facility] Start: 07-01-2024 ambulatory [facility] Start: 07-01-2024 Non-patient / Non-visit [facility]. Reno jesus MD [facility] Start: 06-30-2024 End: 07-04-2024 ambulatory [facility] Facility:[facility] Start: 06-30-2024 End: 07-04-[address] Reno Dela Cruz MD -[facility] Work Phone: Start: 06-24-2024 ambulatory [facility] Start: 06-24-2024 ambulatory [facility] Start: 06-24-2024 Non-patient / Non-visit Dr. Reno jesus MD [facility] Start: 06-16-2024 End: 06-16-2024 Patient encounter procedure Renata Lao FLOOR SPACE ALLOCATOR-C -[facility] Work Phone: Start: 06-16-2024 End: 06-16-2024 ambulatory Renata Lao FLOOR SPACE ALLOCATOR Facility:[facility] Start: 06-10-2024 End: 06-10-[address] Reno Dela Cruz MD -[facility] Work Phone: Start: 06-10-2024 End: 06-10-2024 ambulatory Reno Dela Cruz Facility:[facility] Start: 06-05-2024 ambulatory Reno Jose De Jesus Facility:[facility] Start: 06-05-2024 Non-patient / Non-visit Dr. Reno jesus MD [facility] Start: 06-05-2024 End: 06-05-2024 Admission to same day surgery center Dr. Reno Dela Cruz MD -[facility] Start: 06-05-2024 End: 06-05-2024 ambulatory [facility] Facility:[facility] Start: 06-03-2024 End: 06-03-[address] Reno Dela Cruz MD -[facility] Work Phone: Start: 06-03-2024 End: 06-03-2024 ambulatory Canaan Jose De Jesus Facility:[facility] Start: 05-30-2024 End: 05-30-[address] Reno Dela Cruz MD -[facility] Work Phone: Start: 05-30-2024 End: 05-30-2024 ambulatory Reno Dela Cruz Facility:[facility] Start: 05-28-2024 Non-patient / Non-visit Dr. Reno jesus MD -[facility] Start: 05-28-2024 End: 05-28-2024 Admission to same day surgery center Dr. Reno Dela Cruz MD -[facility] Start: 05-28-2024 End: 05-28-2024 ambulatory Reno Dela Cruz Facility:[facility] Start: 05-27-2024 End: 05-27-[address] Reno Dela Cruz MD -[facility] Work Phone: Start: 05-27-2024 End: 05-27-2024 [facility] Start: 05-20-2024 End: 05-20-[address] Reno Dela Cruz MD -[facility] Work Phone: Start: 05-20-2024 End: 05-20-2024 [facility] Start: 05-13-2024 End: 05-13-[address] Reno Dela Cruz MD -[facility] Work Phone: Start: 05-13-2024 End: 05-[facility] Start: 05-09-2024 End: 05-09-[address] Reno Dela Cruz MD -[facility] Work Phone: Start: 05-09-2024 End: 05-09-2024 ambulatory Reno Dela Cruz Facility:[facility] Start: 05-06-2024 End: 05-06-[address] Reno Dela Cruz MD -[facility] Work Phone: Start: 05-06-2024 End: 05-06-2024 ambulatory Reno Dela Cruz Facility:[facility] Start: 04-29-2024 End: 04-29-[address] Reno Dela Cruz MD -[facility] Work Phone: Start: 04-29-2024 End: 04-29-2024 ambulatory Reno Jose De Jesus Facility:[facility] Start: 04-22-2024 End: 04-22-[address] Reno Dela Cruz MD -[facility] Work Phone: Start: 04-22-2024 End: 04-22-2024 ambulatory Reno Dela Cruz Facility:[facility] Start: 04-17-2024 Non-patient / Non-visit Dr. Reno jesus MD -[facility] Start: 04-16-2024 Non-patient / Non-visit [facility] Start: 04-15-2024 End: 04-17-2024 ambulatory Reno Dela Cruz Facility:[facility] Start: 04-15-2024 End: 04-17-2024 Evaluation and management of inpatient Dr. Reno Dela Cruz MD -Medical Surgical 3 Work Phone: Start: 04-15-2024 ambulatory Reno Dela Cruz Facility:[facility] Start: 04-15-2024 Non-patient / Non-visit Dr. Reno jesus MD -[facility] Start: 10-26-2023 End: 10-26-2023 ambulatory Robby Bain Facility:[facility] Start: 08-15-2023 End: 08-16-2023 ambulatory BRODY SALEH Facility:[facility] Start: 08-06-2023 End: 08-06-2023 ambulatory [facility] Facility:[facility] Start: 08-06-2023 End: 08-06-2023 Patient encounter procedure Jacques Butler DESIGN SALES CONSULTANT.[employer] Work Phone: Pulmonary Medicine Comment on above: Encounter for screen ing for lung cancer (Primary Dx); Tobacco use current Start: 07-17-2023 End: 07-18-2023 ambulatory BRODY SALEH Facility:[facility] Procedures Date Procedure Procedure Detail Performing Clinician Start: 09-16-2024 Plain x-ray of hand Dr. Brody Saleh MD Work Phone: Start: 08-21-2024 Plain X-ray of finger Jean Saleh MD Work Phone: Start: 08-21-2024 Plain x-ray of hand Dr. Brody Saleh MD Work Phone: Start: 08-11-2024 Prostate specific an tigen measurement Dr. Brody Saleh MD Work Phone: Comment on above: This test was perfor med using the [employer] tPSA method. Measured values of a patient sample can vary depending on the testing procedure used. PSA values determined on patient samples by different testing procedures cannot be used interchangeably. If there is a change in PSA assays while monitoring therapy, sequential testing should be performed to confirm baseline values. Start: 07-21-2024 Plain X-ray of finger Jean Saleh MD Work Phone: Start: 07-07-2024 Plain x-ray of hand Dr. Brody Saleh MD Work Phone: Start: 06-26-2024 Measurement of renal function Dr. Brody Saleh MD Work Phone: Comment on above: GFR Calc Start: 06-10-2024 Plain X-ray of finger Jean Saleh MD Work Phone: Start: 06-10-2024 Plain x-ray of hand Dr. Brody Saleh MD Work Phone: Start: 06-05-2024 End: 06-05-[address] Acid fast bacilli culture Dr. Brody Pena Work Phone: Start: 06-05-[address] Brody Saleh MD Work Phone: Start: 06-05-[address] Brody Saleh MD Work Phone: Start: 06-05-2024 Gram stain microscopy Jean Saleh MD Work Phone: Start: 06-05-2024 End: 06-05-2024 Microbial culture, routine Dr. Brody Saleh MD Work Phone: Start: 06-05-[address] Brannon Saleh MD Work Phone: Start: 06-03-2024 Plain x-ray of hand Dr. Brody Saleh MD Work Phone: Start: 05-28-2024 Fluoroscopic guidance Jean Saleh MD Work Phone: Start: 05-28-2024 Plain x-ray of hand Dr. Brody Saleh MD Work Phone: Start: 05-27-2024 Plain X-ray of finger D r. Brody Saleh MD Work Phone: Start: 05-27-2024 Plain x-ray of hand Dr. Brody Saleh MD Work Phone: Start: 05-20-2024 Plain x-ray of hand Dr. Brody Saleh MD Work Phone: Start: 05-13-2024 Plain x-ray of hand Dr. Brody Saleh MD Work Phone: Start: 04-29-2024 Plain X-ray of finger Jean weeks. Brody Saleh MD Work Phone: Start: 04-29-2024 Plain x-ray of hand Dr. Brody Saleh MD Work Phone: Start: 04-22-2024 Plain X-ray of finger Jean weeks. Brody Saleh MD Work Phone: Start: 04-22-2024 Plain x-ray of hand Dr. Brody Saleh MD Work Phone: Start: 04-15-2024 Fluoroscopic guidance Jean Saleh MD Work Phone: Start: 04-15-2024 Plain X-ray of finger D micky. Brody Saleh MD Work Phone: Start: 04-15-[address] Brannon Saleh MD Work Phone: Start: 04-15-2024 Plain x-ray of hand Dr. Brody Saleh MD Work Phone: Start: 07-17-2023 Lipid 1996 panel - S shelly or Plasma Jacques Butler DESIGN SALES CONSULTANT.[employer] Work Phone: Plan of Treatment Date Care Activity Detail Author Start: 07-16-2028 Lipid panel Lipid Screening [facility] Start: 07-16-2028 Prostate specific antigen measurement Prostate Cancer Screening Discussion [facility] Start: 07-16-2026 Diabetes Screening Diabetes Screening [facility] Start: 07-16-2026 Screening for malignant neoplasm of colon [facility] Start: 06-03-2026 Urine microalbumin profile DTaP,Tdap,Td Vaccine (2 - Td or Tdap) [facility] Start: 09-16-2024 Plain x-ray of hand Hand Min 3 Views [facility] Start: 09-16-2024 XR Hand GE 3 Views [facility] Start: 06-05-2024 Acid fast bacilli culture [facility] Start: 06-05-2024 Mycology culture [facility] Start: 06-05-2024 Patient discharge [facility] Start: 06-05-2024 Acid Fast Bacilli Culture Acid Fast Bacilli Culture [facility] Start: 06-05-2024 Acid Fast Bacilli Smear Acid Fast Bacilli Smear [facility] Start: 06-05-2024 Anes integ extremities ant trunk & perineum nos ANESTH SKIN EXT/PER/ATRUNK [facility] Start: 06-05-2024 Fungal Culture Fungal Culture [facility] Start: 06-05-2024 Fungal Smear Fungal Smear [facility] Start: 06-05-2024 Prep site f/s/n/h/f/g/m/d gt 1st 100 sq cm/1pct WOUND PREP F/N/HF/G [facility] Start: 06-05-2024 Sub grft f/s/n/h/f/g/m/d <100sq cm 1st 25 sq cm SKIN SUB GRAFT FACE/NK/HF/G [facility] Start: 05-28-2024 Debridement subcutaneous tissue 20 sq cm/< DBRDMT SUBQ TIS 1ST 20SQCM/< [facility] Start: 05-28-2024 Removal implant superficial separate procedure REMOVAL IMPLANT SUPERFICIAL [facility] Start: 05-28-2024 Patient discharge [facility] Start: 05-20-2024 Patient referral [facility] Work Phone: Start: 05-06-2024 Patient referral [facility] Work Phone: Start: 04-17-2024 Patient discharge [facility] Start: 04-16-2024 Application of intermittent pneumatic compression device [facility] Start: 04-15-2024 Following clinical pathway protocol [facility] Start: 04-15-2024 Admission procedure [facility] Start: 04-15-2024 Ambulation without limitation [facility] Start: 04-15-2024 Elevation of affected extremity [facility] Start: 04-15-2024 Medication education [facility] Start: 04-15-2024 Taking patient vital signs [facility] Start: 04-15-2024 [facility] Start: 05-07-2023 Depression Assessment Depression Assessment [facility] Start: 2021 RSV Vaccine (1 - 1-dose 60+ series) RSV Vaccine (1 - 1-dose 60+ series) [facility] Start: 2011 Screening for malignant neoplasm of lung Lung Cancer Screening [facility] Start: 2011 Shingrix Vaccine (1 of 2) Shingrix Vaccine (1 of 2) [facility] Start: 2006 Screening for malignant neoplasm of colon [facility] Start: 1979 HIV screening HIV Screening [facility] Start: 1967 Pneumococcal vaccination Pneumococcal Vaccine (1 of 2 - PCV) [facility] Alanine aminotransfe rase [Enzymatic activity/volume] in Serum or Plasma [facility] Albumin [Mass/volume ] in Serum or Plasma [facility] Alkaline phosphatase [Enzymatic activity/volume] in Serum or Plasma [facility] Anion gap in Serum o r Plasma [facility] Bilirubin, total measurement [facility] BUN/Creatinine ratio [facility] C reactive protein [Mass/volume] in Serum or Plasma [facility] Calcium [Mass/volume ] in Serum or Plasma [facility] Carbon dioxide, tota l [Moles/volume] in Central venous blood [facility] Creatinine [Mass/vol ume] in Serum or Plasma [facility] Erythrocyte mean corpuscular volume determination [facility] Erythrocyte sediment ation rate [facility] Fungus identified in Unspecified specimen by Culture [facility] Fungus identified in Unspecified specimen by Fungus stain [facility] Glucose [Mass/volume ] in Serum or Plasma [facility] Hematocrit [Volume Fraction] of Blood [facility] Hemoglobin [Mass/vol ume] in Blood [facility] Leukocytes [#/volume ] in Blood [facility] Mean corpuscular hem oglobin concentration determination [facility] Mean corpuscular hem oglobin determination [facility] Measurement of renal function [facility] Mycobacterium sp tanna ntified in Unspecified specimen by Organism specific culture [facility] Neutrophil count [facility] Neutrophil percent differential count [facility] Patient referral [facility] Work Phone: Platelets [#/volume] in Blood [facility] Potassium measurement [facility] Red blood cell count [facility] Red cell distributio n width determination [facility] Serum chloride measurement [facility] Sodium measurement [facility] Total protein measurement [facility] Urea nitrogen [Mass/ volume] in Serum or Plasma [facility] Immunizations Immunization Date Immunization Notes Care Provider Fa cility 04-15-2024 tetanus toxoid, redu pao diphtheria toxoid, and acellular pertussis vaccine, adsorbed Dr. Brody Saleh MD Work Phone: [facility] Payers Date Payer Category Payer Unknown [id number] 2024 Unknown [id number] 2024 Unknown [id number] 2024 Unknown [id number] 2023 Self-pay 2023 Medicaid [id number] 2023 Private Health Insurance [employer] [id number] 2023-Present [address] [address] [place] [address] Medicaid [id number] Unknown [id number] ..840.1.048971.3.579.2.4 62 Unknown [id number] 2.16.840.1.584495.3.579.2.4 62 Unknown [id number] 2.16.840.1.210406.3.579.2.4 62 Unknown [id number] 2.16.840.1.549630.3.579.2.4 62 Unknown [id number] 2.16.840.1.838418.3.579.2.4 62 Unknown [id number] 2.16.840.1.679564.3.579.2.4 62 Unknown [id number] 2.16.840.1.578460.3.579.2.4 62 Unknown [id number] 2.16.840.1.767637.3.579.2.4 62 Unknown [id number] 2.16.840.1.311159.3.579.2.4 62 Unknown [id number] 2.16.840.1.359854.3.579.2.4 62 Unknown [id number] 2.16.840.1.415848.3.579.2.4 62 Unknown [id number] 2.16.840.1.361277.3.579.2.4 62 Unknown [id number] 2.16.840.1.607351.3.579.2.4 62 Unknown [id number] 2.16.840.1.950496.3.579.2.4 62 Unknown [id number] 2.16.840.1.093887.3.579.2.4 62 Unknown [id number] 2.16.840.1.658851.3.579.2.4 62 Unknown [id number] 2.16.840.1.959862.3.579.2.4 62 Unknown [id number] 2.16.840.1.920199.3.579.2.4 62 Unknown [id number] 2.16.840.1.752495.3.579.2.4 62 Unknown [id number] 2.16.840.1.636677.3.579.2.4 62 Unknown [id number] 2.16.840.1.678492.3.579.2.4 62 Unknown [id number] 2.16.840.1.197933.3.579.2.4 62 Unknown [id number] 2.16.840.1.543730.3.579.2.4 62 Unknown [id number] 2.16.840.1.050280.3.579.2.4 62 Unknown [id number] 2.16.840.1.337342.3.579.2.4 62 Unknown [id number] 2.16.840.1.872727.3.579.2.4 62 Unknown [id number] 2.16.840.1.179580.3.579.2.4 62 Unknown [id number] 2.16.840.1.503871.3.579.2.4 62 Unknown [id number] 2.16.840.1.893175.3.579.2.4 62 Unknown [id number] 2.16.840.1.657945.3.579.2.4 62 Unknown [id number] 2.16.840.1.487556.3.579.2.4 62 Unknown [id number] 2.16.840.1.901515.3.579.2.4 62 Unknown [id number] 2.16.840.1.471567.3.579.2.4 62 Unknown [id number] 2.16.840.1.132753.3.579.2.4 62 Unknown [id number] 2.16.840.1.342673.3.579.2.4 62 Unknown [id number] 2.16.840.1.936156.3.579.2.4 62 Unknown [id number] 2.16.840.1.338666.3.579.2.4 62 Unknown [id number] 2.16.840.1.783922.3.579.2.4 62 Unknown [id number] 2.16.840.1.174594.3.579.2.4 62 Unknown [id number] 2.16.840.1.370982.3.579.2.4 62 Unknown [id number] 2.16.840.1.235611.3.579.2.4 62 Unknown [id number] 2.16.840.1.581576.3.579.2.4 62 Unknown [id number] 2.16.840.1.094446.3.579.2.4 62 Unknown [id number] 2.16.840.1.243694.3.579.2.4 62 Unknown [id number] 2.16.840.1.517480.3.579.2.4 62 Social History Date Type Detail Facility Start: 08-06-[address] [facility] History of tobacco use Cigarette Smoker [facility] Start: 08-06-2023 Cigarettes smoked current (pack per day) - Reported 1 [facility] Start: 08-06-2023 Tobacco use and exposure Smokeless tobacco non-user [facility] Start: 08-06-2023 Alcohol intake Current drinke r of alcohol (finding) [facility] Start: 08-06-2023 Tobacco use panel [facility] Start: 1960 Sex Assigned At Not on file [facility] Start: 06-23-2024 Tobacco smoking stat [facility] Current Light tobacco smoker [facility] Start: 07-17-2024 End: 08-14-2024 Sex Male (finding) [facility] Start: 1960 Sex Assigned At Male [facility] Medical Equipment Procedure Code Equipment Code Equipment Origin al Text Equipment Identifier Dates Debridement, wound Collagen woun d matrix dressing ([id number] [facility] Start: 06-05-2024 Goals Date Patient Goal Desired Activity /State Functional Status Date Assessment Result Facility 04-17-2024 Functional status Up ad carlos;Bathroom Priv ilege [facility] Work Phone: Mental Status Date Assessment Result Facility 06-05-2024 Cognitive function Voice/Name [facility] Work Phone: 06-05-2024 Cognitive function Patient Luis F shukla Person;Place;Time [facility] Work Phone: 05-28-2024 Cognitive function Voice/Name [facility] Work Phone: 04-17-2024 Cognitive function Voice/Name [facility] Work Phone: Clinical Notes 08-06-2023 to 08-04-2024 Note Date & Type Note Facility 08-04-2024 Progress note [facility] 07-22-2024 Progress note Note Date/Time July 22, 2024 9:02pm [facility] [address] [place] [address] Progress Note - Wound Care 07/21/24 1324 MR#: [id number] Acct: [id number] Name: REGGIE SURESH Rep #:[id number] : 1960 64 From: Reno Dela Cruz MD PCP: Dr. Brody Saleh MD Status:REG R CR Location: History of Present Illness Date of Service: 07/21/24 Subjective Subjective Doing well overall with wound care (Hydrogel). No fevers or chills. No pain inthe thumb. Has been going to therapy. Feels like wound is smaller. No pain in the thumb. He is still smoking ~5 cigarettes per day. Discussed cessation (discussed Chantyx, declined at this time). Objective Data Objective Data Vital Signs: Vital Signs Temp Pulse Resp BP 96.8 F L 72 18 123/71 H 07/07/24 14:14 07/07/24 14:14 07/07/24 14:14 07/07/24 14:14 Weight: 137 lb Body Mass Index (BMI) 20.8 Charges/Coding Procedures Integumentary 111xxx-113xx: 32616 Global Visit Physical Exam Narrative Left upper extremity: Thumb examined and there is a persistent radial-sided wound that is nearly healed (mostly just a callus at this time, with small area of central granulation tissue). No pain with palpation of the thumb proximal phalanx. Thumb feels stable. No TTP over the index metacarpal. Skin has healed in this location as well. Motor: Able to oppose thumb to long, ring, and small fingers. Good thumb ROM except for IP joint (~15 degrees IP flexion at this time). Sensation: Intact to light touch on radial and ulnar borders of all fingers. Debridement Note Debridement Note No debridement was completed: No debridement was completed today Post-Debridement Measurements and Additional Note: Post-Debridement Measurements/Treatment - Nurse 1 - General Ulcer Assessment Start: 07/07/24 14:11 Freq: Status: Active Protocol: BHARAT Activity Type Activity Date Activity User E-sign Co-sign Detail Recorded Client Recorded Date Recorded By Document 07/07/24 14:14 DL [id number] 07/07/24 14:20 DL 07/07/24 14:14 WC - Today's Visit Information Type of service Follow-up Visit (Physician/WEED CUTTER ) Arrival Mode Ambulatory Transfer Assistance None Patient Identification Verified (Name & Yes ) Patient Requires Transmission-Based No Precautions Height and Weight Body Mass Index (BMI) 20.8 BMI Classification Normal Vital Signs Temperature (97.8 F-99.1 F) 96.8 F L Temperature Source Temporal Pulse Rate (60-100) 72 Pulse Location Monitor Respiratory Rate (12-18) 18 Respiratory rate source Observation Blood Pressure (90/60-120/80) 123/71 H Blood Pressure Mean (mm Hg) 88 Source Monitor History Since Last Visit- (Skip if this is Patient's initial visit) Have you changed medications since your No last visit? Any new allergies or adverse reactions No Had a fall/change in ADL's that may No increase risk of falls Signs or symptoms of abuse and/or No neglect since last visit Have you been in the hospital since your No last visit? Has dressing in place as prescribed Yes Has compression in place as prescribed N/A Has offloadiing in place as prescribed Yes Experienced any changes in pain level or No management Pain Scale: 0-10 Numeric Is Patient Pain Free? Yes - Nurse 1 - General Ulcer Measurement Start: 07/07/24 14:11 Freq: Status: Active Protocol: Activity Type Activity Date Activity User E-sign Co-sign Detail Recorded Client Recorded Date Recorded By Document 07/07/24 14:14 DL [id number] 07/07/24 14:20 DL 07/07/24 14:14 Wound Center Nurse 1 #1 left thumb -Current Size (cm) - Length 0.3 -Current Size (cm) - Width 0.2 -Current Size (cm) - Depth 0.2 -Total Square Cm 0.06 -Photo Taken Yes -Exudate Amt None Present -Wound Margin Distinct, Outline Attached -Granulation Amt Small (1-33%) -Granulation Quality Pale -Necrosis Amt None Present (0 %) -Structure Exposed N/A -Texture (Leatha-wound Skin Appearance) Scarring -Moisture (Leatha-wound Skin Appearance) No Abnormality -Color (Leatha-wound Skin Appearance) No Abnormality -Temperature (Leatha-wound Skin No Abnormality Appearance) (Pt Warm) -Tenderness on Palpation (Leatha-wound No Skin Appearance) -Ulcer Cleansing Rinsed/ Irrigated with Saline -Foul Odor after Cleansing No -Anesthetic Used 5% Lidocaine Gel WC - Nurse 2 - General Ulcer CM Notes Start: 07/07/24 14:11 Freq: Status: Active Protocol: Activity Type Activity Date Activity User E-sign Co-sign Detail Recorded Client Recorded Date Recorded By Document 07/07/24 15:04 WEI [id number] 07/07/24 15:04 WEI Edit Result 07/07/24 15:04 JF (1) [id number] 07/07/24 15:13 JF (1) #1 left thumb - Post Debridement (cm) - Length => 0.4 - Post Debridement (cm) - Width => 0.4 - Post Debridement (cm) - Depth => 0.1 - Total Square (Post) (cm) => 0.16 - Area of Debridement (cm) - Length => 0.4 - Area of Debridement (cm) - Width => 0.4 - Total Square (Area) (cm) => 0.16 07/07/24 15:04 Wound Center Nurse 2 -Time 15:04 -Correct Patient Yes -Correct Side, Site, Position Yes -Correct Procedure Yes -Procedure Performed Yes -Type of Procedure Debridement -Clinical Debridement Subcutaneous -Tissue Removed Subcutaneous -Post Debridement (cm) - Length 0.4 -Post Debridement (cm) - Width 0.4 -Post Debridement (cm) - Depth 0.1 -Total Square (Post) (cm) 0.16 -Area of Debridement (cm) - Length 0.4 -Area of Debridement (cm) - Width 0.4 -Total Square (Area) (cm) 0.16 -Tunneling No -Undermining/Tunneling No -Circular Undermining No -Wound/Ulcer Outcome Not Healed -Ulcer Cleansing Rinsed/ Irrigated with Saline -Foul Odor after Cleansing No -Bioengineered Tissue No -Bleeding Controlled with Pressure -Treatment Response Procedure Tolerated Well -Offloading No -Debridement - Subq, 1st 20sq cm Yes Pain Scale: 0-10 Numeric Is Patient Pain Free? Yes WC - Nurse 3 - General Ulcer D/C NN Start: 07/07/24 14:11 Freq: Status: Active Protocol: Activity Type Activity Date Activity User E-sign Co-sign Detail Recorded Client Recorded Date Recorded By Document 07/07/24 15:22 DL [id number] 07/07/24 15:22 DL 07/07/24 15:22 Wound Care Center Nurse 3 #1 left thumb -Ulcer Cleansing Rinsed/ Irrigated with Saline -Foul Odor after Cleansing No -Other Dressing hydrogel/ bandaid Treatment Response Procedure Tolerated Well Pain Scale: 0-10 Numeric Is Patient Pain Free? Yes WC - Visit Discharge Discharge Condition Stable Ambulatory Status Ambulatory Transportation Private [facility] Facility Type Home Health Orders Sent Yes Assessment/Plan Assessment/Plan (1) Open wound of thumb: CODE(S): S61.009A - Unspecified open wound of unspecified thumb without damage to nail, initial encounter PLAN: Continue Hydrogel twice daily F/u in 2 weeks for progress check (2) Open fracture of proximal phalanx of left thumb: CODE(S): S62.512B - Displaced fracture of proximal phalanx of left thumb, initial encounter for open fracture PLAN: Reviewed Xray Same alignment on xray again today. He is not tender to palpation and thumb feels stable. I believe some callus is forming, but radiographic evidence lagging. We will repeat Xray of the left thumb in 4 weeks. Continue ROM therapy with hand therapist, but still no heavy lifting (discussed). (3) Open fracture of second metacarpal bone of left hand: CODE(S): S62.301B - Unspecified fracture of second metacarpal bone, left hand, initial encounter for open fracture PLAN: Healed metacarpal fracture. Wound/degloving injury over the metacarpal has healed. 07/22/242101 <Electronically signed by Reno Dela Cruz MD> Cosigner Signature (if applicable): CC: ~ Signed [facility] Work Phone: 1(189) 540-238703-18-2025 Progress note [facility] [address] [place] [address] Progress Note - Wound Care 07/21/24 1324 MR#: [id number] Acct: [id number] Name: REGGIE SURESH Rep #:[id number] : 1960 64 From: Reno Dela Cruz MD PCP: Dr. Brody Saleh MD Status:REG R CR Location: History of Present Illness Date of Service: 07/21/24 Subjective Subjective Doing well overall with wound care (Hydrogel). No fevers or chills. No pain inthe thumb. Has been going to therapy. Feels like wound is smaller. No pain in the thumb. He is still smoking ~5 cigarettes per day. Discussed cessation (discussed Chantyx, declined at thistime). Objective Data Objective Data Vital Signs: Vital Signs Temp Pulse Resp BP 96.8 F L 72 18 123/71 H 07/07/24 14:14 07/07/24 14:14 07/07/24 14:14 07/07/24 14:14 Weight: 137 lb Body Mass Index (BMI) 20.8 Charges/Coding Procedures Integumentary 111xxx-113xx: 68039 Global Visit Physical Exam Narrative Left upper extremity: Thumb examined and there is a persistent radial-sided wound that is nearly healed (mostly just a callus at this time, with small area of central granulation tissue). No pain with palpation of the thumb proximal phalanx. Thumb feels stable. No TTP over the index metacarpal. Skin has healed in this location as well. Motor: Able to oppose thumb to long, ring, and small fingers. Good thumb ROM except for IP joint (~15 degrees IP flexion at this time). Sensation: Intact to light touch on radial and ulnar borders of all fingers. Debridement Note Debridement Note No debridement was completed: No debridement was completed today Post-Debridement Measurements and Additional Note: Post-Debridement Measurements/Treatment WC - Nurse 1 - General Ulcer Assessment Start: 07/07/24 14:11 Freq: Status: Active Protocol: [email or web address] Activity Type Activity Date Activity User E-sign Co-sign Detail Recorded Client Recorded Date Recorded By Document 07/07/24 14:14 DL [id number] 07/07/24 14:20 DL 07/07/24 14:14 WC - Today's Visit Information Type of service Follow-up Visit (Physician/WEED CUTTER ) Arrival Mode Ambulatory Transfer Assistance None Patient Identification Verified (Name & Yes ) Patient Requires Transmission-Based No Precautions Height and Weight Body Mass Index (BMI) 20.8 BMI Classification Normal Vital Signs Temperature (97.8 F-99.1 F) 96.8 F L Temperature Source Temporal Pulse Rate (60-100) 72 [address]ulse Location Monitor Respiratory Rate (12-18) 18 Respiratory rate source Observation Blood Pressure (90/60-120/80) 123/71 H Blood Pressure Mean (mm Hg) 88 Source Monitor History Since Last Visit- (Skip if this is Patient's initial visit) Have you changed medications since your No last visit? Any new allergies or adverse reactions No Had a fall/change in ADL's that may No increase risk of falls Signs or symptoms of abuse and/or No neglect since last visit Have you been in the hospital since your No last visit? Has dressing in place as prescribed Yes Has compression in place as prescribed N/A Has offloadiing in place as prescribed Yes Experienced any changes in pain level or No management Pain Scale: 0-10 Numeric Is Patient Pain Free? Yes - Nurse 1 - General Ulcer Measurement Start: 07/07/24 14:11 Freq: Status: Active Protocol: Activity Type Activity Date Activity User E-sign Co-sign Detail Recorded Client Recorded Date Recorded By Document 07/07/24 14:14 DL [id number] 07/07/24 14:20 07/07/24 14:14 Wound Center Nurse 1 #1 left thumb -Current Size (cm) - Length 0.3 -Current Size (cm) - Width 0.2 -Current Size (cm) - Depth 0.2 -Total Square Cm 0.06 -Photo Taken Yes -Exudate Amt None Present -Wound Margin Distinct, Outline Attached -Granulation Amt Small (1-33%) -Granulation Quality Pale -Necrosis Amt None Present (0 %) -Structure Exposed N/A -Texture (Leatha-wound Skin Appearance) Scarring -Moisture (Leatha-wound Skin Appearance) No Abnormality -Color (Leatha-wound Skin Appearance) No Abnormality -Temperature (Leatha-wound Skin No Abnormality Appearance) (Pt Warm) -Tenderness on Palpation (Leatha-wound No Skin Appearance) -Ulcer Cleansing Rinsed/ Irrigated with Saline -Foul Odor after Cleansing No -Anesthetic Used 5% Lidocaine Gel WC - Nurse 2 - General Ulcer CM Notes Start: 07/07/24 14:11 Freq: Status: Active Protocol: Activity Type Activity Date Activity User E-sign Co-sign Detail Recorded Client Recorded Date Recorded By Document 07/07/24 15:04 WEI [id number] 07/07/24 15:04 WEI Edit Result 07/07/24 15:04 JF (1) [id number] 07/07/24 15:13 WEI (1) #1 left thumb - Post Debridement (cm) - Length => 0.4 - Post Debridement (cm) - Width => 0.4 - Post Debridement (cm) - Depth => 0.1 - Total Square (Post) (cm) => 0.16 - Area of Debridement (cm) - Length => 0.4 - Area of Debridement (cm) - Width => 0.4 - Total Square (Area) (cm) => 0.16 07/07/24 15:04 Wound Center Nurse 2 -Time 15:04 -Correct Patient Yes -Correct Side, Site, Position Yes -Correct Procedure Yes -Procedure Performed Yes -Type of Procedure Debridement -Clinical Debridement Subcutaneous -Tissue Removed Subcutaneous -Post Debridement (cm) - Length 0.4 -Post Debridement (cm) - Width 0.4 -Post Debridement (cm) - Depth 0.1 -Total Square (Post) (cm) 0.16 -Area of Debridement (cm) - Length 0.4 -Area of Debridement (cm) - Width 0.4 -Total Square (Area) (cm) 0.16 -Tunneling No -Undermining/Tunneling No -Circular Undermining No -Wound/Ulcer Outcome Not Healed -Ulcer Cleansing Rinsed/ Irrigated with Saline -Foul Odor after Cleansing No -Bioengineered Tissue No -Bleeding Controlled with Pressure -Treatment Response Procedure Tolerated Well -Offloading No -Debridement - Subq, 1st 20sq cm Yes Pain Scale: 0-10 Numeric Is Patient Pain Free? Yes ORLIN - Nurse 3 - General Ulcer D/C NN Start: 07/07/24 14:11 Freq: Status: Active Protocol: Activity Type Activity Date Activity User E-sign Co-sign Detail Recorded Client Recorded Date Recorded By Document 07/07/24 15:22 DL [id number] 07/07/24 15:22 DL 07/07/24 15:22 Wound Care Center Nurse 3 #1 left thumb -Ulcer Cleansing Rinsed/ Irrigated with Saline -Foul Odor after Cleansing No -Other Dressing hydrogel/ bandaid Treatment Response Procedure Tolerated Well Pain Scale: 0-10 Numeric Is Patient Pain Free? Yes WC - Visit Discharge Discharge Condition Stable Ambulatory Status Ambulatory Transportation Private Auto Facility Type Home Health Orders Sent Yes Assessment/Plan Assessment/Plan (1) Open wound of thumb: CODE(S): S61.009A - Unspecified open wound of unspecified thumb without damage to nail, initial encounter PLAN: Continue Hydrogel twice daily F/u in 2 weeks for progress check (2) Open fracture of proximal phalanx of left thumb: CODE(S): S62.512B - Displaced fracture of proximal phalanx of left thumb, initial encounter for open fracture PLAN: Reviewed Xray Same alignment on xray again today. He is not tender to palpation and thumb feels stable. I believesome callus is forming, but radiographic evidence lagging. We will repeat Xray of the left thumb in4 weeks. Continue ROM therapy with hand therapist, but still no heavy lifting (discussed). (3) Open fracture of second metacarpal bone of left hand: CODE(S): S62.301B - Unspecified fracture of second metacarpal bone, left hand, initial encounter for open fracture PLAN: Healed metacarpal fracture. Wound/degloving injury over the metacarpal has healed. 07/22/242101 Cosigner Signature (if applicable): CC: ~ Signed [facility]03-18-2025 Radiology Diagnostic study note [facility] Imaging Services [address] [place] [address] Finger(s) Min 2 Views MR#: [id number] Acct: [id number] Name: REGGIE SURESH Rep #: [id number] : 1960 M 64 From: And danny Evans DO PCP: Dr. Brody Saleh MD Status: REG R CR Study:Finger(s) Min 2 Views Date of Exam: 07/21/24 Exam# [id number] Ordering Dr: Emerald Dela Cruz MD PROCEDURE: Left thumb radiographs, three views 07/21/2024 REASON FOR EXAM: THUMB ULCER TECHNIQUE: Three views of the left thumb were obtained. COMPARISON: None FINDINGS: Three views of the left thumb were obtained. Bones are osteopenic. Moderate degenerative change of the radiocarpal and 1st carpal/metacarpal joints. 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 There is relatively unchanged comminuted mildly displaced fracture deformity involving the mid to distal aspect of the proximal phalanx left thumb. Moderate degenerative changes of the interphalangeal joint. RAD/Finger(s) Min 2 Views IMPRESSION: Osteopenia. Similar mildly displaced comminuted fracture deformity of the proximal phalanx of the left thumb. Reading Location: [facility] CC: Dr. Reno Dela Cruz MD; Dr. Brody Saleh MD ~ Processing Technologist: Signed [facility]03-03-2025 Radiology Diagnostic study note [facility] Imaging Services [address] [place], [place] [address] Hand Min 3 Views MR#: [id number] Acct: [id number] Name: REGGIE SURESH Rep #: [id number] : 1960 M 64 From: Janki Oglesby DO PCP: Dr. Brody Saleh MD Status: REG C TEAGAN Study:Hand Min 3 Views Date of Exam: 07/29 Exam# [id number] Ordering Dr: Renata Lao NP [employer]-C PROCEDURE: HAND MIN 3 VIEWS REASON FOR EXAM: Follow-up trauma TECHNIQUE: 3 views of the left hand COMPARISON: Radiograph of the left hand dated 06/10/2024 FINDINGS: Redemonstration of a comminuted fracture involving the 1st proximal phalanx, no significant callus formation is demonstrated. 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 Normal alignment. Soft tissues are unremarkable. RAD/Hand Min 3 Views IMPRESSION: Stable appearing comminuted fracture of the 1st proximal phalanx. [facility] CC: KESHA Lao; Dr. Brody Saleh MD ~ Processing Technologist: Signed [facility]03-03-2025 Progress note Author Reno Dela Cruz [facility] Note Date/Time July 07, 2024 5:16 pm [facility] [address] [place] [address] Progress Note - Wound Care 07/07/24 1811 MR#: [id number] Acct: [id number] Name: REGGIE SURESH Rep #:[id number] : 1960 64 From: Reno Dela Cruz MD PCP: Dr. Brody Saleh MD Status:REG R CR Location: History of Present Illness Date of Service: 07/07/24 Subjective Subjective Doing well overall with wound care (Hydrogel). No fevers or chills. No pain inthe thumb. Has been going to therapy. Feels like wound is smaller. No pain in the thumb. He is still smoking ~5 cigarettes per day. Discussed cessation (discussed Chantyx, declined at this time). Objective Data Objective Data Vital Signs: Vital Signs Temp Pulse Resp BP 96.8 F L 72 18 123/71 H 07/07/24 14:14 07/07/24 14:14 07/07/24 14:14 07/07/24 14:14 Weight: 137 lb Body Mass Index (BMI) 20.8 Charges/Coding Procedures Integumentary 111xxx-113xx: 05685 Global Visit Physical Exam Narrative Left upper extremity: Thumb examined and there is a persistent radial-sided wound, granulation tissue at the base. No pain with palpation of the thumb proximal phalanx. Thumb feels stable. No TTP over the index metacarpal. Skin has healed in this location as well. Motor: Able to oppose thumb to long, ring, and small fingers. Good thumb ROM except for IP joint (no flexion at this time). Sensation: Intact to light touch on radial and ulnar borders of all fingers. Debridement Note Debridement Note Wound debrided: Left thumb wound Laterality: Left Wound Grade/Stage: 3 Type of Debridement: Excisional debridement Anesthesia Used: 4% Lidocaine Solution Depth: in the subcutaneous layer Percentage of wound debrided: 100 Instrument Used: 3mm curette Severity: Fat Layer Exposed Amount of bleeding with debridement: Moderate Bleeding Controlled with: Compression and gauze Patient tolerated procedure: Patient tolerated procedure well Post-Debridement Measurements and Additional Note: Post-Debridement Measurements/Treatment - Nurse 1 - General Ulcer Assessment Start: 07/07/24 14:11 Freq: Status: Active Protocol: BHARAT Activity Type Activity Date Activity User E-sign Co-sign Detail Recorded Client Recorded Date Recorded By Document 07/07/24 14:14 DL [id number] 07/07/24 14:20 DL 07/07/24 14:14 - Today's Visit Information Type of service Follow-up Visit (Physician/WEED CUTTER ) Arrival Mode Ambulatory Transfer Assistance None Patient Identification Verified (Name & Yes ) Patient Requires Transmission-Based No Precautions Height and Weight Body Mass Index (BMI) 20.8 BMI Classification Normal Vital Signs Temperature (97.8 F-99.1 F) 96.8 F L Temperature Source Temporal Pulse Rate (60-100) 72 Pulse Location Monitor Respiratory Rate (12-18) 18 Respiratory rate source Observation Blood Pressure (90/60-120/80) 123/71 H Blood Pressure Mean (mm Hg) 88 Source Monitor History Since Last Visit- (Skip if this is Patient's initial visit) Have you changed medications since your No last visit? Any new allergies or adverse reactions No Had a fall/change in ADL's that may No increase risk of falls Signs or symptoms of abuse and/or No neglect since last visit Have you been in the hospital since your No last visit? Has dressing in place as prescribed Yes Has compression in place as prescribed N/A Has offloadiing in place as prescribed Yes Experienced any changes in pain level or No management Pain Scale: 0-10 Numeric Is Patient Pain Free? Yes - Nurse 1 - General Ulcer Measurement Start: 07/07/24 14:11 Freq: Status: Active Protocol: Activity Type Activity Date Activity User E-sign Co-sign Detail Recorded Client Recorded Date Recorded By Document 07/07/24 14:14 DL [id number] 07/07/24 14:20 DL 07/07/24 14:14 Wound Center Nurse 1 #1 left thumb -Current Size (cm) - Length 0.3 -Current Size (cm) - Width 0.2 -Current Size (cm) - Depth 0.2 -Total Square Cm 0.06 -Photo Taken Yes -Exudate Amt None Present -Wound Margin Distinct, Outline Attached -Granulation Amt Small (1-33%) -Granulation Quality Pale -Necrosis Amt None Present (0 %) -Structure Exposed N/A -Texture (Leatha-wound Skin Appearance) Scarring -Moisture (Leatha-wound Skin Appearance) No Abnormality -Color (Leatha-wound Skin Appearance) No Abnormality -Temperature (Leatha-wound Skin No Abnormality Appearance) (Pt Warm) -Tenderness on Palpation (Leatha-wound No Skin Appearance) -Ulcer Cleansing Rinsed/ Irrigated with Saline -Foul Odor after Cleansing No -Anesthetic Used 5% Lidocaine Gel WC - Nurse 2 - General Ulcer CM Notes Start: 07/07/24 14:11 Freq: Status: Active Protocol: Activity Type Activity Date Activity User E-sign Co-sign Detail Recorded Client Recorded Date Recorded By Document 07/07/24 15:04 WEI [id number] 07/07/24 15:04 WEI Edit Result 07/07/24 15:04 JF (1) [id number] 07/07/24 15:13 JF (1) #1 left thumb - Post Debridement (cm) - Length => 0.4 - Post Debridement (cm) - Width => 0.4 - Post Debridement (cm) - Depth => 0.1 - Total Square (Post) (cm) => 0.16 - Area of Debridement (cm) - Length => 0.4 - Area of Debridement (cm) - Width => 0.4 - Total Square (Area) (cm) => 0.16 07/07/24 15:04 Wound Center Nurse 2 -Time 15:04 -Correct Patient Yes -Correct Side, Site, Position Yes -Correct Procedure Yes -Procedure Performed Yes -Type of Procedure Debridement -Clinical Debridement Subcutaneous -Tissue Removed Subcutaneous -Post Debridement (cm) - Length 0.4 -Post Debridement (cm) - Width 0.4 -Post Debridement (cm) - Depth 0.1 -Total Square (Post) (cm) 0.16 -Area of Debridement (cm) - Length 0.4 -Area of Debridement (cm) - Width 0.4 -Total Square (Area) (cm) 0.16 -Tunneling No -Undermining/Tunneling No -Circular Undermining No -Wound/Ulcer Outcome Not Healed -Ulcer Cleansing Rinsed/ Irrigated with Saline -Foul Odor after Cleansing No -Bioengineered Tissue No -Bleeding Controlled with Pressure -Treatment Response Procedure Tolerated Well -Offloading No -Debridement - Subq, 1st 20sq cm Yes Pain Scale: 0-10 Numeric Is Patient Pain Free? Yes - Nurse 3 - General Ulcer D/C NN Start: 07/07/24 14:11 Freq: Status: Active Protocol: Activity Type Activity Date Activity User E-sign Co-sign Detail Recorded Client Recorded Date Recorded By Document 07/07/24 15:22 DL [id number] 07/07/24 15:22 DL 07/07/24 15:22 Wound Care Center Nurse 3 #1 left thumb -Ulcer Cleansing Rinsed/ Irrigated with Saline -Foul Odor after Cleansing No -Other Dressing hydrogel/ bandaid Treatment Response Procedure Tolerated Well Pain Scale: 0-10 Numeric Is Patient Pain Free? Yes WC - Visit Discharge Discharge Condition Stable Ambulatory Status Ambulatory Transportation Private Auto Facility Type Home Health Orders Sent Yes Assessment/Plan Assessment/Plan (1) Open wound of thumb: CODE(S): S61.009A - Unspecified open wound of unspecified thumb without damage to nail, initial encounter PLAN: Continue Hydrogel twice daily F/u in 2 weeks for wound check (2) Open fracture of proximal phalanx of left thumb: CODE(S): S62.512B - Displaced fracture of proximal phalanx of left thumb, initial encounter for open fracture PLAN: Reviewed Xray Acceptable alignment on xray. He is not tender to palpation and thumb feels stable. I believe some callus is forming, but radiographic evidence lagging. Art repeat Xray of the left thumb in 2 weeks. Continue ROM therapy with hand therapist, but still no lifting (discussed). (3) Open fracture of second metacarpal bone of left hand: CODE(S): S62.301B - Unspecified fracture of second metacarpal bone, left hand, initial encounter for open fracture PLAN: Healed metacarpal fracture. Wound/degloving injury over the metacarpal has healed. 07/07/241815 <Electronically signed by Reno Dela Cruz MD> Cosigner Signature (if applicable): CC: ~ Signed [facility] Work Phone: 1(515) 273-229403-03-2025 Progress note [facility] [address] [place] [address] Progress Note - Wound Care 07/07/24 1811 MR#: [id number] Acct: [id number] Name: REGGIE SURESH Rep #:[id number] : 1960 64 From: Reno Dela Cruz MD PCP: Dr. Brody Saleh MD Status:REG R CR Location: History of Present Illness Date of Service: 07/07/24 Subjective Subjective Doing well overall with wound care (Hydrogel). No fevers or chills. No pain inthe thumb. Has been going to therapy. Feels like wound is smaller. No pain in the thumb. He is still smoking ~5 cigarettes per day. Discussed cessation (discussed Chantyx, declined at thistime). Objective Data Objective Data Vital Signs: Vital Signs Temp Pulse Resp BP 96.8 F L 72 18 123/71 H 07/07/24 14:14 07/07/24 14:14 07/07/24 14:14 07/07/24 14:14 Weight: 137 lb Body Mass Index (BMI) 20.8 Charges/Coding Procedures Integumentary 111xxx-113xx: 91510 Global Visit Physical Exam Narrative Left upper extremity: Thumb examined and there is a persistent radial-sided wound, granulation tissue at the base. No pain with palpation of the thumb proximal phalanx. Thumb feels stable. No TTP over the index metacarpal. Skin has healed in this location as well. Motor: Able to oppose thumb to long, ring, and small fingers. Good thumb ROM except for IP joint (no flexion at this time). Sensation: Intact to light touch on radial and ulnar borders of all fingers. Debridement Note Debridement Note Wound debrided: Left thumb wound Laterality: Left Wound Grade/Stage: 3 Type of Debridement: Excisional debridement Anesthesia Used: 4% Lidocaine Solution Depth: in the subcutaneous layer Percentage of wound debrided: 100 Instrument Used: 3mm curette Severity: Fat Layer Exposed Amount of bleeding with debridement: Moderate Bleeding Controlled with: Compression and gauze Patient tolerated procedure: Patient tolerated procedure well Post-Debridement Measurements and Additional Note: Post-Debridement Measurements/Treatment WC - Nurse 1 - General Ulcer Assessment Start: 07/07/24 14:11 Freq: Status: Active Protocol: WC.LOWEXT Activity Type Activity Date Activity User E-sign Co-sign Detail Recorded Client Recorded Date Recorded By Document 07/07/24 14:14 GREGG [id number] 07/07/24 14:20 DL 07/07/24 14:14 - Today's Visit Information Type of service Follow-up Visit (Physician/WEED CUTTER ) Arrival Mode Ambulatory Transfer Assistance None Patient Identification Verified (Name & Yes ) Patient Requires Transmission-Based No Precautions Height and Weight Body Mass Index (BMI) 20.8 BMI Classification Normal Vital Signs Temperature (97.8 F-99.1 F) 96.8 F L Temperature Source Temporal Pulse Rate (60-100) 72 Pulse Location Monitor Respiratory Rate (12-18) 18 Respiratory rate source Observation Blood Pressure (90/60-120/80) 123/71 H Blood Pressure Mean (mm Hg) 88 Source Monitor History Since Last Visit- (Skip if this is Patient's initial visit) Have you changed medications since your No last visit? Any new allergies or adverse reactions No Had a fall/change in ADL's that may No increase risk of falls Signs or symptoms of abuse and/or No neglect since last visit Have you been in the hospital since your No last visit? Has dressing in place as prescribed Yes Has compression in place as prescribed N/A Has offloadiing in place as prescribed Yes Experienced any changes in pain level or No management Pain Scale: 0-10 Numeric Is Patient Pain Free? Yes - Nurse 1 - General Ulcer Measurement Start: 07/07/24 14:11 Freq: Status: Active Protocol: Activity Type Activity Date Activity User E-sign Co-sign Detail Recorded Client Recorded Date Recorded By Document 07/07/24 14:14 GREGG [id number] 07/07/24 14:20 DL 07/07/24 14:14 Wound Center Nurse 1 #1 left thumb -Current Size (cm) - Length 0.3 -Current Size (cm) - Width 0.2 -Current Size (cm) - Depth 0.2 -Total Square Cm 0.06 -Photo Taken Yes -Exudate Amt None Present -Wound Margin Distinct, Outline Attached -Granulation Amt Small (1-33%) -Granulation Quality Pale -Necrosis Amt None Present (0 %) -Structure Exposed N/A -Texture (Leatha-wound Skin Appearance) Scarring -Moisture (Leatha-wound Skin Appearance) No Abnormality -Color (Leatha-wound Skin Appearance) No Abnormality -Temperature (Leatha-wound Skin No Abnormality Appearance) (Pt Warm) -Tenderness on Palpation (Leatha-wound No Skin Appearance) -Ulcer Cleansing Rinsed/ Irrigated with Saline -Foul Odor after Cleansing No -Anesthetic Used 5% Lidocaine Gel ORLIN - Nurse 2 - General Ulcer CM Notes Start: 07/07/24 14:11 Freq: Status: Active Protocol: Activity Type Activity Date Activity User E-sign Co-sign Detail Recorded Client Recorded Date Recorded By Document 07/07/24 15:04 WEI [id number] 07/07/24 15:04 WEI Edit Result 07/07/24 15:04 WEI (1) [id number] 07/07/24 15:13 WEI (1) #1 left thumb - Post Debridement (cm) - Length => 0.4 - Post Debridement (cm) - Width => 0.4 - Post Debridement (cm) - Depth => 0.1 - Total Square (Post) (cm) => 0.16 - Area of Debridement (cm) - Length => 0.4 - Area of Debridement (cm) - Width => 0.4 - Total Square (Area) (cm) => 0.16 07/07/24 15:04 Wound Center Nurse 2 -Time 15:04 -Correct Patient Yes -Correct Side, Site, Position Yes -Correct Procedure Yes -Procedure Performed Yes -Type of Procedure Debridement -Clinical Debridement Subcutaneous -Tissue Removed Subcutaneous -Post Debridement (cm) - Length 0.4 -Post Debridement (cm) - Width 0.4 -Post Debridement (cm) - Depth 0.1 -Total Square (Post) (cm) 0.16 -Area of Debridement (cm) - Length 0.4 -Area of Debridement (cm) - Width 0.4 -Total Square (Area) (cm) 0.16 -Tunneling No -Undermining/Tunneling No -Circular Undermining No -Wound/Ulcer Outcome Not Healed -Ulcer Cleansing Rinsed/ Irrigated with Saline -Foul Odor after Cleansing No -Bioengineered Tissue No -Bleeding Controlled with Pressure -Treatment Response Procedure Tolerated Well -Offloading No -Debridement - Subq, 1st 20sq cm Yes Pain Scale: 0-10 Numeric Is Patient Pain Free? Yes ORLIN - Nurse 3 - General Ulcer D/C NN Start: 07/07/24 14:11 Freq: Status: Active Protocol: Activity Type Activity Date Activity User E-sign Co-sign Detail Recorded Client Recorded Date Recorded By Document 07/07/24 15:22 DL [id number] 07/07/24 15:22 DL 07/07/24 15:22 Wound Care Center Nurse 3 #1 left thumb -Ulcer Cleansing Rinsed/ Irrigated with Saline -Foul Odor after Cleansing No -Other Dressing hydrogel/ bandaid Treatment Response Procedure Tolerated Well Pain Scale: 0-10 Numeric Is Patient Pain Free? Yes WC - Visit Discharge Discharge Condition Stable Ambulatory Status Ambulatory Transportation Private Auto Facility Type Home Health Orders Sent Yes Assessment/Plan Assessment/Plan (1) Open wound of thumb: CODE(S): S61.009A - Unspecified open wound of unspecified thumb without damage to nail, initial encounter PLAN: Continue Hydrogel twice daily F/u in 2 weeks for wound check (2) Open fracture of proximal phalanx of left thumb: CODE(S): S62.512B - Displaced fracture of proximal phalanx of left thumb, initial encounter for open fracture PLAN: Reviewed Xray Acceptable alignment on xray. He is not tender to palpation and thumb feels stable. I believe some callus is forming, but radiographic evidence lagging. [place] repeat Xray of the left thumb in 2 weeks. Continue ROM therapy with hand therapist, but still no lifting (discussed). (3) Open fracture of second metacarpal bone of left hand: CODE(S): S62.301B - Unspecified fracture of second metacarpal bone, left hand, initial encounter for open fracture PLAN: Healed metacarpal fracture. Wound/degloving injury over the metacarpal has healed. 07/07/241815 Cosigner Signature (if applicable): CC: ~ Signed [facility]02-24-2025 Evaluation note* Diagnosis Onset Date Resolution Status Admit Date Open wound of thumb acute Febru avelino 2024 3:45pm Open fracture of proximal phalanx of left thumb acute July 1:00pm Open fracture of second metacarpal bone of left hand acute Mar 2024 1:00pm Open wound of thumb acute August 04, 2024 1:00pm Amputation of left index finger acute August 21, 2024 2:35pm Open fracture of phalanx of left index finger acute August 21 2:35pm Open wound of thumb acute August 21, 2024 2:35pm Trigger finger of left hand acute August 21, 2024 2:35pm Amputation of left index finger acute September 16, 2024 2 :00pm Open fracture of phalanx of left index finger acute September 16, 2024 2:00pm Open wound of thumb acute September 042024 2:00pm Trigger finger of left hand acute September 16, 2024 2:00pm [facility] Work Phone: 1(275) 109-389402-24-2025 Evaluation note* Diagnosis Onset Date Resolution Status Admit Date Open wound of thumb acute Febru avelino 2024 3:45pm Open fracture of proximal phalanx of left thumb acute July 1:00pm Open fracture of second metacarpal bone of left hand acute Jul 1:00pm Open wound of thumb acute August 04, 2024 1:00pm Amputation of left index finger acut e August 21, 2024 2:35pm Open fracture of phalanx of left index finger acute August 21 2:35pm Open wound of thumb acute August 21, 2024 2:35pm Trigger finger of left hand acute August 21, 2024 2:35pm Amputation of left index finger acut e September 16, 2024 2:00pm Open fracture of phalanx of left index finger acute September 16, 2024 2:00pm Open wound of thumb acute September 042024 2:00pm Trigger finger of left hand acute September 16, 2024 2:00pm Abscess of thumb, left acute Ju ne 2024 2:33pm 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 acute October 17, 2024 2:33pm [facility] Work Phone: 1(316) 650-457301-14-2025 Evaluation note* Diagnosis Onset Date Resolution Status Admit Date Open fracture of proximal phalanx of left thumb acute May 202024 10:13am Open fracture of second metacarpal bone of left hand acute Lorenzo uary 2024 10:13am Open fracture of proximal phalanx of left thumb acute May 272024 10:41am Open fracture of second metacarpal bone of left hand acute May 10:41am Open fracture of phalanx of left index finger acute May 28, 2024 8:23am Open fracture of proximal phalanx of left thumb acute May 282024 8:23am Open fracture of proximal phalanx of left thumb acute May 302024 10:12am Open fracture of second metacarpal bone of left hand acute May 10:12am Open fracture of proximal phalanx of left thumb acute June 032024 10:09am Open fracture of second metacarpal bone of left hand acute May [facility] 2024 10:09am Open fracture of proximal phalanx of left thumb acute June 052024 9:28am Amputation of left index finger acute June 10 8:58am Open fracture of phalanx of left index finger acute June 10, 2024 8:58am Open wound of thumb acute 2024 8:58am Amputation of left index finger acute June 16 4:13pm Open fracture of phalanx of left index finger acute June 16, 2024 4:13pm Open wound of thumb acute 2024 4:13pm Open wound of thumb acute 2024 3:45pm Open fracture of proximal phalanx of left thumb acute July 1:00pm Open fracture of second metacarpal bone of left hand acute Jul 1:00pm Open wound of thumb acute August 04, 2024 1:00pm Amputation of left index finger acute August 21, 2024 2:35pm Open fracture of phalanx of left index finger acute August 21 2:35pm Open wound of thumb acute August 21, 2024 2:35pm Trigger finger of left hand acute August 21, 2024 2:35pm [facility] Work Phone: 1(522) 628-374712-12-2024 [facility] Medical Records Department [address] [place] [address] Discharge Summary 04/17/24 1001 MR#: [id number] Acct: [id number] Name: REGGIE SURESH Rep #: [id number] : 1960 64 From: Reno Dela Cruz MD PCP: Dr. Brody Saleh MD Status:ADM IN Location: [address] Providers Date of Admission: 04/15/24 Primary Care Physician: Dr. Brody Saleh MD Reason For Visit: FINGER AMPUTATION Diagnosis Discharge Diagnosis (1) Open fracture of proximal phalanx of left thumb: Status: Acute Code(s): S62.512B - Displaced fracture of proximal phalanx of left thumb, initial encounter for open fracture (2) Open fracture of second metacarpal bone of left hand: Status: Acute Code(s): S62.301B - Unspecified fracture of second metacarpal bone, left hand, initial encounter for open fracture (3) Open fracture of phalanx of left index finger: Status: Acute Code(s): S62.601B - Fracture of unspecified phalanx of left index finger, initial encounter for open fracture Plan Drain removed. No signs of tissue loss or fluid collections. Splint reapplied. Continue inpatient for pain control. Likely DC tomorrow morning with f/u in 1 week at [facility]. Continue Ancef for pxx Lovenox and SCDs for DVT pxx. IS Medications at Discharge Home Medications NK 04/15/24 cephalexin 500 mg capsule 500 mg PO Q8H 7 days #21 caps 04/17/24 oxycodone 5 mg tablet 5 mg PO Q8H PRN pain 5 days #14 tabs 04/17/24 Hospital Course Operations - (Amputation index finger and thumb fracture operative fixation ) Summary of Care Provided Hospital Course: Pre-Operative Diagnosis: Crush and degloving injury to left hand with open fractures of the left dorsal hand, thumb, and index finger Post-Operative Diagnosis: Same Surgery/Procedure Performed: 1) Revision amputation of the left index finger at the MCP joint (CPT 30660) 2) Open fracture wash out with open reduction percutaneous pinning left thumb proximal phalanx fracture (CPT 24321) 3) Simple closure of left dorsal hand wound/thumb wound 13 cm (CPT 79106) 4) Closed management of left index finger metacarpal head fracture (splinting/immobilization) (CPT 27789) Indications: Reggie Suresh is a 64-year-old male with no significant past medical history who 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 The severe crush/avulsion injury to the left hand is an indication for emergent operative treatment of the injury. He presents today for washout of open fractures and revision amputation of the index finger as it is not perfused distally to the zone of injury. I talked the patient about revision amputation at the base of P1 or at the MCP joint and he was in agreement. Plan for operative fixation of the thumb fracture. HOSPITAL COURSE Reggie Suresh was admitted on 15 Apr 2024 after above noted procedure. He was admitted for pain control. His dressing/splint was changed 24 hours post-op to assess the soft tissues. They were viable. The thumb spica/radial gutter splint was replaced and he was discharged home with 1 week f/u. Patient happy with the plan. Physical Exam Narrative Soft tissue warm and viable. No fluid collections. Thumb in good position/normal cascade Splint replaced Const alert and oriented x3 Weight / BMI Weight Weight: 134 lb 4.8 oz Body Mass Index (BMI) 21.0 ABG / Lab / Microbiology Data 04/15/24 09:46 04/15/24 09:46 Radiography Diagnostic Testing: Radiology Impression Finger X-Ray 04/15/24 13:50 IMPRESSION: Intraoperative imaging provided for open reduction and internal fixation of the fracture of the proximal phalanx of the thumb as well as the middle phalanx of the index finger. Electronically Signed: Neto Quevedo MD at 15:55 EST , D/C Instructions DC O2, CPAP, BIPAP Needs Additional Home O2 Discharge instructions: No DC home with Oxygen: No Meaningful Use Info Meaningful Use Meaningful Use Diagnoses (Choose all that apply): None applicable Ischemic Stroke Statin Dosing Therapy Reference: STATIN DOSE THERAPY REFERENCE: * Patients > 75 years receive moderate or high dose statin therapy. * Patients 75 years or YOUNGER should receive HIGH intensity statin dose unless contraindicated. You will be required to document reason for non-treatment if statin daily dose does not meet guidelines. HIGH DOSE STATIN THERAPY DAILY Atorvastatin > than or = to 40 mg Rosuvastatin > than or = to 20 mg Amlodipine + Atorvastatin > than or = to 2.5/40 mg Ezetimibe + Simvastatin 10/80 mg Simvastatin 80mg D (more content not included)...[facility]12-10-2024 Evaluation note* Diagnosis Onset Date Resolution Status Admit Date Open fracture of phalanx of left index finger acute April 15, 2024 5:06pm Open fracture of proximal phalanx of left thumb acute April 062023 5:06pm Open fracture of second metacarpal bone of left hand acute Dec emb2023 5:06pm Amputation of left index finger acute April 22, 2 024 9:39am Open fracture of proximal phalanx of left thumb acute April 062023 9:39am Open fracture of second metacarpal bone of left hand acute Dec ember 2023 9:39am Amputation of left index finger acute April 29, 2 024 10:34am Open fracture of proximal phalanx of left thumb acute April 072023 10:34am Open fracture of phalanx of left index finger acute May 06, 2024 10:31am Open fracture of proximal phalanx of left thumb acute April 082023 10:31am Open fracture of second metacarpal bone of left hand acute Dec 2023 10:31am Open fracture of phalanx of left index finger acute May 09, 2 025 8:58am Open fracture of proximal phalanx of left thumb acute May 8:58am Open fracture of second metacarpal bone of left hand acute May 8:58am Amputation of left index finger acute May 13 9:56am Open fracture of proximal phalanx of left thumb acute May 9:56am Open fracture of second metacarpal bone of left hand acute May [facility] 2024 9:56am Open fracture of proximal phalanx of left thumb acute May 202024 10:13am Open fracture of second metacarpal bone of left hand acute May [facility] 2024 10:13am Open fracture of proximal phalanx of left thumb acute May 272024 10:41am Open fracture of second metacarpal bone of left hand acute Lorenzo [facility] 2024 10:41am Open fracture of phalanx of left index finger acute May 28, 2024 8:23am Open fracture of proximal phalanx of left thumb acute May 282024 8:23am Open fracture of proximal phalanx of left thumb acute May 302024 10:12am Open fracture of second metacarpal bone of left hand acute Lorenzo [facility] 2024 10:12am Open fracture of proximal phalanx of left thumb acute June 032024 10:09am Open fracture of second metacarpal bone of left hand acute Lorenzo [facility] 2024 10:09am Open fracture of proximal phalanx of left thumb acute June 052024 9:28am Amputation of left index finger acute June 10 8:58am Open fracture of phalanx of left index finger acute June 10, 2024 8:58am Open wound of thumb acute 2024 8:58am Amputation of left index finger acute June 16, 025 4:13pm Open fracture of phalanx of left index finger acute June 16, 2024 4:13pm Open wound of thumb acute 2024 4:13pm Open wound of thumb acute 2024 3:45pm Open fracture of proximal phalanx of left thumb acute July 07, 2024 2:09pm Open fracture of second metacarpal bone of left hand acute Jul 2:09pm Open wound of thumb acute July 07, 2024 2:09pm [facility] Work Phone: 1(886) 661-915012-10-2024 Evaluation note* Diagnosis Onset Date Resolution Status Admit Date Open fracture of phalanx of left index finger acute April 15, 2024 5:06pm Open fracture of proximal phalanx of left thumb acute April 062023 5:06pm Open fracture of second metacarpal bone of left hand acute Apr 5:06pm Amputation of left index finger acute April 22, 2 024 9:39am Open fracture of proximal phalanx of left thumb acute April 062023 9:39am Open fracture of second metacarpal bone of left hand acute Apr 9:39am Amputation of left index finger acute April 29, 2 024 10:34am Open fracture of proximal phalanx of left thumb acute April 072023 10:34am Open fracture of phalanx of left index finger acute May 06, 2024 10:31am Open fracture of proximal phalanx of left thumb acute April 082023 10:31am Open fracture of second metacarpal bone of left hand acute Dec emb2023 10:31am Open fracture of phalanx of left index finger acute May 09, 2 025 8:58am Open fracture of proximal phalanx of left thumb acute May 8:58am Open fracture of second metacarpal bone of left hand acute [facility] 2024 8:58am Amputation of left index finger acute May 13 9:56am Open fracture of proximal phalanx of left thumb acute May 9:56am Open fracture of second metacarpal bone of left hand acute [facility] 2024 9:56am Open fracture of proximal phalanx of left thumb acute May 202024 10:13am Open fracture of second metacarpal bone of left hand acute [facility] 2024 10:13am Open fracture of proximal phalanx of left thumb acute May 272024 10:41am Open fracture of second metacarpal bone of left hand acute [facility] 2024 10:41am Open fracture of phalanx of left index finger acute May 28, 2024 8:23am Open fracture of proximal phalanx of left thumb acute May 282024 8:23am Open fracture of proximal phalanx of left thumb acute May 302024 10:12am Open fracture of second metacarpal bone of left hand acute [facility] 2024 10:12am Open fracture of proximal phalanx of left thumb acute June 032024 10:09am Open fracture of second metacarpal bone of left hand acute [facility] 2024 10:09am Open fracture of proximal phalanx of left thumb acute June 052024 9:28am Amputation of left index finger acute June 10 8:58am Open fracture of phalanx of left index finger acute June 10, 2024 8:58am Open wound of thumb acute u 2024 8:58am Amputation of left index finger acute June 16, 4:13pm Open fracture of phalanx of left index finger acute June 16, 2024 4:13pm Open wound of thumb acute Febru 2024 4:13pm Open wound of thumb acute Febru 2024 3:45pm Open fracture of proximal phalanx of left thumb acute July 1:00pm Open fracture of second metacarpal bone of left hand acute Mar 2024 1:00pm Open wound of thumb acute August 04, 2024 1:00pm [facility] Work Phone: 1(796) 983-718804-01-2024 NoteHNO ID: [id number] Author: JACQUES BUTLER APRN.WEED CUTTER Service: ? Author Type: Nurse Practitioner Type: Progress Notes Filed: 08/06/2023 10:08 Note Text: LUNG SCREENING VISIT PRIMARY CARE PHYSICIAN: No primary care provider on file. PULMONARY PROVIDER: none Results will be communicated via letter or electronic record if applicable. Visit Delivery: In Person Patient Visit Type: New to Screening Current or Ex-smoker? [Current Exam Type: baseline LDCT Number of Pack Years: 33 Current smoker (=0) REQUESTER: The referring provider advised the patient to have screening. HISTORY OF PRESENT ILLNESS: Reggie Suresh is a 63 year old Active smoker who presents for lung screening. The patient reports he was expecting to get an x ray. He does not want a CT scan, he states he has had enough of them. He has history of testicular cancer twice and had multiple CT scans done. We discussed the nature of lung nodules and rationale for screening high risk patients. He viewed a video [email or web address]. He does not want to participate in CT Lung screening. We reviewed records from [place] and the CT Reports he had from 2014 state no lung nodules were seen. Respiratory symptoms include: SOB: No Chest tightness: No Coughing: No Hemoptysis: No Wheezing: No Fever/Chills: No Recent Respiratory Infection: No Unintentional weight loss: No Last 6 Encounter Wt Readings: Date: Wt: 08/06/2023 66.5 kg (146 lb 9.6 oz) Patient exercises regularly 1 hour total gym work out once a week. Bicycle riding and walking, etc. Tolerates activity well. He has some back pain issue since moving, but is doing exercises per chiropractor. Feeling back to his normal. ECOG PERFORMANCE STATUS: 0- Fully active, able to carry on all pre-disease performance w/o restriction. Modified Medical Research [place] Dyspnea Scale (MMRC) I only get breathless with strenous exercise 0 PAST MEDICAL HISTORY Diagnosis Date H/O testicular cancer Tobacco abuse PAST SURGICAL HISTORY Procedure Laterality Date PAST SURGICAL HISTORY OF Bilateral testicular surgery PAST SURGICAL HISTORY OF Tonsillectomy PAST SURGICAL HISTORY OF Bilateral Laser eye surgery for glaucoma PAST SURGICAL HISTORY OF Stach infection in teeth post wisdom teeth removed FAMILY HISTORY Problem Relation Age of Onset Lung Cancer No Family History No prescriptions on file. ALLERGIES No Known Allergies The medications and allergies were reviewed and reconciled for this patient and deemed current. Lung Cancer Risk Factors: 1.Tobacco Use: Start Age 19, Quit Age: N/A, Average packs per day 0.75, Pack Years 33 2. Passive Smoke Exposure: Yes, as a Child 3. Personal hx of malignancy: Yes, Type of Cancer: Other smoking-related cancers 4. 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 Race: White 6. Education: Some College 7. BMI:Body mass index is 23.66 kg/m?. Patient-entered Height: 5'6 Patient-entered Weight: 146 pounds 8. COPD: No 9. Pneumonia in the past 5 years: No 10. Is there a history of lung cancer in a first degree relative? No 11. Is there a history of lung cancer in a non-first degree relative? No 12. Is there a history of any other cancer in a first degree relative? No Health Maintenance Immunization History Administered Date(s) Administered COVID-19 original vaccine, age 12+ yr, monovalent (Litebi - PURPLE TOP) 05/13/2020 06/01/2020 03/16/2021 COVID-19 vaccine, age 12+ yr, 2022- season (Litebi) 05/09/2023 Colonoscopy: Mammogram: DATA REVIEW I have directly visualized the testing documented: None Prior Imaging: IMPRESSION: 1. No CT evidence of metastatic disease in the chest, abdomen or pelvis. 2. Several low-attenuation lesions in the liver measuring up to 16 mm, most likely representing hepatic cysts. 3. Low attenuation 2 cm cystic lesion in the retroperitoneum in the region of the pancreatic head in close proximity to the pancreatic duct and common bile duct, considered most likely benign. However a cystic neoplasm of the pancreas cannot be entirely excluded, and follow-up is suggested. Consider follow-up CT using pancreas protocol in 6 months ensure stability. 4. A large amount stool is seen throughout colon suggesting constipation. 5. No lymphadenopathy. INDICATION: staging, new dx testicular cancer / LT orchiectomy - 75ml Isovue 370 - no priors TECHNIQUE: A digital cafeteria server radiograph was obtained. Multiple high resolution transverse CT images were obtained through the thorax, abdomen, and pelvis following the administration of oral and IV contrast. CONTRAST: LL COMPARISON: None FINDINGS: Chest: Lungs: No focal infiltrates or nodules. Mediastinum: No abnormal masses or fluid collections. Thoracic lymph node chains: Axillary/supraclavicular/internal mammary lymph nodes: No lymphadenopathy by si (more content not included)...[facility] 08-06-2023 Instructions* Patient Instructions* Jacques Butler APRN.WEED CUTTER - 08/06/2023 8:[address] Lung Screen Results The CT scan that you will have done will show if you have any nodules (small spots) in your lungs that are suspicious for cancer. Around 90% of the patients who have this scan done are found to have at least one nodule. Most nodules are benign (not cancer) and of no harm to you at all. A specialistwill make a scientific evaluation about whether or not a nodule is worrisome based on its size and shape. The radiologist who will read your scan will put it into one of four categories: LUNG-RADS Category Description Overall Probability of Malignancy Recommended Follow-Up 1 Negative No nodules and definitely benign (non-cancerous nodules) Essentially 0. 1 Year - Follow-up Low dose CT 2 Benign Appearance or Behavior Nodules with a very low likelihood of becoming cancer due to size or lack of growth Less than 1% 1 Year - Follow-up Low dose CT 3 Probably Benign Probably benign finding, short term follow-up recommended 1 to 2% 6 Months - Follow-up Low dose CT 4 Suspicious Findings for which additional diagnostic testing and/or biopsy is recommended Will be calculated based on nodule characteristics. Dependent on what is seen on the exam. (3 month follow-up CT, PET-CT, or biopsy) 0 Incomplete Findings suggestive of an inflammatory or infectious process AND/OR part of the lung cannot be evaluated Additional lung cancer screening CT imaging needed AND/OR comparison with prior chest CT imaging At times, we may see something outside of the lungs on the scan that could be a health concern. Below are some of the most common findings: S Clinically Significant or Potentially Clinically Significant Findings (non lung cancer) Referral or additional imaging/labs depending on result. Approximately 10% of people receive this result. Coronary Artery Calcifications (Moderate or Severe) - Referral to cardiology for further work-up and recommendations. Thyroid Nodule - TSH level and Thyroid Ultrasound dependent on size, referral to endocrinology. Adrenal Nodule - blood work and referral to endocrinology. Others Lung Cancer Screening hotline: [phone] Lung Cancer Screening [phone] Billing Questions: or [email or web address] Specialist Providers: (Anabelle Zamora PA-C; Socorro Wells CNP; Yi Daniels CNP, Becky Garcia CNP; Lynn Brown CNP; FOSTER Hernandez; Jacques Butler CNP; Cintia Donovan WEED CUTTER; Socorro Maynard WEED CUTTER; Laurita Adams WEED CUTTER; Carrie Olea PA-C; Chloé Meng PA-C; Miranda Casey WEED CUTTER; Tracy Bautista WEED CUTTER; Marian Cisneros CNP): [phone] [facility] History of Present illness Narrative* Jacques Butler APRN.CNP - 08/06/2023 8:33 AM EDT Images from the original note were not included. LUNG SCREENING VISIT PRIMARY CARE PHYSICIAN: No primary care provider on file. PULMONARY PROVIDER: none Results will be communicated via letter or electronic record if applicable. Visit Delivery: In Person Patient Visit Type: New to Screening Current or Ex-smoker? [Current Exam Type: baseline LDCT Number of Pack Years: 33 Current smoker (=0) REQUESTER: The referring provider advised the patient to have screening. HISTORY OF PRESENT ILLNESS: Reggie Suresh is a 63 year old Active smoker who presents for lung screening. The patient reports he was expecting to get an x ray. He does not want a CT scan, he states he has had enough of them. He has history of testicular cancer twice and had multiple CT scans done. We discussed the nature of lung nodules and rationale for screening high risk patients. He viewed a video [email or web address] [email or web address]. He does not want to participate in CT Lung screening. We reviewed records from [place] and the CT Reports he had from 2014 state no lung nodules were seen. Respiratory symptoms include: SOB: No Chest tightness: No Coughing: No Hemoptysis: No Wheezing: No Fever/Chills: No Recent Respiratory Infection: No Unintentional weight loss: No Last 6 Encounter Wt Readings: Date: Wt: 08/06/2023 66.5 kg (146 lb 9.6 oz) Patient exercises regularly 1 hour total gym work out once a week. Bicycle riding and walking, etc.Tolerates activity well. He has some back pain issue since moving, but is doing exercises per chiropractor. Feeling back to his normal. ECOG PERFORMANCE STATUS: 0- Fully active, able to carry on all pre-disease performance w/o restriction. Modified Medical Research [place] Dyspnea Scale (MMRC) I only get breathless with strenous exercise 0 PAST MEDICAL HISTORY Diagnosis Date H/O testicular cancer Tobacco abuse PAST SURGICAL HISTORY Procedure Laterality Date PAST SURGICAL HISTORY OF Bilateral testicular surgery PAST SURGICAL HISTORY OF Tonsillectomy PAST SURGICAL HISTORY OF Bilateral Laser eye surgery for glaucoma PAST SURGICAL HISTORY OF Stach infection in teeth post wisdom teeth removed FAMILY HISTORY Problem Relation Age of Onset Lung Cancer No Family History No prescriptions on file. ALLERGIES No Known Allergies The medications and allergies were reviewed and reconciled for this patient and deemed current. Lung Cancer Risk Factors: 1.Tobacco Use: Start Age 19, Quit Age: N/A, Average packs per day 0.75, Pack Years 34 2. Passive Smoke Exposure: Yes, as a Child 3. Personal hx of malignancy: Yes, Type of Cancer: Other smoking-related cancers 4. 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 Race: White 6. Education: Some College 7. BMI:Body mass index is 23.66 kg/m . Patient-entered Height: 5'6 Patient-entered Weight: 146 pounds 8. COPD: No 9. Pneumonia in the past 5 years: No 10. Is there a history of lung cancer in a first degree relative? No 11. Is there a history of lung cancer in a non-first degree relative? No 12. Is there a history of any other cancer in a first degree relative? No Health Maintenance Immunization History Administered Date(s) Administered COVID-19 original vaccine, age 12+ yr, monovalent (Litebi - PURPLE TOP) 05/13/2020 06/01/2020 03/16/2021 COVID-19 vaccine, age 12+ yr, 2022- season (Litebi) 05/09/2023 Colonoscopy: Mammogram: DATA REVIEW I have directly visualized the testing documented: None Prior Imaging: IMPRESSION: 1. No CT evidence of metastatic disease in the chest, abdomen or pelvis. 2. Several low-attenuation lesions in the liver measuring up to 16 mm, most likely representing hepatic cysts. 3. Low attenuation 2 cm cystic lesion in the retroperitoneum in the region of the pancreatic head in close proximity to the pancreatic duct and common bile duct, considered most likely benign. However a cystic neoplasm of the pancreas cannot be entirely excluded, and follow-up is suggested. Consider follow-up CT using pancreas protocol in 6 months ensure stability. 4. A large amount stool is seen throughout colon suggesting constipation. 5. No lymphadenopathy. INDICATION: staging, new dx testicular cancer / LT orchiectomy - 75ml Isovue 370 - no priors TECHNIQUE: A digital cafeteria server radiograph was obtained. Multiple high resolution transverse CT images were obtained through the thorax, abdomen, and pelvis following the administration of oral and IV contrast. CONTRAST: LL COMPARISON: None FINDINGS: Chest: Lungs: No focal infiltrates or nodules. Mediastinum: No abnormal masses or fluid collections. Thoracic lymph node chains: Axillary/supraclavicular/internal mammary lymph nodes: No lymphadenopathy by size criteria. Mediastinal lymph nodes and hilar lymph nodes: No lymphadenopathy by size criteria. Heart: No pericardial effusion. No cardiomegaly. Pulmonary artery: No gross abnormality. Pleural spaces: No pleural effusion or pneumothorax. Thyroid: Visualized thyroid is normal. Esophagus: No gross abnormality, considering the constraints of this exam. Thoracoabdominal aorta: Calcific plaquing without aneurysm. Chest wall: No masses or fluid collections. Abdomen: Liver: There are several low-attenuation lesions in the liver measuring up to 16 mm, without definite enhancement, likely benign hepatic cysts. Gallbladder: Gallbladder is normal. No significant intrahepatic or extrahepatic biliary duct dilatation. Spleen: No significant abnormality. Pancreas: There is a low attenuation structure measuring 2 cm located immediately adjacent to or within the head of the pancreas in close proximity to the pancreatic duct and common bile duct. There is no pancreatic ductal dilatation. There is no definite enhancing mass. Common bile duct is not dilated. Adrenal glands: Normal. Kidneys: No hydronephrosis. No focal mass. No abnormal perinephric stranding. Periportal/retroperitoneal/central mesenteric lymph nodes: No lymphadenopathy by size criteria. Retroperitoneum: There are surgical clips in the retroperitoneum adjacent to the aorta and IVC, which are likely related to prior lymph node dissection. There is no lymphadenopathy visualized. Stomach: Grossly unremarkable considering the constraints of this examination. Small bowel: Small bowel is without evidence of obstruction, pneumatosis, or definite bowel wall thickening. Colon: There is a large amount stool throughout the colon suggesting constipation. No evidence of obstruction. Appendix: Normal. No periappendiceal stranding. Abdominal wall: No hernia or abnormal masses. Peritoneal cavity: There is no free air or free fluid. Pelvis: Bladder: Normal, considering the constraints of this examination. Pelvic/inguinal lymph nodes: No lymphadenopathy by size criteria. Reproductive organs: No significant abnormality. Rectum: No gross abnormality, considering the constraints of this examination. Bones: No concerning bone lesions. Dictation Location: [place] [address] DICTATED BY: Asaf Wei M.D. on 07/11/2014 07:26:04 SIGNED BY: Asaf Wei M.D. on 07/11/2014 7:34:39 AM Pulmonary Function Testing: No textual results found for the specified procedure(s). PHYSICAL EXAM: BP 130/78 (BP Site: Right Arm, BP Position: Sitting, BP Cuff Size: Regular Adult) Pulse 72 Resp 12 Ht 167.6 cm (5' 6) Wt 66.5 kg (146 lb 9.6 oz) SpO2 94% BMI 23.66 kg/m Deferred ASSESSMENT and RECOMMENDATIONS: 1. Screening for lung cancer: Six year risk for lung cancer: 3.38% [email or web address] I have determined that the patient is eligible for a low dose CT based on age, absence of signs or symptoms of lung cancer, and total pack years: Yes. The patient and I engaged in shared decision making, including the use of one or more decision aids, to include benefits, harms, follow-up diagnostic testing, over-diagnosis, false positive rate, andtotal radiation exposure. The patient understands and feels comfortable with it: No. The patient was counseled on the importance of adherence to annual LDCT lung cancer screening, impact of comorbidities and ability or willingness to undergo diagnosis and treatment. The patient understands and feels comfortable with it:No. Patient does not wish to participate, stating I have had enough CT scans. Patient was advised he is eligible and if he wishes to participate in the future hecan contact our team and we will order and schedule his LDCT. 2. Nicotine dependence: The patient was counseled on the importance of smoking cessation if currentsmoker and, if appropriate, offered additional tobacco cessation counseling services - Smoking Cessation Counseling. Declined Jacques Butler APRN.CNP NPI #: August 06, 2023 8:49 AM [facility]* Diagnosis Encounter for screening for lung cancer- Primary Tobacco use current documented in this encounter [facility] Author Reno Dela Cruz [facility] Note Date/Time August 04, 2024 3:2 5pm [facility] [address] [place] [address] Progress Note - Wound Care 08/04/24 1519 MR#: [id number] Acct: [id number] Name: REGGIE SURESH Rep #:[id number] : 1960 64 From: Reno Dela Cruz MD PCP: Dr. Brody Saleh MD Status:REG R CR Location: History of Present Illness Date of Service: 08/04/24 Subjective Subjective Doing well overall with wound care (Hydrogel). No fevers or chills. No pain inthe thumb except that he has some pain over the index finger metacarpal scar as well as pain at the thumb base and the MCP joint following hand therapy. He hasbeen going to hand therapy twice per week. He is still smoking ~5 cigarettes per day. Discussed cessation, and patient said while it is better than 20, to which we agreed. Still would like him to quit. Objective Data Objective Data Vital Signs: Vital Signs Temp Pulse Resp BP O2 Del Method 97.4 F L 72 16 127/72 H Room Air 08/04/24 13:05 08/04/24 13:05 08/04/24 13:05 08/04/24 13:05 07/21/24 13:22 Oxygen Delivery Method Room Air Weight: 137 lb Body Mass Index (BMI) 20.8 Charges/Coding Visit Charges Office Visits / Consults: 88743 OV L3 Est 20min Physical Exam Narrative Left upper extremity: Thumb examined and the radial-sided wound has healed (reepithelialized). No pain with palpation of the thumb proximal phalanx. Thumb feels stable with palpation of the thumb with radial and ulnar stresses. No TTP over the index metacarpal. Skin has healed in this location as well. Motor: Able to oppose thumb to long, ring, and small fingers. Good thumb ROM except for IP joint (~15 degrees IP flexion at this time). Sensation: Intact to light touch on radial and ulnar borders of all fingers. Debridement Note Debridement Note No debridement was completed: No debridement was completed today Post-Debridement Measurements and Additional Note: Post-Debridement Measurements/Treatment WC - Nurse 1 - General Ulcer Assessment Start: 07/07/24 14:11 Freq: Status: Active Protocol: .LOWEXT Activity Type Activity Date Activity User E-sign Co-sign Detail Recorded Client Recorded Date Recorded By Document 07/07/24 14:14 DL [id number] 07/07/24 14:20 DL Document 07/21/24 13:22 BMF [id number] 07/21/24 13:26 BM Document 08/04/24 13:05 DL [id number] 08/04/24 13:09 DL 07/07/24 07/21/24 08/04/24 14:14 13:22 13:05 - Today's Visit Information Type of service Follow-up Visit Follow-up Visit Follow-up Visit (Physician/WEED CUTTER (Physician/WEED CUTTER (Physician/WEED CUTTER ) ) ) Arrival Mode Ambulatory Ambulatory Ambulatory Transfer Assistance None None None Accompanied by mom Patient Identification Verified (Name & Yes Yes Yes ) Patient Requires Transmission-Based No No No Precautions Height and Weight Body Mass Index (BMI) 20.8 20.8 20.8 BMI Classification Normal Normal Normal Vital Signs Temperature (97.8 F-99.1 F) 96.8 F L 98.2 F 97.4 F L Temperature Source Temporal Temporal Temporal Pulse Rate (60-100) 72 72 72 Pulse Location Monitor Monitor Monitor Respiratory Rate (12-18) 18 16 16 Respiratory rate source Observation Observation Observation Oxygen Delivery Method Room Air Blood Pressure (90/60-120/80) 123/71 H 140/75 H 127/72 H Blood Pressure Mean (mm Hg) 88 96 90 Source Monitor Monitor Monitor Position Sitting Blood Pressure Location Right Arm History Since Last Visit- (Skip if this is Patient's initial visit) Have you changed medications since your No No No last visit? Any new allergies or adverse reactions No No No Had a fall/change in ADL's that may No No No increase risk of falls Signs or symptoms of abuse and/or No No No neglect since last visit Have you been in the hospital since your No No No last visit? Has dressing in place as prescribed Yes Yes Yes Has compression in place as prescribed N/A N/A N/A Has offloadiing in place as prescribed Yes N/A N/A Experienced any changes in pain level or No No No management Left Footwear Regular Shoe Right Footwear Regular Shoe Pain Scale: 0-10 Numeric Is Patient Pain Free? Yes Yes Yes - Nurse 1 - General Ulcer Measurement Start: 07/07/24 14:11 Freq: Status: Active Protocol: Activity Type Activity Date Activity User E-sign Co-sign Detail Recorded Client Recorded Date Recorded By Document 07/07/24 14:14 DL [id number] 07/07/24 14:20 DL Document 07/21/24 13:22 BMF [id number] 07/21/24 13:26 BMF Document 08/04/24 13:05 DL [id number] 08/04/24 13:09 DL 07/07/24 07/21/24 08/04/24 14:14 13:22 13:05 Wound Center Nurse 1 #1 left thumb -Combined with other wound No -Current Size (cm) - Length 0.3 0.2 0.2 -Current Size (cm) - Width 0.2 0.2 0.1 -Current Size (cm) - Depth 0.2 0.1 0.1 -Total Square Cm 0.06 0.04 0.02 -Date of Last Picture (Recall this 07/21/24 field) -Photo Taken Yes Yes Yes -Tunneling No -Undermining/Tunneling No -Circular Undermining No -Exudate Amt None Present Small None Present -Exudate Type Serous -Wound Margin Distinct, Flat & Intact Flat & Intact Outline Attached -Granulation Amt Small (1-33%) None Present (0 Small (1-33%) %) -Granulation Quality Pale Pale -Slough/Fibrin Yes -Necrosis Amt None Present (0 Large (67-100%) None Present (0 %) %) -Necrotic Tissue Type Adherent Slough -Structure Exposed N/A N/A -Texture (Leatha-wound Skin Appearance) Scarring Assessed Scarring -Moisture (Leatha-wound Skin Appearance) No Abnormality Assessed, No Abnormality Maceration -Color (Leatha-wound Skin Appearance) No Abnormality Assessed No Abnormality -Temperature (Leatha-wound Skin No Abnormality No Abnormality No Abnormality Appearance) (Pt Warm) (Pt Warm) (Pt Warm) -Tenderness on Palpation (Leatha-wound No No No Skin Appearance) -Ulcer Cleansing Rinsed/ Rinsed/ Soap and Water Irrigated with Irrigated with Saline Saline -Foul Odor after Cleansing No No No -Anesthetic Used 5% Lidocaine 5% Lidocaine 5% Lidocaine Gel Gel Gel WC - Nurse 2 - General Ulcer CM Notes Start: 07/07/24 14:11 Freq: Status: Active Protocol: Activity Type Activity Date Activity User E-sign Co-sign Detail Recorded Client Recorded Date Recorded By Document 07/07/24 15:04 WEI [id number] 07/07/24 15:04 JF Edit Result 07/07/24 15:04 JF (1) [id number] 07/07/24 15:13 JF Document 07/21/24 13:38 JF [id number] 07/21/24 13:45 JF Document 08/04/24 13:27 JF [id number] 08/04/24 13:28 JF (1) #1 left thumb - Post Debridement (cm) - Length => 0.4 - Post Debridement (cm) - Width => 0.4 - Post Debridement (cm) - Depth => 0.1 - Total Square (Post) (cm) => 0.16 - Area of Debridement (cm) - Length => 0.4 - Area of Debridement (cm) - Width => 0.4 - Total Square (Area) (cm) => 0.16 07/07/24 07/21/24 08/04/24 15:04 13:38 13:27 Wound Center Nurse 2 #1 left thumb -Time 15:04 -Correct Patient Yes No No -Correct Side, Site, Position Yes No No -Correct Procedure Yes No No -Procedure Performed Yes No No -Type of Procedure Debridement -Clinical Debridement Subcutaneous -Tissue Removed Subcutaneous -Post Debridement (cm) - Length 0.4 0.1 0 -Post Debridement (cm) - Width 0.4 0.1 0 -Post Debridement (cm) - Depth 0.1 0.1 0 -Total Square (Post) (cm) 0.16 0.01 0 -Area of Debridement (cm) - Length 0.4 0.1 0 -Area of Debridement (cm) - Width 0.4 0.1 0 -Total Square (Area) (cm) 0.16 0.01 0 -Tunneling No -Undermining/Tunneling No -Circular Undermining No -Wound/Ulcer Outcome Not Healed Not Healed Healed- Epithelialized -Ulcer Cleansing Rinsed/ Irrigated with Saline -Foul Odor after Cleansing No -Bioengineered Tissue No -Bleeding Controlled with Pressure -Treatment Response Procedure Tolerated Well -Offloading No -Debridement - Subq, 1st 20sq cm Yes Pain Scale: 0-10 Numeric Is Patient Pain Free? Yes Yes Yes WC - Nurse 3 - General Ulcer D/C NN Start: 07/07/24 14:11 Freq: Status: Active Protocol: Activity Type Activity Date Activity User E-sign Co-sign Detail Recorded Client Recorded Date Recorded By Document 07/07/24 15:22 DL [id number] 07/07/24 15:22 DL Document 07/21/24 13:58 BM [id number] 07/21/24 14:00 BM Document 08/04/24 13:28 JF [id number] 08/04/24 13:30 JF 07/07/24 07/21/24 08/04/24 15:22 13:58 13:28 Wound Care Center Nurse 3 #1 left thumb -Ulcer Cleansing Rinsed/ Rinsed/ Irrigated with Irrigated with Saline Saline -Foul Odor after Cleansing No No -Other Dressing hydrogel/ hydrogel, bandaid bandaid Treatment Response Procedure Tolerated Well Pain Scale: 0-10 Numeric Is Patient Pain Free? Yes Yes Yes WC - Visit Discharge Discharge Condition Stable Stable Stable Ambulatory Status Ambulatory Ambulatory Ambulatory Transportation Private Auto Private Auto Private Auto Accompanied by mom Medication Reconcilliation completed & Yes provided to patient/care provider Clinical Summary of Care Provided Yes Notes: Patient's ulcer is healed. Patient is to continue with OT and [facility]. Facility Type Home Health Orders Sent Yes Assessment/Plan Assessment/Plan (1) Open wound of thumb: CODE(S): S61.009A - Unspecified open wound of unspecified thumb without damage to nail, initial encounter PLAN: Healed Aquaphor for dry skin Now that the wound has healed, we discussed concerning signs and symptoms of osteomyelitis such as increased pain/fevers or any development of any draining sinuses or pinholes. (2) Open fracture of proximal phalanx of left thumb: CODE(S): S62.512B - Displaced fracture of proximal phalanx of left thumb, initial encounter for open fracture PLAN: Continue occupational therapy. Now that the wound is gone he should be able to advance with occupational therapy and work harder to improve MCP joint and IP joint range of motion. I discussed with him placing hold exercises todayusing the contralateral hand. Patient in agreement and will continue to work onthis. (3) Open fracture of second metacarpal bone of left hand: CODE(S): S62.301B - Unspecified fracture of second metacarpal bone, left hand, initial encounter for open fracture PLAN: Healed metacarpal fracture. There is some heavy hypertrophic scar formingover this area causing him tenderness to palpation with range of motion. I willconsider a steroid injection at the next appointment in 2-1/2-week. 08/04/24 1525 <Electronically signed by Reno Dela Cruz MD> Cosigner Signature (if applicable): CC: ~ Signed [facility] Work Phone: Reason for referral (narrative)No reason for referral information [facility] Work Phone: Summary Purpose Family History No Family History Records FoundNo Family History Records Found Advance Directives Advance Directive Response Recorded Date/ Time Living Will No April 15 024 8:17pm Power of Civil Division Deputy Sheriff No April 15, 2024 8:17pm Living Will No May 27 9:25am Power of Civil Division Deputy Sheriff No May 27, 2024 9:25am Living Will No June 04 2:44pm Power of Civil Division Deputy Sheriff No June 04, 2024 2:44pm Advance Directive Response Recorded Date/ Time Living Will No April 15 024 8:17pm Do you have a Healthcare Power of Civil Division Deputy Sheriff? No April 15, 2024 8:17pm Living Will No May 27 9:25am Do you have a Healthcare Power of Civil Division Deputy Sheriff? No May 27, 2024 9:25am Living Will No June 04 2:44pm Do you have a Healthcare Power of Civil Division Deputy Sheriff? No June 04, 2024 2:44pm Advance Directive Response Recorded Date/ Time Living Will No May 27 9:25am Do you have a Healthcare Power of Civil Division Deputy Sheriff? No May 27, 2024 9:25am Living Will No June 04 2:44pm Do you have a Healthcare Power of Civil Division Deputy Sheriff? No June 04, 2024 2:44pm Chief Complaint and Reason for Visit Chief Complaint Admit Date FINGER AMPUTATION April 15, 2024 11:56am FINGER AMPUTATION April 15, 2024 5:06pm FINGER AMPUTATION April 16, 2024 4:49pm FINGER AMPUTATION April 17, 2024 10:01am POST OP- [facility] April 22, 2024 9:39am Room 3 April 22, 2024 10:12am 1 WEEK F/U April 29, 2024 10:34am room 4 April 29, 2024 11:05am 1 wk f/u - [facility] May 06, 2024 10:31am FU hand C May 09, 2024 8: 58am FOLLOW UP [facility] May 13, 2024 9: 56am room 5 May 13, 2024 10 :30am 1 WK F/U - [facility] May 20, 2024 1 0:13am room 6 May 20, 2024 1 0:50am 1 WK F/U May 27, 2024 1 0:41am room 4 May 27, 2024 1 0:53am Hardware removal and debridement, left h and May 28, 2024 8:23am Hardware removal and debridement, left h and May 28, 2024 8:59am POST OP May 30, 2024 1 0:12am FOLLOW UP June 03, 2024 1 0:09am room 6 June 03, 2024 1 0:46am 1 WK F/U June 10, 2024 8 :58am room 5 June 10, 2024 9 :10am 1 WK FU June 16, 2024 4:13pm wound June 24, 2024 7:46am wound June 30, 2024 3:45pm wound July 01, 2024 5:46am wound July 07, 2024 2:09 pm wound July 07, 2024 6:11 pm HAND THERAPY. RX TO BE FAXED July 15, 2024 10:00am Reason for Visit Admit Date Open fracture of phalanx of left index f suki April 15, 2024 5:06pm Open fracture of proximal phalanx of lef t thumb April 15, 2024 5:06pm Open fracture of second metacarpal bone of left hand April 15, 2024 5:06pm Amputation of left index finger April 22, 2024 9:39am Open fracture of proximal phalanx of lef t thumb April 22, 2024 9:39am Open fracture of second metacarpal bone of left hand April 22, 2024 9:39am Amputation of left index finger April 29, 2024 10:34am Open fracture of proximal phalanx of lef t thumb April 29, 2024 10:34am Open fracture of phalanx of left index f suki May 06, 2024 10:31am Open fracture of proximal phalanx of lef t thumb May 06, 2024 10:31am Open fracture of second metacarpal bone of left hand May 06, 2024 10:31am Open fracture of phalanx of left index f suki May 09, 2024 8:58am Open fracture of proximal phalanx of lef t thumb May 09, 2024 8:58am Open fracture of second metacarpal bone of left hand May 09, 2024 8:58am Amputation of left index finger May 13, 2024 9:56am Open fracture of proximal phalanx of lef t thumb May 13, 2024 9:56am Open fracture of second metacarpal bone of left hand May 13, 2024 9:56am Open fracture of proximal phalanx of lef t thumb May 20, 2024 10:13am Open fracture of second metacarpal bone of left hand May 20, 2024 10:13am Open fracture of proximal phalanx of lef t thumb May 27, 2024 10:41am Open fracture of second metacarpal bone of left hand May 27, 2024 10:41am Open fracture of phalanx of left index f suki May 28, 2024 8:23am Open fracture of proximal phalanx of lef t thumb May 28, 2024 8:23am Open fracture of proximal phalanx of lef t thumb May 30, 2024 10:12am Open fracture of second metacarpal bone of left hand May 30, 2024 10:12am Open fracture of proximal phalanx of lef t thumb June 03, 2024 10:09am Open fracture of second metacarpal bone of left hand June 03, 2024 10:09am Open fracture of proximal phalanx of lef t thumb June 05, 2024 9:28am Amputation of left index finger June 10, 2024 8:58am Open fracture of phalanx of left index f suki June 10, 2024 8:58am Open wound of thumb June 10, 2024 8 :58am Amputation of left index finger June 16, 2024 4:13pm Open fracture of phalanx of left index f suki June 16, 2024 4:13pm Open wound of thumb June 16, 2024 4:13pm Open wound of thumb June 30, 2024 3:45pm Open fracture of proximal phalanx of lef t thumb July 07, 2024 2:09pm Open fracture of second metacarpal bone of left hand July 07, 2024 2:09pm Open wound of thumb July 07, 2024 2:09 pm Chief Complaint Admit Date FINGER AMPUTATION April 15, 2024 11:56am FINGER AMPUTATION April 15, 2024 5:06pm FINGER AMPUTATION April 16, 2024 4:49pm FINGER AMPUTATION April 17, 2024 10:01am POST OP- [facility] April 22, 2024 9:39am Room 3 April 22, 2024 10:12am 1 WEEK F/U April 29, 2024 10:34am room 4 April 29, 2024 11:05am 1 wk f/u - [facility] May 06, 2024 10:31am FU hand [facility] May 09, 2024 8: 58am FOLLOW UP [facility] May 13, 2024 9: 56am room 5 May 13, 2024 10 :30am 1 WK F/U - [facility] May 20, 2024 1 0:13am room 6 May 20, 2024 1 0:50am 1 WK F/U May 27, 2024 1 0:41am room 4 May 27, 2024 1 0:53am Hardware removal and debridement, left h and May 28, 2024 8:23am Hardware removal and debridement, left h and May 28, 2024 8:59am POST OP May 30, 2024 1 0:12am FOLLOW UP June 03, 2024 1 0:09am room 6 June 03, 2024 1 0:46am 1 WK F/U June 10, 2024 8 :58am room 5 June 10, 2024 9 :10am 1 WK FU June 16, 2024 4:13pm wound June 24, 2024 7:46am wound June 30, 2024 3:45pm wound July 01, 2024 5:46am wound July 07, 2024 6:11 pm wound July 21, 2024 1:2 4pm HAND THERAPY. RX TO BE FAXED July 31, 2024 2:30pm wound August 04, 2024 1:0 0pm wound August 04, 2024 3:1 9pm Reason for Visit Admit Date Open fracture of phalanx of left index f suki April 15, 2024 5:06pm Open fracture of proximal phalanx of lef t thumb April 15, 2024 5:06pm Open fracture of second metacarpal bone of left hand April 15, 2024 5:06pm Amputation of left index finger April 22, 2024 9:39am Open fracture of proximal phalanx of lef t thumb April 22, 2024 9:39am Open fracture of second metacarpal bone of left hand April 22, 2024 9:39am Amputation of left index finger April 29, 2024 10:34am Open fracture of proximal phalanx of lef t thumb April 29, 2024 10:34am Open fracture of phalanx of left index f suki May 06, 2024 10:31am Open fracture of proximal phalanx of lef t thumb May 06, 2024 10:31am Open fracture of second metacarpal bone of left hand May 06, 2024 10:31am Open fracture of phalanx of left index f suki May 09, 2024 8:58am Open fracture of proximal phalanx of lef t thumb May 09, 2024 8:58am Open fracture of second metacarpal bone of left hand May 09, 2024 8:58am Amputation of left index finger May 13, 2024 9:56am Open fracture of proximal phalanx of lef t thumb May 13, 2024 9:56am Open fracture of second metacarpal bone of left hand May 13, 2024 9:56am Open fracture of proximal phalanx of lef t thumb May 20, 2024 10:13am Open fracture of second metacarpal bone of left hand May 20, 2024 10:13am Open fracture of proximal phalanx of lef t thumb May 27, 2024 10:41am Open fracture of second metacarpal bone of left hand May 27, 2024 10:41am Open fracture of phalanx of left index f suki May 28, 2024 8:23am Open fracture of proximal phalanx of lef t thumb May 28, 2024 8:23am Open fracture of proximal phalanx of lef t thumb May 30, 2024 10:12am Open fracture of second metacarpal bone of left hand May 30, 2024 10:12am Open fracture of proximal phalanx of lef t thumb June 03, 2024 10:09am Open fracture of second metacarpal bone of left hand June 03, 2024 10:09am Open fracture of proximal phalanx of lef t thumb June 05, 2024 9:28am Amputation of left index finger June 10, 2024 8:58am Open fracture of phalanx of left index f suki June 10, 2024 8:58am Open wound of thumb June 10, 2024 8 :58am Amputation of left index finger June 16, 2024 4:13pm Open fracture of phalanx of left index f suki June 16, 2024 4:13pm Open wound of thumb June 16, 2024 4:13pm Open wound of thumb June 30, 2024 3:45pm Open fracture of proximal phalanx of lef t thumb August 04, 2024 1:00pm Open fracture of second metacarpal bone of left hand August 04, 2024 1:00pm Open wound of thumb August 04, 2024 1:0 0pm Chief Complaint Admit Date FINGER AMPUTATION April 15, 2024 5:06pm FINGER AMPUTATION April 16, 2024 4:49pm FINGER AMPUTATION April 17, 2024 10:01am POST OP- [facility] April 22, 2024 9:39am Room 3 April 22, 2024 10:12am 1 WEEK F/U April 29, 2024 10:34am room 4 April 29, 2024 11:05am 1 wk f/u - C May 06, 2024 10:31am FU hand [facility] May 09, 2024 8: 58am FOLLOW UP [facility] May 13, 2024 9: 56am room 5 May 13, 2024 10 :30am 1 WK F/U - [facility] May 20, 2024 1 0:13am room 6 May 20, 2024 1 0:50am 1 WK F/U May 27, 2024 1 0:41am room 4 May 27, 2024 1 0:53am Hardware removal and debridement, left h and May 28, 2024 8:23am Hardware removal and debridement, left h and May 28, 2024 8:59am POST OP May 30, 2024 1 0:12am FOLLOW UP June 03, 2024 1 0:09am room 6 June 03, 2024 1 0:46am 1 WK F/U June 10, 2024 8 :58am room 5 June 10, 2024 9 :10am 1 WK FU June 16, 2024 4:13pm wound June 24, 2024 7:46am wound June 30, 2024 3:45pm wound July 01, 2024 5:46am wound July 07, 2024 6:11 pm wound July 21, 2024 1:2 4pm wound August 04, 2024 1:0 0pm wound August 04, 2024 3:1 9pm HAND THERAPY. RX TO BE FAXED August 13, 2024 10:00am Chief Complaint Admit Date 1 WK F/U - BWC May 20, 2024 1 0:13am room 6 May 20, 2024 1 0:50am 1 WK F/U May 27, 2024 1 0:41am room 4 May 27, 2024 1 0:53am Hardware removal and debridement, left h and May 28, 2024 8:23am Hardware removal and debridement, left h and May 28, 2024 8:59am POST OP May 30, 2024 1 0:12am FOLLOW UP June 03, 2024 1 0:09am room 6 June 03, 2024 1 0:46am 1 WK F/U June 10, 2024 8 :58am room 5 June 10, 2024 9 :10am 1 WK FU June 16, 2024 4:13pm wound June 24, 2024 7:46am wound June 30, 2024 3:45pm wound July 01, 2024 5:46am wound July 07, 2024 6:11 pm wound July 21, 2024 1:2 4pm wound August 04, 2024 1:0 0pm wound August 04, 2024 3:1 9pm THUMB FX August 21, 2024 2:0 4pm f/u August 21, 2024 2:3 5pm HAND THERAPY. RX TO BE FAXED September 15, 12:00pm 6 wk FU c September 16, 2024 2:00p m room 7 September 16, 2024 2:20p m Reason for Visit Admit Date Open fracture of proximal phalanx of lef t thumb May 20, 2024 10:13am Open fracture of second metacarpal bone of left hand May 20, 2024 10:13am Open fracture of proximal phalanx of lef t thumb May 27, 2024 10:41am Open fracture of second metacarpal bone of left hand May 27, 2024 10:41am Open fracture of phalanx of left index f suki May 28, 2024 8:23am Open fracture of proximal phalanx of lef t thumb May 28, 2024 8:23am Open fracture of proximal phalanx of lef t thumb May 30, 2024 10:12am Open fracture of second metacarpal bone of left hand May 30, 2024 10:12am Open fracture of proximal phalanx of lef t thumb June 03, 2024 10:09am Open fracture of second metacarpal bone of left hand June 03, 2024 10:09am Open fracture of proximal phalanx of lef t thumb June 05, 2024 9:28am Amputation of left index finger June 10, 2024 8:58am Open fracture of phalanx of left index f suki June 10, 2024 8:58am Open wound of thumb June 10, 2024 8 :58am Amputation of left index finger June 16, 2024 4:13pm Open fracture of phalanx of left index f suki June 16, 2024 4:13pm Open wound of thumb June 16, 2024 4:13pm Open wound of thumb June 30, 2024 3:45pm Open fracture of proximal phalanx of lef t thumb August 04, 2024 1:00pm Open fracture of second metacarpal bone of left hand August 04, 2024 1:00pm Open wound of thumb August 04, 2024 1:0 0pm Amputation of left index finger August [id number] 2:35pm Open fracture of phalanx of left index f suki August 21, 2024 2:35pm Open wound of thumb August 21, 2024 2:3 5pm Trigger finger of left hand August 21, 2024 2:35pm Chief Complaint Admit Date wound June 24, 2024 7:46am wound June 30, 2024 3:45pm wound July 01, 2024 5:46am wound July 07, 2024 6:11 pm wound July 21, 2024 1:2 4pm wound August 04, 2024 1:0 0pm wound August 04, 2024 3:1 9pm THUMB FX August 21, 2024 2:0 4pm f/u August 21, 2024 2:3 5pm HAND THERAPY. RX TO BE FAXED September 15, 2 025 12:00pm 6 wk FU f f [facility] September 16, 2024 2:00p m room 7 September 16, 2024 2:20p m FOLLOW UP October 17, 2024 2:33 pm Reason for Visit Admit Date Open wound of thumb June 30, 2024 3:45pm Open fracture of proximal phalanx of lef t thumb August 04, 2024 1:00pm Open fracture of second metacarpal bone of left hand August 04, 2024 1:00pm Open wound of thumb August 04, 2024 1:0 0pm Amputation of left index finger August [id number] 2:35pm Open fracture of phalanx of left index f suki August 21, 2024 2:35pm Open wound of thumb August 21, 2024 2:3 5pm Trigger finger of left hand August 21, 2024 2:35pm Amputation of left index finger September 2:00pm Open fracture of phalanx of left index f suki September 16, 2024 2:00pm Open wound of thumb September 16, 2024 2:00p m Trigger finger of left hand September 16 2:00pm Chief Complaint Admit Date wound June 24, 2024 7:46am wound June 30, 2024 3:45pm wound July 01, 2024 5:46am wound July 07, 2024 6:11 pm wound July 21, 2024 1:2 4pm wound August 04, 2024 1:0 0pm wound August 04, 2024 3:1 9pm THUMB FX August 21, 2024 2:0 4pm f/u August 21, 2024 2:3 5pm HAND THERAPY. RX TO BE FAXED September 15, 2 025 12:00pm 6 wk FU f f [facility] September 16, 2024 2:00p m room 7 September 16, 2024 2:20p m upper October 17, 2024 2:08 pm FOLLOW UP October 17, 2024 2:33 pm Reason for Visit Admit Date Open wound of thumb June 30, 2024 3:45pm Open fracture of proximal phalanx of lef t thumb August 04, 2024 1:00pm Open fracture of second metacarpal bone of left hand August 04, 2024 1:00pm Open wound of thumb August 04, 2024 1:0 0pm Amputation of left index finger August [id number] 2:35pm Open fracture of phalanx of left index f suki August 21, 2024 2:35pm Open wound of thumb August 21, 2024 2:3 5pm Trigger finger of left hand August 21, 2024 2:35pm Amputation of left index finger September 2:00pm Open fracture of phalanx of left index f suki September 16, 2024 2:00pm Open wound of thumb September 16, 2024 2:00p m Trigger finger of left hand September 16 2:00pm Abscess of thumb, left October 17, 2024 2 :33pm Osteomyelitis of finger of left hand Sean e 2024 2:33pm Additional Source Comments Source Comments (unrecognize d section and content) In the event this informatio n is protected by the Federal Confidentiality of Alcohol and Drug Abuse Patient Records regulations: The Federal rules restrict any use of the information to criminally investigate or prosecute any alcohol or drug abuse patient.[facility] Reason for Visit (unrecogniz ed section and content) Reason Comments Nicotine Dependence Care Teams (unrecognized sec tion and content) Team Status: Active Member Role Status Dates Dr. Brody Saleh MD Primary Care Provider Active Team Status: Active Member Role Status Dates Dr. Brody Saleh MD Primary Care Provider Active Start: June 24, 2024 Dr. Reno Dela Cruz MD Attending Provider Active Start: June 24, 2024 Dr. Reno Dela Cruz MD Referring Provider Active Start: June 24, 2024 Dr. Reno Dela Cruz MD Other Provider Active Star t: June 24, 2024 Team Status: Inactive Member Role Status Dates Dr. Brody Saleh MD Primary Care Provider Active Start: June 30, 2024 End: July 04, 2024 Dr. Reno Dela Cruz MD Attending Provider Active Start: June 30, 2024 End: July 04, 2024 Dr. Reon Dela Cruz MD Referring Provider Active Start: June 30, 2024 End: July 04, 2024 Team Status: Active Member Role Status Dates Dr. Brody Saleh MD Primary Care Provider Active Start: July 01, 2024 Dr. Reno Dela Cruz MD Attending Provider Active Start: July 01, 2024 Dr. Reno Dela Cruz MD Referring Provider Active Start: July 01, 2024 Dr. Reno Dela Cruz MD Other Provider Active Star t: July 01, 2024 Team Status: Inactive Member Role Status Dates Dr. Brody Saleh MD Primary Care Provider Active Start: July 07, 2024 End: July 07, 2024 Renata Lao FLOOR SPACE ALLOCATOR, FLOOR SPACE ALLOCATOR-C Attending Provider Active Start: July 07, 2024 End: July 07, 2024 Renata Lao FLOOR SPACE ALLOCATOR, FLOOR SPACE ALLOCATOR-C Referring Provider Active Start: July 07, 2024 End: July 07, 2024 Team Status: Active Member Role Status Dates Dr. Brody Saleh MD Primary Care Provider Active Start: July 07, 2024 Dr. Reno Dela Cruz MD Attending Provider Active Start: July 07, 2024 Dr. Reno Dela Cruz MD Referring Provider Active Start: July 07, 2024 Dr. Reno Dela Cruz MD Other Provider Active Star t: July 07, 2024 Team Status: Active Member Role Status Dates Dr. Brody Saleh MD Primary Care Provider Active Start: July 21, 2024 Dr. Reno Dela Cruz MD Attending Provider Active Start: July 21, 2024 Dr. Reno Dela Cruz MD Referring Provider Active Start: July 21, 2024 Dr. Reno Dela Cruz MD Other Provider Active Star t: July 21, 2024 Team Status: Inactive Member Role Status Dates Dr. Brody Saleh MD Primary Care Provider Active Start: August 04, 2024 End: August 04, 2024 Dr. Reno Dela Cruz MD Attending Provider Active Start: August 04, 2024 End: August 04, 2024 Dr. Reno Dela Cruz MD Referring Provider Active Start: August 04, 2024 End: August 04, 2024 Team Status: Active Member Role Status Dates Dr. Brody Saleh MD Primary Care Provider Active Start: August 04, 2024 Dr. Reno Dela Cruz MD Attending Provider Active Start: August 04, 2024 Dr. Reno Dela Cruz MD Referring Provider Active Start: August 04, 2024 Dr. Reno Dela Cruz MD Other Provider Active Star t: August 04, 2024 Team Status: Inactive Member Role Status Dates Dr. Brody Saleh MD Primary Care Provider Active Start: August 11, 2024 End: August 11, 2024 Dr. Brody Saleh MD Attending Provider Active Start: August 11, 2024 End: August 11, 2024 Dr. Brody Saleh MD Referring Provider Active Start: August 11, 2024 End: August 11, 2024 Team Status: Inactive Member Role Status Dates Dr. Brody Saleh MD Primary Care Provider Active Start: August 21, 2024 End: August 21, 2024 Dr. Reno Dela Cruz MD Attending Provider Active Start: August 21, 2024 End: August 21, 2024 Dr. Reno Dela Cruz MD Referring Provider Active Start: August 21, 2024 End: August 21, 2024 Team Status: Inactive Member Role Status Dates Dr. Brody Saleh MD Primary Care Provider Active Start: August 21, 2024 End: August 21, 2024 Dr. Brody Saleh MD Referring Provider Active Start: August 21, 2024 End: August 21, 2024 Dr. Reno Dela Cruz MD Attending Provider Active Start: August 21, 2024 End: August 21, 2024 Team Status: Active Member Role Status Dates Dr. Brody Saleh MD Primary Care Provider Active Start: September 15, 2024 Dr. Reno Dela Cruz MD Attending Provider Active Start: September 15, 2024 Dr. Reno Dela Cruz MD Referring Provider Active Start: September 15, 2024 Team Status: Inactive Member Role Status Dates Dr. Brody Saleh MD Primary Care Provider Active Start: September 16, 2024 End: September 16, 2024 Dr. Brody Saleh MD Referring Provider Active Start: September 16, 2024 End: September 16, 2024 Dr. Reno Dela Cruz MD Attending Provider Active Start: September 16, 2024 End: September 16, 2024 Team Status: Inactive Member Role Status Dates Dr. Brody Saleh MD Primary Care Provider Active Start: September 16, 2024 End: September 16, 2024 Dr. Francisco Collins MD Attending Provider Active S tart: September 16, 2024 End: September 16, 2024 Team Status: Inactive Member Role Status Dates Dr. Brody Saleh MD Primary Care Provider Active Start: October 17, 2024 End: October 17, 2024 Dr. Brody Saleh MD Referring Provider Active Start: October 17, 2024 End: October 17, 2024 Dr. Reno Dela Cruz MD Attending Provider Active Start: October 17, 2024 End: October 17, 2024 Team Status: Inactive Member Role Status Dates Dr. Brody Saleh MD Primary Care Provider Active Start: April 15, 2024 End: April 17, 2024 Dr. Francisco Espinal MD Emergency Provider Active Sta rt: April 15, 2024 End: April 17, 2024 Dr. Reno Dela Cruz MD Admit Provider Active Star t: April 15, 2024 End: April 17, 2024 Dr. Reno Dela Cruz MD Attending Provider Active Start: April 15, 2024 End: April 17, 2024 Team Status: Active Member Role Status Dates Dr. Brody Saleh MD Primary Care Provider Active Start: April 16, 2024 Dr. Francisco Espinal MD Emergency Provider Active Sta rt: April 16, 2024 Dr. Reno Dela Cruz MD Admit Provider Active Star t: April 16, 2024 Dr. Reno Dela Cruz MD Attending Provider Active Start: April 16, 2024 Dr. Reno Dela Cruz MD Other Provider Active Star t: April 16, 2024 Team Status: Active Member Role Status Dates Dr. Brody Saleh MD Primary Care Provider Active Start: April 17, 2024 Dr. Francisco Espinal MD Emergency Provider Active Sta rt: April 17, 2024 Dr. Reno Dela Cruz MD Admit Provider Active Star t: April 17, 2024 Dr. Reno Dela Cruz MD Attending Provider Active Start: April 17, 2024 Dr. Reno Dela Cruz MD Referring Provider Active Start: April 17, 2024 Dr. Reno Dela Cruz MD Other Provider Active Star t: April 17, 2024 Team Status: Inactive Member Role Status Dates Dr. Brody Saleh MD Primary Care Provider Active Start: April 22, 2024 End: April 22, 2024 Dr. Brody Saleh MD Referring Provider Active Start: April 22, 2024 End: April 22, 2024 Dr. Reno Dela Cruz MD Attending Provider Active Start: April 22, 2024 End: April 22, 2024 Team Status: Inactive Member Role Status Dates Dr. Brody Saleh MD Primary Care Provider Active Start: April 22, 2024 End: April 22, 2024 Dr. Francisco Collins MD Attending Provider Active S tart: April 22, 2024 End: April 22, 2024 Team Status: Inactive Member Role Status Dates Dr. Brody Saleh MD Primary Care Provider Active Start: April 29, 2024 End: April 29, 2024 Dr. Brody Saleh MD Referring Provider Active Start: April 29, 2024 End: April 29, 2024 Dr. Reno Dela Cruz MD Attending Provider Active Start: April 29, 2024 End: April 29, 2024 Team Status: Inactive Member Role Status Dates Dr. Brody Saleh MD Primary Care Provider Active Start: April 29, 2024 End: April 29, 2024 Dr. Francisco Collins MD Attending Provider Active S tart: April 29, 2024 End: April 29, 2024 Team Status: Inactive Member Role Status Dates Dr. Brody Saleh MD Primary Care Provider Active Start: May 06, 2024 End: May 06, 2024 Dr. Brody Saleh MD Referring Provider Active Start: May 06, 2024 End: May 06, 2024 Dr. Reno Dela Cruz MD Attending Provider Active Start: May 06, 2024 End: May 06, 2024 Team Status: Inactive Member Role Status Dates Dr. Brody Saleh MD Primary Care Provider Active Start: May 09, 2024 End: May 09, 2024 Dr. Brody Saleh MD Referring Provider Active Start: May 09, 2024 End: May 09, 2024 Dr. Reno Dela Cruz MD Attending Provider Active Start: May 09, 2024 End: May 09, 2024 Team Status: Inactive Member Role Status Dates Dr. Brody Saleh MD Primary Care Provider Active Start: May 13, 2024 End: May 13, 2024 Dr. Brody Saleh MD Referring Provider Active Start: May 13, 2024 End: May 13, 2024 Dr. Reno Dela Cruz MD Attending Provider Active Start: May 13, 2024 End: May 13, 2024 Team Status: Inactive Member Role Status Dates Dr. Brody Saleh MD Primary Care Provider Active Start: May 13, 2024 End: May 13, 2024 Dr. Francisco Collins MD Attending Provider Active S tart: May 13, 2024 End: May 13, 2024 Team Status: Inactive Member Role Status Dates Dr. Brody Saleh MD Primary Care Provider Active Start: May 20, 2024 End: May 20, 2024 Dr. Brody Saleh MD Referring Provider Active Start: May 20, 2024 End: May 20, 2024 Dr. Reno Dela Cruz MD Attending Provider Active Start: May 20, 2024 End: May 20, 2024 Team Status: Inactive Member Role Status Dates Dr. Brody Saleh MD Primary Care Provider Active Start: May 20, 2024 End: May 20, 2024 Dr. Francisco Collins MD Attending Provider Active S tart: May 20, 2024 End: May 20, 2024 Team Status: Inactive Member Role Status Dates Dr. Brody Saleh MD Primary Care Provider Active Start: May 27, 2024 End: May 27, 2024 Dr. Brody Saleh MD Referring Provider Active Start: May 27, 2024 End: May 27, 2024 Dr. Reno Dela Cruz MD Attending Provider Active Start: May 27, 2024 End: May 27, 2024 Team Status: Inactive Member Role Status Dates Dr. Brody Saleh MD Primary Care Provider Active Start: May 27, 2024 End: May 27, 2024 Dr. Francisco Collins MD Attending Provider Active S tart: May 27, 2024 End: May 27, 2024 Team Status: Inactive Member Role Status Dates Dr. Brody Saleh MD Primary Care Provider Active Start: May 28, 2024 End: May 28, 2024 Dr. Reno Dela Cruz MD Attending Provider Active Start: May 28, 2024 End: May 28, 2024 Dr. Reno Dela Cruz MD Referring Provider Active Start: May 28, 2024 End: May 28, 2024 Team Status: Active Member Role Status Dates Dr. Brody Saleh MD Primary Care Provider Active Start: May 28, 2024 Dr. Reno Dela Cruz MD Attending Provider Active Start: May 28, 2024 Dr. Reno Dela Cruz MD Referring Provider Active Start: May 28, 2024 Dr. Reno Dela Cruz MD Other Provider Active Star t: May 28, 2024 Team Status: Inactive Member Role Status Dates Dr. Brody Saleh MD Primary Care Provider Active Start: May 30, 2024 End: May 30, 2024 Dr. Brody Saleh MD Referring Provider Active Start: May 30, 2024 End: May 30, 2024 Dr. Reno Dela Cruz MD Attending Provider Active Start: May 30, 2024 End: May 30, 2024 Team Status: Inactive Member Role Status Dates Dr. Brody Saleh MD Primary Care Provider Active Start: June 03, 2024 End: June 03, 2024 Dr. Brody Saleh MD Referring Provider Active Start: June 03, 2024 End: June 03, 2024 Dr. Reno Dela Cruz MD Attending Provider Active Start: June 03, 2024 End: June 03, 2024 Team Status: Inactive Member Role Status Dates Dr. Brody Saleh MD Primary Care Provider Active Start: June 03, 2024 End: June 03, 2024 Dr. Francisco Collins MD Attending Provider Active S tart: June 03, 2024 End: June 03, 2024 Team Status: Inactive Member Role Status Dates Dr. Brody Saleh MD Primary Care Provider Active Start: June 05, 2024 End: June 05, 2024 Dr. Reno Dela Cruz MD Attending Provider Active Start: June 05, 2024 End: June 05, 2024 Dr. Reno Dela Cruz MD Referring Provider Active Start: June 05, 2024 End: June 05, 2024 Team Status: Active Member Role Status Dates Dr. Brody Saleh MD Primary Care Provider Active Start: June 05, 2024 Dr. Reno Dela Cruz MD Attending Provider Active Start: June 05, 2024 Dr. Reno Dela Cruz MD Referring Provider Active Start: June 05, 2024 Dr. Reno Dela Cruz MD Other Provider Active Star t: June 05, 2024 Team Status: Inactive Member Role Status Dates Dr. Brody Saleh MD Primary Care Provider Active Start: June 10, 2024 End: June 10, 2024 Dr. Brody Saleh MD Referring Provider Active Start: June 10, 2024 End: June 10, 2024 Dr. Reno Dela Cruz MD Attending Provider Active Start: June 10, 2024 End: June 10, 2024 Team Status: Inactive Member Role Status Dates Dr. Brody Saleh MD Primary Care Provider Active Start: June 10, 2024 End: June 10, 2024 Dr. Francisco Collins MD Attending Provider Active S tart: June 10, 2024 End: June 10, 2024 Team Status: Inactive Member Role Status Dates Dr. Brody Saleh MD Primary Care Provider Active Start: June 16, 2024 End: June 16, 2024 Dr. Brody Saleh MD Referring Provider Active Start: June 16, 2024 End: June 16, 2024 Renata Lao FLOOR SPACE ALLOCATOR, FLOOR SPACE ALLOCATOR-C Attending Provider Active Start: June 16, 2024 End: June 16, 2024 Team Status: Active Member Role Status Dates Dr. Brody Saleh MD Primary Care Provider Active Start: August 13, 2024 Dr. Reno Dela Cruz MD Attending Provider Active Start: August 13, 2024 Logistics Service Representative Relationship Specialty Start Date End Date Brody Saleh [place] [address] [place] [address] [address] [place] [address] PCP - General Gerontology 08/06/23 Team Status: Active Member Role Status Dates Dr. Brody Saleh MD Primary Care Provider Active Start: April 15, 2024 Dr. Francisco Espinal MD Emergency Provider Active Sta rt: April 15, 2024 Dr. Reno Dela Cruz MD Attending Provider Active Start: April 15, 2024 Dr. Reno Dela Cruz MD Other Provider Active Star t: April 15, 2024 Team Status: Inactive Member Role Status Dates Dr. Brody Saleh MD Primary Care Provider Active Start: April 15, 2024 End: April 17, 2024 Dr. Francisco Espinal MD Emergency Provider Active Sta rt: April 15, 2024 End: April 17, 2024 Dr. Reno Dela Cruz MD Admit Provider Active Star t: April 15, 2024 End: April 17, 2024 Dr. Reno Dela Cruz MD Attending Provider Active Start: April 15, 2024 End: April 17, 2024 Dr. Reno Dela Cruz MD Referring Provider Active Start: April 15, 2024 Dr. Reno Dela Cruz MD Other Provider Active Star t: April 15, 2024 Team Status: Active Member Role Status Dates Dr. Brody Saleh MD Primary Care Provider Active Start: July 07, 2024 Dr. Reno Dela Cruz MD Attending Provider Active Start: July 07, 2024 Dr. Reno Dela Cruz MD Referring Provider Active Start: July 07, 2024 Team Status: Active Member Role Status Dates Dr. Brody Saleh MD Primary Care Provider Active Start: July 15, 2024 Dr. Reno Dela Cruz MD Attending Provider Active Start: July 15, 2024 Team Status: Active Member Role Status Dates Dr. Brody Saleh MD Primary Care Provider Active Start: July 31, 2024 Dr. Reno Dela Cruz MD Attending Provider Active Start: July 31, 2024 Team Status: Active Member Role Status Dates Dr. Brody Saleh MD Primary Care Provider Active Start: September 16, 2024 Dr. Brody Saleh MD Referring Provider Active Start: September 16, 2024 Dr. Reno Dela Cruz MD Attending Provider Active Start: September 16, 2024 Team Status: Inactive Member Role Status Dates Dr. Brody Saleh MD Primary Care Provider Active Start: October 17, 2024 End: October 17, 2024 Ed Physician Provider Emergency Provider Active Start: October 17, 2024 End: October 17, 2024 Team Status: Active Member Role Status Dates Dr. Brody Saleh MD Primary Care Provider Active Start: October 17, 2024 Dr. Reno Dela Cruz MD Attending Provider Active Start: October 17, 2024 Dr. Reno Dela Cruz MD Referring Provider Active Start: October 17, 2024 (unrecognized sect ion and content) No Status Records FoundNo Status Records Found INFORMATION SOURCE (unrecogn ized section and content) DATE CREATED AUTHOR 08/16/2023 [facility] DATE CREATED AUTHOR AUTHOR'S JAMES CHANCE 10/16/2024 [facility] Goals (unrecognized section and content) Goals may be documented in a n alternate sectionGoals may be documented in an alternate section FOR RECORDS PERTAINING TO PATIENTS WHO ARE OR HAVE BEEN ENROLLED IN A CHEMICAL DEPENDENCY/SUBSTANCEABUSE PROGRAM, SOME INFORMATION MAY BE OMITTED. This clinical summary was aggregated from multiple sources. Caution should be exercised in using it in the provision of clinical care. This summary normalizes information from multiple sources, and as a consequence, information in this document may materially change the coding, format and clinical context of patient data. In addition, data may be omitted in some cases. CLINICAL DECISIONS SHOULD BE BASED ON THE PRIMARY CLINICAL RECORDS. [facility] [employer] [facility]. provides no warranty or guarantee of the accuracy or completeness of information in this document.
== END | disposition home or self-care (01) ==
PROVIDERS: PCP Family Medicine Geriatric Medicine; Referring Provider Surgery Plastic and Reconstructive Surgery; Visit Provider Surgery Plastic and Reconstructive Surgery
DX: S62.512B Displaced fracture of proximal phalanx of left thumb, initial encounter for open fracture (principal); M86.9 Osteomyelitis, unspecified; L02.512 Cutaneous abscess of left hand
CPT/HCPCS: 36415; 73140; 80053; 85025; 85652; 86140; 87070; 87075; 87205

== ENCOUNTER 2024-10-20 12:20 | Inpatient (IN) | payer OTHER, SELFPAY ==
[2024-10-20] VITALS (12 sets, daily range): BP systolic 106–125; BP diastolic 65–83; PULSE 47–76; RESP 16–18; TEMP 36.4–36.9; O2SAT 96–100; BMI 20.4
[2024-10-20] MEDS: Lactated Ringers 1,000 ML 15 ML IV (09:57)
--- NOTE | 2024-10-20 10:16 | PRE.ANES_ITS ---
ASA Classification* ASA Classification ASA Classification: 2 Assessment & Plan Anesthesia* Anesthesia Assessment Anesthesia Assessment: Discussed sedation and/or anesthesia options, risks, benefits, and alternatives with patient/parents/legal guardian/POA. Questions invited. The patient/parents/legal guardian/POA seems to understand and agrees to proceed with anesthesia plan. Reviewed the physical assessment, medical history, allergy history and patient home medications list prior to surgery/procedure/anesthetic and documented any changes. Performed airway and anesthesia risk assessments. Anesthesia Type Anesthesia Type: MAC History Source History Obtained from:: Patient and Chart Anesthesia Focused Assessment* Temperature: 97.9 F Pulse Rate: 76 Blood Pressure: 125/83 Respiratory Rate: 18 Pulse Ox: 99 Oxygen Delivery Method: Room Air Airway Assessment Mouth opens: >3 cm Mallampati Score: I Teeth Condition: Intact Neck Range of motion (ROM): Full ROM Labs Anesthesia Preop lab: CBC WBC 9.9 K/mm3 (4.4-11.0) 10/17/24 14:49 10/17/24 RBC 4.34 M/mm3 (4.6-6.2) L 10/17/24 14:49 10/17/24 Hgb 13.4 g/dL (13.0-16.5) 10/17/24 14:49 10/17/24 Hct 39.1 % (40-54) L 10/17/24 14:49 10/17/24 Plt Count 305 K/mm3 (150-450) 10/17/24 14:49 10/17/24 CHEMISTRY Potassium 4.1 mmol/L (3.3-5.1) 10/17/24 14:49 10/17/24 Sodium 141 mmol/L (133-145) 10/17/24 14:49 10/17/24 Magnesium 2.7 mg/dL (1.6-2.6) H 04/15/24 11:16 04/15/24 BUN 12 mg/dL (4-19) 10/17/24 14:49 10/17/24 Creatinine 0.83 mg/dL (0.70-1.20) 10/17/24 14:49 10/17/24 Glucose 89 mg/dL (70-99) 10/17/24 14:49 10/17/24 TSH 1.380 uIU/mL (0.300-4.200) 08/11/24 15:39 04/11/28 COAG Pre-Assessment Diagnosis/Proposed Procedure Planned Operative Procedure(s): Debridement of the bone left thumb. Anesthesia History Anesthesia History - gambling monitor: Anesthesia History - gambling monitor Hx Hospitalization No 06/23/24 13:13 Any Problems With Anesthesia No 06/23/24 13:13 Cholinesterase deficiency No 06/23/24 13:13 You/Your Family Experience No 06/23/24 13:13 fever (hyperthermia) with Relationship Recent Exposure to Contagious No 10/20/24 09:46 Disease Does patient have nerve No 06/23/24 13:13 stimulator Patient instructed to have device shut off --Does patient have Pacemaker No 10/20/24 09:46 or ICD? When Was Last Pacemaker Check QUESTION #4 FULL TEXT: You/Your Family Experience fever (hyperthermia) with Anesthesia Last Oral Intake Last Oral intake: Last Oral Intake NPO since 07:30 10/20/24 09:46 Meds taken in AM with sips of water? Meds patient instructed to take am of surgery Any additional information?: Yes NPO since: 07:30 (Patient had 2 cups of black coffee at 7:30 AM. Patient took multiple vitamins this morning.) Meds taken in AM with sips of water?: Yes PONV PONV - gambling monitor: PONV - gambling monitor Female HX of Motion Sickness HX of N/V After Surgery Non-Smoker Duration of Surgery greater than 60 minutes Number of Risk Factors PONV Score Height & Weight Height & Weight: Anesthesia: Height & Weight Height 5 ft 8 in 10/20/24 09:46 Weight: 61 kg 10/20/24 09:46 Body Mass Index (BMI) 20.4 10/20/24 09:46 Respiratory Assessment Respiratory Assessment - gambling monitor: Respiratory Tract Infection Hx - gambling monitor Hx Respiratory Tract Infection No 06/23/24 13:13 STOP Sleep Apnea STOP Sleep Apnea - gambling monitor: STOP Sleep Apnea - gambling monitor Hx Hypertension No 06/23/24 13:13 Hx Sleep Apnea No 06/23/24 13:13 CPAP BIPAP Do you snore loudly (louder than talking or can be heard Do you often feel tired/ fatigued/ sleepy during daytime? Has anyone observed you stop breathing during sleep? STOP Results QUESTION #5 FULL TEXT : Do you snore loudly (louder than talking or can be heard through closed doors)? 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 Specify any problems Hx of Preganancy in last 3 Months Nurse Filling Out Transfusion & Questions: Date: Time: Patient unable to answer at this time (ie. confused, unrespo /Reproduction History /Reproductive History - gambling monitor: /Reproductive Hx- gambling monitor Hx Now Gestational Age (in weeks): EDC: Hx Hx Para Hx Section SAB No 06/23/24 13:13 Active Medications Active Medications: Current Medications Generic Name Dose Route Start Last Admin Trade Name Freq PRN Reason Stop Dose Admin Lactated Ringer's 1,000 mls @ 15 mls/hr 10/20/24 09:30 10/20/24 09:57 IV 15 mls/hr .Q48H SANJU Administration PFSH Medical History Wears glasses Alcohol use Hx of testicular cancer Smoker Home Medications ?Medication ?Instructions ?Recorded ?Last Taken ?Type calcium 500 mg (as 1 tab PO DAILY 30 days #30 t abs 07/24/24 Unknown Rx carbonate)-vitamin D3 15 mcg (600 unit) tablet Kenalog 10 mg/mL suspension for 10 mg IM ONCE #1 mL Unknown Clinic injection (triamcinolone acetonide) Allergy/AdvReac Type Severity Reaction Status Date / Time No Known Allergies Allergy Verified 09/16/24 14:08 Surgical History Hx of hand surgery Hx of eye surgery History of dental surgery Hx of tonsillectomy History of hand surgery Social History Smoking Status: Light Smoker (<10/day) Review of Systems (Anesthesia) ROS Narrative System reviewed and no additional complaints, except as documented.
--- NOTE | 2024-10-20 11:19 | HP.PCM.SX_ITS ---
HPI - General HPI Narrative CRYSTAL TUCKER, is a 64 M who presents with left thumb wound with exposed bone. Concern for osteomyelitis on MRI and physical exam. Otherwise fracture appears to be healing well on plain film and on physical exam. Presents today for I&D. [facility] Medical History Wears glasses Alcohol use Hx of testicular cancer Smoker Home Medications ?Medication ?Instructions ?Recorded ?Last Taken ?Type calcium 500 mg (as 1 tab PO DAILY 30 days #30 t abs 07/24/24 Unknown Rx carbonate)-vitamin D3 15 mcg (600 unit) tablet Kenalog 10 mg/mL suspension for 10 mg IM ONCE #1 mL Unknown Clinic injection (triamcinolone acetonide) Allergy/AdvReac Type Severity Reaction Status Date / Time No Known Allergies Allergy Verified 09/16/24 14:08 Surgical History Hx of hand surgery Hx of eye surgery History of dental surgery Hx of tonsillectomy History of hand surgery Social History Smoking Status: Current every day smoker (Patient smoked today.) tobacco type: cigarettes Vital Signs Vital Signs Vital Signs: 10/20/24 09:46 10/20/24 09:46 10/20/24 10:26 Temperature 97.9 F 97.9 F Temperature Source Temporal Pulse Rate 76 76 Respiratory Rate 18 18 Respiratory Pattern Normal Blood Pressure 125/83 H 125/83 H Blood Pressure Mean 97 Blood Pressure Source Monitor Blood Pressure Position Semi-Fowlers Blood Pressure Location Right Arm Pulse Ox 99 99 Oxygen Delivery Method Room Air Room Air Weight Weight: 134 lb 7.712 oz Body Mass Index (BMI) 20.4 Physical Exam Narrative Left thumb with radial-sided wound I marked the left thumb Results Lab / Micro Data Attestation: I reviewed the patient's lab results. Lab results narrative: Cultures growing staphlococcus ludgenensis from abscess I&D Assessment & Plan Assessment/Plan (1) Open wound of thumb: PLAN: Again today we reiterated the dangers of smoking with a wound over the thumb where there was a previous open fracture, including osteomyelitis and thumb destruction. He is continues to cut down on the cigarette intake. Plan for I&D in the OR today (debridement of osteomyelitis with cultures). Then admission for IV antibiotics, PICC, and infectious disease consultation Patient happy with the plan MAC/local I talked to the patient extensively about the risks of surgery, including bleeding, infection, damage to surrounding structures, poor scaring, surgical site dehiscence and wound formation, need for wound care, fracture of the thumb (repeat fracture 2/2 the debridement), need for repeat operations, failure to obtain the desired result, DVT/PE, and the risks of anesthesia including , including stroke (from low blood pressure/ischemia or clot). The benefits and alternatives of this surgery were also discussed. All of their questions were answered, and they agreed to proceed with surgery.
--- NOTE | 2024-10-20 11:45 | DEB_PTH ---
PATIENT: CRYSTAL TUCKER LOC: MS3 U#:[id number] AGE/SX: 64/M ROOM: [facility] [place]10/20/[address]: Dr. Reno Dela Cruz MD : 1960 BED: 1 DIS: 10/23/2024 SPEC #: [id number] RECD: 10/21/24 05:58 STATUS: JL COBURN #: [id number] LARA: 10/20/24 11:[address]: Reno Dela Cruz DEPT: SURGICAL PATHOLOGY RECD BY: Kenan Sneed ENTERED: 10/21/24 09:12 SP TYPE: ASHLEE BULL DR: MD Dr. Brody Isidro Chi, MD Tissues: A - Finger, NOS Procedures: Decalcification bone/plaque Surgery Specimen Level III HEADER OPERATION: Debridement bone, left thumb PRE-OP DIAGNOSIS: Left thumb osteomyelitis TISSUE SUBMITTED: A- Bone left thumb, distal phalanx MICROSCOPIC DIAGNOSIS A. Bone, left thumb, distal phalanx, debridement: * Osteomyelitis. MICROSCOPIC DESCRIPTION Slides are reviewed. GROSS DESCRIPTION A.? Received in formalin labeled with the patient's name and date of . Designated as bone left thumb distal phalanx is a 0.5 x 0.3 x 0.2 cm irregular, bryson bone fragment with focal, blue surgical markings.? Entirely submitted in 1 cassette, following decalcification. DE 10/21/2024 CPT:28408,57520
[2024-10-20] MEDS: Lidocaine 1% (20 ml mdv) 20 ML Vial (11:59)
[2024-10-20] MEDS: Bupivacaine 0.25% 30 ML Vial (11:59)
--- NOTE | 2024-10-20 12:24 | PCM.OPRPT ---
Operative Report (Standard) Operative Information Date of Procedure: 10/20/24 Pre-Operative Diagnosis: Left thumb osteomyelitis Post-Operative Diagnosis: Same Surgery/Procedure Performed: 1) debridement left thumb wound, radial side, 0.5 x 0.5 cm (CPT 45814) console operator: No Type of Anesthesia: Local MAC (10 cc of a 50-50 mixture of 1% lidocaine and 0.25% Marcaine) RN Documented Start/Stop Times: Operation Date: 10/20/24 11:45 Case Time Into Pre-Op 10/20/24 09:20 Out of Pre-Op 10/20/24 11:25 Anesthesia Start 10/20/24 11:37 Into Room 10/20/24 11:37 Procedure Start 10/20/24 11:59 Procedure Start Time: 11:59 Procedure Stop Time: 12:13 Select all DRAINS/GRAFTS/IMPLANTS that apply: None Estimated Blood Loss: 5 cc Specimen collected: Yes Description of specimen(s) removed: Bone biopsy was sent for pathologic analysis, and cultures of the distal phalanx (distal radial aspect) and the proximal phalanx (radial aspect) base were sent separately. Description of surgery: Indications: Patient is a 64-year-old male with history of left thumb trauma, status post CRPP in April 2025 with complication of wound healing problems on the radial side of the thumb, with the wound completely reepithelialized in the spring 2024 followed by unfortunate development of draining sinus on 17 October 2024 with abscess the probe to the bone and grew staph lugdunensis on culture after I&D in the office. He had an MRI which demonstrated marrow T1 hypointensity and edema involves the distal aspect of the 1st proximal phalanx (the bone distal to the fracture line) suspicious for osteomyelitis. Additionally, there is T1 marrow hypointensity with corresponding edema involving the base of the distal phalanx. The x-ray obtained on the same day as the MRI on 17 October 2024 demonstrated good bridging/healing of the fracture. He has not had any tenderness on the thumb. I talked to him today about debridement of the thumb with cultures and admission for IV antibiotics for treatment of the osteomyelitis. Patient in agreement. Procedure details: Patient was correct identified in preoperative holding and taken back to the operating room he was administered sedation and local anesthesia. He was prepped and draped in sterile fashion and a proper timeout was performed. A turnicot was applied at the thumb base and care was taken to remove it at the end of the case. A 15 blade scalpel was used to make an incision proximal and distal to the open wound and excised full-thickness the surrounding necrotic debris of the wound on the radial side of the thumb. At the base of the wound there was exposed distal phalanx and proximal phalanx with soft bone that was debrided with a rongeur. A biopsy was sent for pathologic analysis, and cultures of the distal phalanx (distal radial aspect) and the proximal phalanx (radial aspect) base were sent separately. The wound was irrigated with Irrisept and copious amounts normal saline. The wound measured 0.5 x 0.5 cm for an excisional debridement down to bone. Hemostasis was obtained with packing. Turnicot was removed. Bharath and Coban were applied. Patient tolerated the procedure well. He was awakened and taken to the PACU in stable condition. Postoperative plan: Admission for IV antibiotics and infectious disease consultation. Plan to pack 3 times per day with wet-to-dry dressings. Surgical Findings: Exposed bone at the base of the wound with exposed distal phalanx and proximal phalanx Following debridement of the necrotic bone/sequestrum, there was healthy bleeding bone at the base of the wound. Complications Complications: No
--- NOTE | 2024-10-20 12:25 | PCM.POST.ANE ---
Anesthesia: Postop Eval I Current Vital Signs Temperature: 97.5 F Pulse Rate: 65 Blood Pressure: 120/72 Respiratory Rate: 18 Pulse Ox: 97 Assessment Airway patent: Yes Spontaneous unlabored respirations: Yes nausea: No Vomiting: No Anesthesia Complication: No Fluid Hydration Crystalloid volume administer (ml): 200 Total IV fluid infused: 200 Progress Note Anesthesia document: Postop Eval 1 completed: Yes
[2024-10-20] MEDS: 0.9% Normal Saline (1000mL) 1,000 ML 75 ML IV (13:30)
--- NOTE | 2024-10-20 14:02 | POSTOPAN2_ITS ---
Anesthesia Postop Eval I Sum Postop Eval Completion status Anesthesia document: Postop Eval 1 completed: Yes Anesthesia Postop Eval I Summary Anesthesia Postop Eval I Summary: Anesthesia Postop Eval I: Assessment Summary Airway patent Yes 10/20/24 14:02 MATERIALS [email or web address] Spontaneous unlabored Yes 10/20/24 14:02 MATERIALS INTERN.CSIR respirations Mental status nausea No 10/20/24 14:02 MATERIALS INTERN.CSIR Vomiting No 10/20/24 14:02 MATERIALS INTERN.CSIR Anesthesia Postop Eval I: Fluid Summary Crystalloid volume administer 200 10/20/24 14:02 MATERIALS INTERN.CSIR (ml) Colloids volume administered ( ml) Blood Product volume administered (ml) Total IV fluid infused 200 10/20/24 14:02 MATERIALS INTERN.CSIR Anesthesia Postop Eval I: Summary Notes Anesthesia Complication No 10/20/24 14:02 MATERIALS INTERN.CSIR Anesthesia Complication Comment: Post-operative progress note Anesthesia: Postop Eval II Evaluation Mental status: Awake Pain Level: 0 nausea: No Vomiting: No
--- NOTE | 2024-10-20 14:02 | PCM.POSTANE2 ---
Anesthesia Postop Eval I Sum Postop Eval Completion status Anesthesia document: Postop Eval 1 completed: Yes Anesthesia Postop Eval I Summary Anesthesia Postop Eval I Summary: Anesthesia Postop Eval I: Assessment Summary Airway patent Yes 10/20/24 14:02 OUTREACH SPECIALIST.CSIR Spontaneous unlabored Yes 10/20/24 14:02 OUTREACH SPECIALIST.CSIR respirations Mental status nausea No 10/20/24 14:02 OUTREACH SPECIALIST.CSIR Vomiting No 10/20/24 14:02 OUTREACH SPECIALIST.CSIR Anesthesia Postop Eval I: Fluid Summary Crystalloid volume administer 200 10/20/24 14:02 OUTREACH SPECIALIST.CSIR (ml) Colloids volume administered ( ml) Blood Product volume administered (ml) Total IV fluid infused 200 10/20/24 14:02 OUTREACH SPECIALIST.CSIR Anesthesia Postop Eval I: Summary Notes Anesthesia Complication No 10/20/24 14:02 OUTREACH SPECIALIST.CSIR Anesthesia Complication Comment: Post-operative progress note Anesthesia: Postop Eval II Evaluation Mental status: Awake Pain Level: 0 nausea: No Vomiting: No
[2024-10-20] MEDS: Vancomycin IV 1,000 MG/200 ML BAG 200 MG IV (14:57)
[2024-10-20 15:14] LABS: Creatinine, Serum 0.79 mg/dL (0.70-1.20); EST Glomerular Filtration Rate 100 (>60); Estimated Creatinine Clearance 82.58 ml/min (50-250)
[2024-10-20] MEDS: 0.9% Normal Saline (250mL Bag) 250 ML 15 ML IV (15:23)
[2024-10-20] MEDS: Piperacil/Tazobactam 3.375 GM in 0.9% Normal Saline (50mL MB+) 50 ML IV ×2 (15:23→22:49)
--- NOTE | 2024-10-20 15:34 | PCM.RX.CS ---
Consult Antibiotic Management Pharmacy has been consulted to manage selected antibiotic: Vancomycin Type of Intervention Type of Consult: New start Suspected Infection Suspected Infection: Osteomyelitis Labs Labs: Creatinine 0.79 mg/dL (0.70-1.20) 10/20/24 14:24 Est GFR (MDRD) Non-Af 100 (>60) 10/20/24 14:24 Microbiology Microbiology: Microbiology 10/20/24 Unknown Bone - Left Hand Gram Stain - Final 10/20/24 Unknown Bone - Left Hand Gram Stain - Final Goal Trough Goal Trough: 15-20 mcg/mL Pharmacy Plan for Drug Dosing Pharmacy Plan for Drug Dosing: NEW START IV VANCOMYCIN Consulting Physician: Dr. Dela Cruz Indication: Suspected osteomyelitis of hand Goal Trough: 15-20 (trough goal changed to 15-20 per TORB) SrCr: 0.79 CrCl: 82 mL/min Comments: Initial order of 1000mg IV x1 ordered and administered 10/20/24 @1457 Vancomycin Dose: 1000mg IV Q12hr to start 10/21/24 @0300 Pending Level: 10/22/24 @0230, prior to 4th total dose of vancomycin per protocol Pharmacy Service will continue to monitor and adjust dosing as required.
[2024-10-20] MEDS: DAKIN'S SOL HALF STRENGTH (=0.25%) TOPICAL (22:48)
[2024-10-21] MEDS: Vancomycin IV 1,000 MG/200 ML BAG 200 MG IV ×2 (03:20→16:36)
[2024-10-21] MEDS: 0.9% Normal Saline (1000mL) 1,000 ML 75 ML IV ×2 (03:20→20:16)
[2024-10-21 04:44] VITALS: BP 118/73; PULSE 56; RESP 16; TEMP 36.6; O2SAT 99
[2024-10-21] MEDS: Piperacil/Tazobactam 3.375 GM in 0.9% Normal Saline (50mL MB+) 50 ML IV ×3 (04:45→21:00)
[2024-10-21 05:09] LABS: Absolute Lymphocyte Count 1.93 X10^3/uL (0.83-4.51); Absolute Neutrophil Count 3.8 X10^3/uL (2.0-7.7); Basophil# 0.06 X10^3/uL; Basophil% 0.9 % (0-1); Eosinophil# 0.17 X10^3/uL; Eosinophils% 2.6 % (0-5); Hematocrit 34.9 % (40-54); Hemoglobin 11.9 g/dL (13.0-16.5); Lymphocyte # 1.93 X10^3/ul (0.83-4.51); Lymphocyte % 29.3 % (19-41); Mean Corp Hgb Conc 34.1 g/dL (32-36); Mean Corpuscular Hgb 30.9 pg (27.0-32.0); Mean Corpuscular Volume 90.6 fL (80-94); Mean Platelet Vol. 8.5 fl (6.2-12.0); Monocyte# 0.59 X10^3/uL; NRBC Flagged by Analyzer 0 % (0-5); Neutrophil # 3.82 X10^3/uL (2.7-7.7); Neutrophil % 57.9 % (47-70); Platelet Count 226 K/mm3 (150-450); RBC Distribution Width CV 13.6 % (11.6-14.6); RBC Distribution Width SD 45.7 fl (35.1-43.9); Red Blood Count 3.85 M/mm3 (4.6-6.2); White Blood Count 6.6 K/mm3 (4.4-11.0)
[2024-10-21 05:42] LABS: Anion Gap 10 (5-15); BUN 13 mg/dL (4-19); Calcium,Total 8.5 mg/dL (7.6-11.0); Carbon Dioxide 22.3 mmol/L (21.0-32.0); Chloride 106 mmol/L (98-108); Creatinine, Serum 0.91 mg/dL (0.70-1.20); EST Glomerular Filtration Rate 95 (>60); Estimated Creatinine Clearance 71.69 ml/min (50-250); Glucose 138 mg/dL (70-99); Potassium 4.2 mmol/L (3.3-5.1); Sodium Level 138 mmol/L (133-145)
[2024-10-21 08:49] VITALS: BP 120/62; PULSE 46; RESP 16; TEMP 36.3; O2SAT 98
--- NOTE | 2024-10-21 09:58 | CASEMGMT ---
PAYTON CONCEPCION Assessment: Face to Face with pt for initial transition planning/care coordination assessment. PAYTON CONCEPCION introduced self and role at [facility], pt voices understanding and consents to assessment. Pt is A&O x4 and answers all questions appropriately at this time. Pt sitting up in chair in no distress. Care providers, pharmacy, and demographics verified/updated. Admitting Dx: osteomyelitis Strata Score: 1 PCP:Delfino Specialists:Jose De Jesus Granger Pharmacy:[facility] Insurance: [facility] Nathaly Bolton Prescription Benefit: yes LNOK: Eileen Suresh, mother Living Arrangements: Pt lives alone in a single story home with 4 steps to enter. Pt reports he is I in ADL/IADLs and denies concerns at home. Pt was back to work. Transportation: Pt drives self and denies concerns with transportation. DME:Denies HHC/SNF: Denies hx of Pt states no concerns with going home at time of dc. Pt states ID saw him and states he may need a picc line and 6 wks of IV atb. Discussed and provided options for pt with this. Pt would like ultimately to learn the IV antibiotics himself and come to the hospital weekly for picc dressing changes and labs. Pt is aware that [employer] could come teach him the IV atb for home, he would like to use this company and denies any need for a list of other options. Pt is hopeful for oral antibiotics. Pt was not performing wound care prior to this hospitalization. He had completed going to the [facility]. Follow for dressing changes. Pt states no further concerns/needs. CM to follow. Advised pt to ask CM if any further questions/concerns/needs arise, voices understanding. Pt Goal: Home Plan: Home, follow for IV atb and wound care Toni CAIN CM
--- NOTE | 2024-10-21 10:04 | PCM.CONS.GEN ---
Assessment & Plan Assessment/Plan (1) Osteomyelitis of finger of left hand: PLAN: OR 10/20/24 for I&D with Dr. Dela Cruz. Wound cx with MS-Vasu valenciadavidava. With an aggressive staph and bone/joint involvement, will plan on picc and iv abx at discharge. Cont vanc/zosyn for now. Will follow, thank you, d/w Dr. Dela Cruz HPI Consult Data Date of Consult: 10/21/24 HPI Narrative Reason for Consultation: osteo HPI Narrative: CRYSTAL TUCKER, is a 64 M who had crush injury to L hand 04/2024. Admitted to [facility], taken to OR 04/15/[address] Dela Cruz for washout with ORIF of thumb and amputation index finger. Wires removed 05/[address] Dela Cruz. Since then over past few months, pain has been stable at around a 2/10. Over past week, increased swelling of L thumb. No fever or chills. Mild pain. No redness or drainage. Developed opening, came to [facility] and taken to OR 10/20/[address] Dela Cruz for I&D. On vanc/zosyn, c/o back pain and pain at IV sites. Full ROS performed and neg except as noted above. [facility] Medical History Wears glasses Alcohol use Hx of testicular cancer Smoker Home Medications ?Medication ?Instructions ?Recorded ?Last Taken ?Type calcium 500 mg (as 1 tab PO DAILY 30 days #30 tabs 07/24/24 Unknown Rx carbonate)-vitamin D3 15 mcg (600 unit) tablet Kenalog 10 mg/mL suspension for 10 mg IM ONCE #1 mL 08/21/24 Unknown Clinic injection (triamcinolone acetonide) Allergy/AdvReac Type Severity Reaction Status Date / Time No Known Allergies Allergy Verified 09/16/24 14:08 Surgical History Hx of hand surgery Hx of eye surgery History of dental surgery Hx of tonsillectomy History of hand surgery Social History Smoking Status: Current every day smoker tobacco type: cigarettes Physical Exam Const alert, oriented x3 and no apparent distress General Appearance: cooperative HEENT normocephalic and head/scalp atraumatic Eyes PERRL and EOMs intact bilaterally Neck supple and No nodes Resp normal air movement and clear to auscultation bilaterally Cardio regular rate and regular rhythm GI soft to palpation, non-tender and non-distended Extremity General Extremity: Negative for edema Skin Skin Narrative: L thumb incision with packing in place Neuro CN's II-XII intact bilaterally Lab / Micro Data Attestation: I reviewed the patient's lab results. 10/21/24 04:51 10/21/24 04:51 Labs: Laboratory Results - last 24 hr 10/20/24 14:24: Creatinine 0.79, Estim Creat Clear Calc 82.58, Est GFR (MDRD) Non-Af 100 10/21/24 04:51: WBC 6.6, RBC 3.85 L, Hgb 11.9 L, Hct 34.9 L, MCV 90.6, MCH 30.9, MCHC 34.1, RDW Std Deviation 45.7 H, RDW Coeff of Juaquin 13.6, Plt Count 226, MPV 8.5, Immature Gran % (Auto) 0.300, Neut % (Auto) 57.9, Lymph % (Auto) 29.3, [place] % (Auto) 9.0, Eos % (Auto) 2.6, Baso % (Auto) 0.9, Absolute Neuts (auto) 3.8, Absolute Lymphs (auto) 1.93, Nucleated RBC % 0, Sodium 138, Potassium 4.2, Chloride 106, Carbon Dioxide 22.3, Anion Gap 10, BUN 13, Creatinine 0.91, Estim Creat Clear Calc 71.69, Est GFR (MDRD) Non-Af 95, BUN/Creatinine Ratio 14.0, Glucose 138 H, Calcium 8.5 Micro: Microbiology 10/20/24 Unknown Bone - Left Hand Gram Stain - Final 10/20/24 Unknown Bone - Left Hand Wound Culture - Preliminary No growth-Final to follow 10/20/24 Unknown Bone - Left Hand Gram Stain - Final 10/20/24 Unknown Bone - Left Hand Wound Culture - Preliminary No growth-Final to follow
--- NOTE | 2024-10-21 10:06 | PCM.PN.SRG ---
Subjective Subjective Doing well postop day 1 from left thumb incision and drainage/bone biopsy. Endorses good dressing changes from the nursing staff. Pain controlled. Voiding normally and no nausea or vomiting. Objective Data Objective Data Vital Signs: Vital Signs Temp Pulse Resp BP Pulse Ox O2 Del Method 97.3 F L 46 L 16 120/62 98 Room Air 10/21/24 08:49 10/21/24 08:49 10/21/24 08:49 10/21/24 08:49 10/21/24 08:49 10/21/24 08:50 Oxygen Delivery Method Room Air Weight: 134 lb 7.712 oz Body Mass Index (BMI) 20.4 Intake & Output: Intake and Output for Last 24 Hours 10/19/24 10/20/24 10/21/24 23:59 23:59 23:59 Intake Total 1427.25 / 1427.25 2340 / 2340 Output Total 2 / 2 Balance 1425.25 / 1425.25 2340 / 2340 Lab / Micro Data 10/21/24 04:51 10/21/24 04:51 Labs: Laboratory Results - last 24 hr 10/20/24 14:24: Creatinine 0.79, Estim Creat Clear Calc 82.58, Est GFR (MDRD) Non-Af 100 10/21/24 04:51: WBC 6.6, RBC 3.85 L, Hgb 11.9 L, Hct 34.9 L, MCV 90.6, MCH 30.9, MCHC 34.1, RDW Std Deviation 45.7 H, RDW Coeff of Juaquin 13.6, Plt Count 226, MPV 8.5, Immature Gran % (Auto) 0.300, Neut % (Auto) 57.9, Lymph % (Auto) 29.3, [place] % (Auto) 9.0, Eos % (Auto) 2.6, Baso % (Auto) 0.9, Absolute Neuts (auto) 3.8, Absolute Lymphs (auto) 1.93, Nucleated RBC % 0, Sodium 138, Potassium 4.2, Chloride 106, Carbon Dioxide 22.3, Anion Gap 10, BUN 13, Creatinine 0.91, Estim Creat Clear Calc 71.69, Est GFR (MDRD) Non-Af 95, BUN/Creatinine Ratio 14.0, Glucose 138 H, Calcium 8.5 Micro: Microbiology 10/20/24 Unknown Bone - Left Hand Gram Stain - Final 10/20/24 Unknown Bone - Left Hand Wound Culture - Preliminary No growth-Final to follow 10/20/24 Unknown Bone - Left Hand Gram Stain - Final 10/20/24 Unknown Bone - Left Hand Wound Culture - Preliminary No growth-Final to follow Physical Exam Narrative Left thumb with radial sided wound down to bone. Packing changed. No purulent drainage and good healthy granulation tissue forming at the base of the wound. Const alert and oriented x3 Eyes PERRL and EOMs intact bilaterally Resp normal respiratory effort Cardio regular rate Extremity Extremity Narrative: No swelling Assessment & Plan Assessment/Plan (1) Osteomyelitis of finger of left hand: PLAN: Discussed with infectious disease physician Continue empiric vancomycin and Zosyn 75 cc/hr LR and daily BMPs Patient will need PICC line per infectious disease (anticipate 6 weeks of antibiotics) (2) Open wound of thumb: PLAN: Continue 3 times per day wet to moist dressings with Dakin's solution PLAN: Plan Roxicodone Tylenol and elevation of the left hand for pain control SCDs for DVT prophylaxis as well as 40 mg subcu Lovenox daily Follow-up final cultures Charges/Coding Procedures Integumentary 111xxx-113xx: [id number] Global Visit
--- NOTE | 2024-10-21 10:11 | WOUNDNOTE ---
wound photo: left thumb
--- NOTE | 2024-10-21 11:50 | CASEMGMT ---
TC to Becky Keane at [facility] who handles pt workers comp at [phone] to make aware of pt need for IV atb for 6 wks. She states to use pt SS# for the claim number and states usually she can get the C-9's approved same day and at most 24 hours. She requests the C-9 be faxed to her at [phone] when IV atb is determined. Made aware that tentatively the pt will go to the infusion center at [facility] weekly for picc dressing change and labs. She states all of this can be entered on the same C-9. TC to [facility] infusion to see if there is any specific line item needed on C-9 for their payment, spoke with Jeanie, she states that it would need to state weekly picc dressing change and labs. She faxed over an order form for the infusion center and requests it be completed and faxed to them instead of the typical IV rx. Message sent to to confirm potential dc. He plans to dc pt tomorrow. Message to Dr. Byers to confirm that an antibiotic could be determined tomorrow. He plans to write a rx in the morning. He is aware of additional infusion order. He is aware this is on front of the chart as well for signature. Referral sent to [facility] to determine if there is a specific line item needed for their payment, requesting the nurse educator to see pt tomorrow and for the overall referral. Received message that they will need C-9 sent to them. Remessaged to see availability for nurse educator, will await response. C-9 started and placed in front of chart.
[2024-10-21] MEDS: DAKIN'S SOL HALF STRENGTH (=0.25%) TOPICAL ×2 (13:27→21:09)
[2024-10-21 14:16] VITALS: BP 101/56; PULSE 52; RESP 16; TEMP 36.9; O2SAT 98
[2024-10-21] MEDS: 0.9% Saline Lock 10 ML Syringe IV (16:36)
[2024-10-21 20:58] VITALS: BP 119/65; PULSE 49; RESP 18; TEMP 36.7; O2SAT 95
[2024-10-22 03:07] LABS: Vancomycin, Trough Level 9.5 ug/mL (5.0-15.0)
[2024-10-22] MEDS: Vancomycin HCl 1,250 MG in 0.9% Normal Saline (250mL Bag) 250 ML 167 MG IV ×2 (03:50→16:20)
--- NOTE | 2024-10-22 03:50 | PCM.RX.CS ---
Consult Antibiotic Management Pharmacy has been consulted to manage selected antibiotic: Vancomycin Type of Intervention Type of Consult: Follow-up Labs Labs: Sodium 138 mmol/L (133-145) 10/21/24 04:51 Potassium 4.2 mmol/L (3.3-5.1) 10/21/24 04:51 Chloride 106 mmol/L (98-108) 10/21/24 04:51 Carbon Dioxide 22.3 mmol/L (21.0-32.0) 10/21/24 04:51 Anion Gap 10 (5-15) 10/21/24 04:51 BUN 13 mg/dL (4-19) 10/21/24 04:51 Creatinine 0.91 mg/dL (0.70-1.20) 10/21/24 04:51 Est GFR (MDRD) Non-Af 95 (>60) 10/21/24 04:51 BUN/Creatinine Ratio 14.0 RATIO (10-20) 10/21/24 04:51 Glucose 138 mg/dL (70-99) H 10/21/24 04:51 Vancomycin Trough 9.5 ug/mL (5.0-15.0) 10/22/24 02:36 Microbiology Microbiology: Microbiology 10/20/24 Unknown Bone - Left Hand Gram Stain - Final 10/20/24 Unknown Bone - Left Hand Wound Culture - Preliminary No growth-Final to follow 10/20/24 Unknown Bone - Left Hand Gram Stain - Final 10/20/24 Unknown Bone - Left Hand Wound Culture - Preliminary No growth-Final to follow Goal Trough Goal Trough: 15-20 mcg/mL Pharmacy Plan for Drug Dosing Pharmacy Plan for Drug Dosing: Pharmacy Service will continue to monitor and adjust dosing as required. TROUGH 9.5 @ 10 HOURS. INCREASE TO 1250 Q12H AND DRAW TROUGH PRIOR TO 4TH DOSE Follow-Up Labs Follow-Up Labs: Trough: Vancomycin Date/Time Labs Ordered Labs to be done on [date and time ordered]: 10/23 @ 1500
[2024-10-22 03:57] VITALS: BP 127/69; PULSE 47; RESP 16; TEMP 36.8; O2SAT 99
[2024-10-22] MEDS: Piperacil/Tazobactam 3.375 GM in 0.9% Normal Saline (50mL MB+) 50 ML IV ×3 (05:15→22:17)
[2024-10-22] MEDS: DAKIN'S SOL HALF STRENGTH (=0.25%) TOPICAL ×3 (05:16→22:18)
[2024-10-22 07:51] VITALS: BP 110/60; PULSE 46; RESP 14; TEMP 36.1; O2SAT 95
--- NOTE | 2024-10-22 09:09 | CASEMGMT ---
Addendum entered by Ant Valero 10/22/24 09:20: Abram from [facility] states that he can come do a teach today @ 1230, pending final IV ATB orders. Dr. Byers notified. Original Note: PICC documentation sent to [facility] via [employer]. Requested availability again for [facility] to provide pt with IV ATB infusion education today, prior to DC. Also requested again specific line items regarding the C-9. Awaiting final ID recommendations for IV ATB rx and [facility]fusion [facility] Rx signing. Awaiting Dr Dela Cruz's signature for the C-9. CM to follow.
[2024-10-22 09:20] VITALS: BP 141/83; PULSE 50; RESP 16; TEMP 36.8; O2SAT 95
--- NOTE | 2024-10-22 10:20 | CASEMGMT ---
Addendum entered by Ant Valero 10/22/24 11:14: Dr. Dela Cruz reports to this RN CM that he would like the pt to follow up at the [facility] on Sunday. TC the the [facility] now. [facility] states that they will also need an approved C-9 before being able to schedule the pt for Sunday. CM to submit C-9 form once able. Addendum entered by Ant Valero 10/22/24 11:06: Dr. Dela Cruz signs and returns C-9. At this time, awaiting final ID orders to be able to submit the C-9 form to the appropriate [facility]. At this time, Dr. Dela Cruz states that the pt will be discharging tomorrow now. [facility] notified. Dr. Byers notified. CM to follow. Original Note: Dr. Dela Cruz requests C-9 form to be faxed to his office for signing. C-9 form faxed to [phone] Dela Cruz notified.
[2024-10-22] MEDS: Calcium Carb/Vitamin D 1 TABLET Tablet PO (10:33)
--- NOTE | 2024-10-22 10:37 | PCM.PN.SRG ---
Subjective Subjective Doing well overall POD 2 from I&D of the left thumb osteomyelitis/abscess. Tolerating antibiotics. Has a right arm PICC line. Objective Data Objective Data Vital Signs: Vital Signs Temp Pulse Resp BP Pulse Ox O2 Del Method 98.2 F 50 L 16 141/83 H 95 Room Air 10/22/24 09:20 10/22/24 09:20 10/22/24 09:20 10/22/24 09:20 10/22/24 09:20 10/22/24 09:20 Oxygen Delivery Method Room Air Weight: 134 lb 7.712 oz Body Mass Index (BMI) 20.4 Intake & Output: Intake and Output for Last 24 Hours 10/20/24 10/21/24 10/22/24 23:59 23:59 23:59 Intake Total 1427.25 / 1427.25 3990.0 / 3990.0 1106.25 / 1106.25 Output Total 2 / 2 Balance 1425.25 / 1425.25 3990.0 / 3990.0 1106.25 / 1106.25 Lab / Micro Data 10/21/24 04:51 10/21/24 04:51 Labs: Laboratory Results - last 24 hr 10/22/24 02:36: Vancomycin Trough 9.5 Micro: Microbiology 10/20/24 Unknown Bone - Left Hand Gram Stain - Final 10/20/24 Unknown Bone - Left Hand Wound Culture - Preliminary 10/20/24 Unknown Bone - Left Hand Gram Stain - Final 10/20/24 Unknown Bone - Left Hand Wound Culture - Preliminary Physical Exam Narrative Left thumb with radial sided wound down to bone. Packing changed. No purulent drainage and good healthy granulation tissue forming at the base of the wound. Const alert and oriented x3 Eyes PERRL and EOMs intact bilaterally Resp normal respiratory effort Cardio regular rate Extremity Extremity Narrative: No swelling Assessment & Plan Assessment/Plan (1) Osteomyelitis of finger of left hand: PLAN: Discussed with infectious disease physician Continue empiric vancomycin and Zosyn 75 cc/hr LR and daily BMPs Patient will need PICC line per infectious disease (anticipate 6 weeks of antibiotics) (2) Open wound of thumb: PLAN: Continue 3 times per day wet to moist dressings with Dakin's solution We will plan for f/u on Sunday at the [facility]. PLAN: Plan Roxicodone Tylenol and elevation of the left hand for pain control SCDs for DVT prophylaxis as well as 40 mg subcu Lovenox daily Follow-up final cultures Charges/Coding Procedures Integumentary 111xxx-113xx: [id number] Global Visit
--- NOTE | 2024-10-22 12:10 | CASEMGMT ---
Dr. Byers provides physical IV ATB Rx for vancomycin 1.25 gram recon soln IV Q12H. Rx sent to [facility]. C-9 form completed requesting IV ATB infusion, weekly PICC dressing changes, flushes, and supplies. Lab draws (BMP, CBC, ESR. & Vanc Trough). Also Eval and treatment @ [facility] for wound healing weekly until healed. C-9 faxed to Becky Keane (See previous RN CM note). Awaiting approval now.
--- NOTE | 2024-10-22 13:05 | CASEMGMT ---
Vanc trough, med list, and most recent labs (from 10/21) sent to [facility] via [employer]. Abram now ([facility] Educator) states that he will be coming to the hospital tomorrow morning (time TBD) for the teach.
--- NOTE | 2024-10-22 13:26 | CASEMGMT ---
TC to Becky @ [facility]. Becky states that she received the C-9 and that she is working on getting it approved. Becky denies further needs at this time. [employer] to the pt room. Updated pt that Abram from [facility] will be to the room tomorrow morning for the teach. Pt updated that the C-9 has been sent for approval. Pt states that, as long as everything gets approved, he plans to DC home tomorrow with IV ATBs, follow up at the [facility] infusion Center weekly for PICC dressing changes and lab draws, and follow up with the [facility] next week. Provided the pt with this RN CM contact card. Pt thanks this RN JAMEY and denies further questions, concerns, or needs now. CM to follow.
[2024-10-22 14:07] VITALS: BP 121/64; PULSE 54; RESP 16; TEMP 36.4; O2SAT 95
--- NOTE | 2024-10-22 14:19 | PN.ID_ITS ---
Physical Exam Narrative Back is sore, iv sites are sore, thumb is painful at 3 out of 10. No fever, no n/v/d. Const alert and no apparent distress Resp normal air movement and clear to auscultation bilaterally Cardio regular rate and regular rhythm GI soft to palpation, non-tender and non-distended Skin Skin Narrative: no new rash ID ID: Route of nutrition/ use of supplements: [] Nutritional Intake: [] IV Site: [] Vargas Catheter: [] Assessment & Plan Assessment/Plan (1) Osteomyelitis of finger of left hand: PLAN: OR 10/20/24 for I&D with Dr. Dela Cruz. Wound cx with MR-S lugdunensis and anaerobies. With an aggressive staph and bone/joint involvement, will plan on picc and iv abx at discharge. Cont vanc/zosyn for now. Will write for 6 weeks iv vanc along with po flagyl, stop date 11/28/24 with weekly labs and ID followup in 2-3 weeks. Will follow, d/w director of casework services
--- NOTE | 2024-10-22 15:01 | CASEMGMT ---
Becky Susanna at [facility] ([phone]) faxes back an approved C-9 form. Form faxed to the [facility] and the OP Infusion Center at this time. Form sent to [facility] via [employer]. Becky requests the pt to sign a C-84 form for compensation. PAYTON CM to the pt room and updated that the C-9 was approved. Pt signed the C-84. C-84 faxed back to Becky at [facility]. [facility] is requesting a number to call for a CM through the [facility]. TC to Becky who states that she received the C-84 and that [facility] can contact her or their TPA ([employer]) - Becky Grigsby @ [phone]. [facility] notified. Becky Mullins denies any additional needs or concerns regarding the C-9 or C-84. TC to the [facility] OP Infusion Center. No answer, VM left. TC to the [facility]. [facility] states that they received the approved C-9 and that they are able to schedule the pt for next Sunday at 1400. Pt is agreeable. Pt states appreciation and denies further questions or concerns at this time. CM to follow.
[2024-10-22 22:00] VITALS: BP 132/74; PULSE 55; RESP 14; TEMP 36.6; O2SAT 98
[2024-10-23] MEDS: Vancomycin HCl 1,250 MG in 0.9% Normal Saline (250mL Bag) 250 ML 167 MG IV ×2 (04:02→17:26)
[2024-10-23 05:05] VITALS: BP 134/84; PULSE 54; RESP 16; TEMP 36.6; O2SAT 99
[2024-10-23] MEDS: Piperacil/Tazobactam 3.375 GM in 0.9% Normal Saline (50mL MB+) 50 ML IV (05:22)
[2024-10-23 07:23] VITALS: BP 128/71; PULSE 46; RESP 16; TEMP 37.3; O2SAT 98
[2024-10-23 08:04] LABS: Anion Gap 10 (5-15); BUN 9 mg/dL (4-19); BUN/Creat Ratio 10.3 RATIO (10-20); Calcium,Total 8.6 mg/dL (7.6-11.0); Carbon Dioxide 25.1 mmol/L (21.0-32.0); Chloride 107 mmol/L (98-108); Creatinine, Serum 0.92 mg/dL (0.70-1.20); EST Glomerular Filtration Rate 93 (>60); Estimated Creatinine Clearance 70.91 ml/min (50-250); Glucose 104 mg/dL (70-99); Potassium 4.3 mmol/L (3.3-5.1); Sodium Level 142 mmol/L (133-145)
--- NOTE | 2024-10-23 09:00 | CASEMGMT ---
Addendum entered by Ashley Frank 10/23/24 15:45: [facility] reports unable to deliver med until tomorrow d/t power outages. Received confirmation that med will be delivered tomorrow morning via phone from Milton at [facility]. PAY[employer] CONCEPCION into pt room, pt aware that he will need to stay for second dose this evening of vancomycin then dc home. He is aware to start med tomorrow when it arrives. Pt states he feels comfortable with administering as the teaching went well. This was also confirmed by Abram the nurse educator. Pt has extension tubing and he is aware this should be put on prior to dc. Updated pt nurse on this as well. Pt denies any further needs at this time. Addendum entered by Ashley Frank 10/23/24 13:33: Received response from [facility] that the soonest they can deliver pt med is tomorrow because they have been unable to reach Becky Grigsby. TC to Becky Grigsby, she states she left [facility] Bernarda a message and she is available now to speak with her. Message sent to [facility] Bernarda to make aware. Addendum entered by Ashley Frank 10/23/24 10:07: 0925-PAYTON CONCEPCION into pt room, pt is aware that nurse educator is coming today at 1030 and if all goes well he will be dc'd and will give evening dose at home. Pt is aware of [facility] appt and infusion center appt set up for Sunday. Pt states he did do wound care prior to hospitalization and is ok with performing this again at home. Pt denies any questions currently. PAYTON CONCEPCION updated pt nurse as well. Original Note: TC to Outpt infusion, pt set up with appt on SundayOctober 27 for 1pm for picc dressing change and labs. SHILPI Valverde educator to come today to the hospital at 1030am this morning for bedside teach.
[2024-10-23] MEDS: DAKIN'S SOL HALF STRENGTH (=0.25%) TOPICAL ×2 (10:32→17:15)
--- NOTE | 2024-10-23 13:32 | PCM.DC.SUM ---
Providers Date of Admission: 10/20/24 Primary Care Physician: Dr. Brody Saleh MD Consultations 10/21/24 09:01 Consult: Infectious Disease Routine Consulting Provider: Reno Byers Reason for Consult: osteo EMERGENT Consult: No MD Notified: Yes Date Notified: 10/21/24 Time Notified: 09:01 Method of Notification: Verbal Reason For Visit: ADDED ON LATE SUNDAY Diagnosis Discharge Diagnosis (1) Osteomyelitis of finger of left hand: Status: Acute Code(s): M86.9 - Osteomyelitis, unspecified Plan: Discussed with infectious disease physician Continue empiric vancomycin and Zosyn 75 cc/hr LR and daily BMPs Patient will need PICC line per infectious disease (anticipate 6 weeks of antibiotics) Plan Roxicodone Tylenol and elevation of the left hand for pain control SCDs for DVT prophylaxis as well as 40 mg subcu Lovenox daily Follow-up final cultures Medications at Discharge Home Medications calcium 500 mg (as carbonate)-vitamin D3 15 mcg (600 unit) tablet 1 tab PO DAILY 30 days #30 tabs 07/24/24 Kenalog 10 mg/mL suspension for injection (triamcinolone acetonide) 10 mg IM ONCE #1 mL 08/21/24 vancomycin 1.25 gram intravenous solution 1.25 g IV Q12H 36 days 10/22/24 metronidazole 500 mg tablet 500 mg PO Q8H 40 days #120 tabs 10/23/24 Hospital Course Summary of Care Provided Hospital Course: Reggie Suresh was taken to surgery on 20 October 2024 for a left thumb wound with concern for osteomyelitis on an MRI. He was debrided and cultures were taken which grew anaerobes and staph lugdunensis. He was admitted for IV antibiotics and tolerated the antibiotics well. Infectious disease was consulted and placed him on home vancomycin and metronidazole and he received a right arm PICC line. Patient will be discharged today and continue wet-to-dry dressings with Dakin's 3 times per day and follow-up in the wound care center with me on Sunday, 27 October 2024. Physical Exam Narrative Left thumb with radial sided wound down to bone. Packing changed. No purulent drainage and good healthy granulation tissue forming at the base of the wound. Weight / BMI Weight Weight: 134 lb 7.712 oz Body Mass Index (BMI) 20.4 ABG / Lab / Microbiology Data 10/21/24 04:51 10/23/24 06:42 Laboratory: Laboratory Results - last 24 hr 10/23/24 06:42: Sodium 142, Potassium 4.3, Chloride 107, Carbon Dioxide 25.1, Anion Gap 10, BUN 9, Creatinine 0.92, Estim Creat Clear Calc 70.91, Est GFR (MDRD) Non-Af 93, BUN/Creatinine Ratio 10.3, Glucose 104 H, Calcium 8.6 Microbiology: Microbiology 10/20/24 Unknown Bone - Left Hand Gram Stain - Final 10/20/24 Unknown Bone - Left Hand Wound Culture - Preliminary Gram positive organism 10/20/24 Unknown Bone - Left Hand Anaerobic Culture - Preliminary Checking for anaerobes, further studies to follow. 10/20/24 Unknown Bone - Left Hand Gram Stain - Final 10/20/24 Unknown Bone - Left Hand Wound Culture - Preliminary Gram positive organism 10/20/24 Unknown Bone - Left Hand Anaerobic Culture - Preliminary Checking for anaerobes, further studies to follow. D/C Instructions DC O2, CPAP, BIPAP Needs Home O2 Discharge instructions: No Meaningful Use Info Meaningful Use Meaningful Use Diagnoses (Choose all that apply): None applicable Ischemic Stroke Statin Dosing Therapy Reference: STATIN DOSE THERAPY REFERENCE: * Patients > 75 years receive moderate or high dose statin therapy. * Patients 75 years or YOUNGER should receive HIGH intensity statin dose unless contraindicated. You will be required to document reason for non-treatment if statin daily dose does not meet guidelines. HIGH DOSE STATIN THERAPY DAILY Atorvastatin > than or = to 40 mg Rosuvastatin > than or = to 20 mg Amlodipine + Atorvastatin > than or = to 2.5/40 mg Ezetimibe + Simvastatin 10/80 mg Simvastatin 80mg Discharge Plan Admission Admit Date/Time: 10/20/24 12:20 Attending Provider: Reno Dela Cruz Primary Care Provider: Brody Saleh Chi Consulting Providers: Reno Byers Instructions Additional Instructions / Restrictions: Three times per day Wet to dry dressings with Dakins as discussed F/u in wound care center on Sunday Keep taking IV antiibotics per ID Discharge Orders/Prescriptions Prescriptions: New vancomycin 1.25 gram recon soln 1.25 g IV Q12H 36 Days Rx Instructions: stop date 11/28/24. Dx: finger osteomyelitis. Weekly bmp, cbc, esr, and vanc trough. Fax to [phone]. Routine picc care per protocol. metronidazole 500 mg tablet 500 mg PO Q8H 40 Days Qty: 120 0RF No Action Kenalog 10 mg/mL suspension 10 mg IM ONCE Qty: 1 0RF calcium carbonate-vitamin D3 500 mg-15 mcg (600 unit) tablet 1 tab PO DAILY 30 Days Qty: 30 3RF Referrals / Follow Up: Brody Saleh Chi, MD [Primary Care Provider] - Disposition Disposition (needs filled in before D/C Order can be placed): Home, Self Care
[2024-10-23 15:54] LABS: Vancomycin, Trough Level 13.2 ug/mL (5.0-15.0)
--- NOTE | 2024-10-23 16:40 | PCM.RX.CS ---
Consult Antibiotic Management Pharmacy has been consulted to manage selected antibiotic: Vancomycin Type of Intervention Type of Consult: Follow-up Labs Labs: Sodium 142 mmol/L (133-145) 10/23/24 06:42 Potassium 4.3 mmol/L (3.3-5.1) 10/23/24 06:42 Chloride 107 mmol/L (98-108) 10/23/24 06:42 Carbon Dioxide 25.1 mmol/L (21.0-32.0) 10/23/24 06:42 Anion Gap 10 (5-15) 10/23/24 06:42 BUN 9 mg/dL (4-19) 10/23/24 06:42 Creatinine 0.92 mg/dL (0.70-1.20) 10/23/24 06:42 Est GFR (MDRD) Non-Af 93 (>60) 10/23/24 06:42 BUN/Creatinine Ratio 10.3 RATIO (10-20) 10/23/24 06:42 Glucose 104 mg/dL (70-99) H 10/23/24 06:42 Vancomycin Trough 13.2 ug/mL (5.0-15.0) 10/23/24 15:05 Microbiology Microbiology: Microbiology 10/20/24 Unknown Bone - Left Hand Gram Stain - Final 10/20/24 Unknown Bone - Left Hand Wound Culture - Preliminary Gram positive organism 10/20/24 Unknown Bone - Left Hand Anaerobic Culture - Preliminary Checking for anaerobes, further studies to follow. 10/20/24 Unknown Bone - Left Hand Gram Stain - Final 10/20/24 Unknown Bone - Left Hand Wound Culture - Preliminary Gram positive organism 10/20/24 Unknown Bone - Left Hand Anaerobic Culture - Preliminary Checking for anaerobes, further studies to follow. Pharmacy Plan for Drug Dosing Pharmacy Plan for Drug Dosing: VANCOMYCIN LEVEL RECEIVED Current Vancomycin Dose: 1250mg IV Q12hr Number of Doses Received: 3 (of current dose) Vancomycin Level: 13.2 (goal 15-20) Hours Since Last Dose: 11hr Renal Function: 0.92 Renal Function Trend: stable Vancomycin Plan/Comments: patient had a trough drawn which resulted in a value of 13.2 (goal 15-20). patient is due to be discharged today, had outpatient script written for 1250mg IV q12h. Discussed case with ID, and he is ok to continue this regimen and have the patient get one more dose prior to discharge. He will get outpatient trough and labs and adjust based on those. Pending Level: n/a, pt getting discharged Pharmacy Service will continue to monitor and adjust dosing as required.
[2024-10-23 19:00] VITALS: BP 168/71; PULSE 54; RESP 18; TEMP 37.1; O2SAT 98
[2024-10-23 19:04] VITALS: BP 168/71; PULSE 54; RESP 16; TEMP 37.1; O2SAT 98
--- NOTE | 2024-10-24 10:06 | CASEMGMT ---
Addendum entered by Ashley Frank 10/24/24 10:30: Received tc back from Milton client account specialist from [facility] who states that he will personally deliver pt medication to him today at approx 1pm. Discussed timing of antibiotic with him. TC back to pt to make aware and discussed timing of future doses as pt prefers a 7a/7p schedule. Pt reports being very anxious and upset about this and that it is an inconvenience. Apologized to pt for this happening and encouraged him as the nurse educator yesterday was confident that pt could perform on own. Pt states he watched the video again this morning. Provided pt with this [employer] phone number in case pt has any further questions. Pt thanked PAYTON CONCEPCION for the call. Original Note: Received tc from pt stating he has not received his medication yet. TC to Milton who spoke to this RN CM yesterday to assure med was going to be delivered this morning, left vm requesting tc back.
== END 2024-10-23 19:09 | disposition home or self-care (01) | DRG 516 ==
LOC: SDC 13:26 → MS3 13:26
PROVIDERS: Admitting Provider Surgery Plastic and Reconstructive Surgery; PCP Family Medicine Geriatric Medicine; Referring Provider Surgery Plastic and Reconstructive Surgery; Visit Provider Surgery Plastic and Reconstructive Surgery
PROC: 0PBS0ZZ Excision of Left Thumb Phalanx, Open Approach (ICD-10-PCS; principal; 2024-10-20 11:30)
DX: M86.142 Other acute osteomyelitis, left hand (principal); L02.512 Cutaneous abscess of left hand; B95.7 Other staphylococcus as the cause of diseases classified elsewhere; F17.210 Nicotine dependence, cigarettes, uncomplicated; Z89.022 Acquired absence of left finger(s); X58.XXXA Exposure to other specified factors, initial encounter
CPT/HCPCS: 36415; 36569; 80048; 80202; 82565; 85025; 87070; 87075; 87077; 87176; 87186; 87205; 87206; 88304; 88311; 97802; A4216; J2405

== ENCOUNTER 2024-10-27 12:10 | Outpatient (CLI) | payer OTHER, SELFPAY ==
[2024-10-27 13:09] LABS: Absolute Lymphocyte Count 1.12 X10^3/uL (0.83-4.51); Absolute Neutrophil Count 6.8 X10^3/uL (2.0-7.7); Basophil# 0.06 X10^3/uL; Basophil% 0.7 % (0-1); Eosinophil# 0.09 X10^3/uL; Hematocrit 36.9 % (40-54); Hemoglobin 12.7 g/dL (13.0-16.5); Lymphocyte # 1.12 X10^3/ul (0.83-4.51); Lymphocyte % 12.7 % (19-41); Mean Corp Hgb Conc 34.4 g/dL (32-36); Mean Corpuscular Hgb 31.3 pg (27.0-32.0); Mean Corpuscular Volume 90.9 fL (80-94); Monocyte# 0.72 X10^3/uL; Monocyte% 8.2 % (0-10); NRBC Flagged by Analyzer 0 % (0-5); Neutrophil % 77.1 % (47-70); Platelet Count 214 K/mm3 (150-450); RBC Distribution Width CV 13.4 % (11.6-14.6); RBC Distribution Width SD 44.8 fl (35.1-43.9); Red Blood Count 4.06 M/mm3 (4.6-6.2); White Blood Count 8.8 K/mm3 (4.4-11.0)
[2024-10-27 13:15] LABS: Erythrocyte Sedimentation Rate 4 mm/hr (0-20)
[2024-10-27 13:47] LABS: Vancomycin, Trough Level 16.5 ug/mL (5.0-15.0)
[2024-10-27 13:48] LABS: Anion Gap 12 (5-15); BUN 19 mg/dL (4-19); BUN/Creat Ratio 22.4 RATIO (10-20); Calcium,Total 9.4 mg/dL (7.6-11.0); Carbon Dioxide 23.4 mmol/L (21.0-32.0); Chloride 104 mmol/L (98-108); Creatinine, Serum 0.83 mg/dL (0.70-1.20); EST Glomerular Filtration Rate 98 (>60); Glucose 126 mg/dL (70-99); Sodium Level 140 mmol/L (133-145)
== END 2024-10-27 23:59 | disposition home or self-care (01) ==
LOC: MEDOUTP 12:12
PROVIDERS: PCP Family Medicine Geriatric Medicine; Referring Provider Internal Medicine Infectious Disease; Visit Provider Internal Medicine Infectious Disease
DX: M86.9 Osteomyelitis, unspecified (principal)
CPT/HCPCS: 36592; 80048; 80202; 85025; 85652; A4216

== ENCOUNTER 2024-10-27 13:50 | Outpatient (RCR) | payer OTHER, SELFPAY ==
[2024-10-27 14:22] VITALS: BP 124/76; PULSE 80; RESP 18; TEMP 36.8; BMI 20.7
--- NOTE | 2024-10-28 08:49 | PCM.WC.PN ---
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 The infection was identified in both bone samples during the debridement on 20 October 2024, indicating a persistent issue requiring ongoing antibiotic therapy. The patient has been adhering to a regimen of oral and IV antibiotics (ID patient). The patient has been managing a wound on the left thumb, which is healing with no signs of worsening infection. He has been instructed to use saline for wound packing and to avoid getting the wound wet during showers. The patient has been diligent in changing dressings and maintaining hygiene, using antibacterial soap as part of the care routine. The patient is also working on smoking cessation, having reduced his cigarette consumption to about half a pack per day. He acknowledges the importance of quitting smoking to aid in the healing process and is making efforts to cut back further. Attestation: Documentation on this patient encounter was supported using ambient scribe technology/ voice AI technology. The patient consented to recording for the purpose of documenting the encounter. Provider reviewed content of the generated note prior to signature. Objective Data Objective Data - Musculoskeletal: Reports discomfort in the finger after IV antibiotics, denies other joint pain or swelling. - Integumentary: Reports healing of left thumb wound, denies new skin lesions or rashes. Vital Signs: Vital Signs Temp Pulse Resp BP O2 Del Method 98.3 F 80 18 124/76 H Room Air 10/27/24 14:22 10/27/24 14:22 10/27/24 14:22 10/27/24 14:22 10/27/24 14:22 Oxygen Delivery Method Room Air Weight: 136 lb Body Mass Index (BMI) 20.7 Charges/Coding Procedures Integumentary 111xxx-113xx: [id number] Rebekah subq tissue 20 sq cm/< Physical Exam Narrative Left Upper Extremity Inspection: Left thumb wound observed, appears to be healing well with no signs of infection. Palpation: No fluid collections. Motor: Able to bend and extend all MP, PIP, and DIP joints. Patient reports doing finger exercises and stretches. Sensory: Intact to light touch on the radial and ulnar borders. Vascular: Finger tips are warm and well perfused with greater than 2 second capillary refill. Debridement Note Debridement Note Wound debrided: Left thumb wound Laterality: Left Wound Grade/Stage: 3 Type of Debridement: Excisional debridement Anesthesia Used: 4% Lidocaine Solution and - (2 cc of 1% lidocaine with 1:200,000 epinephrine ) Depth: in the subcutaneous layer Percentage of wound debrided: 100 Instrument Used: 7mm curette Tissue Removed: fibrinous exudate and biofilm Severity: Fat Layer Exposed Amount of bleeding with debridement: Moderate Bleeding Controlled with: Compression and gauze Patient tolerated procedure: Patient tolerated procedure well Post-Debridement Measurements and Additional Note: Post-Debridement Measurements/Treatment - Nurse 1 - General Ulcer Assessment Start: 10/27/24 14:22 Freq: Status: Active Protocol: BHARAT Activity Type Activity Date Activity User E-sign Co-sign Detail Recorded Client Recorded Date Recorded By Document 10/27/24 14:22 SARAH [id number] 10/27/24 14:34 10/27/24 14:22 - Today's Visit Information Type of service Initial Visit Arrival Mode Ambulatory Patient Identification Verified (Name & Yes ) Height and Weight Height 5 ft 8 in Weight 136 lb Weight in Pounds 136.0 lbs Weight Measurement Method Stated by Patient Body Mass Index (BMI) 20.7 BMI Classification Normal Vital Signs Temperature (97.8 F-99.1 F) 98.3 F Temperature Source Temporal Pulse Rate (60-100) 80 Pulse Location Monitor Respiratory Rate (12-18) 18 Respiratory rate source Observation Oxygen Delivery Method Room Air Blood Pressure (90/60-120/80) 124/76 H Blood Pressure Mean (mm Hg) 92 Source Monitor Position Sitting Blood Pressure Location Left Arm History Since Last Visit- (Skip if this is Patient's initial visit) Left Footwear Regular Shoe Right Footwear Regular Shoe Pain Scale: 0-10 Numeric Is Patient Pain Free? Yes [facility] Nurse 1 - General Ulcer Measurement Start: 10/27/24 14:22 Freq: Status: Active Protocol: Activity Type Activity Date Activity User E-sign Co-sign Detail Recorded Client Recorded Date Recorded By Document 10/27/24 14:22 SARAH [id number] 10/27/24 14:34 10/27/24 14:22 Wound Center Nurse 1 #2 LT THUMB POST OP -Current Size (cm) - Length 0.5 -Current Size (cm) - Width 0.3 -Current Size (cm) - Depth 0 -Total Square Cm 0.15 -Date of Last Picture (Recall this 10/27/24 field) -Granulation Amt Large (67-100%) -Granulation Quality [place] -Moisture (Leatha-wound Skin Appearance) Assessed, Maceration -Color (Leatha-wound Skin Appearance) Assessed, Erythema -Temperature (Leatha-wound Skin No Abnormality Appearance) (Pt Warm) -Tenderness on Palpation (Leatha-wound Yes Skin Appearance) -Ulcer Cleansing Soap and Water -Foul Odor after Cleansing No -Anesthetic Used 5% Lidocaine Gel -Wound Comment(s) did not check depth WC - Nurse 2 - General Ulcer CM Notes Start: 10/27/24 14:22 Freq: Status: Active Protocol: Activity Type Activity Date Activity User E-sign Co-sign Detail Recorded Client Recorded Date Recorded By Document 10/27/24 14:51 DS [id number] 10/27/24 14:54 DS 10/27/24 14:51 Wound Center Nurse 2 -Time 14:51 -Correct Patient Yes -Correct Side, Site, Position Yes -Correct Procedure Yes -Procedure Performed Yes -Type of Procedure Debridement -Clinical Debridement Subcutaneous -Tissue Removed Subcutaneous -Post Debridement (cm) - Length 0.3 -Post Debridement (cm) - Width 0.5 -Post Debridement (cm) - Depth 0.3 -Total Square (Post) (cm) 0.15 -Area of Debridement (cm) - Length 0.3 -Area of Debridement (cm) - Width 0.5 -Total Square (Area) (cm) 0.15 -Tunneling No -Undermining/Tunneling No -Circular Undermining No -Wound/Ulcer Outcome Not Healed -Ulcer Cleansing Rinsed/ Irrigated with Saline -Foul Odor after Cleansing No -Bioengineered Tissue No -Injectable Lidocaine w/ Epi (%) 1 -Injectable Lidocaine w/ Epi (mls) 10 -Bleeding Controlled with Pressure -Treatment Response Procedure Tolerated Well -Debridement - Subq, 1st 20sq cm Yes Pain Scale: 0-10 Numeric Is Patient Pain Free? No left thumb -Description Sharp,Throbbing ,Aching -Intensity 8 -Pain Behavior Guarding, Irritability, Withdrawal from Touch -Pain Aggravating Factors Debridement -Alleviating Factors/Interventions Will continue to monitor, Patient denies need for intervention WC - Nurse 3 - General Ulcer D/C NN Start: 10/27/24 14:22 Freq: Status: Active Protocol: Activity Type Activity Date Activity User E-sign Co-sign Detail Recorded Client Recorded Date Recorded By Document 10/27/24 15:16 GREGG [id number] 10/27/24 15:17 DL 10/27/24 15:16 Wound Care Center Nurse 3 #2 LT THUMB POST OP -Ulcer Cleansing Rinsed/ Irrigated with Saline -Foul Odor after Cleansing No -Other Dressing saline moistened gauze -Primary Dressing Covered/Secured with Dry Gauze, Secured with Tape Treatment Response Procedure Tolerated Well Pain Scale: 0-10 Numeric Is Patient Pain Free? Yes WC - Visit Discharge Discharge Condition Stable Ambulatory Status Ambulatory Assessment/Plan Assessment/Plan (1) Osteomyelitis of finger of left hand: CODE(S): M86.9 - Osteomyelitis, unspecified (2) Open wound of thumb: CODE(S): S61.009A - Unspecified open wound of unspecified thumb without damage to nail, initial encounter (3) Smoking addiction: CODE(S): F17.200 - Nicotine dependence, unspecified, uncomplicated PLAN: Plan Assessment and Plan The 64-year-old male with a history of staphylococcal infection of the bone presents for ongoing management of the infection and wound care. The infection, confirmed by bone samples, necessitates continued antibiotic therapy, both oral and intravenous, to ensure resolution. The wound on the left thumb is healing appropriately with no signs of infection, and the patient is following a regimen of saline packing and hygiene maintenance. The patient is also addressing smoking cessation, having reduced his intake significantly, which is crucial for optimal healing and recovery. 1. Staphylococcal Infection Of The Bone The patient will continue with the prescribed regimen of oral and intravenous antibiotics to address the staphylococcal infection confirmed by bone samples. Regular follow-up appointments are necessary to monitor the infection's resolution and adjust treatment as needed. 2. Wound Care Management The patient is advised to continue saline packing for the left thumb wound and maintain hygiene using antibacterial soap. He should avoid getting the wound wet during showers and change dressings as instructed. 3. Smoking Cessation The patient is encouraged to continue reducing cigarette consumption to aid in the healing process and overall health improvement. Support and resources for smoking cessation should be considered to assist in this effort. - Continue taking oral and IV antibiotics as prescribed. - Use saline for wound packing and keep the wound dry during showers. - Change dressings regularly and maintain hygiene with antibacterial soap. - Work on reducing smoking to aid in healing. - Attend follow-up appointments to monitor progress.
--- NOTE | 2024-10-28 13:57 | WC ---
PHOTO 10/27/24 LT THUMB
== END 2024-11-03 23:59 | disposition home or self-care (01) ==
LOC: WC 13:50
PROVIDERS: PCP Family Medicine Geriatric Medicine; Referring Provider Surgery Plastic and Reconstructive Surgery; Visit Provider Surgery Plastic and Reconstructive Surgery
DX: M86.8X4 Other osteomyelitis, hand (principal); B95.8 Unspecified staphylococcus as the cause of diseases classified elsewhere; S61.002A Unspecified open wound of left thumb without damage to nail, initial encounter; X58.XXXA Exposure to other specified factors, initial encounter; F17.210 Nicotine dependence, cigarettes, uncomplicated
CPT/HCPCS: 11042; 99213; G0463

== ENCOUNTER 2024-11-03 12:26 | Outpatient (CLI) | payer OTHER, SELFPAY ==
[2024-11-03 13:23] LABS: Absolute Lymphocyte Count 1.21 X10^3/uL (0.83-4.51); Absolute Neutrophil Count 6.7 X10^3/uL (2.0-7.7); Basophil# 0.07 X10^3/uL; Basophil% 0.8 % (0-1); Eosinophil# 0.14 X10^3/uL; Eosinophils% 1.6 % (0-5); Hematocrit 36.4 % (40-54); Hemoglobin 12.2 g/dL (13.0-16.5); Lymphocyte # 1.21 X10^3/ul (0.83-4.51); Lymphocyte % 13.6 % (19-41); Mean Corp Hgb Conc 33.5 g/dL (32-36); Mean Corpuscular Hgb 30.4 pg (27.0-32.0); Mean Corpuscular Volume 90.8 fL (80-94); Mean Platelet Vol. 8.8 fl (6.2-12.0); Monocyte# 0.72 X10^3/uL; Monocyte% 8.1 % (0-10); NRBC Flagged by Analyzer 0 % (0-5); Neutrophil # 6.74 X10^3/uL (2.7-7.7); Neutrophil % 75.6 % (47-70); Platelet Count 236 K/mm3 (150-450); RBC Distribution Width CV 13.6 % (11.6-14.6); RBC Distribution Width SD 45.9 fl (35.1-43.9); Red Blood Count 4.01 M/mm3 (4.6-6.2); White Blood Count 8.9 K/mm3 (4.4-11.0)
[2024-11-03 13:44] LABS: Erythrocyte Sedimentation Rate 3 mm/hr (0-20)
[2024-11-03 14:08] LABS: Vancomycin, Trough Level 16.6 ug/mL (5.0-15.0)
[2024-11-03 14:09] LABS: Anion Gap 11 (5-15); BUN 19 mg/dL (4-19); BUN/Creat Ratio 28.1 RATIO (10-20); Calcium,Total 9.1 mg/dL (7.6-11.0); Carbon Dioxide 24.1 mmol/L (21.0-32.0); Chloride 104 mmol/L (98-108); Creatinine, Serum 0.69 mg/dL (0.70-1.20); EST Glomerular Filtration Rate 104 (>60); Glucose 125 mg/dL (70-99); Sodium Level 139 mmol/L (133-145)
== END 2024-11-03 23:59 | disposition home or self-care (01) ==
LOC: MEDOUTP 12:26
PROVIDERS: PCP Family Medicine Geriatric Medicine; Referring Provider Internal Medicine Infectious Disease; Visit Provider Internal Medicine Infectious Disease
DX: M86.9 Osteomyelitis, unspecified (principal)
CPT/HCPCS: 36592; 80048; 80202; 85025; 85652; A4216

== ENCOUNTER 2024-11-10 14:24 | Outpatient (CLI) | payer OTHER, SELFPAY ==
[2024-11-10 15:25] LABS: Hematocrit 37.4 % (40-54); Hemoglobin 12.6 g/dL (13.0-16.5); Immature Granulocytes Count 0.020 X10^3/uL (0.0-0.0); Mean Corp Hgb Conc 33.7 g/dL (32-36); Mean Corpuscular Volume 90.6 fL (80-94); Mean Platelet Vol. 8.4 fl (6.2-12.0); NRBC Flagged by Analyzer 0 % (0-5); Platelet Count 231 K/mm3 (150-450); RBC Distribution Width CV 13.6 % (11.6-14.6); RBC Distribution Width SD 45.8 fl (35.1-43.9); Red Blood Count 4.13 M/mm3 (4.6-6.2); White Blood Count 8.0 K/mm3 (4.4-11.0)
[2024-11-10 16:02] LABS: Anion Gap 18 (5-15); BUN 21 mg/dL (4-19); BUN/Creat Ratio 30.6 RATIO (10-20); Calcium,Total 8.6 mg/dL (7.6-11.0); Carbon Dioxide 15.9 mmol/L (21.0-32.0); Chloride 105 mmol/L (98-108); Glucose 86 mg/dL (70-99); Potassium 4.3 mmol/L (3.3-5.1)
[2024-11-10 16:03] LABS: Vancomycin, Trough Level 14.1 ug/mL (5.0-15.0)
[2024-11-10 23:17] LABS: Xtra Tube EP Lab EXTRA TUBE
== END 2024-11-10 23:59 | disposition home or self-care (01) ==
LOC: MEDOUTP 14:24
PROVIDERS: PCP Family Medicine Geriatric Medicine; Referring Provider Internal Medicine Infectious Disease; Visit Provider Internal Medicine Infectious Disease
DX: M86.9 Osteomyelitis, unspecified (principal)
CPT/HCPCS: 36592; 80048; 80202; 85025; 85652; A4216

== ENCOUNTER 2024-11-17 13:21 | Outpatient (CLI) | payer OTHER, SELFPAY ==
[2024-11-17 14:17] LABS: Hematocrit 37.2 % (40-54); Hemoglobin 12.5 g/dL (13.0-16.5); Immature Granulocytes Count 0.010 X10^3/uL (0.0-0.0); Mean Corp Hgb Conc 33.6 g/dL (32-36); Mean Corpuscular Volume 90.5 fL (80-94); Mean Platelet Vol. 8.5 fl (6.2-12.0); NRBC Flagged by Analyzer 0 % (0-5); Platelet Count 199 K/mm3 (150-450); RBC Distribution Width CV 13.8 % (11.6-14.6); RBC Distribution Width SD 45.8 fl (35.1-43.9); Red Blood Count 4.11 M/mm3 (4.6-6.2); White Blood Count 6.1 K/mm3 (4.4-11.0)
[2024-11-17 15:05] LABS: Anion Gap 9 (5-15); BUN 23 mg/dL (4-19); BUN/Creat Ratio 34.6 RATIO (10-20); Calcium,Total 9.0 mg/dL (7.6-11.0); Carbon Dioxide 24.6 mmol/L (21.0-32.0); Chloride 104 mmol/L (98-108); Glucose 103 mg/dL (70-99); Potassium 4.4 mmol/L (3.3-5.1); Vancomycin, Trough Level 14.9 ug/mL (5.0-15.0)
== END 2024-11-17 23:59 | disposition home or self-care (01) ==
LOC: MEDOUTP 13:22
PROVIDERS: PCP Family Medicine Geriatric Medicine; Referring Provider Internal Medicine Infectious Disease; Visit Provider Internal Medicine Infectious Disease
DX: M86.9 Osteomyelitis, unspecified (principal)
CPT/HCPCS: 36592; 80048; 80202; 85025; 85652; A4216

== ENCOUNTER 2024-11-17 14:30 | Outpatient (RCR) | payer OTHER, SELFPAY ==
[2024-11-10 13:43] VITALS: BP 132/79; PULSE 92; RESP 14; TEMP 36.4
--- NOTE | 2024-11-10 14:00 | PCM.WC.PN ---
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 The infection was identified in both bone samples during the debridement on 20 October 2024, indicating a persistent issue requiring ongoing antibiotic therapy. The patient has been adhering to a regimen of oral and IV antibiotics (ID following for the 6 week course of antibiotics via right arm PICC). Presenting for f/u for left thumb wound with underlying osteomyelitis. He has been adhering to an antibiotic regimen. Dressing changes have been performed as instructed, with a recent change to iodoform gauze recommended for improved wound care. The patient continues to smoke but is making efforts to reduce his intake. Attestation: Documentation on this patient encounter was supported using ambient scribe technology/ voice AI technology. The patient consented to recording for the purpose of documenting the encounter. Provider reviewed content of the generated note prior to signature. Objective Data Objective Data Vital Signs: Vital Signs Temp Pulse Resp BP 97.5 F L 92 14 132/79 H 11/10/24 13:43 11/10/24 13:43 11/10/24 13:43 11/10/24 13:43 Charges/Coding Procedures Integumentary 111xxx-113xx: [id number] Rebekah subq tissue 20 sq cm/< Physical Exam Narrative Left Upper Extremity Inspection: Left thumb wound observed, appears to be healing with fibrinous exudate in the base. No drainage. Measures 0.5 x 0.2 cm and is 0.2 cm deep (no exposed bone at the base, just granulation tissue). Palpation: No fluid collections. Motor: Able to bend and extend all MP, PIP, and DIP joints. Patient reports doing finger exercises and stretches. Sensory: Intact to light touch on the radial and ulnar borders. Vascular: Finger tips are warm and well perfused with greater than 2 second capillary refill. Debridement Note Debridement Note Wound debrided: Left thumb wound Laterality: Left Wound Grade/Stage: Stage III Type of Debridement: Excisional debridement Anesthesia Used: 4% Lidocaine Solution and - (2 cc of 1% lidocaine with 1-200,000 epinephrine) Depth: in the subcutaneous layer Percentage of wound debrided: 100 Instrument Used: 3mm curette Tissue Removed: Fibrinous exudate from the base of the wound Severity: Fat Layer Exposed Amount of bleeding with debridement: Mild Bleeding Controlled with: Pressure Patient tolerated procedure: Patient tolerated procedure well Post-Debridement Measurements and Additional Note: Post-Debridement Measurements/Treatment - Nurse 1 - General Ulcer Assessment Start: 11/10/24 13:43 Freq: Status: Active Protocol: BHARAT Activity Type Activity Date Activity User E-sign Co-sign Detail Recorded Client Recorded Date Recorded By Document 11/10/24 13:43 ML [id number] 11/10/24 13:45 ML 11/10/24 13:43 WC - Today's Visit Information Type of service Follow-up Visit (Physician/C[facility]OLDER ) Arrival Mode Ambulatory Transfer Assistance None Patient Identification Verified (Name & Yes ) Patient Requires Transmission-Based No Precautions Vital Signs Temperature (97.8 F-99.1 F) 97.5 F L Temperature Source Temporal Pulse Rate (60-100) 92 Pulse Location Monitor Respiratory Rate (12-18) 14 Respiratory rate source Monitor Blood Pressure (90/60-120/80) 132/79 H Blood Pressure Mean (mm Hg) 96 Source Monitor Position Supine Blood Pressure Location Left Arm History Since Last Visit- (Skip if this is Patient's initial visit) Have you changed medications since your No last visit? Any new allergies or adverse reactions No Had a fall/change in ADL's that may No increase risk of falls Signs or symptoms of abuse and/or No neglect since last visit Has dressing in place as prescribed No Has compression in place as prescribed N/A Has offloadiing in place as prescribed N/A Experienced any changes in pain level or No management Pain Scale: 0-10 Numeric Is Patient Pain Free? Yes - Nurse 1 - General Ulcer Measurement Start: 11/10/24 13:43 Freq: Status: Active Protocol: Activity Type Activity Date Activity User E-sign Co-sign Detail Recorded Client Recorded Date Recorded By Document 11/10/24 13:45 ML [id number] 11/10/24 13:47 ML 11/10/24 13:45 Wound Center Nurse 1 #2 LT THUMB POST OP -Current Size (cm) - Length 0.5 -Current Size (cm) - Width 0.1 -Current Size (cm) - Depth 0.1 -Total Square Cm 0.05 -Exudate Amt Small -Exudate Type Serosanguineous -Wound Margin Distinct, Outline Attached -Granulation Amt Small (1-33%) -Slough/Fibrin Yes -Necrosis Amt Small (1-33%) -Necrotic Tissue Type Adherent Slough -Texture (Leatha-wound Skin Appearance) Assessed -Color (Leatha-wound Skin Appearance) Assessed -Temperature (Leatha-wound Skin No Abnormality Appearance) (Pt Warm) -Tenderness on Palpation (Leatha-wound Yes Skin Appearance) -Ulcer Cleansing Rinsed/ Irrigated with Saline -Foul Odor after Cleansing No -Anesthetic Used 5% Lidocaine Gel WC - Nurse 2 - General Ulcer CM Notes Start: 11/10/24 13:43 Freq: Status: Active Protocol: Activity Type Activity Date Activity User E-sign Co-sign Detail Recorded Client Recorded Date Recorded By Document 11/10/24 13:54 DS [id number] 11/10/24 13:57 DS 11/10/24 13:54 Wound Center Nurse 2 -Time 13:54 -Correct Patient Yes -Correct Side, Site, Position Yes -Correct Procedure Yes -Procedure Performed Yes -Type of Procedure Debridement -Clinical Debridement Subcutaneous -Tissue Removed Subcutaneous -Post Debridement (cm) - Length 0.5 -Post Debridement (cm) - Width 0.2 -Post Debridement (cm) - Depth 0.2 -Total Square (Post) (cm) 0.10 -Area of Debridement (cm) - Length 0.5 -Area of Debridement (cm) - Width 0.2 -Total Square (Area) (cm) 0.10 -Tunneling No -Undermining/Tunneling No -Circular Undermining No -Wound/Ulcer Outcome Not Healed -Ulcer Cleansing Rinsed/ Irrigated with Saline -Foul Odor after Cleansing No -Bioengineered Tissue No -Injectable Lidocaine w/ Epi (%) 1 -Injectable Lidocaine w/ Epi (mls) 10 -Bleeding Controlled with Pressure -Treatment Response Procedure Tolerated Well -Debridement - Subq, 1st 20sq cm Yes Pain Scale: 0-10 Numeric Is Patient Pain Free? No left thumb -Description Sharp,Throbbing -Intensity 7 -Duration (hours) Chronic -Pain Behavior Moaning, Guarding -Pain Aggravating Factors Debridement -Alleviating Factors/Interventions Emotional Support Assessment/Plan Assessment/Plan (1) Osteomyelitis of finger of left hand: CODE(S): M86.9 - Osteomyelitis, unspecified (2) Open wound of thumb: CODE(S): S61.009A - Unspecified open wound of unspecified thumb without damage to nail, initial encounter PLAN: Plan Assessment and Plan The patient is a 64-year-old male with osteomyelitis of the left thumb, adhering to antibiotic therapy with noted fatigue as a side effect. Dressing changes have been managed with chlorhexidine, and a switch to iodoform gauze is recommended for improved healing. The patient is reducing smoking, which is encouraged to aid in recovery and overall health improvement. 1. Osteomyelitis Of The Left Thumb The patient will continue with the current antibiotic regimen, ensuring adherence to dosing schedules to prevent complications. Dressing changes should be performed twice daily using iodoform gauze to promote optimal wound healing. 2. Smoking Cessation Counseling The patient is advised to continue efforts to reduce smoking, which will aid in overall health improvement and facilitate wound healing. - Continue taking antibiotics as prescribed - Perform dressing changes twice daily with iodoform gauze. - Continue efforts to reduce smoking for better health and wound healing.
[2024-11-17 14:32] VITALS: BP 135/87; PULSE 71; RESP 16; TEMP 36
--- NOTE | 2024-11-17 15:19 | PN.PCM_ITS ---
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 The infection was identified in both bone samples during the debridement on 20 October 2024, indicating a persistent issue requiring ongoing antibiotic therapy. The patient has been adhering to a regimen of oral and IV antibiotics (ID following for the 6 week course of antibiotics via right arm PICC). Presenting for f/u for left thumb wound with underlying osteomyelitis. He has been adhering to an antibiotic regimen. Dressing changes have been performed as instructed, with a recent change to iodoform gauze recommended for improved wound care. The patient continues to smoke but is making efforts to reduce his intake. Attestation: Documentation on this patient encounter was supported using ambient scribe technology/ voice AI technology. The patient consented to recording for the purpose of documenting the encounter. Provider reviewed content of the generated note prior to signature. Subjective Subjective CURRENT ENCOUNTER, 17 November 2024: The patient is a 64-year-old male presenting for follow-up on osteomyelitis of the left thumb and infection management. The osteomyelitis developed six months after initial treatment for the open hand fractures, affecting the interphalangeal joint of the left thumb and extending into the bone. Surgical intervention included debridement of the bone, and the patient was placed on antibiotics to promote healing from the inside out. The patient reports adherence to antibiotic therapy, with a regimen of intravenous antibiotics twice daily and oral antibiotics three times daily. He has not missed doses, although he experienced fatigue attributed to the antibiotics. The patient has been managing the wound with Aquaphor and antibiotic Band-Aids, and reports no drainage for the past five days. He engages in daily walking for 20 minutes but finds it exhausting due to the antibiotic regimen. ROS - Musculoskeletal: Reports fatigue and weakness, especially after physical activity. - Integumentary: Denies drainage from the wound for the past five days. Attestation: Documentation on this patient encounter was supported using ambient scribe technology/ voice AI technology. The patient consented to recording for the purpose of documenting the encounter. Provider reviewed content of the generated note prior to signature. Objective Data Objective Data Vital Signs: Vital Signs Temp Pulse Resp BP O2 Del Method 96.8 F L 71 16 135/87 H Room Air 11/17/24 14:32 11/17/24 14:32 11/17/24 14:32 11/17/24 14:32 11/17/24 14:32 Oxygen Delivery Method Room Air Charges/Coding Visit Charges Office Visits / Consults: 16593 OV L3 Est 20min Physical Exam Narrative Left Upper Extremity Inspection: Left thumb wound observed, healed (re-epithelialized) with no need for debridement Motor: Able to bend and extend all MP, PIP, and DIP joints. Patient reports doing finger exercises and stretches. 45 degrees thumb IP joint motion. No collateral ligament instability at thumb IP Sensory: Intact to light touch on the radial and ulnar borders. Vascular: Finger tips are warm and well perfused with greater than 2 second capillary refill. Debridement Note Debridement Note No debridement was completed: No debridement was completed today Post-Debridement Measurements and Additional Note: Post-Debridement Measurements/Treatment WC - Nurse 1 - General Ulcer Assessment Start: 11/10/24 13:43 Freq: Status: Active Protocol: [email or web address] Activity Type Activity Date Activity User E-sign Co-sign Detail Recorded Client Recorded Date Recorded By Document 11/10/24 13:43 ML [id number] 11/10/24 13:45 ML Document 11/17/24 14:32 KW [id number] 11/17/24 14:38 KW 11/10/24 11/17/24 13:43 14:32 WC - Today's Visit Information Type of service Follow-up Visit Follow-up Visit (Physician/MINISTER HELPER (Physician/MINISTER HELPER ) ) Arrival Mode Ambulatory Ambulatory Transfer Assistance None Patient Identification Verified (Name & Yes Yes ) Patient Requires Transmission-Based No Precautions Vital Signs Temperature (97.8 F-99.1 F) 97.5 F L 96.8 F L Temperature Source Temporal Temporal Pulse Rate (60-100) 92 71 Pulse Location Monitor Respiratory Rate (12-18) 14 16 Respiratory rate source Monitor Observation Oxygen Delivery Method Room Air Blood Pressure (90/60-120/80) 132/79 H 135/87 H Blood Pressure Mean (mm Hg) 96 103 Source Monitor Monitor Position Supine Sitting Blood Pressure Location Left Arm Left Arm History Since Last Visit- (Skip if this is Patient's initial visit) Have you changed medications since your No No last visit? Any new allergies or adverse reactions No No Had a fall/change in ADL's that may No No increase risk of falls Signs or symptoms of abuse and/or No No neglect since last visit Have you been in the hospital since your No last visit? Has dressing in place as prescribed No Yes Has compression in place as prescribed N/A N/A Has offloadiing in place as prescribed N/A N/A Experienced any changes in pain level or No No management Left Footwear Regular Shoe Right Footwear Regular Shoe Pain Scale: 0-10 Numeric Is Patient Pain Free? Yes Yes WC - Nurse 1 - General Ulcer Measurement Start: 11/10/24 13:43 Freq: Status: Active Protocol: Activity Type Activity Date Activity User E-sign Co-sign Detail Recorded Client Recorded Date Recorded By Document 11/10/24 13:45 ML [id number] 11/10/24 13:47 ML Document 11/17/24 14:32 KW [id number] 11/17/24 14:38 KW 11/10/24 11/17/24 13:45 14:32 Wound Center Nurse 1 #2 LT THUMB POST OP -Current Size (cm) - Length 0.5 0.1 -Current Size (cm) - Width 0.1 0.1 -Current Size (cm) - Depth 0.1 0 -Total Square Cm 0.05 0.01 -Date of Last Picture (Recall this 11/17/24 field) -Epithelialization Large 67-100% -Exudate Amt Small None Present -Exudate Type Serosanguineous -Wound Margin Distinct, Outline Attached -Granulation Amt Small (1-33%) None Present (0 %) -Slough/Fibrin Yes -Necrosis Amt Small (1-33%) Small (1-33%) -Necrotic Tissue Type Adherent Slough Adherent Slough -Texture (Leatha-wound Skin Appearance) Assessed Assessed -Moisture (Leatha-wound Skin Appearance) Assessed -Color (Leatha-wound Skin Appearance) Assessed Assessed -Temperature (Leatha-wound Skin No Abnormality No Abnormality Appearance) (Pt Warm) (Pt Warm) -Tenderness on Palpation (Leatha-wound Yes No Skin Appearance) -Ulcer Cleansing Rinsed/ Soap and Water Irrigated with Saline -Foul Odor after Cleansing No No -Anesthetic Used 5% Lidocaine 5% Lidocaine Gel Gel WC - Nurse 2 - General Ulcer CM Notes Start: 11/10/24 13:43 Freq: Status: Active Protocol: Activity Type Activity Date Activity User E-sign Co-sign Detail Recorded Client Recorded Date Recorded By Document 11/10/24 13:54 DS [id number] 11/10/24 13:57 DS Document 11/17/24 14:46 JF [id number] 11/17/24 14:50 JF 11/10/24 11/17/24 13:54 14:46 Wound Center Nurse 2 #2 LT THUMB POST OP -Time 13:54 -Correct Patient Yes Yes -Correct Side, Site, Position Yes No -Correct Procedure Yes No -Procedure Performed Yes No -Type of Procedure Debridement -Clinical Debridement Subcutaneous -Tissue Removed Subcutaneous -Post Debridement (cm) - Length 0.5 0 -Post Debridement (cm) - Width 0.2 0 -Post Debridement (cm) - Depth 0.2 0 -Total Square (Post) (cm) 0.10 0 -Area of Debridement (cm) - Length 0.5 0 -Area of Debridement (cm) - Width 0.2 0 -Total Square (Area) (cm) 0.10 0 -Tunneling No -Undermining/Tunneling No -Circular Undermining No -Wound/Ulcer Outcome Not Healed Healed- Epithelialized -Ulcer Cleansing Rinsed/ Irrigated with Saline -Foul Odor after Cleansing No -Bioengineered Tissue No -Injectable Lidocaine w/ Epi (%) 1 -Injectable Lidocaine w/ Epi (mls) 10 -Bleeding Controlled with Pressure -Treatment Response Procedure Tolerated Well -Offloading No -Debridement - Subq, 1st 20sq cm Yes Pain Scale: 0-10 Numeric Is Patient Pain Free? No Yes left thumb -Description Sharp,Throbbing -Intensity 7 -Duration (hours) Chronic -Pain Behavior Moaning, Guarding -Pain Aggravating Factors Debridement -Alleviating Factors/Interventions Emotional Support - Nurse 3 - General Ulcer D/C NN Start: 11/10/24 13:43 Freq: Status: Active Protocol: Activity Type Activity Date Activity User E-sign Co-sign Detail Recorded Client Recorded Date Recorded By Document 11/10/24 14:01 KW [id number] 11/10/24 14:02 KW Document 11/17/24 15:01 JF [id number] 11/17/24 15:01 JF 11/10/24 11/17/24 14:01 15:01 Wound Care Center Nurse 3 #2 LT THUMB POST OP -Primary Dressing Applied Nugauze, Iodoform 1/4in -Other Dressing bandaid -Nugauze, Iodoform 1/4 1 Pain Scale: 0-10 Numeric Is Patient Pain Free? Yes Yes WC - Visit Discharge Discharge Condition Stable Stable Ambulatory Status Ambulatory Transportation Private Auto Private Auto Medication Reconcilliation completed & No Yes provided to patient/care provider Clinical Summary of Care Provided Yes Yes Notes: aNTIBIOTIC AND BANDAID APPLIED . Assessment/Plan Assessment/Plan (1) Osteomyelitis of finger of left hand: CODE(S): M86.9 - Osteomyelitis, unspecified PLAN: Assessment and Plan The patient is a 64-year-old male with a history of osteomyelitis of the left thumb presenting for follow-up on infection management. The osteomyelitis, which affected the interphalangeal joint and extended into the bone, was managed surgically with debridement and antibiotic therapy. The patient has been compliant with his antibiotic regimen, which includes intravenous and oral antibiotics, and reports significant fatigue as a side effect. The wound has shown signs of healing, with no drainage reported in the past five days, and the patient continues to manage it with topical treatments. 1. Osteomyelitis Of The Left Thumb The patient will continue with the current antibiotic regimen, including intravenous antibiotics twice daily and oral antibiotics three times daily, for the prescribed duration. Follow-up in two weeks is recommended to assess healing progress and ensure the infection is resolved. The patient is advised to continue topical wound care with Aquaphor and antibiotic Band-Aids. Physical activity should be limited to walking, and the patient should avoid strenuous exercises until the PICC line is removed and strength is regained. PLAN: Plan - Continue taking antibiotics as prescribed, both IV and oral. - Apply Aquaphor and antibiotic Band-Aids to the wound daily. - Limit physical activity to walking; avoid strenuous exercises until cleared by the doctor. - Schedule a follow-up appointment in two weeks to monitor healing progress.
--- NOTE | 2024-11-17 16:01 | WC ---
PHOTO 11/17/24 LEFT THUMB
== END 2024-11-17 15:57 | disposition home or self-care (01) ==
LOC: WC 14:30
PROVIDERS: PCP Family Medicine Geriatric Medicine; Referring Provider Surgery Plastic and Reconstructive Surgery; Visit Provider Surgery Plastic and Reconstructive Surgery
DX: M86.8X4 Other osteomyelitis, hand (principal); B95.8 Unspecified staphylococcus as the cause of diseases classified elsewhere; S61.002A Unspecified open wound of left thumb without damage to nail, initial encounter; X58.XXXA Exposure to other specified factors, initial encounter; F17.200 Nicotine dependence, unspecified, uncomplicated; Z79.2 Long term (current) use of antibiotics; Z79.899 Other long term (current) drug therapy
CPT/HCPCS: 11042; 36592; 80048; 80202; 85025; 85652; 99213; A4216; G0463

== ENCOUNTER 2024-11-24 13:48 | Outpatient (CLI) | payer OTHER, SELFPAY ==
[2024-11-24 14:26] LABS: Hematocrit 35.9 % (40-54); Hemoglobin 12.4 g/dL (13.0-16.5); Mean Corp Hgb Conc 34.5 g/dL (32-36); Mean Corpuscular Volume 90.9 fL (80-94); Mean Platelet Vol. 8.6 fl (6.2-12.0); Platelet Count 200 K/mm3 (150-450); RBC Distribution Width CV 14.0 % (11.6-14.6); RBC Distribution Width SD 46.9 fl (35.1-43.9); Red Blood Count 3.95 M/mm3 (4.6-6.2); White Blood Count 7.1 K/mm3 (4.4-11.0)
[2024-11-24 14:51] LABS: Anion Gap 11 (5-15); BUN 24 mg/dL (4-19); BUN/Creat Ratio 36.9 RATIO (10-20); Calcium,Total 8.9 mg/dL (7.6-11.0); Carbon Dioxide 22.1 mmol/L (21.0-32.0); Chloride 103 mmol/L (98-108); Glucose 103 mg/dL (70-99); Potassium 4.0 mmol/L (3.3-5.1)
[2024-11-24 15:00] LABS: Vancomycin, Trough Level 15.8 ug/mL (5.0-15.0)
== END 2024-11-24 23:59 | disposition home or self-care (01) ==
LOC: MEDOUTP 13:48
PROVIDERS: PCP Family Medicine Geriatric Medicine; Referring Provider Internal Medicine Infectious Disease; Visit Provider Internal Medicine Infectious Disease
DX: M86.9 Osteomyelitis, unspecified (principal)
CPT/HCPCS: 36592; 80048; 80202; 85027; 85652; A4216

== ENCOUNTER → 2024-11-25 | Outpatient (CLI) | payer OTHER, SELFPAY ==
--- NOTE | 2024-11-25 16:49 | RAD_ITS ---
PROCEDURE: FINGER(S) MIN 2 VIEWS 11/25/2024 REASON FOR EXAM: OTHER ACUTE OSTEOMYELITIS, LEFT HAND TECHNIQUE: FINGER(S) MIN 2 VIEWS COMPARISON: 10/17/2024 FINDINGS: Healed 1st digit mid shaft proximal phalangeal fracture. Posterior angulation deformity. Absent 2nd digit. 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 RAD/Finger(s) Min 2 Views IMPRESSION: Interval progression of healing, proximal phalangeal fracture. [facility]
== END | disposition home or self-care (01) ==
PROVIDERS: PCP Family Medicine Geriatric Medicine; Referring Provider Surgery Plastic and Reconstructive Surgery; Visit Provider Surgery Plastic and Reconstructive Surgery
DX: M86.142 Other acute osteomyelitis, left hand (principal)
CPT/HCPCS: 73140

== ENCOUNTER 2024-11-28 09:24 | Outpatient (CLI) | payer OTHER, SELFPAY ==
[2024-11-28 10:06] VITALS: BP 117/65; PULSE 62; RESP 16; TEMP 37.1; O2SAT 99
== END 2024-11-28 23:59 | disposition home or self-care (01) ==
LOC: MEDOUTP 09:24
PROVIDERS: PCP Family Medicine Geriatric Medicine; Referring Provider Internal Medicine Infectious Disease; Visit Provider Internal Medicine Infectious Disease
DX: M86.149 Other acute osteomyelitis, unspecified hand (principal)